=== PATIENT | female | born 1980 | race Caucasian/White ===

== ENCOUNTER 2021-08-31 09:15 | Outpatient (CLI) | payer OTHER, SELFPAY ==
--- NOTE | 2021-08-31 11:00 | NEURO_ITS ---
Impression: # Complains of numbness of hands. # Mild right Carpal Tunnel Syndrome. # No ulnar neuropathy. # Normal needle/EMG exam. # Clinical correlation recommended. Nerve Conduction Studies Anti Sensory Summary Table Stim Site NR Peak (ms) P-T Amp (?V) Site1 Site2 Delta-P (ms) Dist (cm) Michael (m/s) Left Median Anti Sensory (2-3nd Digit) Wrist 3.1 64.8 Wrist 2-3nd Digit 3.1 14.0 45 Wrist 3.2 75.4 Wrist 2-3nd Digit 3.1 14.0 45 Right Median Anti Sensory (2-3nd Digit) Wrist 3.3 49.5 Wrist 2-3nd Digit 3.3 14.0 42 Wrist 3.2 50.4 Wrist 2-3nd Digit 3.3 14.0 42 Left Radial Anti Sensory (Base 1st Digit) Wrist 1.9 18.4 Wrist Base 1st Digit 1.9 0.0 Right Radial Anti Sensory (Base 1st Digit) Wrist 2.2 15.3 Wrist Base 1st Digit 2.2 0.0 Left Ulnar Anti Sensory (5th Digit) Wrist 2.3 52.4 Wrist 5th Digit 2.3 14.0 61 Right Ulnar Anti Sensory (5th Digit) Wrist 2.4 43.7 Wrist 5th Digit 2.4 14.0 58 Motor Summary Table Stim Site NR Onset (ms) O-P Amp (mV) Site1 Site2 Delta-0 (ms) Dist (cm) Michael (m/s) Left Median Motor (Abd Poll Brev) Wrist 3.3 3.9 Elbow Wrist 5.1 28.0 55 Elbow 8.4 4.0 Right Median Motor (Abd Poll Brev) Wrist 3.4 5.0 Elbow Wrist 4.5 26.0 58 Elbow 7.9 4.4 Left Ulnar Motor (Abd Dig Minimi) Wrist 2.5 6.2 A Elbow Wrist 4.8 29.0 60 A Elbow 7.3 5.4 Right Ulnar Motor (Abd Dig Minimi) Wrist 2.3 6.1 A Elbow Wrist 4.7 27.0 57 A Elbow 7.0 5.6 F Wave Studies NR F-Lat (ms) L-R F-Lat (ms) Left Median (Mrkrs) (Abd Poll Brev) 27.54 0.85 Right Median (Mrkrs) (Abd Poll Brev) 28.39 0.85 Left Ulnar (Mrkrs) (Abd Dig Min) 27.29 0.47 Right Ulnar (Mrkrs) (Abd Dig Min) 27.76 0.47 EMG Side Muscle Nerve Root Ins Act Fibs Amp Dur Recrt Comment Right 1stDorInt Ulnar C8-T1 Nml Nml Nml Nml Nml Right Ext Indicis Radial (Post Int) C7-8 Nml Nml Nml Nml Nml Right Ext Digitorum Radial (Post Int) C7-8 Nml Nml Nml Nml Nml Right BrachioRad Radial C5-6 Nml Nml Nml Nml Nml Right PronatorTeres Median C6-7 Nml Nml Nml Nml Nml Right Abd Poll Brev Median C8-T1 Nml Nml Nml Nml Nml Left 1stDorInt Ulnar C8-T1 Nml Nml Nml Nml Nml Left Ext Indicis Radial (Post Int) C7-8 Nml Nml Nml Nml Nml Left Ext Digitorum Radial (Post Int) C7-8 Nml Nml Nml Nml Nml Left BrachioRad Radial C5-6 Nml Nml Nml Nml Nml Left PronatorTeres Median C6-7 Nml Nml Nml Nml Nml Left Abd Poll Brev Median C8-T1 Nml Nml Nml Nml Nml MTDD
== END 2021-08-31 09:16 | disposition home or self-care (01) ==
PROVIDERS: PCP Internal Medicine Infectious Disease; Visit Provider Internal Medicine Infectious Disease
DX: G56.01 Carpal tunnel syndrome, right upper limb (principal); G62.9 Polyneuropathy, unspecified
CPT/HCPCS: 95886; 95911

== ENCOUNTER 2021-10-06 20:58 | Emergency (ER) | payer OTHER, SELFPAY ==
--- NOTE | ~2021-10-06 | XR_ITS ---
EXAMINATION: XR shoulder RT min 2V DATE: 10/06/2021 21:22 INDICATION: Right shoulder pain. TECHNIQUE: 4 views of right shoulder were obtained. COMPARISON: None. FINDINGS: Bone alignment is normal. No fracture. Joint spaces are well maintained. IMPRESSION: 1. Normal right shoulder. Reviewed, dictated and finalized at location A. 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 Normal right shoulder.
[2021-10-06 21:01] VITALS: BP 128/86; PULSE 93; RESP 19; TEMP 36.6; O2SAT 98
[2021-10-06] MEDS: KETOROLAC (*BKC) 60 MG/2 ML VIAL IM (22:45)
[2021-10-06] MEDS: HYDROcodone/acetaminophen (*CRX) 5-325 MG TABLET 1 TAB PO (22:45)
--- NOTE | 2021-10-06 22:52 | ED.UPPEXIN ---
HPI - Extremity Injury (Upper) General Chief Complaint: Extremity Injury, Upper Stated Complaint: Right shoulder pain x1 day Time Seen by Provider: 10/06/21 21:54 Source: patient and RN notes reviewed Mode of arrival: ambulatory Limitations: no limitations History of Present Illness HPI narrative: This is 41 year old female right hand dominant who presents for evaluation of right shoulder pain. Last night she states she went to catch a log that was falling and she catch with right arm in awkward position. She has been having worsening pain to right shoulder since this injury. Her pain is worse with abduction of right arm. She denies any numbness or tingling. She took 500 mg naproxen last night without relief. Related Data Allergies Allergy/AdvReac Type Severity Reaction Status Date / Time No Known Allergies Allergy Verified 10/06/21 21:08 Review of Systems Review of Systems: All systems reviewed & are unremarkable except as noted in HPI and below PMFSH Past Medical History Medical History (Updated 10/06/21 @ 23:51 by Tiffany Lackey MD) Anxiety Carpal tunnel syndrome, bilateral Depression Surgical History Surgical History (Updated 10/06/21 @ 23:50 by Tiffany Lackey MD) Hx of tonsillectomy Social History Social History (Updated 10/06/21 @ 23:49 by Tiffany Lackey MD) Smoking status: Current every day smoker Exam Const: General: no acute distress and alert Orientation/consciousness: patient oriented x3 Eyes: EOM: EOMs intact bilaterally Resp: Effort & Inspection: normal respiratory effort Skin: General skin exam: normal color Rashes: no rashes Neuro: General: patient oriented x3 and moves all extremities Extrem: Other: strong bilateral radial pulse, neurovascularly intact . pain with abduction Psych: Mental Status: mental status grossly normal Affect: normal affect Course Reevaluation(s) Reevaluation #1: I Discussed with patient xray was normal. I Discussed discharge plan and management. She reports she is seeing an orthopedic surgeon. Date: 10/06/21 Time: 23:00 Vital Signs Vital signs: Vital Signs Temperature 97.8 F 10/06/21 21:01 Pulse Rate 93 10/06/21 21:01 Respiratory Rate 19 10/06/21 21:01 Blood Pressure 128/86 10/06/21 21:01 Pulse Oximetry 98 01/19/22 21:01 Temperature 97.8 F 10/06/21 21:01 Pulse Rate 80 10/07/21 00:11 Respiratory Rate 16 10/07/21 00:11 Blood Pressure 128/86 10/06/21 21:01 Pulse Oximetry 100 10/07/21 00:11 MDM - Extremity Injury (Upper) Imaging Data Radiologist's impression: ITS Impressions Shoulder X-Ray 10/06/21 21:24 IMPRESSION: 1. Normal right shoulder. Discharge Plan Discharge Clinical Impression: Right shoulder injury Qualifiers: Encounter type: initial encounter Qualified Code(s): S49.91XA - Unspecified injury of right shoulder and upper arm, initial encounter Patient Disposition: Home, Self-Care Condition: Stable Instructions: How to Use a Sling (ED), Shoulder Pain (ED), Exercises for Shoulder Abduction and Adduction (ED) Additional Instructions: Follow up with your orthopedic surgeon or your primary care provider for your shoulder injury. Wear sling for comfort. Take antiinflammatories. Prescriptions: New ibuprofen 800 mg tablet 800 mg PO Q6H PRN (Reason: pain) Qty: 14 RF: 0 cyclobenzaprine 10 mg tablet 10 mg PO TID PRN (Reason: muscle spasm) Qty: 10 RF: 0 Follow-up/Referrals: Sue,Fabricio العراقي [Primary Care Provider] - Stand Alone Forms: Work/School Release IP
[2021-10-07 00:11] VITALS: PULSE 80; RESP 16; O2SAT 100
== END 2021-10-07 00:12 | disposition home or self-care (01) ==
PROVIDERS: Emergency Provider General Practice; PCP Internal Medicine Infectious Disease
DX: S49.91XA Unspecified injury of right shoulder and upper arm, initial encounter (principal); F32.9 Major depressive disorder, single episode, unspecified; F41.9 Anxiety disorder, unspecified; X50.0XXA Overexertion from strenuous movement or load, initial encounter
CPT/HCPCS: 73030; 99283; A4565; A9270; J1885

== ENCOUNTER 2023-07-18 08:41 | Outpatient (CLI) | payer OTHER, SELFPAY ==
--- NOTE | ~2023-07-18 | XR_ITS ---
EXAMINATION: XR_ENEMABAC_CR DATE: 07/18/2023 10:08 INDICATION: Incomplete colonoscopy TECHNIQUE: A automation qtp tester radiograph was obtained. A catheter was inserted into the patient's rectum. Contra st was infused by gravity. Gas was infused by hand pump. Fluoroscopic spot images and conventional ra diographs were obtained. Fluoroscopy exposure time was 2.6 minutes. A total of 53 fluoroscopic images and 16 radiographs were obtained. COMPARISON: None. FINDINGS: There is some redundancy and tortuosity to the sigmoid colon and hepatic flexure. This results in sub optimal contrast coating of the cecum. There is a featureless ahaustral appearance to the sigmoid and descending colon. There is a normal haustral fold pattern in the more proximal ascending and transve rse colon. No fixed strictures or intraluminal masses. There are a couple small diverticula at the ce cum. The appendix opacifies with contrast. IMPRESSION: 1. Featureless ahaustral pattern to the descending and sigmoid colon. This can be seen in setting of chronic inflammatory bowel disease more commonly ulcerative colitis and less frequently Crohn's disea se. Differential also includes cathartic colitis in the setting of chronic laxative use. Reviewed, dictated and finalized at location A. IMPRESSION: 1. Featureless ahaustral pattern to the descending and sigmoid colon. This can be seen in setting of chronic inflammatory bowel disease more commonly ulcerati ve colitis and less frequently Crohn's disease. Differential also includes cath artic colitis in the setting of chronic laxative use.
== END 2023-07-18 08:42 | disposition home or self-care (01) ==
PROVIDERS: PCP Internal Medicine Infectious Disease; Visit Provider Internal Medicine Gastroenterology
DX: R93.3 Abnormal findings on diagnostic imaging of other parts of digestive tract (principal)
CPT/HCPCS: 74280

== ENCOUNTER 2023-10-31 11:32 | Emergency (ER) | payer OTHER, SELFPAY ==
--- NOTE | ~2023-10-31 | CT_ITS ---
EXAMINATION: CT soft tissue neck w con DATE: 10/31/2023 15:35 INDICATION: Face and neck swelling. Facial pain. TECHNIQUE: Computed tomography (CT) of the neck was performed with 75 mL Omnipaque-350 intravenous co ntrast. Automated exposure control and iterative reconstruction technique were employed. The dose-mattie gth product was 556.04 mGy-cm. COMPARISON: None FINDINGS: There is plaque in the proximal internal carotids is 0% stenosis relative to normal distal artery lumen diameters. There is a mildly enlarged left submandibular node. There is leftward deviati on of the nasal septum. The mastoid air cells are normal. There are carious lesions of teeth 3, 5, 8, 9, 10, 13,19, and 30. IMPRESSION: 1. Extensive dental disease. 2. Mildly enlarged left submandibular lymph node, likely reactive. Reviewed, dictated and finalized at location A. [employer]
[2023-10-31 11:37] VITALS: BP 113/58; PULSE 102; RESP 18; TEMP 36.3; O2SAT 98
--- NOTE | 2023-10-31 13:50 | ED.GENADULT ---
HPI - General Adult General Chief complaint: Unspecified <JOON Spencer Last Filed: 10/31/23 14:02> Stated complaint: facial pain <JOON Spencer Last Filed: 10/31/23 14:02> Time Seen by Provider: 10/31/23 13:40 <Doreen Hernandez PA-C - Last Filed: 10/31/23 14:02> Focused HPI: Patient is a 43 y/o female who presents to the ED with c/o facial pain and swelling. Patient reports hx of 4 different forms of lichen planus. She sees a specialist with [facility] for this. She reports a lesion on her left lower lip that she states cracked from dryness 2 months ago and became subsequently infected. She began noticing increased pain and swelling to her face, jaw, neck on Monday, which has continued to worsen since then. She performed a virtual visit with the customer support assistant clinic on Monday and was started on Keflex. She denies any changes in her symptoms since then. She has been taking Tylenol for the pain. Reports painful swallowing, bilateral ear pain, denies difficulty breathing. Denies fevers. Denies ear drainage or changes in hearing. GENERAL: Well-appearing, well-nourished, and in no acute distress. HEAD: Normocephalic, atraumatic. ENT: Scabbed lesion to L lower lip. MMs, lips, tongue dry. No oral lesions noted. NECK: Diffuse lymphadenopathy noted in bilateral anterior cervical/submandibular regions, somewhat firm, tender. CHEST: Clear to auscultation. ?No respiratory distress. No stridor. HEART: Regular rate and rhythm.? NEURO: ?Alert and oriented x3. Patient screened in triage and initial orders placed.? ?Additional care and disposition to be based upon?diagnostic testing and treatment. <JOON Spencer Last Filed: 10/31/23 14:02> Related Data Home medications: Home Medications Medication Instructions Recorded Confirmed cephalexin 500 mg capsule mg 10/31/23 clobetasol 0.05 % topical cream topical 10/31/23 lorazepam 0.5 mg tablet mg 10/31/23 omeprazole 20 mg capsule,delayed mg 10/31/23 release risperidone 2 mg tablet mg 10/31/23 triamcinolone acetonide 0.1 % applic topical 10/31/23 10/31/23 topical cream venlafaxine 75 mg capsule,extended mg PO 10/31/23 release 24 hr <Doreen Hernandez PA-C - Last Filed: 10/31/23 14:02> Allergies/adverse reactions: Allergies Allergy/AdvReac Type Severity Reaction Status Date / Time hydroxychloroquine AdvReac Back Pain Verified 10/31/23 11:41 [From Plaquenil] <Doreen Hernandez PA-C - Last Filed: 10/31/23 14:02> Review of Systems Review of Systems: All systems are reviewed and are negative unless stated otherwise in the HPI. <Mckenzie Fine MD - Last Filed: 10/31/23 16:49> PMFSH Past Medical History Medical History: Medical History Anxiety Carpal tunnel syndrome, bilateral Depression Fatty liver History of HPV infection <Doreen Hernandez PA-C - Last Filed: 10/31/23 14:02> Surgical History Surgical History: Surgical History Delivery by section x 2 H/O colposcopy with cervical biopsy (08/26/04) colposcopy HGSIL PATY 2-3 H/O colposcopy with cervical biopsy (05/29/01) colpsocopy- LGSIL mild dysplasia H/O colposcopy with cervical biopsy (~11/15/21) H/O LEEP (10/07/04) LEEP LGSIL PATY 1/ chronic cervicitis H/O tubal ligation Hx of tonsillectomy <JOON Spencer Last Filed: 10/31/23 14:02> Family History Family History: Family History Father Diabetes mellitus Acute myocardial infarction Grandparent Arthritis maternal grandmother H/O ovarian cancer maternal Grandmother <Doreen Hernandez PA-C - Last Filed: 10/31/23 14:02> Social History Social History: Social History (Reviewed 10/31/23 @ 16:46 by Mckenzie Fine,
--- NOTE | 2023-10-31 14:04 | PC.NURSE ---
Pt presents with c/o facial swelling, erosive sore to mouth. States she has lichen planus, noticed swelling that has worsen with pain. Had virtual visit 2 days ago RX for Keflex. Pt feels her lichen planus has exacerbated. Mild swelling noted with flush face. No erosive lesion noted.
[2023-10-31 14:20] LABS: Basophils Absolute Auto 0.1 K/mm3 (0.0-0.1); Basophils Percent Auto 0.7 % (0.2-1.2); Eosinophils Absolute Auto 0.2 K/mm3 (0-0.3); Eosinophils Percent Auto 1.9 % (0-4.4); Hematocrit 41.8 % (37.0-47.0); Hemoglobin 13.8 g/dL (12.0-15.0); Immature Granulocyte Absolute 0.06 K/mm3 (0.00-0.031); Immature Granulocyte Percent A 0.7 % (0-0.5); Lymphocytes Percent Auto 33.4 % (18.3-44.2); Mean Corpuscular Hemoglobin 32.2 pg (26-34); Mean Corpuscular Volume 97.7 fl (80-100); Mean Platelet Volume 9.9 fl (7.4-10.4); Neutrophils Absolute Auto 4.7 K/mm3 (1.3-6.7); Neutrophils Percent Auto 52.3 % (45.5-73.1); Platelet Count Result 361 k/mm3 (150-375); Red Blood Count 4.28 M/mm3 (4.2-5.4); Red Cell Distribution Width 12.8 % (11.5-14.5)
[2023-10-31 14:37] LABS: Alanine Aminotransferase 41 U/L (6-35); Albumin Level 4.3 g/dL (3.5-5.1); Alkaline Phosphatase 103 U/L (38-126); Anion Gap 6 mmol/L (8-16); Aspartate Amino Transferase 34 U/L (14-36); Bilirubin,Total 0.4 mg/dL (0.2-1.3); Blood Urea Nitrogen 12 mg/dL (7-17); Calcium 9.3 mg/dL (8.4-10.2); Carbon Dioxide 26 mmol/L (22-30); Chloride 106 mmol/L (98-107); Estimated CRCL calculation 93 ml/min; Estimated Glomerular Filt Rate > 60; Glucose 96 mg/dL (65-110); Sodium 138 mmol/L (137-145)
[2023-10-31 14:38] VITALS: BP 103/64; PULSE 94; RESP 16; O2SAT 99
[2023-10-31 14:41] LABS: Potassium 3.9 mmol/L (3.4-5.0)
[2023-10-31 16:38] VITALS: BP 108/69; PULSE 90; RESP 16; O2SAT 96
[2023-10-31] MEDS: HYDROcodone/acetaminophen (*CRX) 5-325 MG TABLET 1 TAB PO (16:56)
== END 2023-10-31 17:08 | disposition home or self-care (01) ==
LOC: ANHED 16:50
PROVIDERS: Physician Assistant; Emergency Provider Emergency Medicine; PCP Internal Medicine Infectious Disease
DX: K08.89 Other specified disorders of teeth and supporting structures (principal); F17.210 Nicotine dependence, cigarettes, uncomplicated; F41.9 Anxiety disorder, unspecified; F32.A Depression, unspecified
CPT/HCPCS: 36415; 70491; 80053; 85025; 99284; A9270; Q9967

== ENCOUNTER 2024-05-13 14:56 | Outpatient (CLI) | payer OTHER, SELFPAY ==
--- NOTE | ~2024-05-13 | XR_ITS ---
EXAMINATION: XR abdomen/kub 1V DATE: 05/13/2024 15:28 INDICATION: Constipation. TECHNIQUE: A supine view of the abdomen on 2 radiographs was obtained. COMPARISON: None. FINDINGS: There are no dilated loops of bowel. There is a moderate volume of stool in the colon. Ther e are phleboliths in the pelvis. IMPRESSION: 1. Normal bowel gas pattern. Reviewed, dictated and finalized at location A.
--- NOTE | ~2024-05-13 | XR_ITS ---
EXAMINATION: XR thoracic spine 3V DATE: 05/13/2024 15:29 INDICATION: Lumbar back pain. TECHNIQUE: 3 views of thoracic spine were obtained. COMPARISON: None. FINDINGS: There is 7 degrees levocurvature of upper thoracic spine and 6 degrees dextrocurvature of l ower thoracic spine. Vertebral body and intervertebral disc heights are normal. There are endplate os teophytes at multiple levels. IMPRESSION: 1. Mild thoracic spondylosis. Reviewed, dictated and finalized at location A.
--- NOTE | ~2024-05-13 | XR_ITS ---
EXAMINATION: XR lumbar spine 2-3V DATE: 05/13/2024 15:29 INDICATION: Lumbar back pain. TECHNIQUE: 3 views of lumbar spine were obtained. COMPARISON: Lumbar spine radiographs 01/25/2011 FINDINGS: Alignment is normal. Vertebral body heights are normal. There is mildly decreased disc heig ht at L5-S1. There is moderate to severe facet joint osteoarthritis in lower lumbar spine. IMPRESSION: 1. Mild lumbar spondylosis. Reviewed, dictated and finalized at location A. IMPRESSION: 1. Mild lumbar spondylosis.
== END 2024-05-13 14:57 | disposition home or self-care (01) ==
LOC: ANHIMG 14:59
PROVIDERS: PCP Internal Medicine Infectious Disease; Visit Provider Physician Assistant
DX: M43.06 Spondylolysis, lumbar region (principal); M43.04 Spondylolysis, thoracic region
CPT/HCPCS: 72072; 72100; 74018

== ENCOUNTER 2024-07-04 15:21 | Outpatient (CLI) | payer OTHER, SELFPAY ==
--- NOTE | ~2024-07-04 | XR_ITS ---
XR knee RT 3V 07/04/2024 16:11 INDICATION: Arthralgias PROCEDURE: 3 views right knee COMPARISON: No prior studies for comparison. FINDINGS: Fracture, dislocation or subluxation is not identified. No significant degenerative change. No joint effusion. The soft tissues appear within normal limits. No foreign bodies are identified. IMPRESSION: 1: No significant bone or joint abnormality. Reviewed, dictated and finalized at location B.
--- NOTE | ~2024-07-04 | XR_ITS ---
EXAMINATION: XR_FOOTSTNDR3_CR DATE: 07/04/2024 16:10 INDICATION: Right foot pain. TECHNIQUE: 3 views of right foot standing were obtained. COMPARISON: None. FINDINGS: Alignment is normal. No fracture. There is mild osteoarthritis of first metatarsophalangeal joint. There are enthesophytes at the posterior and plantar aspects of calcaneal tuberosity. IMPRESSION: 1. Mild osteoarthritis of first metatarsophalangeal joint. Reviewed, dictated and finalized at location A.
--- NOTE | ~2024-07-04 | XR_ITS ---
XR knee LT 3V 07/04/2024 16:11 INDICATION: Arthralgias PROCEDURE: 3 views left knee COMPARISON: No prior studies for comparison. FINDINGS: Fracture, dislocation or subluxation is not identified. No significant degenerative change. No joint effusion. The soft tissues appear within normal limits. No foreign bodies are identified. IMPRESSION: 1: No significant bone or joint abnormality. Reviewed, dictated and finalized at location B.
--- NOTE | ~2024-07-04 | XR_ITS ---
EXAMINATION: XR_FOOTSTNDL3_CR DATE: 07/04/2024 16:10 INDICATION: Left foot pain. TECHNIQUE: 3 views of left foot standing were obtained. COMPARISON: None. FINDINGS: Alignment is normal. No fracture. There is mild osteoarthritis of first metatarsophalangeal joint. There is mild talonavicular joint osteoarthritis. IMPRESSION: 1. Mild polyarticular osteoarthritis. Reviewed, dictated and finalized at location A.
--- NOTE | ~2024-07-04 | XR_ITS ---
EXAMINATION: XR hand BI arthritis min 3V DATE: 07/04/2024 16:11 INDICATION: Arthralgia of the hands. TECHNIQUE: 4 views of right hand and 4 views of left hand on a total of 7 radiographs were obtained. COMPARISON: None. FINDINGS: RIGHT HAND: Alignment is normal. No acute fracture. There is an old healed fracture of diaphysis of f ifth metacarpal. There is mild osteoarthritis of first carpometacarpal joint, second metacarpophalang eal joint, and some of the interphalangeal joints. There is moderate osteoarthritis of second distal interphalangeal joint. LEFT HAND: Alignment is normal. No fracture. There is mild osteoarthritis of first carpometacarpal anup int, first carpophalangeal joint, and some of the interphalangeal joints. There is moderate osteoarth ritis of first interphalangeal joint. IMPRESSION: 1. Polyarticular osteoarthritis. Reviewed, dictated and finalized at location A.
== END 2024-07-04 15:22 | disposition home or self-care (01) ==
PROVIDERS: PCP Internal Medicine Infectious Disease
DX: M19.071 Primary osteoarthritis, right ankle and foot (principal); M19.072 Primary osteoarthritis, left ankle and foot; M19.042 Primary osteoarthritis, left hand; M19.041 Primary osteoarthritis, right hand; M25.562 Pain in left knee; M25.561 Pain in right knee
CPT/HCPCS: 73130; 73562; 73630

== ENCOUNTER 2024-08-30 08:03 | Outpatient (CLI) | payer OTHER, SELFPAY ==
--- NOTE | ~2024-08-30 | MR_ITS ---
MRI of the right hand CLINICAL HISTORY: Arthralgia TECHNIQUE: Axial T1-weighted, T2 fat-sat, and T1 fat-sat images, coronal T1-weighted and T2 fat-sat i mages, and sagittal T1-weighted and T2 fat-sat images were performed. Following intravenous administr ation of 20 cc MultiHance gadolinium, T1-weighted fat-sat imaging was performed in the axial, coronal , and sagittal planes. FINDINGS: Exam is suboptimal, as fat suppression is extremely poor and T2 fat-sat sequences. No abnor mal hypointense T1 marrow signal seen to suggest osteomyelitis. No fracture or dislocation evident. N o gross marrow signal reality seen. There is probable minimal degenerative change at the first CMC joint. There may be minimal degenerati ve changes scattered the interphalangeal joints of the fingers. Flexor and extensor tendons appear intact. Intrinsic musculature of the hand unremarkable. No soft ti ssue mass or fluid collection seen. Postcontrast images are also significantly suboptimal, with very poor fat suppression. No gross abnor mal postcontrast enhancement identified. IMPRESSION: Minimal degenerative changes at the interphalangeal joints and first CMC joint, as above. Exam overall is suboptimal as there is extremely poor fat suppression on T2 fat-sat images and postco ntrast sequences. Reviewed, dictated and finalized at location . 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 Exam overall is suboptimal as there is extremely poor fat suppression on T2 fat -sat images and postcontrast sequences.
--- NOTE | ~2024-08-30 | MR_ITS ---
EXAMINATION: MR foot RT wo/w con DATE: 08/30/2024 10:02 INDICATION: Arthralgia at the right foot TECHNIQUE: Magnetic resonance imaging (MRI) of the right foot was performed without intravenous contr ast. Sequences included axial, sagittal and coronal T1-weighted FSE, axial and coronal T2-weighted FS FSE, sagittal fluid sensitive FSE STIR, axial T1-weighted FS FSE and postcontrast axial, sagittal an d coronal T1-weighted FS FSE. COMPARISON: Right foot radiographs dated 07/04/2024 FINDINGS: Bone alignment is normal. Moderate osteoarthritis with subarticular edema-like signal changes and non masslike enhancement at both sides of the fourth and tarsal metatarsal joint. Additional mild osteoa rthritis without degenerative subchondral changes at the remaining tarsal metatarsal joints as well a s the first metatarsophalangeal joint and a few interphalangeal joints. No fracture or pathologic mar row replacing process. The Achilles tendon and remaining flexor and extensor tendons of the foot and ankle are normal with no tenosynovitis. No joint effusions or other abnormal fluid collections. No ab normally enhancing lesions. There is subcutaneous edema about the ankle most prominent at the lateral malleolus and which extends over the dorsolateral aspect of the foot. IMPRESSION: 1. Typical distribution of polyarticular osteoarthritis in the right mid and forefoot, moderate sever ity with high-grade chondral malacia at the fourth tarsal metatarsal joint and otherwise mild. Reviewed, dictated and finalized at location A. 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 Typical distribution of polyarticular osteoarthritis in the right mid and fo refoot, moderate severity with high-grade chondral malacia at the fourth tarsal metatarsal joint and otherwise mild.
== END 2024-08-30 08:04 | disposition home or self-care (01) ==
PROVIDERS: PCP Internal Medicine Infectious Disease
DX: M19.071 Primary osteoarthritis, right ankle and foot (principal); M94.271 Chondromalacia, right ankle and joints of right foot; M25.541 Pain in joints of right hand
CPT/HCPCS: 73220; 73720; A9577

== ENCOUNTER 2024-10-19 19:36 | Emergency (ER) | payer OTHER, SELFPAY ==
--- NOTE | ~2024-10-19 | XR_ITS ---
EXAM: XR hand LT min 3V DATE: 10/19/2024 19:54 HISTORY: left 5th metacarpal pain . COMPARISON: 07/04/2024. FINDINGS: Normal mineralization. Oblique, minimally displaced intra-articular fracture along the ant erolateral and proximal aspect of the left fifth middle phalanx. No lytic or blastic lesion. Joint sp aces are maintained. No erosion or periosteal change. Soft tissue swelling over the fracture. IMPRESSION: Oblique, minimally displaced intra-articular fracture along the anterolateral and proxima l aspect of the left fifth middle phalanx. Reviewed, dictated and finalized at location [facility]. [employer] DOOR [employer] GENERATION IMPRESSION: Oblique, minimally displaced intra-articular fracture along the ant erolateral and proximal aspect of the left fifth middle phalanx.
--- NOTE | 2024-10-19 19:37 | ED.UPPEXIN ---
HPI - Extremity Injury (Upper) General Chief Complaint: Extremity Injury, Upper Stated Complaint: Injured Finger Time Seen by Provider: 10/19/24 19:37 Source: patient Mode of arrival: ambulatory Limitations: no limitations History of Present Illness HPI narrative: Destiny is a 44-year-old female patient presenting to the clinic today with complaints a finger injury/hand injury. She reports she fell last night and landed on her left side. Is complaining of some left hand and left 5th finger injury. Has pain and swelling to the left 5th finger. Is unable to bend the left finger due to the swelling. Related Data Home Medications ?Medication ?Instructions ?Recorded ?Confirmed ?Last Taken ?Type clobetasol 0.05 % topical cream topical 10/31/23 07/02/24 Unknown History lorazepam 0.5 mg tablet mg 10/31/23 07/02/24 Unknown History triamcinolone acetonide 0.1 % applic topical 10/31/23 07/02/24 Unknown History topical cream venlafaxine 75 mg capsule,extended mg PO 10/31/23 07/02/24 Unknown History release 24 hr dexamethasone 0.5 mg/5 mL oral 0.5 mg PO BID 01/10/24 07/02/24 Unknown History solution nystatin 100,000 unit/mL oral 1 ml PO DAILY 01/10/24 07/02/24 Unknown History suspension timolol maleate 0.5 % eye drops 1 drp EACH EYE Q12H 01/10/24 07/02/24 Unknown History celecoxib 200 mg capsule 200 mg PO BID 07/02/24 07/02/24 Unknown History furosemide 20 mg tablet 20 mg PO 07/02/24 07/02/24 Unknown History pantoprazole 40 mg tablet,delayed mg PO 07/02/24 07/02/24 Unknown History release lamotrigine 25 mg tablet (Lamictal) 100 mg PO DAILY 08/29/24 Unknown History phentermine 37.5 mg tablet 37.5 mg PO 08/29/24 Unknown History Allergies Allergy/AdvReac Type Severity Reaction Status Date / Time hydroxychloroquine (From AdvReac Back Pain Verified 08/29/24 09:27 Plaquenil) Review of Systems Review of Systems: Pertinent positives per HPI. Patient denies any fever, chills, rash, headache, visual changes, dizziness, cough, runny nose, sore throat, shortness of breath, chest pain, palpitations, nausea, vomiting, diarrhea, constipation, abdominal pain, or any urinary issues. [facility] Past Medical History Medical History Spondylosis GERD (gastroesophageal reflux disease) Chronic venous insufficiency Lichen planus classic , oral , vulvar History of HPV infection Fatty liver Anxiety Depression Carpal tunnel syndrome, bilateral Surgical History Surgical History History of mandibular surgery parts of jaw bone removed H/O colposcopy with cervical biopsy (~11/15/21) Benign H/O colposcopy with cervical biopsy (05/29/01) colpsocopy- LGSIL mild dysplasia H/O colposcopy with cervical biopsy (08/26/04) colposcopy HGSIL PATY 2-3 H/O LEEP (10/07/04) LEEP LGSIL PATY 1/ chronic cervicitis H/O tubal ligation Delivery by section x 2 Hx of tonsillectomy Family History Family History Father Diabetes mellitus Acute myocardial infarction Grandparent Arthritis maternal grandmother H/O ovarian cancer maternal Grandmother Social History Social History Smoking status: Former smoker Tobacco type: cigarettes Second hand tobacco smoke exposure: Yes Smoking end date: 02/24/24 Alcohol intake: current Drinks per week: 5 Substance use: never Substance use type: does not use Do You Feel Safe in your Home?: Yes Lack of Transportation: No Lack of Food: Never True Current Housing: I Have Housing Concerned About Future Housing: No Difficulty Paying Gas/Electric Bills: No Difficulty Paying for Meds: No Currently Unemployed: No Education: Trade/Vocational Certificate Difficulty w/ Childcare or Family Care: No Living arrangements: with family Additional living arrangements comments: boyfriend Occupation/Education: occupation Additional occupation/education comments: [employer] Gender identity (if verbalized by the patient): Female Sexual Orientation (if Verbalized by the Patient): Straight or Heterosexual Comments At the time of my signature, I reviewed and agree with the nursing past medical, surgical, social, and family history. There is no relevant family history pertinent to the patient complaint. Exam Narrative: General: Well-developed, well nourished, in no apparent distress Head: Normocephalic, atraumatic. Cardio: Regular rate and rhythm, s1 and s2 normal, no murmur appreciated. Resp: Clear to auscultation bilaterally, no rhonchi, rales, wheezing or rubs. Musculoskeletal: No deformity, bruising and swelling noted to the left 5th finger, tender to palpation over the left 5th finger and left 5th metacarpal, unable to bend or fully extend the left 5th finger due to pain and swelling, muscle strength strong and equal, peripheral pulse strong,no cyanosis, normal gait and station Course Course Emergency Course: Portions of this record may have been created with voice recognition software. Level of Care: Express Care Visit Vital Signs Vital signs: Vital Signs Temperature 36.2 C L 10/19/24 19:47 Pulse Rate 93 10/19/24 19:47 Respiratory Rate 16 10/19/24 19:47 Blood Pressure 133/95 H 10/19/24 19:47 Pulse Oximetry 98 10/19/24 19:47 Temperature 36.2 C L 10/19/24 19:47 Pulse Rate 93 10/19/24 19:47 Respiratory Rate 16 10/19/24 19:47 Blood Pressure 133/95 H 10/19/24 19:47 Pulse Oximetry 98 10/19/24 19:47 Vital signs reviewed MDM - Extremity Injury (Upper) MDM Narrative Medical decision making narrative: At the time of visit patient is resting comfortably on the exam table. Patient appears to be nontoxic. X-ray: X-ray of the left hand was performed and shows a left 5th phalanx fracture Plan: Patient has a closed left 5th finger fracture. While patient follow-up with hand specialist-Dr. Bryan-call to schedule appointment on Monday. Supportive measures were discussed with the patient and they voiced understanding discharge instructions and agrees to treatment plan. Return precautions reviewed Differential Diagnosis Differential diagnosis: Likely sprain and strain of wrist, fracture of wrist, finger sprain, dislocation of finger, fracture of hand and other (Finger fracture) Discharge Plan Discharge Clinical Impression: Finger fracture, left Qualifiers: Encounter type: initial encounter Finger: little finger Fracture type: closed Phalanx: middle Fracture alignment: nondisplaced Qualified Code(s): S62.657A - Nondisplaced fracture of middle phalanx of left little finger, initial encounter for closed fracture Patient Disposition: Home, Self-Care Condition: Stable Instructions: Antibiotic Form, Finger Fracture (ED) Additional Instructions: X-ray shows an obvious close fracture of the left 5th middle phalanx. Rest, ice, elevate, and wear volar ulnar gutter splint with arm sling as directed Tylenol/motrin for pain as discussed. Follow-up with Dr. Bryan as discussed-call office on Monday and schedule appointment Follow up with your PCP if symptoms persist more than 1 week. Patient Language: Greek Prescriptions: No Action timolol maleate 0.5 % drops 1 drp EACH EYE Q12H dexamethasone 0.5 mg/5 mL solution 0.5 mg PO BID nystatin 100,000 unit/mL suspension 1 ml PO DAILY Rx Instructions: swish and swallow lamotrigine [Lamictal] 25 mg tablet 100 mg PO DAILY furosemide 20 mg tablet 20 mg PO pantoprazole 40 mg tablet,delayed release (DR/EC) PO celecoxib 200 mg capsule 200 mg PO BID phentermine 37.5 mg tablet 37.5 mg PO metronidazole 500 mg tablet 500 mg PO Q12H Qty: 14 0RF venlafaxine 75 mg capsule,extended release 24hr PO clobetasol 0.05 % Cream TOPICAL triamcinolone acetonide 0.1 % Cream TOPICAL lorazepam 0.5 mg tablet metronidazole 1.3 % (65 mg/5 gram) gel 1 appful vaginal QHS Qty: 5 0RF Rx Instructions: insert l applicatorful at bedtime for 5 nights Follow-up/Referrals: Michelle Bryan MD [Physician] - (Left 5th closed finger fracture) PHYSICIAN,GYROSCOPIC INSTRUMENT TESTER [Primary Care Provider] - Stand Alone Forms: Work/School Release IP Time of Disposition: 20:23 Quality NIHSS Nursing Documentation ED NIHSS nursing documentation: reviewed/agree
[2024-10-19 19:47] VITALS: BP 133/95; PULSE 93; RESP 16; TEMP 36.2; O2SAT 98
== END 2024-10-19 20:23 | disposition home or self-care (01) ==
PROVIDERS: Emergency Provider Nurse Practitioner Family
DX: S62.657A Nondisplaced fracture of middle phalanx of left little finger, initial encounter for closed fracture (principal); W19.XXXA Unspecified fall, initial encounter; K21.9 Gastro-esophageal reflux disease without esophagitis; K76.0 Fatty (change of) liver, not elsewhere classified; F41.9 Anxiety disorder, unspecified; F32.A Depression, unspecified; L43.9 Lichen planus, unspecified; Z87.891 Personal history of nicotine dependence
CPT/HCPCS: 29125; 73130; 99214; A4565; G0463

== ENCOUNTER 2024-11-14 09:54 | Emergency (ER) | payer OTHER, SELFPAY ==
[2024-11-14 10:07] VITALS: BP 122/70; PULSE 92; RESP 16; TEMP 36.3; O2SAT 100
--- NOTE | 2024-11-14 10:57 | ED.GENADULT ---
HPI - General Adult General Chief complaint: Extremity Injury, Upper Stated complaint: Left Hand Irritation Time Seen by Provider: 11/14/24 10:57 Source: patient, RN notes reviewed and old records reviewed Mode of arrival: ambulatory Limitations: no limitations History of Present Illness HPI narrative: 44-year-old presents to the [facility] with concerns splint. Patient has a fracture to the left 5th finger. Is being followed by Dr. Badillo. patient states that since she has had her splint on, it comes off at night. States that it has come off by itself 3 times. States that she also got it wet in feels like it is softer than normal. patient presents to have the splint reapplied Related Data Home Medications ?Medication ?Instructions ?Recorded ?Confirmed ?Last Taken ?Type venlafaxine 75 mg capsule,extended mg PO 10/31/23 07/02/24 Unknown History release 24 hr celecoxib 200 mg capsule 200 mg PO BID 07/02/24 07/02/24 Unknown History furosemide 20 mg tablet 20 mg PO 07/02/24 07/02/24 Unknown History pantoprazole 40 mg tablet,delayed mg PO 07/02/24 07/02/24 Unknown History release phentermine 37.5 mg tablet 37.5 mg PO 08/29/24 Unknown History lamotrigine 100 mg tablet mg 11/14/24 Unknown History plecanatide 3 mg tablet (Trulance) mg 11/14/24 Unknown History Allergies Allergy/AdvReac Type Severity Reaction Status Date / Time hydroxychloroquine (From AdvReac Back Pain Verified 11/14/24 10:04 Plaquenil) Review of Systems Review of Systems: All systems reviewed & are unremarkable except as noted in HPI and below Constitutional: Constitutional: Reports no additional constitutional complaints ENT: Reports system reviewed and no additional complaints, except as documented Cardiovascular: Cardiovascular: Reports no additional cardiovascular complaints, Denies chest pain and Denies dyspnea Respiratory: Respiratory: Reports no additional respiratory complaints, Denies chest congestion, Denies cough and Denies dyspnea Musculoskeletal: Musculoskeletal: Reports as per HPI Integumentary/Breasts: Skin/Breast: Reports system reviewed and no additional complaints, except as docu [facility] Past Medical History Medical History Spondylosis GERD (gastroesophageal reflux disease) Chronic venous insufficiency Lichen planus classic , oral , vulvar History of HPV infection Fatty liver Anxiety Depression Carpal tunnel syndrome, bilateral Surgical History Surgical History History of mandibular surgery parts of jaw bone removed H/O colposcopy with cervical biopsy (~11/15/21) Benign H/O colposcopy with cervical biopsy (05/29/01) colpsocopy- LGSIL mild dysplasia H/O colposcopy with cervical biopsy (08/26/04) colposcopy HGSIL PATY 2-3 H/O LEEP (10/07/04) LEEP LGSIL PATY 1/ chronic cervicitis H/O tubal ligation Delivery by section x 2 Hx of tonsillectomy Family History Family History Father Diabetes mellitus Acute myocardial infarction Grandparent Arthritis maternal grandmother H/O ovarian cancer maternal Grandmother Social History Social History Smoking status: Former smoker Tobacco type: cigarettes Second hand tobacco smoke exposure: Yes Smoking end date: 02/24/24 Alcohol intake: current Drinks per week: 5 Substance use: never Substance use type: does not use Do You Feel Safe in your Home?: Yes Lack of Transportation: No Lack of Food: Never True Current Housing: I Have Housing Concerned About Future Housing: No Difficulty Paying Gas/Electric Bills: No Difficulty Paying for Meds: No Currently Unemployed: No Education: Trade/Vocational Certificate Difficulty w/ Childcare or Family Care: No Living arrangements: with family Additional living arrangements comments: boyfriend Occupation/Education: occupation Additional occupation/education comments: [employer] Gender identity (if verbalized by the patient): Female Sexual Orientation (if Verbalized by the Patient): Straight or Heterosexual Comments At the time of my signature, I reviewed and agree with the nursing past medical, surgical, social, and family history. There is no relevant family history pertinent to the patient complaint. Exam Const: General: cooperative, healthy appearing, comfortable, no acute distress, well developed, alert and well nourished Nutritional Appearance: well nourished Orientation/consciousness: patient oriented x3 Limitations: no limitations HENMT: Head: normal to inspection Eyes: General: appearance normal, both eyes and all related structures Alignment and Position: alignment normal Neck: Neck: normal visual inspection and full ROM Chest: Chest palpation & inspection: normal inspection of the chest Resp: Effort & Inspection: normal respiratory effort and able to speak in complete sentences Cardio: Rate: regular rate Skin: General skin exam: normal color and no rashes or lesions noted Neuro: General: patient oriented x3, gait normal, moves all extremities and no meningeal signs Cognition (Neuro): normal cognition Speech: normal speech Gait exam (Neuro): Normal gait present Extrem: General: normal to inspection, full ROM, capillary refill normal and normal gait Psych: Appearance: grossly normal and well kempt Mental Status: mental status grossly normal Speech and movement: Normal speech and movement present and Clear speech present Affect: normal affect Attitude: cooperative Course Course Level of Care: Express Care Visit Vital Signs Vital signs: Vital Signs Temperature 97.4 F L 11/14/24 10:07 Pulse Rate 92 11/14/24 10:07 Respiratory Rate 16 11/14/24 10:07 Blood Pressure 122/70 11/14/24 10:07 Pulse Oximetry 100 11/14/24 10:07 Oxygen Delivery Room Air 11/14/24 10:07 Temperature 97.4 F L 11/14/24 10:07 Pulse Rate 92 11/14/24 10:07 Respiratory Rate 16 11/14/24 10:07 Blood Pressure 122/70 11/14/24 10:07 Pulse Oximetry 100 11/14/24 10:07 Oxygen Delivery Room Air 11/14/24 10:07 Reviewed Medical Decision Making MDM Narrative Medical decision making narrative: Patient sitting comfortably in exam room. Nontoxic, vitals stable. Patient in no acute distress Patient presents for re-application of splint. Fiberglass is noted to be within good limits. Web roll reapplied, splint applied. Encourage patient to follow-up with Dr. Badillo. Discharge instructions reviewed with patient, as well as provided in writing per nursing staff. The instructions also include specific and strict return/GO TO THE ER as well as f/u information. All questions have been answered, and the patient deny any further questions with discharge and discharge plan. Some parts of this dictation were generated by voice recognition software and may contain typographical and/or grammatical inaccuracies. Medical Records Medical records reviewed: Yes I reviewed the external patient's medical records. Vital Signs Vital Signs: Vital Signs Temperature 97.4 F L 11/14/24 10:07 Pulse Rate 92 11/14/24 10:07 Respiratory Rate 16 11/14/24 10:07 Blood Pressure 122/70 11/14/24 10:07 Pulse Oximetry 100 11/14/24 10:07 Oxygen Delivery Room Air 11/14/24 10:07 Temperature 97.4 F L 11/14/24 10:07 Pulse Rate 92 11/14/24 10:07 Respiratory Rate 16 11/14/24 10:07 Blood Pressure 122/70 11/14/24 10:07 Pulse Oximetry 100 11/14/24 10:07 Oxygen Delivery Room Air 11/14/24 10:07 Reviewed Lab Data Lab results reviewed: Yes I reviewed the patient's lab results. Labs: Reviewed Critical Care Time Critical Care Time Critical Care Time: No Discharge Plan Discharge Clinical Impression: History of fracture of phalanx of finger Patient Disposition: Home, Self-Care Condition: Stable Instructions: Antibiotic Form, Splint Care (ED) Additional Instructions: follow-up with Dr. Badillo do not remove splint. Try to keep it clean and dry Patient Language: Chinese Prescriptions: No Action lamotrigine 100 mg tablet Trulance 3 mg tablet furosemide 20 mg tablet 20 mg PO pantoprazole 40 mg tablet,delayed release (DR/EC) PO celecoxib 200 mg capsule 200 mg PO BID phentermine 37.5 mg tablet 37.5 mg PO venlafaxine 75 mg capsule,extended release 24hr PO Follow-up/Referrals: Michelle Badillo MD [Physician] - 1 Week Cromwell,Demarcus Chase MD [Primary Care Provider] - 1 Week (express care follow up) Stand Alone Forms: Work/School Release IP Time of Disposition: :
== END 2024-11-14 11:30 | disposition home or self-care (01) ==
PROVIDERS: Emergency Provider Nurse Practitioner; PCP Family Medicine
DX: S62.607A Fracture of unspecified phalanx of left little finger, initial encounter for closed fracture (principal); X58.XXXA Exposure to other specified factors, initial encounter; Z46.89 Encounter for fitting and adjustment of other specified devices; K21.9 Gastro-esophageal reflux disease without esophagitis; F41.9 Anxiety disorder, unspecified; F32.A Depression, unspecified; K76.0 Fatty (change of) liver, not elsewhere classified; L43.9 Lichen planus, unspecified; Z87.891 Personal history of nicotine dependence
CPT/HCPCS: 99211; G0463

== ENCOUNTER 2024-11-19 15:22 | Outpatient (CLI) | payer OTHER, SELFPAY | END 2024-11-19 15:23 | disposition home or self-care (01) | LOC: ANHIMG 15:28 | PROVIDERS: PCP Family Medicine; Visit Provider Plastic Surgery | DX: S62.657A Nondisplaced fracture of middle phalanx of left little finger, initial encounter for closed fracture (principal); X58.XXXA Exposure to other specified factors, initial encounter | CPT/HCPCS: 73140 ==

== ENCOUNTER 2024-12-03 15:06 | Outpatient (CLI) | payer OTHER, SELFPAY ==
--- NOTE | ~2024-12-03 | XR_ITS ---
XR finger 5th LT min 2V Ordering provider: Mell Pimentel PA-C History: . S62.657A - Nondisplaced fracture of middle phalanx of lef... . Comparison: November 19, 2024 FINDINGS: BONES: Fracture at the base of the middle phalanx of the little finger. Cast is removed. JOINT SPACES: Normal. SOFT TISSUES: Normal. IMPRESSION: Healing fracture at the base of the middle phalanx of the little finger. Reviewed, dictated and finalized at location A.
--- OUTSIDE RECORDS SUMMARY | 2024-12-03 17:04 | XMS_ITS | Encounter Summary ---
Author Organization [facility] Address [address] [place] [address] Care Team Providers Care Labor Delivery Specialist Name Role Phone Demarcus Camejo MD Primary Care Provider Reason for Visit * Reason Onset Date Comments MEDICATION REFILL 08/16/2023 Encounter Details Date Type Department Care Team (Late Contact Info) Description 08/16/2023 Refill [facility] - Dermatology [address] [place] [phone] Moriah Bray MD [address] [place], [place] [address] [phone] MEDICATION REFILL Social History Tobacco Use Types Packs/Day Years Used Date Smoking Tobacco: Some Days Cigarettes Smokeless Tobacco: Never Sex and Gender Information Value Date Recorded Sex Assigned at Female 07/17/2023 12:21 AM CDT Gender Identity Female 07/17/2023 12:21 AM CDT Sexual Orientation Straight 07/17/2023 12 :21 AM CDT documented as of this encounter Plan of Treatment Upcoming Encounters Date Type Department Care Team (Late Contact Info) Description 01/29/2025 1:50 PM CDT Office Visit [facility] Derm[facility]ology [address] [place] [phone] Moriah Bray MD [address] [place], [place] [address] [address] 02/19/2025 8:00 AM CDT Appointment [facility] [address] [place] [address] documented as of this encounter Visit Diagnoses Not on filedocumented in this encounter Care Teams Labor Delivery Specialist Relationship Specialty Start Date End Date Demarcus Camejo MD [address] [address] [place] [phone] PCP - General Family Medicine 07/05/24 documented as of this encounter
--- OUTSIDE RECORDS SUMMARY | 2024-12-03 17:04 | XMS_ITS | Encounter Summary ---
Author Organization [facility] Address [address] [place] [address] Care Team Providers Care Study Abroad Advisor Name Role Phone Demarcus Camejo MD Primary Care Provider Encounter Details Date Type Department Care Team (Late st Contact Info) Description 08/08/2023 Telephone [facility] Dermatology [address] [place] [address] [place] [phone] Moriah Bray MD [address] [place], [place] [address] [phone] Social History Tobacco Use Types Packs/Day Years Used Date Smoking Tobacco: Some Days Cigarettes Smokeless Tobacco: Never Sex and Gender Information Value Date Recorded Sex Assigned at Female 07/17/2023 12:21 AM CDT Gender Identity Female 07/17/2023 12:21 AM CDT Sexual Orientation Straight 07/17/2023 12 :21 AM CDT documented as of this encounter Miscellaneous Notes * Telephone Encounter - Lynne Ann - 08/08/2023 9:49 AM CST Called to schedule pt I scheduled her via my chart I also left her a voice mail message and the telephone number for scheduling in case she needs to reschedule Please advise OR ENGINEERING TEAM LEADER documented in this encounter Plan of Treatment Upcoming Encounters Date Type Department Care Team (Late st Contact Info) Description 01/29/2025 1:50 PM CDT Office Visit [facility] Derm[facility]ology [address] [place] [address] Moriah Bray MD [address] [facility] [place] [address] 02/19/2025 8:00 AM CDT Appointment [facility] [address] [place] [address] documented as of this encounter Visit Diagnoses Not on filedocumented in this encounter Care Teams Study Abroad Advisor Relationship Specialty Start Date End Date Demarcus Camejo MD [address] [address] [place] [phone] PCP - General Family Medicine 07/05/24 documented as of this encounter
--- OUTSIDE RECORDS SUMMARY | 2024-12-03 17:04 | XMS_ITS | Clinical Summary ---
Author Organization [address] Address [address] [address] Care Team Providers Care Crown Buffer Name Role Phone Ira Barrett Primary Care Provider + Allergies No known active allergies Medications furosemide (LASIX) 20 mg tablet Take 1 tablet (20 mg total) by mouth daily 024 Active dexAMETHasone oral liquid 0.5 mg/5 mL Rinse and spit 5-10 mL 4x daily as needed for mouth irritation. 30 day supply. 024 Active lamoTRIgine (LaMICtal) 100 mg tablet Take 1 tablet (100 mg total) by mouth nightly 024 Active timolol (TIMOPTIC) 0.5 % ophthalmic solution Uses on feet. 023 Active clobetasoL (TEMOVATE) 0.05 % ointment Apply to affected areas on extremities twice daily for up to two weeks. 30 days supply. 024 Active triamcinolone (KENALOG) 0.1 % ointment Apply to affected areas on body twice daily. Use in the vulvar area twice a day for two weeks. 30 days supply. 023 Active LORazepam (ATIVAN) 0.5 mg tablet Take 1 tablet (0.5 mg total) by mouth every 6 (six) hours as needed for anxiety Active cholecalciferol (VITAMIN D-3) 5,000 unit tablet Ac tive coenzyme Q10 10 mg capsule Take 1 capsule (10 mg total) by mouth daily Active celecoxib (CeleBREX) 200 mg capsuleIndication s:Degeneration of lumbar intervertebral disc Take 1 capsule (200 mg total) by mouth 2 (two) times a day 60 capsule 5 024 Active venlafaxine XR (EFFEXOR-XR) 75 mg 24 hr capsule Take 1 capsule (75 mg total) by mouth daily 024 Active plecanatide (Trulance) 3 mg tabletIndications :Irritable bowel syndrome without diarrhea Take 1 tablet (3 mg total) by mouth daily 30 tablet 5 025 Active tacrolimus (PROTOPIC) 0.1 % ointment Apply to itchy areas on vulva, trunk and extremities up to two times daily PRN. 30 days supply. [address] (PROTONIX) 40 mg EC tabletIndications :Gastroesophageal reflux disease, unspecified whether esophagitis present Take 1 tablet by mouth twice daily 60 tablet 025 Active phentermine (ADIPEX-P) 37.5 mg tabletIndications :Obesity, Class II, BMI 35-39.9 TAKE 1 TABLET BY MOUTH ONCE DAILY BEFORE BREAKFAST 30 tablet 025 Active hydrocortisone 2.5 % cream Apply topically 2 (two) times a day 30 g 025 Active nystatin 100,000 unit/mL suspension 023 2024 Discontinued phentermine (ADIPEX-P) 37.5 mg tabletIndications :Obesity, Class II, BMI 35-39.9 Take 1 tablet (37.5 mg total) by mouth daily before breakfast 30 tablet 1 [address] (PROTONIX) 40 mg EC tabletIndications :Gastroesophageal reflux disease, unspecified whether esophagitis present Take 1 tablet by mouth twice daily 60 tablet 025 2024 Discontinued hydrOXYzine (VISTARIL) 25 mg capsule 2024 Discontinued mirtazapine (REMERON) 15 mg tablet 2024 Discontinued neomycin-polymyxi n B-dexAMETHasone (MAXITROL) 3.5 mg/g-10,000 unit/g-0.1 % ointment 2024 Discontinued(T herapy completed) mirtazapine (REMERON) 30 mg tablet 2024 Discontinued meloxicam (MOBIC) 7.5 mg tablet 2024 Discontinued Active Problems Problem Noted Date Diagnosed Date Abnormal EKG 11/18/2024 Other chest pain 11/18/2024 Venous insufficiency 11/18/2024 Class 3 severe obesity due t o excess calories with serious comorbidity and body mass index (BMI) of 40.0 to 44.9 in adult 07/18/2024 Assessment & Plan (11/29/2024 9:54 AM CDT): BMI Follow-up includes: education provided. Assessment & Plan (07/18/2024 1:14 PM CDT): Chronic, patient is concerned about her weight. BMI Follow-up includes: nutrition counseling and exercise counseling. Trial phentermine Colon polyp 07/18/2024 Hepatic steatosis 06/12/2024 Assessment & Plan (06/12/2024 3:28 PM CDT): Seen on ultrasound. Discussed mainstay of treatment as weight loss. Gastroesophageal reflux disease 06/12/2024 Assessment & Plan (06/12/2024 3:29 PM CDT): Taking omeprazole [id number] daily and feels it is no longer helping. Stop omeprazole. Start Protonix 40 mg daily Proceed with colonoscopy and follow up with GI as scheduled Likely will need EGD, but patient does not think she is scheduled for this along with her colonoscopy. Constipation 05/06/2024 Assessment & Plan (11/29/2024 9:54 AM CDT): Constipation with associated rectal bleeding. Chronic constipation, uncontrolled, with rectal bleeding likely due to hemorrhoids and straining x 1 week.. Linzess discontinued due to insurance; Trulance causes liquid stools without resolving incomplete evacuation. Bright red bleeding suggests hemorrhoidal origin. Hemorrhoid confirmed on rectal exam. Consider IBS as well. - Referred to a new medication aide for further evaluation and management. - Recommend trial of discontinuing Trulance and taking MiraLax daily - Continue stool softeners and consider adding fiber supplements. Assessment & Plan (07/18/2024 12:57 PM CDT): Not getting good results with daily stool softner and miralax. Tried other laxatives as wel. Start linzess 145mcg daily. Assessment & Plan (06/12/2024 3:27 PM CDT): Chronic, not well-controlled. Patient will continue taking daily stool softener. Advised she can use MiraLax as needed, although I would caution against using this daily or consistently. She does have a colonoscopy scheduled and we will be following up with GI. Previous testing was concerning for IBD Assessment & Plan (05/06/2024 4:16 PM CDT): Struggling with constipation for the past several months almost the last year. Has started taking [id number] stool softener but not sure if it is helping. Discussed diet and exercise. Increase fiber, increase water intake, increase activity. Okay for fiber supplement if need be. Can continue stool softener, Colace 100 mg, 1-2 tabs daily as needed. Patient could also add back and probiotic as this did seem to help in the past. Bipolar II disorder 10/29/2023 Assessment & Plan (09/19/2024 3:16 PM NEWS WRITER): Chronic, stable condition. Continue current medication regimen per psychiatrist Assessment & Plan (06/12/2024 3:27 PM CDT): Chronic, stable. Patient is following with psychiatrist Assessment & Plan (04/03/2024 1:42 PM CDT): Managed by psychiatrist - continues on Lamictal, benzo, Effexor Borderline personality disorder 10/29/2023 Assessment & Plan (09/19/2024 3:16 PM NEWS WRITER): Chronic, stable condition. Continue current medication regimen per psychiatrist Assessment & Plan (06/12/2024 3:27 PM CDT): Chronic, stable. Patient is following with psychiatrist and manage his medication Assessment & Plan (04/03/2024 1:42 PM CDT): Managed by psychiatrist - continues on Lamictal, benzo, Effexor Generalized anxiety disorder 10/29/2023 Assessment & Plan (06/12/2024 3:28 PM CDT): Chronic, stable. Continue current medications as prescribed by psychiatrist Assessment & Plan (04/03/2024 1:42 PM CDT): Managed by psychiatrist - continues on Lamictal, benzo, Effexor Lichen planus 06/23/2023 Assessment & Plan (07/18/2024 1:14 PM CDT): Chronic,worsening. 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 Patient is scheduled to see Rheumatology later in June Assessment & Plan (04/03/2024 1:42 PM CDT): Chronic, improved - finished 9 week course of steroids per dermatology Degeneration of lumbar intervertebral disc 06/23 Assessment & Plan (06/12/2024 3:26 PM CDT): Chronic, worsening. Increase Celebrex to 200 mg twice daily. Encounters Date Type Department Care Team Description 11/29/2024 9:00 AM CDT Office Visit [address] [phone] Alize Mckeon PA Constipation, unspecified constipation type (Primary Dx); Abdominal pain; Blood in stool; External hemorrhoid; Class 3 severe obesity due to excess calories with serious comorbidity and body mass index (BMI) of 40.0 to 44.9 in adult (HCC) 11/28/2024 Nurse Triage [address] [phone] Ira Barrett PA 11/28/[address] [address] Ira Barrett PA Recommendation Request 11/18/2024 12:30 PM NEWS WRITER Office Visit [facility] Cardiology [address] [place] [phone] Darius Rodriguez MD Abnormal EKG (Primary Dx); Other chest pain; Venous insufficiency 11/12/2024 Results Follow-Up [address] [address] Ira Barrett PA 11/08/2024 10:00 AM NEWS WRITER Office Visit [address] [phone] Ira Barrett PA Pre-op evaluation (Primary Dx); Abnormal EKG 11/08/2024 Letter (Out) [address] [phone] 11/06/[address] [address] Ira Barrett PA 11/05/2024 1:30 PM NEWS WRITER Telemedicine [address] [address] Ira Barrett PA Left hand pain (Primary Dx); Abnormal mammogram; Obesity, Class II, BMI 35-39.9; Constipation, unspecified constipation type; Hepatic steatosis 11/04/[address] [address] Ira Barrett PA 10/15/[address] [address] Ira Barrett PA Mammogram results 10/14/[address] [address] Ira Barrett PA 10/03/2024 2:54 PM NEWS WRITER - 10/03/2024 11:59 PM NEWS WRITER Hospital Encounter [facility] [address] [place] [id number] Irritable bowel syndrome without diarrhea; Hepatic steatosis; Gastroesophageal reflux disease, unspecified whether esophagitis present; RUQ pain; Elevated LFTs Discharge Disposition: Discharge to home or self care 09/30/2024 Letter (Out) [address] [address] 09/30/2024 Letter (Out) [address] [address] 09/30/[address] [phone] Ira Barrett PA Prior Auth Request for Trulance 09/19/2024 2:30 PM NEWS WRITER Office Visit [address] [phone] Ira Barrett PA Irritable bowel syndrome without diarrhea (Primary Dx); Hepatic steatosis; Gastroesophageal reflux disease, unspecified whether esophagitis present; RUQ pain; Elevated LFTs; Mass of left thigh; Visual changes; Bipolar II disorder (HCC); Borderline personality disorder (HCC) from Last 3 Months Immunizations Immunization Administration Dates Next Due Influenza, Quadrivalent, Spl it, Intramuscular 06/07/2023,06/23/2021 Influenza, Quadrivalent, Spl it, Preservative Free, Intramuscular 07/12/2022,06/01/2017 Influenza, Unspecified 07/18/2024(Deferr ed: Patient Refused),06/18/2024(Deferred: Patient Refused) Tdap 03/15/2016 Surgical History Surgery Date Site/Laterality Comments SECTION 2001,2006 x2 TONSILLECTOMY/ADENOIDECTOMY TOOTH EXTRACTION COLON SURGERY TUBAL LIGATION 2006 Medical History Medical History Date Comments Anxiety 2008 Depression 2008 Autoimmune disease 2022 Chronic venous insufficiency Lichen planus HPV in female Carpal tunnel syndrome Arthritis GERD (gastroesophageal reflux disease) Family History Medical History Relation Name Comments Depression Daughter 1 Philly Asthma Daughter 2 Praveena Depression Daughter 2 Praveena Diabetes Father Dad Heart disease Father Dad Alcohol abuse Maternal Grandfather Miguel Piña Cancer Maternal Grandmother Lizeth Lupus Maternal Grandmother Lizeth Celiac disease Mother Brain Aneurysm Paternal Grandmother Arthritis Sister 1 Belen Cancer Sister 1 Belen Obesity Sister 1 Belen Rashes / Skin problems Sister 1 Belen No Known Problems Sister 2 Unknown Family History Sister 3 Relation Name Status Comments Brother Alive Daughter 1 Philly Daughter 2 Praveena Father Dad Maternal Grandfather Miguel Piña Maternal Grandmother Lizeth Mother Alive Paternal Grandfather Paternal Grandmother Sister 1 Belen Sister 2 Alive Sister 3 Alive Social History Tobacco Use Types Packs/Day Years Used Date Smoking Tobacco: Former Cigarettes 1.3 28 0 01/16/1997 - 02/24/2024 Vaping Smokeless Tobacco: Never Tobacco Cessation:Counseling Given: Not Answered Comments:The vapes I marked up above are nicotine free. And I hit it maybe 2 times a day if that. AUDIT-C Answer Date Recorded Q1: How often do you have a drink containing alc ohol? Monthly or less 11/29/2024 Q2: How many drinks containi ng alcohol do you have on a typical day when you are drinking? 1 or 2 11/29/2024 Q3: How often do you have si x or more drinks on one occasion? Never 11/29/2024 PHQ-2 Answer Date Recorded PHQ-2 Total Score (If total score is 3 or more points, staff should administer the PHQ-9) 0 11/29/2024 PHQ-9 Answer Date Recorded PHQ-9 Total Score 11 04/03/2024 Comments No Sex and Gender Information Value Date Recorded Sex Assigned at Not on file Legal Sex Female 11:46 PM NEWS WRITER Gender Identity Female 03/27/2024 7:14 AM CDT Sexual Orientation Straight 03/27/2024 7: 14 AM CDT Obstetrics History Last Filed Vital Signs Vital Sign Reading Time Taken Comments Blood Pressure 132/78 11/29/2024 9:47 AM CDT Pulse 99 11/29/2024 9:13 AM CDT Temperature 36.7 C (98 F) 11/29/2024 9:13 AM CDT Respiratory Rate 16 11/29/2024 9:13 AM CDT Oxygen Saturation 99% 11/29/2024 9:13 AM CDT Inhaled Oxygen Concentration - - Weight 103.1 kg (227 lb 3.2 oz) 11/29/2024 9:13 AM CDT Height 160 cm (5' 3 ) 11/29/2024 9:13 AM CDT Body Mass Index 40.25 11/29/2024 9:13 AM CDT Plan of Treatment Health Maintenance Due Date Last Done Comments Hepatitis C Screening 1980 Hepatitis B Screening 02/16/1996 Regular Well Visit/Exam 18-64 02/16/1996 Covid-19 Vaccine ( season) 2024 02/20/2021, 11/18/2020 Influenza Vaccine (#1) 2025 , 07/12/2022, 06/23/2021, Additional history exists Postponed from 05/19/2024 (Patient declined, but will receive in the future) Breast Cancer Screening-Mammogram 10/14/2025 10/14/2024, 10/14/2024, 10/14/2024, Additional history exists Depression Screening 11/29/2025 11/29/2024, 11/08/2024, 11/05/2024, Additional history exists DTaP/Tdap/Td Vaccine (2 - Td or Tdap) 03/15/2026 03/15/2016 Cervical Cancer Screening 01/09/2029 01/10/2024 Colon Cancer Screening-Colonoscopy 06/19/2029 06/19/2024, 07/05/2023 HPV Vaccines Aged Out No longer eligi ble based on patient's age to complete this topic Pneumococcal vaccine <65 Aged Out No longer eligible based on patient's age to complete this topic Procedures Procedure Name Priority Date/Time Associated Diagnosis Comments POCT LIPID PANEL Routine 11/18/2024 12:5 9 PM NEWS WRITER Other chest pain COMPREHENSIVE METABOLIC PANEL Routine 11/11/2024 2:42 PM NEWS WRITER Hepatic steatosis CBC WITH AUTO DIFFERENTIAL Routine 11/11/2024 2:42 PM NEWS WRITER Hepatic steatosis ECG 12-LEAD Routine 11/08/2024 10:34 AM NEWS WRITER Pre-op evaluation MAMMOGRAPHY Routine 10/14/2024 CT ABDOMEN PELVIS W CONTRAST Schedule Routine, Read Routine (OP Routine) 10/03/2024 3:01 PM NEWS WRITER Irritable bowel syndrome without diarrhea Hepatic steatosis Gastroesophageal reflux disease, unspecified whether esophagitis present RUQ pain Elevated LFTs COLONOSCOPY Routine 06/19/2024 1:53 PM CDT PAP SMEAR WITH HPV Routine 01/10/2024 from Last 3 Months or Most Recently Relevant to Health Maintenance Results * POCT lipid panel (11/18/2024 12:59 PM NEWS WRITER) Cholesterol, POC 172 mg/dL HDL, POC 46 mg/dL Triglycerides, POC 304 mg/dL LDL Cholesterol POC 65 mg/dL Chol/HDL Ratio, POC 1.4 Non-HDL Cholesterol, POC 126 mg/dL Cholesterol Total, POC 172 mg/dL Capillary blood 11/18/2024 1 2:59 PM NEWS WRITER us Darius Rodriguez MD POINT OF CARE TEST O RDERABLES Final Result * CBC with auto differential (11/11/2024 2:42 PM NEWS WRITER) WBC 9.3 3.8 - 10.8 Thousand/u L [facility] RBC, POC 4.32 3.80 - 5.10 Million/uL [facility] Hgb 13.8 11.7 - 15.5 g/dL [facility] Hct 40.5 35.0 - 45.0 % [facility] MCV 93.8 80.0 - 100.0 fL [facility] MCH 31.9 27.0 - 33.0 pg [facility] MCHC 34.1 32.0 - 36.0 g/dL [facility] Comment: For adults, a slight decrease in the calculated MCHC value (in the range of 30 to 32 g/dL) is most likely not clinically significant; however, it should be interpreted with caution in correlation with other red cell parameters and the patient's clinical condition. Rdw 11.8 11.0 - 15.0 % [facility] Platelets 394 140 - 400 Thousand/u L [facility] MPV 10.0 7.5 - 12.5 fL [facility] Neutrophils, abs 5,245 1,500 - 7,800 cells/uL [facility] Lymphocytes, abs 3,013 850 - 3,900 cells/uL [facility] Monocyte abs 809 200 - 950 cells/uL [facility] Eosinophils, abs 177 15 - 500 cells/uL [facility] Basophils, abs 56 0 - 200 cells/uL [facility] Neutrophils 56.4 % [facility] Lymphocyte pct 32.4 % [facility] Monocytes 8.7 % [facility] Eosinophils 1.9 % [facility] Basophils 0.6 % [facility] Blood 11/11/2024 2:42 PM NEWS WRITER 11/11/2024 2:43 PM NEWS WRITER Narrative [facility] - 11/12/2024 5:52 AM NEWS WRITER FASTING:NO FASTING: NO us Ira SINGH LAB BLOOD ORDERABLES Fin al Result [facility] [address] [place] [address] * (ABNORMAL) Comprehensive metabolic panel (11/11/2024 2:42 PM NEWS WRITER) [facility] Glucose 94 65 - 139 mg/dL [facility] Comment: Non-fasting reference interval BUN 14 7 - 25 mg/dL [facility] Creatinine 0.75 0.50 - 0.99 mg/dL [facility] eGFR 99 > OR = 60 mL/min/1.7 3m2 [facility] BUN/creat ratio SEE NOTE: (calc) [facility] Comment: Not Reported: BUN and Creatinine are within reference range. Sodium 139 135 - 146 mmol/L [facility] Potassium, pl 4.2 3.5 - 5.3 mmol/L [facility] Chloride 102 98 - 110 mmol/L [facility] CO2 30 20 - 32 mmol/L [facility] Calcium 9.0 8.6 - 10.2 mg/dL [facility] Protein, sr 6.9 6.1 - 8.1 g/dL [facility] Albumin 4.1 3.6 - 5.1 g/dL [facility] GLOBULIN 2.8 1.9 - 3.7 g/dL (calc) [facility] Alb/glob ratio 1.5 1.0 - 2.5 (calc) [facility] Bilirubin, total 0.5 0.2 - 1.2 mg/dL [facility] Alk phos 109 31 - 125 U/L [facility] AST 32 10 - 35 U/L [facility] ALT (SGPT) 48(H) 6 - 29 U/L [facility] Blood 11/11/2024 2:42 PM NEWS WRITER 11/11/2024 2:43 PM NEWS WRITER Narrative [facility] - 11/12/2024 5:52 AM NEWS WRITER FASTING:NO FASTING: NO Ira SINGH LAB BLOOD ORDERABLES Fin al Result [facility] [address] [place] [address] * ECG 12 lead (11/08/2024 10:34 AM NEWS WRITER) Ira SINGH ECG ORDERABLES Final Re sult * HM MAMMOGRAPHY (10/14/2024) Mammography Abnormal Historical Provider HEALTH MAINTENANCE Final Result * CT Abdomen Pelvis W Contrast (10/03/2024 3:01 PM NEWS WRITER) Anatomical Region Laterality Modality Body N/A Computed Tomogra phy 10/05/2024 11:0 5 PM NEWS WRITER Narrative 10/05/2024 11:15 PM NEWS WRITER EXAM DESCRIPTION: CT ABDOMEN PELVIS W CONTRAST REASON FOR STUDY: Abdominal pain, acute, nonlocalized, ongoing RUQ pain Patient reports RUQ pain x 2 months. Hx section. TECHNIQUE: CT scan of the abdomen and pelvis performed with intravenous and without oral contrast using helical scanning technique with dynamic intravenous contrast injection. Reconstructed coronal and sagittal MPR images reviewed. All images stored on PACS. Automated exposure control was used as a dose optimization technique for this examination. CONTRAST TYPE/DOSE: 100mL of IOVERSOL 350 MG IODINE/ML INTRAVENOUS SYRINGE injected via intravenous COMPARISON: None FINDINGS: LOWER CHEST: Lung bases clear. Heart size normal. No effusion. LIVER/BILIARY: Moderate hepatic steatosis. Biliary tree normal in caliber. GALLBLADDER: Normal. SPLEEN: Normal. PANCREAS: Normal. ADRENAL GLANDS: Normal. KIDNEYS/URINARY TRACT: Unremarkable. GI: Stomach and small bowel appear normal. Colon and appendix unremarkable. OTHER ABDOMINAL/PELVIS: Major vascular structures are grossly patent and normal in caliber. No enlarged lymph node or free fluid. MSK: Ihvj-ik-ieqlkrmi L5-S1 disc disease and mild lower lumbar facet arthropathy. BODY WALL: Tiny fat containing periumbilical hernia. IMPRESSION: No abnormality identified to account for presentation. Gallbladder appears normal. THIS IS AN ELECTRONICALLY VERIFIED FINAL REPORT 10/05/2024 11:15 PM - Electronically signed by Frank Denney M.D. AR: KORTNEY Report ID: [id number] Reading Location: [id number] Procedure Note Frank Denney MD - 10/05/2024 EXAM DESCRIPTION: CT ABDOMEN PELVIS W CONTRAST REASON FOR STUDY: Abdominal pain, acute, nonlocalized, ongoing RUQ pain Patient reports RUQ pain x 2 months. Hx section. TECHNIQUE: CT scan of the abdomen and pelvis performed with intravenousand without oral contrast using helical scanning technique with dynamic intravenous contrast injection. Reconstructed coronal and sagittal MPRimages reviewed. All images stored on PACS. Automated exposure control was usedas a dose optimization technique for this examination. CONTRAST TYPE/DOSE: 100mL of IOVERSOL 350 MG IODINE/ML INTRAVENOUSSYRINGE injected via intravenous COMPARISON: None FINDINGS: LOWER CHEST: Lung bases clear. Heart size normal. No effusion. LIVER/BILIARY: Moderate hepatic steatosis. Biliary tree normal incaliber. GALLBLADDER: Normal. SPLEEN: Normal. PANCREAS: Normal. ADRENAL GLANDS: Normal. KIDNEYS/URINARY TRACT: Unremarkable. GI: Stomach and small bowel appear normal. Colon and appendixunremarkable. OTHER ABDOMINAL/PELVIS: Major vascular structures are grossly patent and normal in caliber. No enlarged lymph node or free fluid. MSK: Oeaf-ly-yioyukba L5-S1 disc disease and mild lower lumbar facet arthropathy. BODY WALL: Tiny fat containing periumbilical hernia. IMPRESSION: No abnormality identified to account for presentation. Gallbladder appears normal. THIS IS AN ELECTRONICALLY VERIFIED FINAL REPORT 10/05/2024 11:15 PM - Electronically signed by Frank Denney M.D. AR: KORTNEY Report ID: [id number] Reading Location: [place] [address] PROCEDURES Final Result * COLONOSCOPY (06/19/2024 1:53 PM CDT) Scribed Colonoscopy Normal Historical Provider HEALTH MAINTENANCE Edited Result - Final * PAP SMEAR WITH HPV (01/10/2024) Historical Provider HEALTH MAINTENANCE Final Result from Last 3 Months or Most Recently Relevant to Health Maintenance Insurance [facility] Care Teams Crown Buffer Relationship Specialty Start Date End Date Ira Barrett PA [address] [facility] [address] [place] [address] PCP - General Family Medicine 04/03/24
--- OUTSIDE RECORDS SUMMARY | 2024-12-03 17:04 | XMS_ITS | Data Portability ---
Author Organization [facility] [employer], Main Office Address [address] [place] [address] Care Team Providers Care Poured Pipe Maker Name Role Phone VIRGINIA HERNANDEZ Primary Care Provider VIRGINIA HERNANDEZ Referring Provider Assessment Encounter Date Assessment Date Assessment LastModified by Organization Details LastModified Time 10/07/2024 10/07/2024 Note was performed with dictation software, error may occur. Not available 10/08/2024 09:32:34 10/31/2024 10/31/2024 This note is dictated and transcribed by [employer] Flu[employer] Direct Software. Filer Helper variances may occur. Despite proofreading, typographical errors may occur. Occasional wrong-word or '[id number]' substitutions may have occurred due to the inherent limitations of voice recording. Read the chart carefully and recognize, using context, where substitutions have occurred. Not available 10/31/2024 16:24:06 Plan of Treatment Reminders Order Date Submit Date Provider Last Modified By Organization Details Last Modified Time Details Appointments None record ed. Lab None record ed. Referral None record ed. Procedures None record ed. Surgeries None record ed. Imaging XR, foot, 3 or more view 025 10/31/19 25 [email or web address] [facility] [place], [address], [place], [address], 16:29:21 XR, foot, 3 or more view 025 10/31/19 25 [email or web address] [facility] [place], [address], [place], [address], 16:29:21 Medication Orders None record ed. Patient TargetsNo targets recorded. Patient InstructionsNo instructions recorded. Reason for Referral None Reported. Results Created Date Observation Date Name Description Value Unit Range Abnormal Flag Note LastModifiedBy Organization Detail LastModifiedTime 01/11/20 23 01/10/2023 US, padmini x venou s, lower extre mity, compl ete No observ ation record ed. [email or web address] [facility] [address], [place], [address], 01/11/2023 10:17:02 01/11/20 23 01/10/2023 US, bjle x, arter ial, lower extre mity No observ ation record ed. [email or web address] [facility] [address], [place], [address], 01/11/2023 10:17:18 02/07/20 24 02/07/2024 US, padmini holland, venou s, extre mity, compl ete No observ ation record ed. [email or web address] [facility] [address], [place], [address], 02/07/2024 14:03:01 02/14/20 24 02/14/2024 sleep study , diagn ostic (PROC ) No observ ation record ed. [email or web address] [facility] [address], [place], [address], 2024 09:06:53 10/31/19 25 XR, foot, 3 or more view No observ ation record ed. [email or web address] [facility] [place] [address], [place], [address], 10/31/2024 16:28:57 10/31/19 25 XR, foot, 3 or more view No observ ation record ed. [email or web address] [facility] [place] [address], [place], [address], 10/31/2024 16:29:19 Result Notes None recorded. Problems Name Problem SNOMED Code Status Onset Date Resolution Date Notes Provider Name and Address Organization Details Recorded Time Peripheral venous insufficie ncy 58502104 Active 2021 Not Available [facility] 3 07:30:10 Contractur e of joint of toe 233563519 Active 2020 Not Available [facility] 3 07:30:11 Porokerato sis 888793691 Active 2020 Not Available [facility] 3 07:30:11 Ingrowing toenail 450058603 Active 2021 Not Available [facility] 3 07:30:11 Abscess of buttock 86337045 Active Not Available [facility] 3 07:30:11 Dystrophia unguium 70495840 Active 2023 Nixon Middleton DPM [address], [place], [address] , [employer] [facility] 4 16:44:04 Pain in toe 708174054 Active 2023 Nixon Middleton DPM [address], [address], [place], [address] , [employer] [facility] 4 16:44:20 Pain in right foot 8386936159711 07 Active 2024 Nixon Middleton DPM [address], [address], [place], [address] , [employer] [facility] 5 16:23:58 Tailor's bunion of right foot 6748749929375 109 Active 2024 Nixon Middleton DPM [address], [address], [place], [address] , [employer] 5 16:24:03 Pain in left foot 6225278953094 07 Active 2024 Nixon Middleton DPM [address], [address], [place], [address] , [employer] 16:27:53 Problem Notes None recorded. Procedures Surgical History Date Name Laterality Status Provider Name and Address Organization Details Recorded Time 10/07/19 25 Nail Debridement completed Nixon Middleton DPM [address], [place], [address], [employer] 10/08/2024 09:31:32 11/30/19 24 Nail Debridement completed Nixon Middleton DPM [address], [address], [place], [address], [employer] 11/30/2023 16:44:00 07/14/20 21 Date of Last Pap Smear completed Not Available [facility] 11/16/2022 07:26:19 07/06/20 10 LABORATORY OPERATIONS COORDINATOR Surgery completed Not Available [facility] 11/17/19 07:26:21 10/07/19 05 LABORATORY OPERATIONS COORDINATOR Surgery completed Not Available [facility] 11/17/19 07:26:21 08/26/20 04 LABORATORY OPERATIONS COORDINATOR Procedure completed Not Available [facility] 2022 07:26:21 05/29/20 01 LABORATORY OPERATIONS COORDINATOR Procedure completed Not Available [facility] 2022 07:26:21 section completed Not Available [facility] 11/16/2022 07:26:21 tonsilectomy/ad enoids completed Not Available [facility] 11/16/2022 07:26:21 LABORATORY OPERATIONS COORDINATOR Surgery completed Not Available [facility] 11/16/2022 07:26:21 Imaging Results Imaging Date Name Status [facility]Modified [facility] Details LastModified Time 01/10/2023 US, duplex, venous, lower extremity, complete completed [email or web address] [facility] [address], [place], [address], 01/11/2023 10:17:02 01/10/2023 US, duplex, arterial, lower extremity completed [email or web address] [facility] [address], [place], [address], 01/11/2023 10:17:18 02/07/2024 US, duplex, venous, extremity, complete completed [email or web address] [facility] [address], [place], [address], 02/07/2024 14:03:01 02/14/2024 sleep study, diagnostic (PROC) completed [email or web address] [facility] [address], [place], [address], 2024 09:06:53 10/31/2024 XR, foot, 3 or more view completed [email or web address] [facility] [place] [place] [facility] [place] [address], [place], [address], 10/31/2024 16:28:57 10/31/2024 XR, foot, 3 or more view completed [email or web address] [facility] [place] [place] [facility] [place] [address], [place], [address], 10/31/2024 16:29:19 Procedure Notes None recorded. Medical Equipment None Reported. Allergies Allergen ID Allergen Name Allergen Category Reaction Reaction Severity Criticality Documentation Date Start Date Code Code System Note Provider Name and Address Organization Details Recorded Time [address]70 Bactrim medicatio n Not available Not available Not available 11/16/2022 04650 9 RxNorm Not Available [facility] 07:35:19 Medications Name Sig Start Date Stop Date Status Note LastModified by Organization Details LastModified Time celecoxib 200 mg capsule TAKE 1 CAPSULE BY MOUTH TWICE DAILY active Not Available Not Available No t Available cyclobenzap rine 10 mg tablet TAKE 1 TABLET EVERY 8 HOURS BY ORAL ROUTE DIRECTED FOR 14 DAYS. 10/07 completed Not Available Not Available Not Available amoxicillin 500 mg capsule 12/15 completed Not Available Not Available Not Available vitamin E 670 mg (1,000 unit) capsule Take 1 capsule by oral route. 12/15 completed Not Available Not Available Not Available hydrocodone 7.5 mg-ibuprofe n 200 mg tablet 03/06 completed Not Available Not Available Not Available bupropion HCl SR 150 mg tablet,12 hr sustained-r elease 03/06 completed Not Available Not Available Not Available venlafaxine ER 37.5 mg capsule,ext ended release 24 hr TAKE 1 CAPSULE BY MOUTH ONCE DAILY IN THE MORNING NEED AN APPOINTME NT FOR FUTURE FILLS 10/07 completed Not Available Not Available Not Available venlafaxine ER 75 mg capsule,ext ended release 24 hr TAKE 1 CAPSULE BY MOUTH ONCE DAILY IN THE MORNING active Not Available Not Available No t Available clindamycin HCl 300 mg capsule 03/06 completed Not Available Not Available Not Available ibuprofen 800 mg tablet TAKE 1 TABLET TWICE A DAY BY ORAL ROUTE WITH MEALS FOR 14 DAYS. 10/07 completed Not Available Not Available Not Available fluconazole 150 mg tablet TAKE 1 TABLET BY MOUTH EVERY 72 HOURS A SINGLE DOSE 10/07 completed Not Available Not Available Not Available acetaminoph en 120 mg-codeine 12 mg/5 mL oral solution active Not Available Not Available Not Available hydrocodone 5 mg-acetamin ophen 325 mg tablet TAKE 1 TABLET BY MOUTH EVERY 4 TO 6 HOURS WHILE AWAKE NEEDED FOR PAIN 10/07 completed Not Available Not Available Not Available urea 40 % topical cream APPLY TO THE AFFECTED AREA(S) of callus BY TOPICAL ROUTE 2 TIMES PER DAY 07/14 completed Not Available Not Available Not Available meloxicam 15 mg tablet 07/14 completed Not Available Not Available Not Available naltrexone 50 mg tablet 03/06 completed Not Available Not Available Not Available phenazopyri dine 200 mg tablet 12/15 completed Not Available Not Available Not Available sumatriptan 25 mg tablet TAKE 1 TABLET AT ONSET OF MIGRAINE , DOSE MAY BE REPEATED IN 2 HOURS NEEDED , DO NOT TAKE MORE THAN 8 TABLETS IN 24 HOURS 12/15 completed Not Available Not Available Not Available metronidazo le 0.75 % (37.5 mg/5 gram) vaginal gel INSERT 1 APPLICATO RFUL VAGINALLY ONCE DAILY FOR 5 DAYS 10/07 completed Not Available Not Available Not Available ondansetron HCl 4 mg tablet 03/06 completed Not Available Not Available Not Available sertraline 100 mg tablet 03/06 completed Not Available Not Available Not Available venlafaxine ER 150 mg capsule,ext ended release 24 hr TAKE 1 CAPSULE BY MOUTH ONCE DAILY IN THE MORNING 10/07 completed Not Available Not Available Not Available hydroxyzine pamoate 50 mg capsule TAKE 1 CAPSULE THREE TIMES A DAY 12/15 completed Not Available Not Available Not Available promethazin e 6.25 mg-codeine 10 mg/5 mL syrup 03/06 completed Not Available Not Available Not Available metronidazo le 500 mg tablet TAKE 1 TABLET BY MOUTH EVERY 12 HOURS 10/07 completed Not Available Not Available Not Available phentermine 37.5 mg tablet TAKE 1 TABLET BY MOUTH ONCE DAILY BEFORE BREAKFAST active Not Available Not Available No t Available acetaminoph en 300 mg-codeine 30 mg tablet 12/15 completed Not Available Not Available Not Available ciprofloxac in 500 mg tablet 12/15 completed Not Available Not Available Not Available sulfamethox azole 800 mg-trimetho prim 160 mg tablet 03/06 completed Not Available Not Available Not Available olanzapine 2.5 mg tablet TAKE 1 TABLET BY MOUTH EVERY DAY AT BEDTIME FOR 30 DAYS 10/07 completed Not Available Not Available Not Available hydrocodone 10 mg-acetamin ophen 325 mg tablet 07/14 completed Not Available Not Available Not Available peg-electro lyte solution 420 gram oral solution 10/07 completed Not Available Not Available Not Available tramadol 50 mg tablet 12/15 completed Not Available Not Available Not Available amoxicillin 500 mg tablet TAKE 1 TABLET BY MOUTH EVERY 8 HOURS 10/07 completed Not Available Not Available Not Available lamotrigine 25 mg tablet TAKE 2 TABLETS BY MOUTH ONCE DAILY 10/07 completed Not Available Not Available Not Available ketorolac 10 mg tablet 07/14 completed Not Available Not Available Not Available dexamethaso ne 0.5 mg/5 mL oral elixir RINSE AND SPIT 5-10 ML FOUR TIMES DAILY NEEDED FOR MOUTH IRRITATIO N active Not Available Not Available No t Available risperidone 2 mg tablet TAKE 1 TABLET BY MOUTH ONCE DAILY AT BEDTIME 10/07 completed Not Available Not Available Not Available meloxicam 7.5 mg tablet active Not Available Not Available Not Available prazosin 5 mg capsule 03/06 completed Not Available Not Available Not Available oxycodone-a cetaminophe n 5 mg-325 mg tablet 03/06 completed Not Available Not Available Not Available lorazepam 0.5 mg tablet TAKE 1 TABLET BY MOUTH ONCE DAILY NEEDED 10/07 completed Not Available Not Available Not Available methocarbam ol 750 mg tablet 03/06 completed Not Available Not Available Not Available trazodone 100 mg tablet 03/06 completed Not Available Not Available Not Available amoxicillin 250 mg/5 mL oral suspension active Not Available Not Available N ot Available phenazopyri dine 100 mg tablet 07/14 completed Not Available Not Available Not Available cephalexin 500 mg capsule TAKE 1 CAPSULE BY MOUTH THREE TIMES DAILY FOR 10 DAYS 10/07 completed Not Available Not Available Not Available pantoprazol e 40 mg tablet,leif yed release TAKE 1 TABLET BY MOUTH TWICE DAILY active Not Available Not Available No t Available erythromyci n 5 mg/gram (0.5 %) eye ointment active Not Available Not Available Not Available mirtazapine 30 mg tablet active Not Available Not Available Not Available triamcinolo ne acetonide 0.1 % topical ointment APPLY OINTMENT TOPICALLY TO AFFECTED VULVAR AREA TWICE DAILY FOR TWO WEEKS active Not Available Not Available No t Available buspirone 10 mg tablet 03/06 completed Not Available Not Available Not Available furosemide 20 mg tablet TAKE 1 TABLET BY MOUTH ONCE DAILY active Not Available Not Available No t Available mirtazapine 15 mg tablet active Not Available Not Available Not Available clobetasol 0.05 % topical ointment APPLY OINTMENT TOPICALLY TO AFFECTED AREA TWICE DAILY FOR UP TO TWO WEEKS active Not Available Not Available No t Available lorazepam 1 mg tablet 12/15 completed Not Available Not Available Not Available ibuprofen 600 mg tablet TAKE 1 TABLET BY MOUTH EVERY 6 HOURS NEEDED FOR PAIN 10/07 completed Not Available Not Available Not Available polyethylen e glycol 3350 17 gram/dose oral powder 07/14 completed Not Available Not Available Not Available levofloxaci n 500 mg tablet 12/15 completed Not Available Not Available Not Available timolol maleate 0.5 % eye drops APPLY 1 DROP TO FISSURED SKIN 2-3 TIMES A DAY NEEDED FOR ASSOCIATE D PAIN active Not Available Not Available No t Available ondansetron 4 mg disintegrat ing tablet DISSOLVE 1 TABLET ON TONGUE EVERY 8 HOURS NEEDED FOR NAUSEA OR VOMITING 03/06 completed Not Available Not Available Not Available risperidone 1 mg tablet 07/14 completed Not Available Not Available Not Available lamotrigine 100 mg tablet TAKE 1 TABLET BY MOUTH ONCE DAILY AT BEDTIME active Not Available Not Available No t Available prazosin 2 mg capsule 03/06 completed Not Available Not Available Not Available naproxen 500 mg tablet 07/14 completed Not Available Not Available Not Available amoxicillin 875 mg-berta causey clavulanate 125 mg tablet 12/15 completed Not Available Not Available Not Available buspirone 15 mg tablet 12/15 completed Not Available Not Available Not Available hydroxyzine pamoate 25 mg capsule active Not Available Not Available N ot Available neomycin 3.5 mg/g-polymy rancho B 10,000 unit/g-dexa meth 0.1 % eye oint active Not Available Not Available Not Available nitrofurant oin monohydrate /macrocryst als 100 mg capsule 07/14 completed Not Available Not Available Not Available varenicline tartrate 1 mg tablet TAKE 1 TABLET BY MOUTH ONCE DAILY 10/07 completed Not Available Not Available Not Available varenicline tartrate 0.5 mg (11)-1 mg (42) tablets in a dose pack TAKE 1 TABLET BY MOUTH IN MORNING WITH FOOD FOR 3 DAYS, THEN INCREASE TO 1 TABLET BY MOUTH TWICE DAILY WITH FOOD THEREAFTE R DIRECTED ON PACKAGE 10/07 completed Not Available Not Available Not Available Linzess 145 mcg capsule TAKE 1 CAPSULE BY MOUTH ONCE DAILY 10/07 completed Not Available Not Available Not Available Trulance 3 mg tablet TAKE 1 TABLET BY MOUTH ONCE DAILY active Not Available Not Available No t Available Vitals Date Recorded Body mass index (BMI) Body height Oxygen saturation Oxygen saturation in Arterial blood by Pulse oximetry Heart rate Respiratory rate Body weight Systolic blood pressure Diastolic blood pressure Provider Name and Address Organization Details Last Updated DateTime 2 30.4 kg/m2 157.48 cm 98 % 98 % 99 /min 14 /min 59016.3 3 g 115 mm[Hg] 73 mm[Hg] Not Available [facility] 3 07:26:27 Date Recorded Body mass index (BMI) Body height Heart rate Body weight Systolic blood pressure Diastolic blood pressure Provider Name and Address Organization Details Last Updated DateTime 2 30.4 kg/m2 157.48 cm 99 /min 43121.3 3 g 130 mm[Hg] 86 mm[Hg] Not Available [facility] 3 07:26:27 Date Recorded Heart rate Respiratory rate Oxygen saturation Oxygen saturation in Arterial blood by Pulse oximetry Provider Name and Address Organization Details Last Updated DateTime 11/30/2023 89 /min 14 /min 99 % 99 % Mindy Denney [employer] 4 16:01:35 Date Recorded Heart rate Respiratory rate Oxygen saturation Oxygen saturation in Arterial blood by Pulse oximetry Systolic blood pressure Diastolic blood pressure Provider Name and Address Organization Details Last Updated DateTime 5 92 /min 14 /min 99 % 99 % 123 mm[Hg] 79 mm[Hg] Mindy Denney [employer] 5 16:06:46 Date Recorded Heart rate Respiratory rate Oxygen saturation Oxygen saturation in Arterial blood by Pulse oximetry Systolic blood pressure Diastolic blood pressure Provider Name and Address Organization Details Last Updated DateTime 5 67 /min 14 /min 98 % 98 % 107 mm[Hg] 67 mm[Hg] Mindy Denney [employer] [facility] 5 15:56:03 Social History Question Answer Notes LastModified by [email or web address] ion Details LastModified Time Tobacco Smoking Status Current Every Day Smoker Not Available [facility] 11/16/2022 07:26:10 What Is Your Level Of Alcohol Consumption? Occasional [id number] Information not available 11/16/2022 If You Are , What Was Your Level Of Alcohol Consumption Prior To ? None [id number] Information not available 11/16/2022 What Is Your Level Of Caffeine Consumption? Moderate [id number] Information not available 11/16/2022 What Is Your Occupation? Unemployed [id number] Information not available 11/16/2022 What Was The Date Of Your Most Recent Tobacco Screening? 07/12/2021 [id number] Information not available 11/16/2022 Have You Ever Been Counseled For Unhealthy Alcohol Use? No [id number] Information not available 11/16/2022 What Is Your Relationship Status? [id number] Information not available 11/16/2022 Do You Use Your Seat Belt Or Car Seat Routinely? Yes [id number] Information not available 11/16/2022 How Much Tobacco Do You Smoke? 0.5 PPD [id number] Information not available 11/16/2022 Do You Use Any Illicit Or Recreational Drugs? No [id number] Information not available 11/16/2022 Has Tobacco Cessation Counseling Been Provided? No [id number] Information not available 11/16/2022 Do You Or Have You Ever Used Any Other Forms Of Tobacco Or Nicotine? No [id number].[id number] Information not available 11/16/2022 Sex: Female Functional Status Question Answer Note LastModified by Organizat ion Details LastModified Time What is your exercise level? None [id number] Information not available 11/16/2022 Mental Status None recorded. Family History Relationship Description Onset Age of this Age Resolved Age Notes LastModified by Organization Details LastModified Time Father Diabetes mellitus [id number] Not available 11/16/2022 07:26:22 Father Myocardial infarction [id number] Not available 11/16/2022 07:26:22 Maternal Grandmother Arthritis [email or web address] Not available 0 10/31/2024 15:45:46 Maternal Grandmother Family history of malignant neoplasm [email or web address] Not available 10/31 15:45:46 Maternal Grandmother Malignant tumor of ovary [email or web address] Not available 10/31 15:45:46 Medical History Condition Response HEADACHES/MIGRAINES Y ANXIETY DISORDER Y BACK / NECK PROBLEMS Y DEPRESSION (INCLUDING POST ) Y HEPATITIS / LIVER DISEASE Y Gynecological History Statement/Question Response Abnormal Pap Y Date of LMP Date of Last Pap Smear 07/14/2021 Current Control Method Tubal Ligat ion Age at Menarche 12 Most Recent Mammogram Obstetrics History GPAL:G 2 P 2 0 0 2 Type Value Full Term 2 Living 2 Total 2 Past Encounters Encounter ID Performer Location Encounter Start Date Encounter Closed Date Diagnosis/Indication Diagnosis SNOMED-CT Code Diagnosis ICD10 Code Diagnosis Note [id number] _ATHENA_M IGRATION_ DEFAULT_1 _1 , 07/12/2021 00:00:00 07/13/2021 10:09:58 [id number] _ATHENA_M IGRATION_ DEFAULT_1 _1 , 07/14/2021 00:00:00 07/14/2021 10:36:38 [id number] _ATHENA_M IGRATION_ DEFAULT_1 _1 , 11/29/2021 00:00:00 12/16/2021 09:26:40 [id number] _LUCILAM IGRATION_ DEFAULT_1 _1 , 07/25/2022 00:00:00 07/26/2022 10:04:18 [id number] RUBINAM IGRATION_ DEFAULT_1 _1 , 08/22/2022 00:00:00 08/23/2022 09:34:38 [id number] Nixon Middleton DPM [facility] Pod[facility] [place] [address] [place] [address] 11/30/2023 15:54:54 11/30/2023 16:49:45 Dystrophia unguium 76903113 L60.3 bilateral great toenails debrided without incidentfo llow-up as needed Pain in toe 531147453 M7 9.674 M79.675 bilateral great toenails [id number] Nixon Middleton DPM [facility] Pod[facility] [place] [address] [place] [address] 10/07/2024 15:51:23 10/11/2024 13:12:56 Ingrowing toenail 233188489 L60.0 bilateral great toes and secondnail s debrided without incidentmo nitor for infection if present seek medical attentionr eviewed options if cont will require partial matrix of affected sidesfollo w up in one week [id number] Nixon Middleton DPM [facility] Pod[facility] [place] [address] [place] [address] 10/31/2024 15:44:43 11/05/2024 14:00:23 Pain in right foot 8561326339 93964 M79.671 as below Tailor's b union of right foot 9299997382 202863 M21.621 Obtain surgical clearancex -rays reviewed with the patientsur gical options reviewed with the patientpla n partial ostectomy right 5th metatarsal head with possible osteotomy Pain in left foot 745678 5510 31297 M79.672 secondary to loren's bunionwill perform surgery on left foot after right resolves with surgerycon tinue conservati ve offloading Health Concerns Section Related Observation LastModified by Organization Detai ls LastModified Time None Recorded Concern Status LastModified by Organization Details LastModified Time None Recorded Advance Directives Directive None Recorded Payers Encounter Date Sequence Insurance Name Policy Number Policy Gallardo Covered Member ID Gallardo Member ID Guarantor Name 11/30/2023 1 [facility] ON OR AFTER 03/18/21 (MEDICAID REPLACEMENT - HMO) Rasheeda Pike Jose [id number] Rasheeda Pike Jose 10/07/2024 1 [facility] ON OR AFTER 03/18/21 (MEDICAID REPLACEMENT - HMO) Rasheeda Pike Jose [id number] Rasheeda Pike Jose 10/31/2024 1 [facility] ON OR AFTER 03/18/21 (MEDICAID REPLACEMENT - HMO) Rasheeda Pike Jose [id number] Rasheeda Pike Jose Notes Date Note Type Note Provider Name and Address Organization Details Recorded Time 11/30/2023 text/html . Patient is a 43-year-old female who presents the office with complaints of bilateral great toenail pain due to thickened toenails. Patient states she has been diagnosed with lichen planus and states that she has been on 12 weeks of oral steroids secondary to this to clear it up which she states has worked but she has a lot of thickening to the great toenails and pain. Patient denies any redness or drainage. Patient denies any other complaints. Nixon Middleton DPM [address], [facility] [address], [place], [address], [employer] - innovate | mentor | invest 11/30/2023 16:45:51 10/07/2024 text/html Patient presents with painful ingrown toenails of both great toes and second toes, denies any redness, drainage, or swelling. Patient explains pain is mild. Describes pain as sharp in nature. Nixon Middleton DPM [address], [address], [place], [address], [employer] - innovate | mentor | invest 10/08/2024 09:34:07 10/31/2024 text/html . Patient is a 44-year-old female she presents the office with complaints of tailor's bunion pain to the right foot she denies any open wounds or wounds. Patient states that when she is walking or standing with shoe gear she has pain to the area. Patient has tried conservative offloading and has failed treatment. Patient states she would like to pursue correction surgically to reduce the prominence to the right 5th metatarsal. Nixon Middleton DPM [address] [facility], [facility] [address], [place], [address], [place] [facility] [place] [employer] [facility] 10/31/2024 16:29:39 OBGyn Episode No OBEpisode recorded."
--- OUTSIDE RECORDS SUMMARY | 2024-12-03 17:04 | XMS_ITS | Encounter Summary ---
Author Organization [facility] Address [address] [place] [address] Care Team Providers Care Analysis Mgr Name Role Phone Demarcus Camejo MD Primary Care Provider [phone] Reason for Visit * Reason Onset Date Comments Nurse Only 11/02/2023 Encounter Details Date Type Department Care Team (Late st Contact Info) Description 11/02/2023 Telephone [facility] - Dermatology [address] [place] [address], [facility] [place] [address] Moriah Bray MD [address] [place] [address] [place] [address] Nurse Only Social History Tobacco Use Types Packs/Day Years Used Date Smoking Tobacco: Some Days Cigarettes Smokeless Tobacco: Never PHQ-2 Answer Date Recorded Patient Health Questionnaire-2 Score 2 10/29/2023 Sex and Gender Information Value Date Recorded Sex Assigned at Female 07/17/2023 12:21 AM CDT Gender Identity Female 07/17/2023 12:21 AM CDT Sexual Orientation Straight 07/17/2023 12 :21 AM CDT documented as of this encounter Miscellaneous Notes * Telephone Encounter - Bertha Olivarez - 11/02/2023 8:53 AM CST [facility] is calling in regards of pt [place] paperwork. She states that the office sent pages 1 and 2,and guero is missing page 3. Please call guero at [phone] or send to fax [phone] [employer] documented in this encounter Plan of Treatment Upcoming Encounters Date Type Department Care Team (Late st Contact Info) Description 01/29/2025 1:50 PM CDT Office Visit [facility] Derm[facility]ology [address] [facility], [place] [phone] Moriah Bray MD [address] [facility] [place] [address] 02/19/2025 8:00 AM CDT Appointment [facility] [address] [place] [address] documented as of this encounter Visit Diagnoses Not on filedocumented in this encounter Care Teams Analysis Mgr Relationship Specialty Start Date End Date Demarcus Camejo MD [address] [address] [place] [phone] PCP - General Family Medicine 07/05/24 documented as of this encounter
--- OUTSIDE RECORDS SUMMARY | 2024-12-03 17:04 | XMS_ITS | Encounter Summary ---
Author Organization [facility] Address [address] [place] [address] Care Team Providers Care Manager Biostatistics Name Role Phone Demarcus Camejo MD Primary Care Provider Reason for Visit * Reason Onset Date Comments MEDICATION REFILL 08/18/2023 Encounter Details Date Type Department Care Team (Late Contact Info) Description 08/18/2023 Refill [facility] Dermatology [address] [place] [phone] Moriah Bray MD [address] [place], [place] [address] [phone] MEDICATION REFILL Social History Tobacco Use Types [...] Office Visit [facility] [address] [place] [phone] Moriah Bray MD [address] [place], [place] [address] [address] 02/19/2025 8:00 AM CDT Appointment [facility] [address] [place] [address] documented as of this encounter Visit Diagnoses Not on filedocumented in this encounter Care Teams Manager Biostatistics Relationship Specialty Start Date End Date Demarcus Camejo MD [address] [address] [place] [address] PCP - General Family Medicine 07/05/24 documented as of this encounter
--- OUTSIDE RECORDS SUMMARY | 2024-12-03 17:04 | XMS_ITS | Encounter Summary ---
Author Organization [facility] Address [address] [facility] [place] [address] Care Team Providers Care Supervisor Process Testing Name Role Phone Demarcus Camejo MD Primary Care Provider Reason for Visit * Reason Onset Date Comments Medication Issue 09/04/2023 Encounter Details Date Type Department Care Team (Late st Contact Info) Description 09/04/2023 Telephone [facility] - Centralized Scheduling [address] [place] [address] Moriah Bray MD [facility] [facility] [place] [address] Medication Issue Social History Tobacco Use Types Packs/Day Years Used Date Smoking Tobacco: Some Days Cigarettes Smokeless Tobacco: Never Sex and Gender Information Value Date Recorded Sex Assigned at Female 07/17/2023 12:21 AM CDT Gender Identity Female 07/17/2023 12:21 AM CDT Sexual Orientation Straight 07/17/2023 12 :21 AM CDT documented as of this encounter Miscellaneous Notes * Telephone Encounter - Crystal Cui - 09/12/2023 3:02 PM CST Pt is calling in again to address the previous two messages. Please contact pt, . OPATHIC NEUROLOGIST * Telephone Encounter - Tay Mcelroy PA-C - 09/08/2023 4:16 PM CST Patient unable to lease picker prescriptions. Prescriptions were resent to pharmacy in [place]. Tay Mcelroy PA-C OPATHIC NEUROLOGIST * Telephone Encounter - Bertha Olivarez - 09/08/2023 1:23 PM CST Pt needs a new prescription sent to pharmacy because [facility] isnt in her network predniSONE (Deltasone) 10 MG tablet acitretin (Soriatane) 25 MG capsule . Pt is waiting PA for the acitretin (Soriatane) 25 MG capsule . Also she needs nystatin susp 20 ML - hydrocortisone 50 MG- viscous lidocaine 2% 50 ml - water 50 mlSUSP sent to [facility] [phone] Patients is also needing her paperwork from [facility] filled out . 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 nystatin susp 20 ML - hydrocortisone 50 MG- viscous lidocaine 2% 50 ml - water 50 ml SUSP needs to be sent to [place] pharmacy to be filled as a compound. OPATHIC NEUROLOGIST documented in this encounter Plan of Treatment Upcoming Encounters Date Type Department Care Team (Late st Contact Info) Description 01/29/2025 1:50 PM CDT Office Visit [facility] - Dermatology [address] [place] [address], [place] [address] Moriah Bray MD [address] [place] [address] [place] [address] 02/19/2025 8:00 AM CDT Appointment [facility] [address] [place] [address] documented as of this encounter Visit Diagnoses Diagnosis Lichen planus- Primary documented in this encounter Care Teams Supervisor Process Testing Relationship Specialty Start Date End Date Demarcus Camejo MD [address] [facility] [address] [place] [phone] PCP - General Family Medicine 07/05/24 documented as of this encounter
--- OUTSIDE RECORDS SUMMARY | 2024-12-03 17:05 | XMS_ITS | Encounter Summary ---
Author Organization [facility] Address [address] [place] [address] Care Team Providers Care Slab Worker Name Role Phone Ira Barrett Primary Care Provider + Encounter Details Date Type Department Care Team (Late st Contact Info) Description 11/12/2024 Results Follow-Up [facility] Family Medicine [address] [phone] Ira Barrett PA [address] [place] [address] Social History Tobacco Use Types Packs/Day Years Used Date Smoking Tobacco: Former Cigarettes 1.3 28 0 01/16/1997 - 02/24/2024 Vaping Smokeless Tobacco: Never Comments:The vapes I marked up above are nicotine free. And I hit it maybe 2 times a day if that. AUDIT-C Answer Date Recorded Q1: How often do you have a drink containing alc ohol? Monthly or less 11/08/2024 Q2: How many drinks containi ng alcohol do you have on a typical day when you are drinking? 1 or 2 11/08/2024 Q3: How often do you have si x or more drinks on one occasion? Never 11/08/2024 PHQ-2 Answer Date Recorded PHQ-2 Total Score (If total score is 3 or more points, staff should administer the PHQ-9) 0 11/08/2024 PHQ-9 Answer Date Recorded PHQ-9 Total Score 11 04/03/2024 Comments No Sex and Gender Information Value Date Recorded Sex Assigned at Not on file Legal Sex Female 11:46 PM DIGITAL MARKETING STRATEGIST Gender Identity Female 03/27/2024 7:14 AM CDT Sexual Orientation Straight 03/27/2024 7: 14 AM CDT documented as of this encounter Plan of Treatment Not on file documented as of this encounter Visit Diagnoses Not on filedocumented in this encounter Care Teams Slab Worker Relationship Specialty Start Date End Date Ira Barrett PA [address] [facility] [address] [place], [place] [phone] PCP - General Family Medicine 04/03/24 documented as of this encounter
--- OUTSIDE RECORDS SUMMARY | 2024-12-03 17:05 | XMS_ITS | Encounter Summary ---
Author Organization [facility] Address [address] [place] [address] Care Team Providers Care Supervisor Wet End Name Role Phone Ira Barrett Primary Care Provider + Reason for Visit * Reason Onset Date Comments Recommendation Request 11/28/2024 Encounter Details Date Type Department Care Team (Late st Contact Info) Description 11/28/[address] [facility] Family Medicine [address] [phone] Ira Barrett PA [address] [place] [address] Recommendation Request Social History Tobacco Use Types Packs/Day Years [...] on file Legal Sex Female 11:46 PM CONE TREATER Gender Identity Female 03/27/2024 7:14 AM CDT Sexual Orientation Straight 03/27/2024 7: 14 AM CDT documented as of this encounter Functional Status * Audit-C Score Answer Date of Assessment Author 1 11/29/2024 9:13 AM CDT Lexi Rolon MA * Question Answer Date of Assessment Author Q1: How often do you have a drink containing alcohol? Monthly or less 11/29/2024 9:13 AM CDT Lexi Rolon MA Q2: How many drinks containing alcohol do you have on a typical day when you are drinking? 1 or 2 11/29/2024 9:13 AM CDT Fern Rolon MA Q3: How often do you have six or more drinks on one occasion? Never 11/29/2024 9:13 AM CDT Lexi Rolon MA documented as of this encounter Miscellaneous Notes * Telephone Encounter - Ira Barrett PA - 11/28/2024 12:47 PM CDT Yes, thank you * Telephone Encounter - Blanka Carvalho MA - 11/28/2024 12:42 PM CDT Ok for referral to Dr Kendall/Saad? * Telephone Encounter - Melly Jones - 11/28/2024 11:26 AM CDT Recommendation Request Note: This request is for a specialty recommendation, not an insurance referral. Specialty: GI Why does the patient want to go to this specialist? GERD issues Additional Comments/Concerns: Talked to Ira about this at last appointment. She tried to contact GI that did colonoscopy, but he only does pancreatic now. She wants a referral to a new GI. She'd prefer [facility] or someone close. Not it [place]. Does message need to be routed? Yes-Action Needed documented in this encounter Plan of Treatment Not on file documented as of this encounter Visit Diagnoses Not on filedocumented in this encounter Care Teams Supervisor Wet End Relationship Specialty Start Date End Date Ira Barrett PA [address] [facility] [address] [place] [address] PCP - General Family Medicine 04/03/24 documented as of this encounter
--- OUTSIDE RECORDS SUMMARY | 2024-12-03 17:05 | XMS_ITS | Referral Summary ---
Author Organization [address] Address [address] [place] [address] Care Team Providers Care Still Cleaner Name Role Phone Ira Barrett Primary Care Provider + Encounters Date Type Department Care Team Description 11/29/2024 9:00 AM CDT Office Visit [address] [phone] Alize Mckeon PA Constipation, unspecified constipation type (Primary Dx); Abdominal pain; Blood in stool; External hemorrhoid; Class 3 severe obesity due to excess calories with serious comorbidity and body mass index (BMI) of 40.0 to 44.9 in adult (HCC) 11/28/2024 Nurse Triage [address] [address] Ira Barrett PA 11/28/[address] [address] Ira Barrett PA Recommendation Request 11/18/2024 12:30 PM RADIATION THERAPIST Office Visit [facility] Cardiology [address] [place] [address] Darius Rodriguez MD Abnormal EKG (Primary Dx); Other chest pain; Venous insufficiency 11/12/2024 Results Follow-Up [facility] Medicine [address] [place] [phone] Ira Barrett PA 11/08/2024 Letter (Out) [address] [phone] 11/08/2024 10:00 AM RADIATION THERAPIST Office Visit [address] [phone] Ira Barrett PA Pre-op evaluation (Primary Dx); Abnormal EKG 11/06/[address] [phone] Ira Barrett PA 11/05/2024 1:30 PM RADIATION THERAPIST Telemedicine [address] [address] Ira Barrett PA Left hand pain (Primary Dx); Abnormal mammogram; Obesity, Class II, BMI 35-39.9; Constipation, unspecified constipation type; Hepatic steatosis 11/04/[address] [address] Ira Barrett PA 10/15/[address] [address] Ira Barrett PA Mammogram results 10/14/[address] [address] Ira Barrett PA 10/03/2024 2:54 PM RADIATION THERAPIST - 10/03/2024 11:59 PM RADIATION THERAPIST Hospital Encounter [facility] Medical Office Building [address] [phone] Irritable bowel syndrome without diarrhea; Hepatic steatosis; Gastroesophageal reflux disease, unspecified whether esophagitis present; RUQ pain; Elevated LFTs Discharge Disposition: Discharge to home or self care 09/30/2024 Letter (Out) [address] [address] 09/30/2024 Letter (Out) [address] [address] 09/30/[address] [address] Ira Barrett PA Prior Auth Request for Trulance 09/19/2024 2:30 PM RADIATION THERAPIST Office Visit [address] [phone] Ira Barrett PA Irritable bowel syndrome without diarrhea (Primary Dx); Hepatic steatosis; Gastroesophageal reflux disease, unspecified whether esophagitis present; RUQ pain; Elevated LFTs; Mass of left thigh; Visual changes; Bipolar II disorder (HCC); Borderline personality disorder (HCC) from Last 3 Months Allergies No known active allergies Medications furosemide (LASIX) 20 mg tablet Take 1 tablet (20 mg total) by mouth daily Active dexAMETHasone oral liquid 0.5 mg/5 mL [...] Plan (06/12/2024 3:29 PM CDT): Taking omeprazole [id number] daily and feels it is no longer [...] as well. - Referred to a new slide fasteners inspector for further evaluation and management. - Recommend [...] almost the last year. Has started taking kfvz-mda-kywmfcl stool softener but not sure if it [...] 10/29/2023 Assessment & Plan (09/19/2024 3:16 PM RADIATION THERAPIST): Chronic, stable condition. Continue current medication regimen per psychiatrist Assessment & Plan (06/12/2024 3:27 PM CDT): Chronic, stable. Patient is following with psychiatrist Assessment & Plan (04/03/2024 1:42 PM CDT): Managed by psychiatrist - continues on Lamictal, benzo, Effexor Borderline personality disorder 10/29/2023 Assessment & Plan (09/19/2024 3:16 PM RADIATION THERAPIST): Chronic, stable condition. Continue current medication regimen [...] CDT): Chronic,worsening. Patient will follow up with table maker Assessment & Plan (06/12/2024 3:27 PM CDT): Ongoing issue. Patient is scheduled to see Rheumatology later in June Assessment & Plan (04/03/2024 1:42 PM CDT): Chronic, improved - finished 9 week course of steroids per dermatology Degeneration of lumbar intervertebral disc 06/23 Assessment & Plan (06/12/2024 3:26 PM CDT): Chronic, worsening. Increase Celebrex to 200 mg twice daily. Immunizations Immunization Administration Dates Next Due Influenza, Quadrivalent, Spl it, Intramuscular 06/07/2023,06/23/2021 Influenza, Quadrivalent, Spl it, Preservative Free, Intramuscular 07/12/2022,06/01/2017 Influenza, Unspecified 07/18/2024(Deferr ed: Patient Refused),06/18/2024(Deferred: Patient Refused) Tdap 03/15/2016 Social History Tobacco Use Types Packs/Day Years [...] on file Legal Sex Female 11:46 PM RADIATION THERAPIST Gender Identity Female 03/27/2024 7:14 AM CDT Sexual Orientation Straight 03/27/2024 7: 14 AM CDT Last Filed Vital Signs Vital Sign Reading [...] 11/29/2024 9:13 AM CDT Plan of Treatment Not on file Procedures Procedure Name Priority Date/Time Associated Diagnosis Comments POCT LIPID PANEL Routine 11/18/2024 12:5 9 PM RADIATION THERAPIST Other chest pain COMPREHENSIVE METABOLIC PANEL Routine 11/11/2024 2:42 PM RADIATION THERAPIST Hepatic steatosis CBC WITH AUTO DIFFERENTIAL Routine 11/11/2024 2:42 PM RADIATION THERAPIST Hepatic steatosis ECG 12-LEAD Routine 11/08/2024 10:34 AM RADIATION THERAPIST Pre-op evaluation MAMMOGRAPHY Routine 10/14/2024 CT ABDOMEN PELVIS W CONTRAST Schedule Routine, Read Routine (OP Routine) 10/03/2024 3:01 PM RADIATION THERAPIST Irritable bowel syndrome without diarrhea Hepatic steatosis Gastroesophageal reflux disease, unspecified whether esophagitis present RUQ pain Elevated LFTs COLONOSCOPY Routine 06/19/2024 1:53 PM CDT PAP SMEAR WITH HPV Routine 01/10/2024 from Last 3 Months or Most Recently Relevant to Health Maintenance Results * POCT lipid panel (11/18/2024 12:59 PM RADIATION THERAPIST) Cholesterol, POC 172 mg/dL HDL, POC 46 mg/dL Triglycerides, POC 304 mg/dL LDL Cholesterol POC 65 mg/dL Chol/HDL Ratio, POC 1.4 Non-HDL Cholesterol, POC 126 mg/dL Cholesterol Total, POC 172 mg/dL Capillary blood 11/18/2024 1 2:59 PM RADIATION THERAPIST us Darius Rodriguez MD POINT OF CARE TEST O RDERABLES Final Result * CBC with auto differential (11/11/2024 2:42 PM RADIATION THERAPIST) WBC 9.3 3.8 - 10.8 Thousand/u L [...] [facility] Blood 11/11/2024 2:42 PM RADIATION THERAPIST 11/11/2024 2:43 PM RADIATION THERAPIST Narrative [facility] - 11/12/2024 5:52 AM RADIATION THERAPIST FASTING:NO FASTING: NO us Ira SINGH LAB BLOOD ORDERABLES Fin al Result [facility] [address] [place] [address] * (ABNORMAL) Comprehensive metabolic panel (11/11/2024 2:42 PM RADIATION THERAPIST) [facility] Glucose 94 65 - 139 mg/dL [facility] Comment: Non-fasting reference interval BUN 14 7 - 25 mg/dL [facility] Creatinine 0.75 0.50 - 0.99 mg/dL [facility] eGFR 99 > OR = 60 mL/min/1.7 3m2 [facility] BUN/creat ratio SEE NOTE: 6 22 (calc) [facility] Comment: Not Reported: [...] [facility] Blood 11/11/2024 2:42 PM RADIATION THERAPIST 11/11/2024 2:43 PM RADIATION THERAPIST Narrative [facility] - 11/12/2024 5:52 AM RADIATION THERAPIST FASTING:NO FASTING: NO Ira SINGH LAB BLOOD ORDERABLES Fin al Result [facility] [address] [place] [address] * ECG 12 lead (11/08/2024 10:34 AM RADIATION THERAPIST) Ira SINGH ECG ORDERABLES Final Re sult * HM MAMMOGRAPHY (10/14/2024) Mammography Abnormal Historical Provider HEALTH MAINTENANCE Final Result * CT Abdomen Pelvis W Contrast (10/03/2024 3:01 PM RADIATION THERAPIST) Anatomical Region Laterality Modality Body N/A Computed Tomogra phy 10/05/2024 11:0 5 PM RADIATION THERAPIST Narrative 10/05/2024 11:15 PM RADIATION THERAPIST EXAM DESCRIPTION: CT ABDOMEN PELVIS W CONTRAST [...] enlarged lymph node or free fluid. MSK: [id number]-pm-[id number] L5-S1 disc disease and mild lower lumbar facet arthropathy. BODY WALL: Tiny fat containing periumbilical hernia. IMPRESSION: No abnormality identified to account for presentation. Gallbladder appears normal. THIS IS AN ELECTRONICALLY VERIFIED FINAL REPORT 10/05/2024 11:15 PM - Electronically signed by Frank Denney M.D. [place]: KORTNEY Report ID: [id number] Reading Location: [id number] Procedure Note Frank Denney MD - 10/05/2024 [...] enlarged lymph node or free fluid. MSK: [id number]-[id number]-[id number] L5-S1 disc disease and mild lower lumbar facet arthropathy. BODY WALL: Tiny fat containing periumbilical hernia. IMPRESSION: No abnormality identified to account for presentation. Gallbladder appears normal. THIS IS AN ELECTRONICALLY VERIFIED FINAL REPORT 10/05/2024 11:15 PM - Electronically signed by Frank Denney M.D. [place]: KORTNEY Report ID: [id number] Reading Location: [place] [address] PROCEDURES Final Result * COLONOSCOPY (06/19/2024 1:53 PM CDT) Scribed Colonoscopy Normal Historical Provider HEALTH MAINTENANCE Edited Result - Final * PAP SMEAR WITH HPV (01/10/2024) Historical Provider HEALTH MAINTENANCE Final Result from Last 3 Months or Most Recently Relevant to Health Maintenance Insurance [facility] Care Teams Still Cleaner Relationship Specialty Start Date End Date Ira Barrett PA [address] [facility] [address] [place], [place] [phone] PCP - General Family Medicine 04/03/24
--- OUTSIDE RECORDS SUMMARY | 2024-12-03 17:05 | XMS_ITS | Clinical Summary ---
Author Organization [facility] Employee Benefit Plans Address [address] [place] [address] Care Team Providers Care Soaker Hides Name Role Phone Demarcus Camejo MD Primary Care Provider Source Comments [facility] Employee [employer],non-owned Affiliates and Associated Physician Practices is amultiple site organization consisting of ambulatory clinics and hospital sitesin [place], [place], [place] and [place]. This disclosure is being madepursuant to the Care Everywhere program and may not contain all information available regarding this patient. Last updated 18.Milk Allergies No known active allergies Medications * Be aware that medications may not be up to date on this document. Alwaysverify current medications with the patient. Medication Sig Dispensed Refills Start Date End Date Status venlafaxine XR 24hr (Effexor XR) 75 MG capsule TAKE 1 CAPSULE BY MOUTH EVERY DAY IN THE MORNING 03/17/2018 Active dexAMETHasone (Decadron) 0.5 MG/5ML elixirIndications :Other lichen planus Rinse and spit 5-10 mL 4x daily as needed for mouth irritation. 30 day supply. 237 mL 3 10/11/2023 Active lamoTRIgine (LaMICtal) 100 MG tabletIndications :Bipolar Mood Disorder Take 1 (one) tablet by mouth 2 times daily Reasons: Manic-Depression Active furosemide (Lasix) 20 MG tabletIndications :Edema Take 1 (one) tablet by mouth once daily Reasons: Edema Active pantoprazole EC (Protonix) 40 MG tabletIndications :Gastroesophageal Reflux Disease Take 1 (one) tablet by mouth once daily Reasons: Gastroesophageal Reflux Disease Active celecoxib (CeleBREX) 200 MG capsuleIndication s:Musculoskeletal Pain Take 1 (one) capsule by mouth once daily Reasons: Musculoskeletal Pain Active LORazepam (Ativan) 0.5 MG tabletIndications :Anxiety Take 1 (one) tablet by mouth every 8 hours as needed for Anxiety Reasons: Feeling Anxious Active tacrolimus (Protopic) 0.1 % ointmentIndicatio ns:Other lichen planus Apply to itchy areas on vulva, trunk and extremities up to two times daily PRN. 30 days supply. 30 g 3 10/28/2024 Active Active Problems Problem Noted Date Diagnosed Date Bipolar II disorder 10/29/2023 10/29/2023 Borderline personality disorder 10/29/2023 10/29/2023 Generalized anxiety disorder 10/29/202307/2024 Erosive lichen planus of vulva 06/23/2023 0 10/29/2023 Degeneration of lumbar intervertebral disc 06/2310/29/2023 Encounters Date Type Department Care Team Description 11/20/2024 8:45 AM EMERGENCY DOCTOR - 11/20/2024 11:59 PM EMERGENCY DOCTOR Hospital Encounter [address] [address] Discharge Disposition: Home or Self Care 11/20/2024 Travel 10/30/2024 7:30 AM EMERGENCY DOCTOR - 10/30/2024 11:59 PM EMERGENCY DOCTOR Hospital Encounter [address] [address] Ira Barrett PA Discharge Disposition: Home or Self Care 10/30/2024 7:00 AM EMERGENCY DOCTOR - 10/30/2024 7:29 AM EMERGENCY DOCTOR Hospital Encounter [address] [address] Ira Barrett [place] Discharge Disposition: Home or Self Care 10/30/2024 Travel 10/28/2024 2:10 PM EMERGENCY DOCTOR Office Visit [facility] - Dermatology [address] [place] [phone] Moriah Bray MD Other lichen planus (Primary Dx) 10/28/2024 Travel 10/14/2024 11:27 AM EMERGENCY DOCTOR - 10/14/2024 11:59 PM EMERGENCY DOCTOR Hospital Encounter [address] [address] Ira Barrett PA Discharge Disposition: Home or Self Care 10/14/2024 Travel from Last 3 Months Social History Tobacco Use Types Packs/Day Years Used Date Smoking Tobacco: Some Days Cigarettes Smokeless Tobacco: Never Tobacco Cessation:Ready to Q uit: Not Asked; Counseling Given: Not Answered Alcohol Use Standard Drinks/Week Comments Not Currently 0 (1 standard drink = 0.6 oz pur e alcohol) PHQ-2 Answer Date Recorded Patient Health Questionnaire-2 Score 2 10/29/2023 Sex and Gender Information Value Date Recorded Sex Assigned at Female 07/17/2023 12:21 AM CDT Gender Identity Female 07/17/2023 12:21 AM CDT Sexual Orientation Straight 07/17/2023 12 :21 AM CDT Last Filed Vital Signs Vital Sign Reading Time Taken Comments Blood Pressure 107/65 06/19/2024 10:40 AM CDT Pulse 79 06/19/2024 10:40 AM CDT Temperature 36.7 C (98 F) 06/19/2024 9:57 AM CDT Respiratory Rate 14 06/19/2024 10:40 AM CDT Oxygen Saturation 96% 06/19/2024 10:40 AM CDT Inhaled Oxygen Concentration - - Weight 98.4 kg (217 lb) 10/30/2024 8:08 AM EMERGENCY DOCTOR Height 160 cm (5' 3 ) 10/30/2024 8:08 AM EMERGENCY DOCTOR Body Mass Index 38.44 10/30/2024 8:08 AM EMERGENCY DOCTOR Plan of Treatment Upcoming Encounters Date Type Department Care Team (Late st Contact Info) Description 01/29/2025 1:50 PM CDT Office Visit [facility] - Dermatology [address] [place] [address], [facility] [place] [phone] Moriah Bray MD [address] [place] [address] [place] [address] 02/19/2025 8:00 AM CDT Appointment [address] [address] Health Maintenance Due Date Last Done Comments COLOGUARD (AGES 45-75) - COLON CA SCREENING 1978 CT COLONOGRAPHY - COLON CA SCREENING 1978 FIT - COLON CA SCREENING 1978 FLEX SIG - COLON CA SCREENING 1978 PAP SMEAR 1978 HIV SCREENING 1993 DTAP/TDAP/TD VACCINES (1 - Tdap) 1997 HEPATITIS B VACCINE (1 of 3 - 19+ 3-dose series) 1997 PNEUMOCOCCAL VACCINE (1 of 2 - PCV) 1997 COVID-19 VACCINE (3 - 2023- season) 2024 02/20/2021, 11/18/2020 INFLUENZA VACCINE (#1) 2024 , 07/12/2022, 06/23/2021, Additional history exists SCREENING FOR DIABETES 08/23/2026 08/23/2023 MAMMOGRAM 10/14/2026 10/14/2024, 10/11/2023 ZOSTER VACCINE (1 of 2) 02/16/2028 LIPID TESTING 11/18/2029 11/18/2024, 08/23/2023 COLON MONITORING 06/19/2034 06/19/2024, 06/19/2024 COLONOSCOPY - COLON CA SCREENING 06/19/2034 06/19/2024, 06/19/2024 Colorectal Cancer Screening 06/19/2034 HEPATITIS C SCREENING Completed 07/20/2023 HIB VACCINE Aged Out No longer eligi ble based on patient's age to complete this topic HPV VACCINE Aged Out No longer eligi ble based on patient's age to complete this topic MENINGOCOCCAL (Group B) VACCINE SHARED DECISION-MAKING Aged Out No longer eligible based on patient's age to complete this topic MENINGOCOCCAL GROUPS A/C/Y/W VACCINE Aged Out No longer eligible based on patient's age to complete this topic Medical Devices Implanted Type Area Relationship Counselor Device Identifier Shelf Expiration Date Model / Serial / Lot Senomark Ultracor Ultrasound Enhanced Heart Breast Tissue Marker Implanted:Qty: 1 on 12/18/2023 by Laurel Estrada DO at [facility] Left: Breast [id number] 07/19/[address] / / [id number] Procedures Procedure Name Priority Date/Time Associated Diagnosis Comments US BREAST RIGHT CYST ASPIRATION Routine 11/20/2024 9:47 AM EMERGENCY DOCTOR Abnormal mammogram US BREAST RIGHT LTD Routine 10/30/2024 8 :15 AM EMERGENCY DOCTOR Abnormal mammogram MAMMO RIGHT DIAGNOSTIC W FCO Routine 10/30/2024 7:45 AM EMERGENCY DOCTOR Abnormal mammogram MAMMO BILAT SCREENING W FCO Routine 10/14/2024 12:28 PM EMERGENCY DOCTOR Visit for screening mammogram ENDOSCOPY, COLON, SCREENING Routine 06/19/2024 9:00 AM CDT COMPREHENSIVE METABOLIC PANEL Routine 08/23/2023 3:46 PM EMERGENCY DOCTOR Lichen planus LIPID PROFILE Routine 08/23/2023 3:46 PM EMERGENCY DOCTOR Lichen planus HEPATITIS C AB SCREEN RFLX NAAT QUANT Routine 07/20/2023 4:31 PM CDT Lichen planus from Last 3 Months or Most Recently Relevant to Health Maintenance Results * US Breast Right Cyst Aspiration (11/20/2024 9:47 AM EMERGENCY DOCTOR) Anatomical Region Laterality Modality Breast Right Mammography 11/20/2024 9:49 AM EMERGENCY DOCTOR Impressions 11/20/2024 11:16 AM EMERGENCY DOCTOR IMPRESSION: Technically successful, uncomplicated ultrasound-guided aspiration performed of a 0.4 cm complicated cyst in the 11 o'clock position 5 cm from the nipple of the RIGHT breast with complete collapse of the cyst. RECOMMENDATION: Given bloody aspirate, follow-up targeted right breast ultrasound is recommended in [address] Ferraro discussed the exam findings with the patient at the time of the procedure. BI-RADS CATEGORY 3: PROBABLY BENIGN. I, Stephanie Ferraro MD have personally reviewed and interpreted this examination/study. > Interpreting Provider: Stephanie Ferraro MD on 11/20/2024 11:16 AM Narrative 11/20/2024 11:16 AM EMERGENCY DOCTOR EXAM: ULTRASOUND-GUIDED CYST ASPIRATION- RIGHT BREAST LOCATION: [facility] EXAM DATE: 11/20/2024 HISTORY: 44-year-old female with a 0.3 cm mass suggestive of a complicated cyst in the right breast 11:00 5 cm from the nipple. 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 COMPARISON: Prior breast imaging studies from [facility], dating back to 10/16/2023 INTERPRETATION: Preprocedure images were reviewed. The procedure and its risks and benefits were discussed with the patient, including, but not limited to infection. Written and verbal informed consent was obtained and documented. After confirming the correct breast for aspiration, the breast was marked with a marking pen. The patient was then placed in a supine position on the ultrasound table. Prior to the procedure, a hospital timeout procedure was performed, including verification of the laterality of the breast for aspiration. The 0.4 cm complicated cyst in the 11 o'clock position 5 cm from the nipple was localized with ultrasound guidance. The breast was cleansed with Chloraprep and draped in a sterile fashion. Using sterile technique and after 3 cc of 1% Lidocaine with Sodium Bicarbonate was given for local anesthesia, the cyst was punctured with a 25-gauge hypodermic needle under ultrasound guidance. Less than 1 cc of reddish fluid was obtained. There was complete collapse of the cyst. The patient tolerated the procedure without incident and left the department in good condition. Estimated blood loss: Minimal A Band-Aid was placed over the skin puncture site. The patient tolerated the procedure without incident and left the department in good condition. Dr. Ferraro was present for and performed the entire procedure. Ira SINGH US ORDERABLES * (ABNORMAL) US BREAST RIGHT LTD (Diagnostic, most commonly ordered) (10/30/2024 8:15 AM EMERGENCY DOCTOR) Anatomical Region Laterality Modality Breast Right Mammography 10/30/2024 7:45 AM EMERGENCY DOCTOR Addenda Addendum by Slime Dillard MD on 10/30/2024 12:13 PM EMERGENCY DOCTOR Findings and recommendations were communicated by Dr. Dillard to the patient via phone on 10/30/2024 at 8:04 AM. The nurse navigator will contact the patient and provider. > Interpreting Provider: Slime Dillard MD on 10/30/2024 12:11 PM Impressions 10/30/2024 8:07 AM EMERGENCY DOCTOR IMPRESSION: A 0.3 cm mass suggestive of a complicated cyst is present at 11:00 5 cm from the nipple. An ultrasound fine-needle aspiration with possible core biopsy is recommended at this time given that the patient is no longer menstruating. RECOMMENDATION: Ultrasound guided fine-needle aspiration with possible core biopsy of the right breast is recommended. Patient was notified of the results at the time of the study. Patient will also receive the exam results by lay letter. OVERALL ASSESSMENT: BI-RADS CATEGORY 4: SUSPICIOUS. (SUBSET CATEGORY 4A: LOW SUSPICION FOR MALIGNANCY). > Interpreting Provider: Slime Dillard MD on 10/30/2024 8:07 AM Narrative 10/30/2024 8:07 AM EMERGENCY DOCTOR EXAMINATIONS: 1. RIGHT DIGITAL DIAGNOSTIC MAMMOGRAM AND TOMOSYNTHESIS AND 2. LIMITED RIGHT BREAST ULTRASOUND (COMBINED REPORT) LOCATION: [facility] EXAM DATE: 10/30/2024 HISTORY: Follow-up to an abnormal screening mammogram. 44-year-old female presents for workup of a questioned focal asymmetry in the right breast on recent screening. RISK ASSESSMENT CALCULATION: Patient completed a breast cancer risk assessment during her appointment 10/14/2024. Based upon the information she provided and her mammographic breast density, her lifetime risk of developing breast cancer is 6% (Average Risk <15%; Intermediate / Moderate Risk 15-19; High Risk > 20%). Risk assessment based upon the Tyrer-Cuzick v8 model. COMPARISON: Comparison is made with relevant prior imaging in PACS dating back to 2023. MAMMOGRAM: TECHNIQUE: Diagnostic right mammography was performed. Tomosynthesis (3-D) and reconstructed synthetic 2-D images acquired. A total of 3 images were obtained. Transpara AI was utilized in the interpretation of this exam. BREAST COMPOSITION: Category A: The breasts are almost entirely fatty. FINDINGS: A 0.6 cm oval circumscribed low density mass is present in the upper breast. The focal asymmetry in question on the recent exam is felt to represent normal parenchymal tissue. LIMITED RIGHT BREAST ULTRASOUND: FINDINGS: Targeted ultrasound at 11:00 5 cm from the nipple shows a 0.3 x 0.3 x 0.3 cm predominantly anechoic oval circumscribed mass with thin septations and without internal vascularity, which corresponds to the mammographic finding. Targeted ultrasound at 10:00, 11:00, 12:00 7 cm from the nipple shows no sonographic abnormality. Procedure Note Slime Dillard MD - 10/30/2024 EXAMINATIONS: 1. RIGHT DIGITAL DIAGNOSTIC MAMMOGRAM AND TOMOSYNTHESIS AND 2. LIMITED RIGHT BREAST ULTRASOUND (COMBINED REPORT) LOCATION: [facility] EXAM DATE: 10/30/2024 HISTORY: Follow-up to an abnormal screening mammogram. [id number] presents for workup of a questioned focal asymmetry in the right breaston recent screening. RISK ASSESSMENT CALCULATION: Patient completed a breast cancer risk assessment during her appointment 10/14/2024. Based upon the information she provided and her mammographic breast density, her lifetime risk of developing breast cancer is 6% (Average Risk <15%; Intermediate /Moderate Risk 15-19; High Risk > 20%). Risk assessment based upon theTyrer-Cuzick v8 model. COMPARISON: Comparison is made with relevant prior imaging in PACSdating back to 2023. MAMMOGRAM: TECHNIQUE: Diagnostic right mammography was performed. Tomosynthesis(3-D) and reconstructed synthetic 2-D images acquired. A total of 3 images were obtained. Transpara AI was utilized in the interpretation of this exam. BREAST COMPOSITION: Category A: The breasts are almost entirely fatty. FINDINGS: A 0.6 cm oval circumscribed low density mass is present in the upper breast. The focal asymmetry in question on the recent exam is felt to represent normal parenchymal tissue. LIMITED RIGHT BREAST ULTRASOUND: FINDINGS: Targeted ultrasound at 11:00 5 cm from the nipple shows a 0.3 x 0.3 x0.3 cm predominantly anechoic oval circumscribed mass with thin septationsand without internal vascularity, which corresponds to the mammographic finding. Targeted ultrasound at 10:00, 11:00, 12:00 7 cm from the nipple shows no sonographic abnormality. IMPRESSION: A 0.3 cm mass suggestive of a complicated cyst is present at 11:00 5 cm from the nipple. An ultrasound fine-needle aspiration with possible core biopsy is recommended at this time given that the patient is no longer menstruating. RECOMMENDATION: Ultrasound guided fine-needle aspiration with possible core biopsy of the right breast is recommended. Patient was notified of the results at the time of the study. Patientwill also receive the exam results by lay letter. OVERALL ASSESSMENT: BI-RADS CATEGORY 4: SUSPICIOUS. (SUBSET [id number]: LOW SUSPICION FOR MALIGNANCY). > Interpreting Provider: Slime Dillard MD on 10/30/2024 8:07 AM Ira SINGH US ORDERABLES * (ABNORMAL) Mammo Right Diagnostic W Fco (10/30/2024 7:45 AM EMERGENCY DOCTOR) Anatomical Region Laterality Modality Breast Right Mammography 10/30/2024 7:45 AM EMERGENCY DOCTOR Addenda Addendum by Slime Dillard MD on 10/30/2024 12:13 PM EMERGENCY DOCTOR Findings and recommendations were communicated by Dr. Dillard to the patient via phone on 10/30/2024 at 8:04 AM. The nurse navigator will contact the patient and provider. > Interpreting Provider: Slime Dillard MD on 10/30/2024 12:11 PM Impressions 10/30/2024 8:07 AM EMERGENCY DOCTOR IMPRESSION: A 0.3 cm mass suggestive of a complicated cyst is present at 11:00 5 cm from the nipple. An ultrasound fine-needle aspiration with possible core biopsy is recommended at this time given that the patient is no longer menstruating. RECOMMENDATION: Ultrasound guided fine-needle aspiration with possible core biopsy of the right breast is recommended. Patient was notified of the results at the time of the study. Patient will also receive the exam results by lay letter. OVERALL ASSESSMENT: BI-RADS CATEGORY 4: SUSPICIOUS. (SUBSET CATEGORY 4A: LOW SUSPICION FOR MALIGNANCY). > Interpreting Provider: Slime Dillard MD on 10/30/2024 8:07 AM Narrative 10/30/2024 8:07 AM EMERGENCY DOCTOR EXAMINATIONS: 1. RIGHT DIGITAL DIAGNOSTIC MAMMOGRAM AND TOMOSYNTHESIS AND 2. LIMITED RIGHT BREAST ULTRASOUND (COMBINED REPORT) LOCATION: [facility] EXAM DATE: 10/30/2024 HISTORY: Follow-up to an abnormal screening mammogram. 44-year-old female presents for workup of a questioned focal asymmetry in the right breast on recent screening. RISK ASSESSMENT CALCULATION: Patient completed a breast cancer risk assessment during her appointment 10/14/2024. Based upon the information she provided and her mammographic breast density, her lifetime risk of developing breast cancer is 6% (Average Risk <15%; Intermediate / Moderate Risk 15-19; High Risk > 20%). Risk assessment based upon the Tyrer-Cuzick v8 model. COMPARISON: Comparison is made with relevant prior imaging in PACS dating back to 2023. MAMMOGRAM: TECHNIQUE: Diagnostic right mammography was performed. Tomosynthesis (3-D) and reconstructed synthetic 2-D images acquired. A total of 3 images were obtained. Transpara AI was utilized in the interpretation of this exam. BREAST COMPOSITION: Category A: The breasts are almost entirely fatty. FINDINGS: A 0.6 cm oval circumscribed low density mass is present in the upper breast. The focal asymmetry in question on the recent exam is felt to represent normal parenchymal tissue. LIMITED RIGHT BREAST ULTRASOUND: FINDINGS: Targeted ultrasound at 11:00 5 cm from the nipple shows a 0.3 x 0.3 x 0.3 cm predominantly anechoic oval circumscribed mass with thin septations and without internal vascularity, which corresponds to the mammographic finding. Targeted ultrasound at 10:00, 11:00, 12:00 7 cm from the nipple shows no sonographic abnormality. Procedure Note Slime Dillard MD - 10/30/2024 EXAMINATIONS: 1. RIGHT DIGITAL DIAGNOSTIC MAMMOGRAM AND TOMOSYNTHESIS AND 2. LIMITED RIGHT BREAST ULTRASOUND (COMBINED REPORT) LOCATION: [facility] EXAM DATE: 10/30/2024 HISTORY: Follow-up to an abnormal screening mammogram. [id number] presents for workup of a questioned focal asymmetry in the right breaston recent screening. RISK ASSESSMENT CALCULATION: Patient completed a breast cancer risk assessment during her appointment 10/14/2024. Based upon the information she provided and her mammographic breast density, her lifetime risk of developing breast cancer is 6% (Average Risk <15%; Intermediate /Moderate Risk 15-19; High Risk > 20%). Risk assessment based upon theTyrer-Cuzick v8 model. COMPARISON: Comparison is made with relevant prior imaging in PACSdating back to 2023. MAMMOGRAM: TECHNIQUE: Diagnostic right mammography was performed. Tomosynthesis(3-D) and reconstructed synthetic 2-D images acquired. A total of 3 images were obtained. Transpara AI was utilized in the interpretation of this exam. BREAST COMPOSITION: Category A: The breasts are almost entirely fatty. FINDINGS: A 0.6 cm oval circumscribed low density mass is present in the upper breast. The focal asymmetry in question on the recent exam is felt to represent normal parenchymal tissue. LIMITED RIGHT BREAST ULTRASOUND: FINDINGS: Targeted ultrasound at 11:00 5 cm from the nipple shows a 0.3 x 0.3 x0.3 cm predominantly anechoic oval circumscribed mass with thin septationsand without internal vascularity, which corresponds to the mammographic finding. Targeted ultrasound at 10:00, 11:00, 12:00 7 cm from the nipple shows no sonographic abnormality. IMPRESSION: A 0.3 cm mass suggestive of a complicated cyst is present at 11:00 5 cm from the nipple. An ultrasound fine-needle aspiration with possible core biopsy is recommended at this time given that the patient is no longer menstruating. RECOMMENDATION: Ultrasound guided fine-needle aspiration with possible core biopsy of the right breast is recommended. Patient was notified of the results at the time of the study. Patientwill also receive the exam results by lay letter. OVERALL ASSESSMENT: BI-RADS CATEGORY 4: SUSPICIOUS. (SUBSET [id number]: LOW SUSPICION FOR MALIGNANCY). > Interpreting Provider: Slime Dillard MD on 10/30/2024 8:07 AM Ira SINGH MAMMO ORDERABLES * Mammo Bilat Screening W Fco (10/14/2024 12:28 PM EMERGENCY DOCTOR) Anatomical Region Laterality Modality Breast Bilateral Mammography 10/14/2024 12:5 8 PM EMERGENCY DOCTOR Addenda Addendum by Laurel Estrada DO on 10/15/2024 8:58 AM EMERGENCY DOCTOR ADDENDUM: This addendum is being submitted to correct the right/left discrepancy in the recommendation section of the original report. The recommendation should read a diagnostic RIGHT (not left) mammogram and possible RIGHT (not left) ultrasound is recommended. Please refer to below fold report with addendum. EXAMINATIONS: BILATERAL DIGITAL SCREENING MAMMOGRAM AND BILATERAL BREAST TOMOSYNTHESIS LOCATION: [facility] EXAM DATE: 10/14/2024 HISTORY: Screening. No reported family history of breast cancer. 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 RISK ASSESSMENT CALCULATION: Patient completed a breast cancer risk assessment during her appointment 10/14/2024. Based upon the information she provided and her mammographic breast density, her lifetime risk of developing breast cancer is 6% (Average Risk <15%; Intermediate / Moderate Risk 15-19; High Risk > 20%). Risk assessment based upon the Tyrer-Cuzick v8 model. COMPARISON: Compare with prior breast imaging studies back to 10/11/2023, with the most recent dated 11/28/2023. TECHNIQUE: Tomosynthesis (3D) and reconstructed synthetic 2-D images acquired and reviewed in the bilateral craniocaudal and mediolateral oblique projections. A total of 8 images obtained. Transpara AI was utilized in the interpretation. BREAST PARENCHYMAL COMPOSITION: Category A: The breasts are almost entirely fatty. FINDINGS: Right breast: There is suggestion of possible focal asymmetry in the upper outer right breast, mid depth, located approximately 7.5 cm from the nipple on the MLO view. There are no suspicious calcifications. Otherwise no significant change from prior. Left breast: There is no mammographic evidence of malignancy or significant change from prior. There is a stable heart-shaped biopsy clip in the upper outer left breast corresponding to a prior benign biopsy. IMPRESSION: 1. Suggestion of possible focal asymmetry in the upper outer right breast is indeterminate and warrants further evaluation. 2. No mammographic evidence of left breast malignancy. RECOMMENDATION: Diagnostic right mammogram. If indicated at that time, right breast ultrasound will be performed. Patient will be contacted and scheduled to return for the additional imaging. OVERALL ASSESSMENT: BI-RADS CATEGORY 0: INCOMPLETE: NEED ADDITIONAL IMAGING EVALUATION. Report dictated by Ava Levine, MERLE (breast imaging fellow). Memo Espinoza and Varghese Burnham MD (residential advisor) assisted in interpretation of this exam. > Interpreting Provider: Laurel Estrada DO on 10/15/2024 8:56 AM Impressions 10/14/2024 1:57 PM EMERGENCY DOCTOR IMPRESSION: 1. Suggestion of possible focal asymmetry in the upper outer right breast is indeterminate and warrants further evaluation. 2. No mammographic evidence of left breast malignancy. RECOMMENDATION: Diagnostic left mammogram. If indicated at that time, left breast ultrasound will be performed. Patient will be contacted and scheduled to return for the additional imaging. OVERALL ASSESSMENT: BI-RADS CATEGORY 0: INCOMPLETE: NEED ADDITIONAL IMAGING EVALUATION. Report dictated by MERLE Das (breast imaging fellow). Memo Espinoza and Varghese Burnham MD (residential advisor) assisted in interpretation of this exam. ILaurel DO have personally reviewed and interpreted this examination/study. > Interpreting Provider: Laurel Estraad DO on 10/14/2024 1:57 PM Narrative 10/14/2024 1:57 PM EMERGENCY DOCTOR EXAMINATIONS: BILATERAL DIGITAL SCREENING MAMMOGRAM AND BILATERAL BREAST TOMOSYNTHESIS LOCATION: [facility] EXAM DATE: 10/14/2024 HISTORY: Screening. No reported family history of breast cancer. 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 RISK ASSESSMENT CALCULATION: Patient completed a breast cancer risk assessment during her appointment 10/14/2024. Based upon the information she provided and her mammographic breast density, her lifetime risk of developing breast cancer is 6% (Average Risk <15%; Intermediate / Moderate Risk 15-19; High Risk > 20%). Risk assessment based upon the Tyrer-Cuzick v8 model. COMPARISON: Compare with prior breast imaging studies back to 10/11/2023, with the most recent dated 11/28/2023. TECHNIQUE: Tomosynthesis (3D) and reconstructed synthetic 2-D images acquired and reviewed in the bilateral craniocaudal and mediolateral oblique projections. A total of 8 images obtained. Transpara AI was utilized in the interpretation. BREAST PARENCHYMAL COMPOSITION: Category A: The breasts are almost entirely fatty. FINDINGS: Right breast: There is suggestion of possible focal asymmetry in the upper outer right breast, mid depth, located approximately 7.5 cm from the nipple on the MLO view. There are no suspicious calcifications. Otherwise no significant change from prior. Left breast: There is no mammographic evidence of malignancy or significant change from prior. There is a stable heart-shaped biopsy clip in the upper outer left breast corresponding to a prior benign biopsy. Procedure Note Laurel Estrada DO - 10/14/2024 EXAMINATIONS: BILATERAL DIGITAL SCREENING MAMMOGRAM AND BILATERALBREAST TOMOSYNTHESIS LOCATION: [facility] EXAM DATE: 10/14/2024 HISTORY: Screening. No reported family history of breast cancer.History of benign left breast biopsy on 12/18/2023 yielding sclerosing adenosiswith microcalcifications and anastomosis. RISK ASSESSMENT CALCULATION: Patient completed a breast cancer risk assessment during her appointment 10/14/2024. Based upon the information she provided and her mammographic breast density, her lifetime risk of developing breast cancer is 6% (Average Risk <15%; Intermediate /Moderate Risk 15-19; High Risk > 20%). Risk assessment based upon theTyrer-Cuzick v8 model. COMPARISON: Compare with prior breast imaging studies back to 10/11/2023, with the most recent dated 11/28/2023. TECHNIQUE: Tomosynthesis (3D) and reconstructed synthetic 2-D images acquired and reviewed in the bilateral craniocaudal and mediolateral oblique projections. A total of 8 images obtained. Transpara AI was utilized in the interpretation. BREAST PARENCHYMAL COMPOSITION: Category A: The breasts are almostentirely fatty. FINDINGS: Right breast: There is suggestion of possible focal asymmetry in the upper outer right breast, mid depth, located approximately 7.5 cm from the nipple on theMLO view. There are no suspicious calcifications. Otherwise no significant change from prior. Left breast: There is no mammographic evidence of malignancy or significant changefrom prior. There is a stable heart-shaped biopsy clip in the upper outerleft breast corresponding to a prior benign biopsy. IMPRESSION: 1. Suggestion of possible focal asymmetry in the upper outer rightbreast is indeterminate and warrants further evaluation. 2. No mammographic evidence of left breast malignancy. RECOMMENDATION: Diagnostic left mammogram. If indicated at that time, left breast ultrasound will be performed. Patient will be contacted and scheduled to return for the additional imaging. OVERALL ASSESSMENT: BI-RADS CATEGORY 0: INCOMPLETE: NEED ADDITIONALIMAGING EVALUATION. Report dictated by Ava MORRISON, FRCR (breast imaging fellow). Memo Espinoza and Varghese Burnham MD (residential advisor) assistedin interpretation of this exam. ILaurel DO have personally reviewed and interpreted this examination/study. > Interpreting Provider: Laurel Estrada DO on 10/14/2024 1:57 PM Demarcus Camejo MD MAMMO ORDERABLES * ENDOSCOPY, COLON, SCREENING (06/19/2024 9:00 AM CDT) Report Endoscopy POC Endoscopy Department Report _ Patient Name: Rasheeda Garcia Procedure Date: 06/19/2024 9:00 AM Date of : 1980 Classification: Outpatient Gender: Female Ethnicity: Not or Race: White _ Providers: Justin Otoole MD Referring MD: Malcom Rogers MD, Allan Escalante MD Procedure: Colonoscopy Indications: Screening for colorectal malignant neoplasm Medications: Monitored Anesthesia Care Description of Procedure: Pre-Anesthesia Assessment: - Prior to the procedure, a History and Physical was performed, and patient medications and allergies were reviewed. The patient's tolerance of previous anesthesia was also reviewed. The risks and benefits of the procedure and the sedation options and risks were discussed with the patient. All questions were answered, and informed consent was obtained. Prior Anticoagulants: The patient has taken no anticoagulant or antiplatelet agents. ASA Grade Assessment: II - A patient with mild systemic disease. After reviewing the risks and benefits, the patient was deemed in satisfactory condition to undergo the procedure. After I obtained informed consent, the scope was passed under direct vision. Throughout the procedure, the patient's blood pressure, pulse, and oxygen saturations were monitored continuously. The Colonoscope was introduced through the anus and advanced to the terminal ileum, with identification of the appendiceal orifice and IC valve. The colonoscopy was performed without difficulty. The patient tolerated the procedure well. The quality of the bowel preparation was good. The terminal ileum, ileocecal valve, appendiceal orifice, and rectum were photographed. Findings: The terminal ileum appeared normal. Two sessile polyps were found in the ascending colon. The polyps were 3 to 5 mm in size. These polyps were removed with a cold snare. Resection and retrieval were complete. Two sessile polyps were found in the transverse colon. The polyps were 3 to 4 mm in size. These polyps were removed with a cold snare. Resection was complete, but the polyp tissue was only partially retrieved. A 4 mm polyp was found in the sigmoid colon. The polyp was sessile. The polyp was removed with a cold snare. Resection and retrieval were complete. The exam was otherwise without abnormality on direct and retroflexion views. Estimated Blood Loss: Estimated blood loss: none. Complications: No immediate complications. Impression: - The examined portion of the ileum was normal. - Two 3 to 5 mm polyps in the ascending colon, removed with a cold snare. Resected and retrieved. - Two 3 to 4 mm polyps in the transverse colon, removed with a cold snare. Complete resection. Partial retrieval. - One 4 mm polyp in the sigmoid colon, removed with a cold snare. Resected and retrieved. - The examination was otherwise normal on direct and retroflexion views. Recommendation: - Discharge patient to home. - Resume previous diet. - Continue present medications. - Await pathology results. - Repeat colonoscopy in 5 years for surveillance. - Return to referring physician. - Patient has a contact number available for emergencies. The signs and symptoms of potential delayed complications were discussed with the patient. Return to normal activities tomorrow. Written discharge instructions were provided to the patient. Procedure Code(s): --- Professional --- 39410, Colonoscopy, flexible; with removal of tumor(s), polyp(s), or other lesion(s) by snare technique Diagnosis Code(s): --- Professional --- Z12.11, Encounter for screening for malignant neoplasm of colon D12.2, Benign neoplasm of ascending colon D12.3, Benign neoplasm of transverse colon (hepatic flexure or splenic flexure) D12.5, Benign neoplasm of sigmoid colon CPT copyright 2021 [employer]. All rights reserved. The codes documented in this report are preliminary and upon felt hat mellowing machine operator review may be revised to meet current compliance requirements. Justin Otoole MD 06/19/2024 9:58:58 AM This report has been signed electronically. Note Initiated On: 06/19/2024 9:00 AM Number of Addenda: [id number] [place] [address] 06/19/2024 9:00 AM CDT Justin Otoole MD GI PROCEDURE ORDERAB LES [facility] * COMPREHENSIVE METABOLIC PANEL (08/23/2023 3:46 PM EMERGENCY DOCTOR) Glucose 82 65 - 99 mg/dL [facility] Comment: Fasting reference interval BUN 17 7 - 25 mg/dL [facility] Creatinine 0.67 0.50 - 0.99 mg/dL [facility] eGFR by Cystatin C 110 > OR = 60 mL/min/1. 73m2 [facility] BUN/Creatinine Ratio SEE NOTE: 6 - 22 (calc) [facility] Comment: Not Reported: BUN and Creatinine are within reference range. Sodium 140 135 - 146 mmol/L [facility] Potassium 4.6 3.5 - 5.3 mmol/L [facility] Chloride 104 98 - 110 mmol/L [facility] CO2 29 20 - 32 mmol/L [facility] Calcium 9.4 8.6 - 10.2 mg/dL [facility] Protein Total 7.0 6.1 - 8.1 g/dL [facility] Albumin 4.2 3.6 - 5.1 g/dL [facility] Globulin Total 2.8 1.9 - 3.7 g/dL (calc) [facility] Albumin/Globulin Ratio 1.5 1.0 - 2.5 (calc) [facility] Bilirubin Total 0.5 0.2 - 1.2 mg/dL [facility] Alkaline Phosphatase 85 31 - 125 U/L [facility] AST 12 10 - 35 U/L [facility] ALT 24 6 - 29 U/L [facility] Comment: Test Performed at: [facility] [address] JORDYN DUMAS MD Blood BLOOD SPECIMEN / Unknown 08/23/2023 3:46 PM EMERGENCY DOCTOR 08/23/2023 3:46 PM EMERGENCY DOCTOR Moriah Bray MD LAB - CHEMISTRY [facility] Performing Organization Address [facility] Co de Phone Number [address] [address] * (ABNORMAL) LIPID PROFILE (08/23/2023 3:46 PM EMERGENCY DOCTOR) Cholesterol 189 <200 mg/dL [facility] HDL Cholesterol 61 > OR = 50 mg/dL [facility] Triglycerides 115 <150 mg/dL [facility] LDL Calculated 107(H) mg/dL (calc) [facility] Comment: Reference range: <100 Desirable range <100 mg/dL for primary prevention; <70 mg/dL for patients with CHD or diabetic patients with > or = 2 CHD risk factors. LDL-C is now calculated using the Mike-Terry calculation, which is a validated novel method providing better accuracy than the Friedewald equation in the estimation of LDL-C. Mike SS et al. TOMER. 2013;310(19): 8507-3353 (http://education.Shop 9 Seven/faq/VTX618) CHOL/HDLC RATIO 3.1 <5.0 (calc) [facility] Non HDL Cholesterol 128 <130 mg/dL (calc) [facility] Comment: For patients with diabetes plus 1 major ASCVD risk factor, treating to a non-HDL-C goal of <100 mg/dL (LDL-C of <70 mg/dL) is considered a therapeutic option. Test Performed at: [facility] [address] JORDYN DUMAS MD Blood BLOOD SPECIMEN / Unknown 08/23/2023 3:46 PM EMERGENCY DOCTOR 08/23/2023 3:46 PM EMERGENCY DOCTOR Moriah Bray MD LAB - CHEMISTRY [facility] Performing Organization Address City/[facility]/ZIP Co de Phone Number [address] [address] * HEPATITIS C AB SCREEN RFLX NAAT QUANT (07/20/2023 4:31 PM CDT) Hepatitis C Antibody Non-react rafy Non-reac tive 07/20/2023 5:52 PM CDT [facility] Comment:Hepatitis C Antibody screen indicates no serologic evidence of past or current infection with Hepatitis C Virus. Patients with unexplained liver disease who are immunocompromised or suspected of having acute Hepatitis C infection may benefit from Nucleic Acid Test (MECHE) for Hepatitis C Viral RNA to confirm Hepatitis C status. Blood BLOOD SPECIMEN / Unknown Lab Venipuncture / Unknown 07/20/2023 4:31 PM CDT 07/20/2023 4:58 PM CDT Moriah Bray MD LAB - CHEMISTRY [facility] Performing Organization Address City/State/[facility] Co de Phone Number [facility] [address] [place] [address], [facility] [phone] from Last 3 Months or Most Recently Relevant to Health Maintenance Care Teams Soaker Hides Relationship Specialty Start Date End Date Demarcus Camejo MD [address] [facility] [address] [place] [address] PCP - General Family Medicine 07/05/24
== END 2024-12-03 15:07 | disposition home or self-care (01) ==
PROVIDERS: PCP Family Medicine; Visit Provider Physician Assistant Surgical
DX: S62.657D Nondisplaced fracture of middle phalanx of left little finger, subsequent encounter for fracture with routine healing (principal); X58.XXXD Exposure to other specified factors, subsequent encounter
CPT/HCPCS: 73140

== ENCOUNTER 2024-12-05 17:34 | Outpatient (CLI) | payer OTHER, SELFPAY ==
--- NOTE | ~2024-12-05 | CT_ITS ---
CLINICAL INDICATION: History of nondisplaced intra-articular fracture. COMPARISON: Reference was made to multiple plain film evaluations of the left hand and left fifth dig it performed most recently on 12/03/2024 and dating back to 10/19/2024. TECHNIQUE: Computed tomography (CT) of the left hand was performed without intravenous contrast. The dose-length product was 485.60 mGy-cm. FINDINGS/OBSERVATIONS: Redemonstration of intra-articular fracture within the proximal left middle phalanx. Incomplete callus formation is appreciated on cross sectional imaging, best demonstrated on axial ser ies, image 60, which demonstrates trace callus formation along the palmar surface of the fracture. No additional fractures are identified. IMPRESSION: Redemonstration of an intra-articular fracture within the proximal left middle phalanx with incomplet e callus formation, as detailed above. Reviewed, dictated and finalized at location A. IMPRESSION: Redemonstration of an intra-articular fracture within the proximal left middle phalanx with incomplete callus formation, as detailed above.
--- OUTSIDE RECORDS SUMMARY | 2024-12-05 17:39 | XMS_ITS | Encounter Summary ---
Author Organization [facility] Health Address [address] [facility] [place] [address] Care Team Providers Care Animal Control Officer Name Role Phone Demarcus Camejo MD Primary Care Provider Reason for Visit * Reason Onset Date Comments Medication Issue 09/04/2023 Encounter Details Date Type Department Care Team (Late st Contact Info) Description 09/04/2023 Telephone [facility] - Centralized Scheduling [address] [place] [address] Moriah Bray MD [facility] [facility] [place] [address] Medication Issue Social History Tobacco [...] previous two messages. Please contact pt, . 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 Prescriptions were resent to pharmacy in [place]. 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 nystatin susp 20 ML - hydrocortisone 50 MG- viscous lidocaine 2% 50 ml - water 50 ml SUSP needs to be sent to [place] pharmacy to be filled as a compound. 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 documented in this encounter Plan of Treatment Upcoming Encounters Date Type Department Care Team (Late st Contact Info) Description 01/29/2025 1:50 PM CDT Office Visit [facility] - Dermatology [address] [place] [address], [place] [address] Moriah Bray MD [address] [place] [address] [place] [address] 02/19/2025 8:00 AM CDT Appointment [facility] [address] [place] [address] documented as of this encounter Visit Diagnoses Diagnosis Lichen planus- Primary documented in this encounter Care Teams Animal Control Officer Relationship Specialty Start Date End Date Demarcus Camejo MD [address] [facility] [address] [place] [phone] PCP - General Family Medicine 07/05/24 documented as of this encounter
--- OUTSIDE RECORDS SUMMARY | 2024-12-05 17:39 | XMS_ITS | Encounter Summary ---
Author Organization [facility] Health Address [address] [place] [address] Care Team Providers Care Chronometer Adjuster Name Role Phone Demarcus Camejo MD Primary Care Provider [phone] Encounter Details Date Type Department Care Team (Late st Contact Info) Description 08/08/2023 Telephone [facility] - Dermatology [address] [place] [address] [place] [address] Moriah Bray MD [address] [place], [place] [address] [address] Social History Tobacco Use Types [...] case she needs to reschedule Please advise ON CLEANER documented in this encounter Plan of Treatment Upcoming Encounters Date Type Department Care Team (Late st Contact Info) Description 01/29/2025 1:50 PM CDT Office Visit [facility] - Dermatology [address] [facility], [place] [address] Moriah Bray MD [address] [facility] [place] [address] 02/19/2025 8:00 AM CDT Appointment [facility] [address] [place] [address] documented as of this encounter Visit Diagnoses Not on filedocumented in this encounter Care Teams Chronometer Adjuster Relationship Specialty Start Date End Date Demarcus Camejo MD [address] [address] [place] [phone] PCP - General Family Medicine 07/05/24 documented as of this encounter
--- OUTSIDE RECORDS SUMMARY | 2024-12-05 17:39 | XMS_ITS | Data Portability ---
Author Organization [facility] [employer] [place], Main Office Address [address] [place] [address] Care Team Providers Care Rolled Ham Lacer Name Role Phone VIRGINIA HERNANDEZ Primary Care Provider [phone] VIRGINIA HERNANDEZ Referring Provider Assessment Encounter Date Assessment Date Assessment LastModified by Organization Details LastModified Time 10/07/2024 10/07/2024 Note was performed with dictation software, error may occur. Not available 10/08/2024 09:32:34 10/31/2024 10/31/2024 This note is dictated and transcribed by [email or web address]. Security Solutions Engineer variances may occur. Despite proofreading, typographical errors may occur. Occasional wrong-word or 'hkpeu-e-dron' substitutions may have occurred due to the [...] or more view 025 10/31/[email or web address] [facility] [place], [address], [place], [address], 16:29:21 XR, foot, 3 or more view 025 10/31/19 25 [email or web address] [facility] Podiatry [place], [address], [place], [address], 16:29:21 Medication Orders None record ed. Patient TargetsNo targets recorded. Patient InstructionsNo instructions recorded. Reason for Referral None Reported. Results Created Date Observation Date Name Description Value Unit Range Abnormal Flag Note LastModifiedBy Organization Detail LastModifiedTime 01/11/20 23 01/10/2023 US, padmini x venou s, lower extre mity, compl ete No observ ation record ed. [email or web address] [facility] [address], [place], [address], 01/11/2023 10:17:02 01/11/20 23 01/10/2023 US, bjle x, arter ial, lower extre mity No observ ation record ed. [email or web address] [facility] [address], [place], [address], 01/11/2023 10:17:18 02/07/20 24 02/07/2024 US, padmini holland, venou s, extre mity, compl ete No observ ation record ed. [email or web address] [facility] [address], [place], [address], 02/07/2024 14:03:01 02/14/20 24 02/14/2024 sleep study , diagn ostic (PROC ) No observ ation record ed. [email or web address] [facility] [address], [place], [address], 2024 09:06:53 10/31/19 25 XR, foot, 3 or more view No observ ation record ed. [email or web address] [facility] [place] [address], [place], [address], 10/31/2024 16:28:57 10/31/19 25 XR, foot, 3 or more view No observ ation record ed. [email or web address] [facility] [place] [address], [place], [address], 10/31/2024 16:29:19 Result Notes None recorded. Problems Name Problem SNOMED Code Status Onset Date Resolution Date Notes Provider Name and Address Organization Details Recorded Time Peripheral venous insufficie ncy 98234752 Active 2021 Not Available [facility] 3 07:30:10 Contractur e of joint of toe 062340086 Active 2020 Not Available [facility] 3 07:30:11 Porokerato sis 213744934 Active 2020 Not Available [facility] 3 07:30:11 Ingrowing toenail 770340833 Active 2021 Not Available [facility] 3 07:30:11 Abscess of buttock 82993293 Active Not Available [facility] 3 07:30:11 Dystrophia unguium 48197172 Active 2023 Nixon Middleton DPM [address], [place], [address] , [employer] 4 16:44:04 Pain in toe 472103257 Active 2023 Nixon Middleton DPM [address], [address], [place], [address] , [employer] 4 16:44:20 Pain in right foot 8291635232841 07 Active 2024 Nixon Middleton DPM [address], [address], [place], [address] , [employer] 5 16:23:58 Tailor's bunion of right foot 5023025988951 109 Active 2024 Nixon Middleton DPM [address], [address], [place], [address] , [employer] 5 16:24:03 Pain in left foot 9025818959227 07 Active 2024 Nixon Middleton DPM [address], [address], [place], [address] , [employer] 16:27:53 Problem Notes None recorded. Procedures Surgical History Date Name Laterality Status Provider Name and Address Organization Details Recorded Time 10/07/19 25 Nail Debridement completed Nixon Middleton DPM [address], [address], [place], [address], [employer] 10/08/2024 09:31:32 11/30/19 24 Nail Debridement completed Nixon Middleton DPM [address], [place], [address], [employer] 11/30/2023 16:44:00 07/14/20 21 Date of Last Pap Smear completed Not Available [facility] 11/16/2022 07:26:19 07/06/20 10 MEDICINE TEACHER Surgery completed Not Available [facility] 11/17/19 07:26:21 10/07/19 05 MEDICINE TEACHER Surgery completed Not Available [facility] 11/17/19 07:26:21 08/26/20 04 MEDICINE TEACHER Procedure completed Not Available [facility] 2022 07:26:21 05/29/20 01 MEDICINE TEACHER Procedure completed Not Available [facility] 2022 07:26:21 section completed Not Available [facility] 11/16/2022 07:26:21 tonsilectomy/ad enoids completed Not Available [facility] 11/16/2022 07:26:21 MEDICINE TEACHER Surgery completed Not Available [facility] 11/16/2022 07:26:21 Imaging Results Imaging Date Name Status [facility]Modified by [facility] Details LastModified Time 01/10/2023 US, duplex, venous, lower extremity, complete completed [email or web address] [facility] [address], [place], [address], 01/11/2023 10:17:02 01/10/2023 US, duplex, arterial, lower extremity completed [email or web address] [facility] [address], [place], [address], 01/11/2023 10:17:18 02/07/2024 US, duplex, venous, extremity, complete completed [email or web address] [facility] [address], [place], [address], 02/07/2024 14:03:01 02/14/2024 sleep study, diagnostic (PROC) completed [email or web address] [facility] [address], [place], [address], 2024 09:06:53 10/31/2024 XR, foot, 3 or more view completed [email or web address] [facility] [place] [address], [place], [address], 10/31/2024 16:28:57 10/31/2024 XR, foot, 3 or more view completed [email or web address] [facility] [place] [address], [place], [address], 10/31/2024 16:29:19 Procedure Notes None recorded. Medical Equipment None Reported. Allergies Allergen ID Allergen Name Allergen Category Reaction Reaction Severity Criticality Documentation Date Start Date Code Code System Note Provider Name and Address Organization Details Recorded Time 06957 Bactrim medicatio n Not available Not available Not available 11/16/2022 81911 9 RxNorm Not Available [facility] 3 07:35:19 Medications Name Sig Start [...] % 98 % 99 /min 14 /min 11579.3 3 g 115 mm[Hg] 73 mm[Hg] Not Available [facility] 3 07:26:27 Date Recorded Body mass index (BMI) Body height Heart rate Body weight Systolic blood pressure Diastolic blood pressure Provider Name and Address Organization Details Last Updated DateTime 2 30.4 kg/m2 157.48 cm 99 /min 83204.3 3 g 130 mm[Hg] 86 mm[Hg] Not Available [facility] 3 07:26:27 Date Recorded Heart rate Respiratory rate Oxygen saturation Oxygen saturation in Arterial blood by Pulse oximetry Provider Name and Address Organization Details Last Updated DateTime 11/30/2023 89 /min 14 /min 99 % 99 % Mindy Denney [employer] 4 16:01:35 Date Recorded Heart rate Respiratory rate Oxygen saturation Oxygen saturation in Arterial blood by Pulse oximetry Systolic blood pressure Diastolic blood pressure Provider Name and Address Organization Details Last Updated DateTime 5 92 /min 14 /min 99 % 99 % 123 mm[Hg] 79 mm[Hg] Mindy Denney [employer] [facility] 5 16:06:46 Date Recorded Heart rate Respiratory rate Oxygen saturation Oxygen saturation in Arterial blood by Pulse oximetry Systolic blood pressure Diastolic blood pressure Provider Name and Address Organization Details Last Updated DateTime 5 67 /min 14 /min 98 % 98 % 107 mm[Hg] 67 mm[Hg] Mindy Denney [facility] [facility] 5 15:56:03 Social History Question Answer Notes LastModified by [employer] ion Details LastModified Time Tobacco Smoking Status Current Every Day Smoker Not Available [facility] 11/16/2022 07:26:10 What Is Your Level Of Alcohol Consumption? Occasional [id number] Information not available 11/16/2022 If You Are , What Was Your Level Of Alcohol Consumption Prior To ? None [id number] Information not available 11/16/2022 What Is Your Level Of Caffeine Consumption? Moderate [id number] Information not available 11/16/2022 What Is Your Occupation? Unemployed [id number] Information not available 11/16/2022 What Was The Date Of Your Most Recent Tobacco Screening? 07/12/2021 [id number] Information not available 11/16/2022 Have You Ever Been Counseled For Unhealthy Alcohol Use? No [id number] Information not available 11/16/2022 What Is Your Relationship Status? [id number] Information not available 11/16/2022 Do You Use Your Seat Belt Or Car Seat Routinely? Yes [id number].[id number] Information not available 11/16/2022 How Much Tobacco Do You Smoke? 0.5 PPD [id number].[id number] 1815 Information not available 11/16/2022 Do You Use Any Illicit Or Recreational Drugs? No MIGRATION.282054 7007 Information not available 11/16/2022 Has Tobacco Cessation Counseling Been Provided? No MIGRATION.372708 9823 Information not available 11/16/2022 Do You Or Have You Ever Used Any Other Forms Of Tobacco Or Nicotine? No MIGRATION.110247 6617 Information not available 11/16/2022 Sex: Female Functional Status Question Answer Note LastModified by Organizat ion Details LastModified Time What is your exercise level? None [id number] Information not available 11/16/2022 Mental Status None recorded. Family History Relationship Description Onset Age of this Age Resolved Age Notes LastModified by Organization Details LastModified Time Father Diabetes mellitus [id number] Not available 11/16/2022 07:26:22 Father Myocardial infarction [id number] Not available 11/16/2022 07:26:22 Maternal Grandmother Arthritis [email or web address] Not available 0 10/31/2024 15:45:46 Maternal Grandmother Family history of malignant neoplasm [id number] Not available 10/31 15:45:46 Maternal Grandmother Malignant tumor of ovary [email or web address] Not available 10/31 15:45:46 Medical History Condition Response HEADACHES/MIGRAINES Y ANXIETY DISORDER Y HEPATITIS / LIVER DISEASE Y BACK / NECK PROBLEMS Y DEPRESSION (INCLUDING POST ) Y Gynecological History Statement/Question Response Abnormal Pap [...] SNOMED-CT Code Diagnosis ICD10 Code Diagnosis Note [id number] _ATHENA_M IGRATION_ DEFAULT_1 _1 , 07/12/2021 00:00:00 07/13/2021 10:09:58 [id number] _ATHENA_M IGRATION_ DEFAULT_1 _1 , 07/14/2021 00:00:00 07/14/2021 10:36:38 [id number] _ATHENA_M IGRATION_ DEFAULT_1 _1 , 11/29/2021 00:00:00 12/16/2021 09:26:40 [id number] _LUCILAM IGRATION_ DEFAULT_1 _1 , 07/25/2022 00:00:00 07/26/2022 10:04:18 [id number] RUBINAM IGRATION_ DEFAULT_1 _1 , 08/22/2022 00:00:00 08/23/2022 09:34:38 [id number] Nixon Middleton DPM [facility] Podiatry [place] [address] [place] [address] 11/30/2023 15:54:54 11/30/2023 16:49:45 Dystrophia unguium 95070196 L60.3 bilateral great toenails debrided without incidentfo llow-up as needed Pain in toe 195541741 M7 9.674 M79.675 bilateral great toenails [id number] Nixon Middleton DPM [facility] Podiatry [place] [address] [place] [address] 10/07/2024 15:51:23 10/11/2024 13:12:56 Ingrowing toenail 858310510 L60.0 bilateral great toes and secondnail s debrided without incidentmo nitor for infection if present seek medical attentionr eviewed options if cont will require partial matrix of affected sidesfollo w up in one week [id number] Nixon Middleton DPM [facility] Podiatry [place] [address] [place] [address] 10/31/2024 15:44:43 11/05/2024 14:00:23 Pain in right foot 7915207039 27115 M79.671 as below Tailor's b union of right foot 9904796355 258944 M21.621 Obtain surgical clearancex -rays reviewed with the patientsur gical options reviewed with the patientpla n partial ostectomy right 5th metatarsal head with possible osteotomy Pain in left foot 155370 3343 44122 M79.672 secondary to loren's bunionwill perform surgery [...] Gallardo Member ID Guarantor Name 11/30/2023 1 [facility] ON OR AFTER 03/18/21 (MEDICAID REPLACEMENT - HMO) Rasheeda Pike Jose [id number] Rasheeda Pike Jose 10/07/2024 1 [facility] ON OR AFTER 03/18/21 (MEDICAID REPLACEMENT - HMO) Rasheeda Pike Jose [id number] Rasheeda Pike Jose 10/31/2024 1 [facility] ON OR AFTER 03/18/21 (MEDICAID REPLACEMENT - HMO) Rasheeda Pike Jose [id number] Rasheeda Pike Jose Notes Date Note Type [...] complaints. Nixon Middleton DPM [address], [facility] [address], [place], [address], [employer] 11/30/2023 16:45:51 10/07/2024 text/html Patient presents with painful ingrown toenails of both great toes and second toes, denies any redness, drainage, or swelling. Patient explains pain is mild. Describes pain as sharp in nature. iNxon Middleton DPM [address], [address], [place], [address], [employer] 10/08/2024 09:34:07 10/31/2024 text/html . Patient is [...] right 5th metatarsal. Nixon Middleton DPM [address] [facility], [facility] [address], [place], [address], [place] [facility] [employer] [facility] 10/31/2024 16:29:39 OBGyn Episode No OBEpisode recorded.
--- OUTSIDE RECORDS SUMMARY | 2024-12-05 17:39 | XMS_ITS | Clinical Summary ---
Author Organization [address] Address [address] [address] Care Team Providers Care Security Door Installer Name Role Phone Ira Barrett Primary Care [...] times a day 30 g 025 Active phentermine (ADIPEX-P) 37.5 mg tabletIndications [...] Plan (06/12/2024 3:29 PM CDT): Taking omeprazole qcpf-hjx-vpjprho daily and feels it is no longer [...] as well. - Referred to a new journalism professor for further evaluation and management. - Recommend [...] almost the last year. Has started taking xixo-mws-nwqyhrq stool softener but not sure if it [...] 10/29/2023 Assessment & Plan (09/19/2024 3:16 PM VEHICLE DETAILER): Chronic, stable condition. Continue current medication regimen per psychiatrist Assessment & Plan (06/12/2024 3:27 PM CDT): Chronic, stable. Patient is following with psychiatrist Assessment & Plan (04/03/2024 1:42 PM CDT): Managed by psychiatrist - continues on Lamictal, benzo, Effexor Borderline personality disorder 10/29/2023 Assessment & Plan (09/19/2024 3:16 PM VEHICLE DETAILER): Chronic, stable condition. Continue current medication regimen [...] CDT): Chronic,worsening. Patient will follow up with furniture mover helper Assessment & Plan (06/12/2024 3:27 PM CDT): [...] Encounters Date Type Department Care Team Description 12/05/2024 Telephone [facility] Cardiology [address] [place] [address] Unknown, Notinfile 11/29/2024 9:00 AM CDT Office Visit [facility] Family Medicine [address] [place] [address] Alize Mckeon PA Constipation, unspecified constipation type (Primary Dx); Abdominal pain; Blood in stool; External hemorrhoid; Class 3 severe obesity due to excess calories with serious comorbidity and body mass index (BMI) of 40.0 to 44.9 in adult (HCC) 11/28/2024 Nurse Triage [facility] Family Medicine [address] [address] Ira Barrett PA 11/28/[address] [phone] Ira Barrett PA Recommendation Request 11/18/2024 12:30 PM VEHICLE DETAILER Office Visit [facility] Cardiology [address] [place] [address] Darius Rodriguez MD Abnormal EKG (Primary Dx); Other chest pain; Venous insufficiency 11/12/2024 Results Follow-Up [address] [address] Ira Barrett PA 11/08/2024 10:00 AM VEHICLE DETAILER Office Visit [address] [address] Ira Barrett PA Pre-op evaluation (Primary Dx); Abnormal EKG 11/08/2024 Letter (Out) [address] [address] 11/06/[address] [address] Ira Barrett PA 11/05/2024 1:30 PM VEHICLE DETAILER Telemedicine [address] [address] Ira Barrett PA Left hand pain (Primary Dx); Abnormal mammogram; Obesity, Class II, BMI 35-39.9; Constipation, unspecified constipation type; Hepatic steatosis 11/04/[address] [address] Ira Barrett PA 10/15/[address] [address] Ira Barrett PA Mammogram results 10/14/[address] [address] Ira Barrett PA 10/03/2024 2:54 PM VEHICLE DETAILER - 10/03/2024 11:59 PM VEHICLE DETAILER Hospital Encounter [facility] Medical Office Building [address] [place] [address] Irritable bowel syndrome without diarrhea; Hepatic steatosis; Gastroesophageal reflux disease, unspecified whether esophagitis present; RUQ pain; Elevated LFTs Discharge Disposition: Discharge to home or self care 09/30/2024 Letter (Out) [address] [address] 09/30/2024 Letter (Out) [address] [address] 09/30/[address] [address] Ira Barrett PA Prior Auth Request for Trulance 09/19/2024 2:30 PM VEHICLE DETAILER Office Visit [address] [address] Ira Barrett PA Irritable bowel syndrome without [...] Surgical History Surgery Date Site/Laterality Comments SECTION 2001,2007 x2 TONSILLECTOMY/ADENOIDECTOMY TOOTH EXTRACTION COLON SURGERY TUBAL LIGATION 2006 Medical History Medical History Date Comments Anxiety 2008 Depression 2009 Autoimmune disease 2022 Chronic venous insufficiency Lichen [...] on file Legal Sex Female 11:46 PM VEHICLE DETAILER Gender Identity Female 03/27/2024 7:14 AM CDT [...] LIPID PANEL Routine 11/18/2024 12:5 9 PM VEHICLE DETAILER Other chest pain COMPREHENSIVE METABOLIC PANEL Routine 11/11/2024 2:42 PM VEHICLE DETAILER Hepatic steatosis CBC WITH AUTO DIFFERENTIAL Routine 11/11/2024 2:42 PM VEHICLE DETAILER Hepatic steatosis ECG 12-LEAD Routine 11/08/2024 10:34 AM VEHICLE DETAILER Pre-op evaluation MAMMOGRAPHY Routine 10/14/2024 CT ABDOMEN PELVIS W CONTRAST Schedule Routine, Read Routine (OP Routine) 10/03/2024 3:01 PM VEHICLE DETAILER Irritable bowel syndrome without diarrhea Hepatic steatosis Gastroesophageal reflux disease, unspecified whether esophagitis present RUQ pain Elevated LFTs COLONOSCOPY Routine 06/19/2024 1:53 PM CDT PAP SMEAR WITH HPV Routine 01/10/2024 from Last 3 Months or Most Recently Relevant to Health Maintenance Results * POCT lipid panel (11/18/2024 12:59 PM VEHICLE DETAILER) Cholesterol, POC 172 mg/dL HDL, POC 46 mg/dL Triglycerides, POC 304 mg/dL LDL Cholesterol POC 65 mg/dL Chol/HDL Ratio, POC 1.4 Non-HDL Cholesterol, POC 126 mg/dL Cholesterol Total, POC 172 mg/dL Capillary blood 11/18/2024 1 2:59 PM VEHICLE DETAILER us Darius Rodriguez MD POINT OF CARE TEST O RDERABLES Final Result * CBC with auto differential (11/11/2024 2:42 PM VEHICLE DETAILER) WBC 9.3 3.8 - 10.8 Thousand/u L [...] [facility] Blood 11/11/2024 2:42 PM VEHICLE DETAILER 11/11/2024 2:43 PM VEHICLE DETAILER Narrative [facility] - 11/12/2024 5:52 AM VEHICLE DETAILER FASTING:NO FASTING: NO us Ira SINGH LAB BLOOD ORDERABLES Fin al Result [facility] [address] [place] [address] * (ABNORMAL) Comprehensive metabolic panel (11/11/2024 2:42 PM VEHICLE DETAILER) [facility] Glucose 94 65 - 139 mg/dL [facility] Comment: Non-fasting reference interval BUN 14 7 - 25 mg/dL [facility] Creatinine 0.75 0.50 - 0.99 mg/dL [facility] eGFR 99 > OR = 60 mL/min/1.7 3m2 [facility] BUN/creat ratio SEE NOTE: 6 - 22 (calc) [facility] Comment: Not [...] [facility] Blood 11/11/2024 2:42 PM VEHICLE DETAILER 11/11/2024 2:43 PM VEHICLE DETAILER Narrative [facility] - 11/12/2024 5:52 AM VEHICLE DETAILER FASTING:NO FASTING: NO Ira SINGH LAB BLOOD ORDERABLES Fin al Result [facility] [address] [place] [address] * ECG 12 lead (11/08/2024 10:34 AM VEHICLE DETAILER) Ira SINGH ECG ORDERABLES Final Re sult * HM MAMMOGRAPHY (10/14/2024) Mammography Abnormal Historical Provider [facility] Final Result * CT Abdomen Pelvis W Contrast (10/03/2024 3:01 PM VEHICLE DETAILER) Anatomical Region Laterality Modality Body N/A Computed Tomogra phy 10/05/2024 11:0 5 PM VEHICLE DETAILER Narrative 10/05/2024 11:15 PM VEHICLE DETAILER EXAM DESCRIPTION: CT ABDOMEN PELVIS W CONTRAST [...] enlarged lymph node or free fluid. MSK: Lakb-dw-emtzzbws L5-S1 disc disease and mild lower lumbar facet arthropathy. BODY WALL: Tiny fat containing periumbilical hernia. IMPRESSION: No abnormality identified to account for presentation. Gallbladder appears normal. THIS IS AN ELECTRONICALLY VERIFIED FINAL REPORT 10/05/2024 11:15 PM - Electronically signed by Frank Denney M.D. AR: KORTNEY Report ID: [id number] Reading Location: [id number] Procedure Note Frank Denney MD - 10/05/2024 [...] enlarged lymph node or free fluid. MSK: Insm-py-ramvekij L5-S1 disc disease and mild lower lumbar facet arthropathy. BODY WALL: Tiny fat containing periumbilical hernia. IMPRESSION: No abnormality identified to account for presentation. Gallbladder appears normal. THIS IS AN ELECTRONICALLY VERIFIED FINAL REPORT 10/05/2024 11:15 PM - Electronically signed by Frank Denney M.D. AR: KORTNEY Report ID: [id number] Reading Location: [place] [address] PROCEDURES Final Result * COLONOSCOPY (06/19/2024 1:53 PM CDT) Scribed Colonoscopy Normal Historical Provider HEALTH MAINTENANCE Edited Result - Final * PAP SMEAR WITH HPV (01/10/2024) Historical Provider HEALTH MAINTENANCE Final Result from Last 3 Months or Most Recently Relevant to Health Maintenance Insurance [facility] Care Teams Security Door Installer Relationship Specialty Start Date End Date Ira Barrett PA [address] [facility] [address] [place], [place] [phone] PCP - General Family Medicine 04/03/24
--- OUTSIDE RECORDS SUMMARY | 2024-12-05 17:39 | XMS_ITS | Referral Summary ---
Author Organization [address] Address [address] [address] Care Team Providers Care Client Resource Specialist Name Role Phone Ira Barrett Primary Care Provider + Encounters Date Type Department Care Team Description 12/05/2024 Telephone [facility] Cardiology [address] [facility] [address] [place] [phone] Unknown, Notinfile 11/29/2024 9:00 AM CDT Office Visit [facility] Family Medicine [address] [place] [phone] Alize Mckeon PA Constipation, unspecified constipation type (Primary Dx); Abdominal pain; Blood in stool; External hemorrhoid; Class 3 severe obesity due to excess calories with serious comorbidity and body mass index (BMI) of 40.0 to 44.9 in adult (HCC) 11/28/2024 Nurse Triage [facility] Family Medicine [address] [place] [phone] Ira Barrett PA 11/28/[address] [phone] Ira Barrett PA Recommendation Request 11/18/2024 12:30 PM AUTO CARRIER DRIVER Office Visit [facility] Cardiology [address] [facility] [address] [place] [address] Darius Rodriguez MD Abnormal EKG (Primary Dx); Other chest pain; Venous insufficiency 11/12/2024 Results Follow-Up [address] [phone] Ira Barrett PA 11/08/2024 Letter (Out) [address] [phone] 11/08/2024 10:00 AM AUTO CARRIER DRIVER Office Visit [address] [phone] Ira Barrett PA Pre-op evaluation (Primary Dx); Abnormal EKG 11/06/[address] [phone] Ira Barrett PA 11/05/2024 1:30 PM AUTO CARRIER DRIVER Telemedicine [address] [phone] Ira Barrett PA Left hand pain (Primary Dx); Abnormal mammogram; Obesity, Class II, BMI 35-39.9; Constipation, unspecified constipation type; Hepatic steatosis 11/04/[address] [phone] Ira Barrett PA 10/15/[address] [phone] Ira Barrett PA Mammogram results 10/14/[address] [phone] Ira Barrett PA 10/03/2024 2:54 PM AUTO CARRIER DRIVER - 10/03/2024 11:59 PM AUTO CARRIER DRIVER Hospital Encounter [facility] [address] [address] Irritable bowel syndrome without diarrhea; Hepatic steatosis; Gastroesophageal reflux disease, unspecified whether esophagitis present; RUQ pain; Elevated LFTs Discharge Disposition: Discharge to home or self care 09/30/2024 Letter (Out) [address] [phone] 09/30/2024 Letter (Out) [address] [phone] 09/30/[address] [phone] Ira Barrett PA Prior Auth Request for Trulance 09/19/2024 2:30 PM AUTO CARRIER DRIVER Office Visit [address] [phone] Ira Barrett PA Irritable bowel syndrome without [...] Plan (06/12/2024 3:29 PM CDT): Taking omeprazole gtkr-sul-dlrtnro daily and feels it is no longer [...] as well. - Referred to a new chair car attendant for further evaluation and management. - Recommend [...] almost the last year. Has started taking tizg-yqq-euzfjqp stool softener but not sure if it [...] 10/29/2023 Assessment & Plan (09/19/2024 3:16 PM AUTO CARRIER DRIVER): Chronic, stable condition. Continue current medication regimen per psychiatrist Assessment & Plan (06/12/2024 3:27 PM CDT): Chronic, stable. Patient is following with psychiatrist Assessment & Plan (04/03/2024 1:42 PM CDT): Managed by psychiatrist - continues on Lamictal, benzo, Effexor Borderline personality disorder 10/29/2023 Assessment & Plan (09/19/2024 3:16 PM AUTO CARRIER DRIVER): Chronic, stable condition. Continue current medication regimen [...] CDT): Chronic,worsening. Patient will follow up with world travel counselor Assessment & Plan (06/12/2024 3:27 PM CDT): [...] on file Legal Sex Female 11:46 PM AUTO CARRIER DRIVER Gender Identity Female 03/27/2024 7:14 AM CDT [...] LIPID PANEL Routine 11/18/2024 12:5 9 PM AUTO CARRIER DRIVER Other chest pain COMPREHENSIVE METABOLIC PANEL Routine 11/11/2024 2:42 PM AUTO CARRIER DRIVER Hepatic steatosis CBC WITH AUTO DIFFERENTIAL Routine 11/11/2024 2:42 PM AUTO CARRIER DRIVER Hepatic steatosis ECG 12-LEAD Routine 11/08/2024 10:34 AM AUTO CARRIER DRIVER Pre-op evaluation MAMMOGRAPHY Routine 10/14/2024 CT ABDOMEN PELVIS W CONTRAST Schedule Routine, Read Routine (OP Routine) 10/03/2024 3:01 PM AUTO CARRIER DRIVER Irritable bowel syndrome without diarrhea Hepatic steatosis Gastroesophageal reflux disease, unspecified whether esophagitis present RUQ pain Elevated LFTs COLONOSCOPY Routine 06/19/2024 1:53 PM CDT PAP SMEAR WITH HPV Routine 01/10/2024 from Last 3 Months or Most Recently Relevant to Health Maintenance Results * POCT lipid panel (11/18/2024 12:59 PM AUTO CARRIER DRIVER) Cholesterol, POC 172 mg/dL HDL, POC 46 mg/dL Triglycerides, POC 304 mg/dL LDL Cholesterol POC 65 mg/dL Chol/HDL Ratio, POC 1.4 Non-HDL Cholesterol, POC 126 mg/dL Cholesterol Total, POC 172 mg/dL Capillary blood 11/18/2024 1 2:59 PM AUTO CARRIER DRIVER us Darius Rodriguez MD POINT OF CARE TEST O RDERABLES Final Result * CBC with auto differential (11/11/2024 2:42 PM AUTO CARRIER DRIVER) WBC 9.3 3.8 - 10.8 Thousand/u L [...] [facility] Blood 11/11/2024 2:42 PM AUTO CARRIER DRIVER 11/11/2024 2:43 PM AUTO CARRIER DRIVER Narrative [facility] - 11/12/2024 5:52 AM AUTO CARRIER DRIVER FASTING:NO FASTING: NO us Ira SINGH LAB BLOOD ORDERABLES Fin al Result [facility] [address] [place] [address] * (ABNORMAL) Comprehensive metabolic panel (11/11/2024 2:42 PM AUTO CARRIER DRIVER) [facility] Glucose 94 65 - 139 mg/dL [facility] [...] [facility] Blood 11/11/2024 2:42 PM AUTO CARRIER DRIVER 11/11/2024 2:43 PM AUTO CARRIER DRIVER Narrative [facility] - 11/12/2024 5:52 AM AUTO CARRIER DRIVER FASTING:NO FASTING: NO Ira SINGH LAB BLOOD ORDERABLES Fin al Result [facility] [address] [place] [address] * ECG 12 lead (11/08/2024 10:34 AM AUTO CARRIER DRIVER) Ira SINGH ECG ORDERABLES Final Re sult * HM MAMMOGRAPHY (10/14/2024) Mammography Abnormal Historical Provider HEALTH MAINTENANCE Final Result * CT Abdomen Pelvis W Contrast (10/03/2024 3:01 PM AUTO CARRIER DRIVER) Anatomical Region Laterality Modality Body N/A Computed Tomogra phy 10/05/2024 11:0 5 PM AUTO CARRIER DRIVER Narrative 10/05/2024 11:15 PM AUTO CARRIER DRIVER EXAM DESCRIPTION: CT ABDOMEN PELVIS W CONTRAST [...] enlarged lymph node or free fluid. MSK: Rgxs-hs-fsbchvhf L5-S1 disc disease and mild lower lumbar facet arthropathy. BODY WALL: Tiny fat containing periumbilical hernia. IMPRESSION: No abnormality identified to account for presentation. Gallbladder appears normal. THIS IS AN ELECTRONICALLY VERIFIED FINAL REPORT 10/05/2024 11:15 PM - Electronically signed by Frank Denney M.D. AR: KORTNEY Report ID: [id number] Reading Location: [id number] Procedure Note Frank Denney MD - 10/05/2024 [...] enlarged lymph node or free fluid. MSK: Ivhg-jr-ofdowlsa L5-S1 disc disease and mild lower lumbar facet arthropathy. BODY WALL: Tiny fat containing periumbilical hernia. IMPRESSION: No abnormality identified to account for presentation. Gallbladder appears normal. THIS IS AN ELECTRONICALLY VERIFIED FINAL REPORT 10/05/2024 11:15 PM - Electronically signed by Frank Denney M.D. AR: KORTNEY Report ID: [id number] Reading Location: [place] [address] PROCEDURES Final Result * COLONOSCOPY (06/19/2024 1:53 PM CDT) Scribed Colonoscopy Normal Historical Provider HEALTH MAINTENANCE Edited Result - Final * PAP SMEAR WITH HPV (01/10/2024) Historical Provider HEALTH MAINTENANCE Final Result from Last 3 Months or Most Recently Relevant to Health Maintenance Insurance [facility] Care Teams Client Resource Specialist Relationship Specialty Start Date End Date Ira Barrett PA [address] [facility] [address] [place] [address] PCP - General Family Medicine 04/03/24
--- OUTSIDE RECORDS SUMMARY | 2024-12-05 17:39 | XMS_ITS | Encounter Summary ---
Author Organization [facility] Healthcare Address [address] [place] [address] Care Team Providers Care Commercial Pest Control Representative Name Role Phone Ira Barrett Primary Care Provider + Encounter Details Date Type Department Care Team (Late st Contact Info) Description 12/05/2024 Telephone [facility] Cardiology [address] [place] [address] Unknown, Notinfile Social History Tobacco Use Types Packs/Day Years [...] on file Legal Sex Female 11:46 PM GASTROENTEROLOGY TECHNICIAN Gender Identity Female 03/27/2024 7:14 AM CDT Sexual Orientation Straight 03/27/2024 7: 14 AM CDT documented as of this encounter Miscellaneous Notes * Telephone Encounter - [facility] - 12/05/2024 8:43 AM CDT Followed up enterprise application analyst to pt to inform her of nuc test status, as I told her on 12/04 that I would f/u and give her a call with status. Informed pt that request is under review as of this morning, but will be periodically checking for approval. Pt expressed understanding of call. documented in this encounter Plan of Treatment Not on file documented as of this encounter Visit Diagnoses Not on filedocumented in this encounter Care Teams Commercial Pest Control Representative Relationship Specialty Start Date End Date Ira Barrett PA [address] [facility] [address] [place] [address] PCP - General Family Medicine 04/03/24 documented as of this encounter
--- OUTSIDE RECORDS SUMMARY | 2024-12-05 17:39 | XMS_ITS | Encounter Summary ---
Author Organization [facility] Address [address] [place] [address] Care Team Providers Care Plastics Fitter Name Role Phone Demarcus Camejo MD Primary Care Provider Reason for Visit * Reason Onset Date Comments MEDICATION REFILL 08/16/2023 Encounter Details Date Type Department Care Team (Late Contact Info) Description 08/16/2023 Refill [facility] - Dermatology [address] [place] [phone] Moriah Bray MD [address] [place], [place] [address] [phone] MEDICATION REFILL Social History Tobacco Use Types [...] Office Visit [facility] - Dermatology [address] [place] [phone] Moriah Bray MD [address] [place], [place] [address] [place] [address] 02/19/2025 8:00 AM CDT Appointment [facility] [address] [place] [address] documented as of this encounter Visit Diagnoses Not on filedocumented in this encounter Care Teams Plastics Fitter Relationship Specialty Start Date End Date Demarcus Camejo MD [address] [place] [address] [place] [address] PCP - General Family Medicine 07/05/24 documented as of this encounter
--- OUTSIDE RECORDS SUMMARY | 2024-12-05 17:39 | XMS_ITS | CONTINUITY OF CARE DOCUMENT ---
Author Name masoodvika, masoodvika Address Unknown Organization [facility] Address [address] [facility] [address] [place] [address] Phone [phone] Care Team Providers Care Structural Steel Erector Name Role Phone Yinka Leos MD Unavailable [phone] Emi HORTON, Nixon Unavailable [phone] NENA GRESHAM MD Unavailable [phone] PROBLEMS Condition Status Date Provider Notes Cardiology examination active Yinka Shaffer Leg edema, bilateral active Yinka Leos MD Chronic venous hypertension (idiopathic) with inflammation of bilateral lower extremity active Yinka Leos MD Leg pain, bilateral active Yinka Leos MD Snoring active Nai Pond NP Tobacco use completed - Milan Tyler Tobacco use, quit active Milan Tyler ENCOUNTERS Date Type Provider Location Encounter Diag nosis - In-person encounter Office Visit Yinka Leos MD [facility] Tobacco useTobacco use, quit - In-person encounter Office Visit Yinka Leos MD [facility] - In-person encounter Office Visit Angelica Sharif MD [facility] Snoring - In-person encounter Office Visit Yinka Leos MD [facility] - In-person encounter Office Visit Yinka Leos MD [facility] Leg pain, bilateral - In-person encounter Office Visit Yinka Leos MD [facility] Cardiology examinationLeg edema, bilateralChronic venous hypertension (idiopathic) with inflammation of bilateral lower extremity VITAL SIGNS Date Observation Value Provider Body Mass Index (Ratio) 37.20 kg/m2 Sumit shirley Bautista blood pressure, cuff size regular Ja rret blood pressure, diastolic 72 mm[Hg] Ja rret blood pressure, systolic 114 mm[Hg] Jar ret pulse rate 87 /min Rustam y respiratory rate E&M 16 /min Rustam oxygen saturation, oximetry 98 % Rustam weight E&M 210 [lb_av] Rustam y height E&M 63 [in_i] Rusatm [facility] y Body Mass Index (Ratio) 36.84 kg/m2 Yen Sharif MD blood pressure, diastolic 78 mm[Hg] Marni nkLogic blood pressure, systolic 124 mm[Hg] Hope kLogic pulse rate 98 /min Anu Sudheer blood pressure, cuff size regular Ta bitfreddy Willard blood pressure, diastolic 78 mm[Hg] Ta bitha Willard blood pressure, systolic 124 mm[Hg] Tab itha Willard respiratory rate E&M 12 /min Anu Willard oxygen saturation, oximetry 100 % Anu Willard weight E&M 208 [lb_av] Anu Willard height E&M 63 [in_i] Anu Willard Body Mass Index (Ratio) 35.07 kg/m2 Dara Lr blood pressure, diastolic 75 mm[Hg] St acy Alfredo blood pressure, systolic 122 mm[Hg] Brandon Fuentes oxygen saturation, oximetry 96 % Harper Alfredo pulse rate 90 /min Harper Alfredo respiratory rate E&M 18 /min Harper Shaffer edgar weight E&M 198 [lb_av] Harper Alfredo height E&M 63 [in_i] Harper Alfredo Body Mass Index (Ratio) 35.07 kg/m2 Ap[address]onia lane Annalise blood pressure, diastolic 73 mm[Hg] Meredith whitt Shubham blood pressure, systolic 129 mm[Hg] Deni khan Shubham oxygen saturation, oximetry 98 % Joanne Jalloh pulse rate 94 /min Joanne shaffer weight E&M 198 [lb_av] Joanne shaffer respiratory rate E&M 16 /min Rufina Jalloh blood pressure, cuff size large Meredith whitt Shubham height E&M 63 [in_i] Joanne shaffer Body Mass Index (Ratio) 35.60 kg/m2 Yinka Leos MD blood pressure, diastolic 80 mm[Hg] Marni nkLogmartin blood pressure, systolic 121 mm[Hg] Hope Navarroogmartin blood pressure, diastolic 80 mm[Hg] Dara Panda blood pressure, systolic 121 mm[Hg] Indira Panda oxygen saturation, oximetry 99 % Aruna Panda pulse rate 88 /min Aruna Panda height E&M 63 [in_i] Aruna Panda weight E&M 201 [lb_av] Aruna Panda blood pressure, cuff size large An garett Panda ALLERGIES Allergy Name Onset Date Reaction Criticality Status HYDROXYCLOROQUINE Low Criticality ac tive RESULTS Date Observation Value Provider Reference Range Interpretation Location NT-pro BNP <36 [facility] <125 Normal calcium, serum 9.0 mg/dL [facility] 8.6-10.2 Normal carbon dioxide, venous blood 28 mmol/L [facility] 20-32 Normal chloride, serum 104 mmol/L [facility] 98-110 Normal potassium, serum 4.1 mmol/L [facility] 3.5-5.3 Normal sodium, serum 138 mmol/L [facility] 135-146 Normal urea nitrogen/creatini ne ratio, serum SEE NOTE: (calc) [facility] - creatinine, serum 0.81 mg/dL [facility] 0.50-0.99 Norm al urea nitrogen, blood 16 mg/dL [facility] 7-25 Normal blood glucose, random 111 mg/dL [facility] 65-99 High calcium, serum 9.3 mg/dL [facility] 8.6-10.2 Normal carbon dioxide, venous blood 30 mmol/L [facility] 20-32 Normal chloride, serum 104 mmol/L [facility] 98-110 Normal potassium, serum 4.1 mmol/L [facility] 3.5-5.3 Normal sodium, serum 138 mmol/L [facility] 135-146 Normal urea nitrogen/creatini ne ratio, serum SEE NOTE: (calc) [facility] - creatinine, serum 0.79 mg/dL [facility] 0.50-0.99 Norm al urea nitrogen, blood 20 mg/dL [facility] 7-25 Normal blood glucose, random 93 mg/dL [facility] 65-99 Normal calcium, serum 9.4 mg/dL [facility] 8.6-10.2 Normal carbon dioxide, venous blood 30 mmol/L [facility] 20-32 Normal chloride, serum 105 mmol/L [facility] 98-110 Normal potassium, serum 3.7 mmol/L [facility] 3.5-5.3 Normal sodium, serum 142 mmol/L [facility] 135-146 Normal urea nitrogen/creatini ne ratio, serum SEE NOTE: (calc) [facility] 6-22 creatinine, serum 0.77 mg/dL [facility] 0.50-0.99 Norm al urea nitrogen, blood 15 mg/dL [facility] 7-25 Normal blood glucose, random 99 mg/dL [facility] 65-99 Normal HISTORY OF MEDICATION USE Medication Status Instructions Dates Provider Indications Com ments Chantix 1 mg tablet active Take 1 tablet by mouth once a day Ml Bernard Chantix Starting Month Box 0.5 mg (11)- 1 mg (42) tablets,dose pack completed TAKE 1 TABLET BY MOUTH DIRECTED - Ml Marco Antonio Chantix Starting Month Box 0.5 mg (11)- 1 mg (42) tablets,dose pack completed 1 tablet by mouth as directed - Ana Holly Lasix 20 mg tablet active TAKE 1 TABLET BY MOUTH ONCE DAILY Ann Alvarado IMMERSION METAL CLEANER nystatin 100,000 unit/mL suspension active Nai Pond NP clobetasol 0.05% ointment active Nai Pond NP triamcinolone acetonide 0.1% ointment active APPLY OINTMENT TOPICALLY TO AFFECTED VULVAR AREA TWICE DAILY FOR TWO WEEKS Nai Pond NP dexamethasone 0.5 mg/5 mL elixir active Nai Pond NP lamotrigine 25 mg tablet active 1 tablet by mouth twice a day Nai Pond NP venlafaxine 37.5 mg capsule,extended release 24hr active 1 capsule by mouth once a day Nai Pond NP lorazepam 0.5 mg tablet active 1 tablet by mouth once a day as needed as directed Nai Pond NP olanzapine 2.5 mg tablet completed - Nai Pond NP venlafaxine 75 mg capsule,extended release 24hr active 1 capsule by mouth once a day Nai Bonareri MINE TECHNICIAN SOCIAL HISTORY Date Observation Value Provider smoking, year quit 2023 Yinka de la paz MD personal history of marijuana use yes Yinka Leos MD drug use no Yinka Leos MD alcohol use no Yinka Leos MD cigarette use yes Yinka Leos MD smoking status Former smoker Yinka Leos MD personal history of marijuana use yes Ann Ventimiglia [facility] drug use no Ann Ventimig nima [facility] alcohol use no Ann Ventimig nima [facility] cigarette use yes Ann Ventimi glia IMMERSION METAL CLEANER smoking status Current every day smoker A maverick Ventimiglia [facility] personal history of marijuana use yes Verclaudia Bonareri MINE TECHNICIAN drug use no Verah Bonareri MINE TECHNICIAN alcohol use no Verah Bonareri MINE TECHNICIAN cigarette use yes Verah Bonareri MINE TECHNICIAN smoking status Current every day smoker V chris Pond MINE TECHNICIAN social history reviewed E&M revi ewed - no changes required Yinka Leos MD social history E&M S moking History: P atient currently smokes every day. Yinka Leos MD cigarette use yes Harper Fuentes smoking status Current every day smoker Lucretia Fuentes social history E&M S moking History: P atient currently smokes every day. Yinka Leos MD social history reviewed E&M revi ewed - no changes required Yinka Leos MD cigarette use yes Joanne Bella nd smoking status Current every day smoker Jessenia Jalloh social history E&M S moking History: P atient currently smokes every day. Yinka Leos MD social history reviewed E&M revi ewed - no changes required Yinka Leos MD cigarette use yes Aruna Panda smoking status Current every day smoker A smooth Panda INSURANCE PROVIDERS Payer name Policy type / Coverage type Jacki red democrat [place] [employer] MEDICAID (2) Medicaid [id number] ADVANCE DIRECTIVES Name Date DISCUSSED - NO DECISION MADE TREATMENT PLAN Date Name Performer [id number],C,T he pt tried support stockings unsuccessfully. Venous duplex showed insufficiency of the GSVs b/l. Will proceed with venography with IVUS and Venaseal. Mandi Annalise [id number],C,T he pt tried support stockings unsuccessfully. Venous duplex showed insufficiency of the GSVs b/l. Will proceed with venography with IVUS and Venaseal. Mandi Annalise [id number],C,T he pt tried support stockings unsuccessfully. Venous duplex showed insufficiency of the GSVs b/l. Will proceed with venography with IVUS and Venaseal. Mandi Annalise [id number],C,T he patient complained of leg heaviness, swelling, and bluish discoloration. No trauma, no SOB. She stands a lot. We will obtain Echo, venous duplex, and DAYAMI. Yinka Leos MD [id number],C,T he patient complained of leg heaviness, swelling, and bluish discoloration. No trauma, no SOB. She stands a lot. We will obtain Echo, venous duplex, and DAYAMI. Yinak Leos MD Cardiology:Has recen tly quit smoking in February of 2024 Yinka Leos MD Cardiology: h as known venous insufficiency, unchanged. It is painfult and unresolved despite compression. Venogram done no venous compression. Add diuretic. continue compression. refer for laser therapy Yinka Leos MD Cardiology:Has recently quit smo jeny Yinka Leos MD Cardiology:Echo was denied. W ill check CHF panel as she is highly swollen Yinka Leos MD Cardiology:Will repeat sleep pritesh dy Yinka Leos MD Cardiology:planned of IHS Annnhan Alvarado [facility] Cardiology:angel ramos to trial chantix R isk/benefits discussed with patient and understanding verbalized Annnhan Alvarado [facility] Cardiology:has known venous insufficiency, unchanged. It is painfult and unresolved despite compression. Venogram done no venous compression. Add diuretic. continue compression. refer for laser therapy Annnhan Alvarado [facility] Cardiology: C omplete cessation encouraged. Patient is to discuss with her russet repairer if she can use nicotine patches given her diagnosis of lichen planus. Nai Pond NP Cardiology: T he pt tried support stockings unsuccessfully. Venous duplex showed insufficiency of the GSVs b/l. Will proceed with venography with IVUS and Venaseal. January 19, 2024 p chasity for repeat venous doppler-reflux. U nable to take diuretics due to lichen planus. Nai Pond NP Cardiology: W ill obtain home sleep study. Nai Pond NP Cardiology: T he pt tried support stockings unsuccessfully. Venous duplex showed insufficiency of the GSVs b/l. Will proceed with venography with IVUS and Venaseal. January 19, 2024 w ill repeat venous doppler-reflux Nai Pond NP Cardiology: T he pt tried support stockings unsuccessfully. Venous duplex showed insufficiency of the GSVs b/l. Will proceed with venography with IVUS and Venaseal. January 19, 2024 w ill repeat venous doppler -reflux I nsurance did not cover the venaseal. S he contines to use compression stockings U nable to take diuretics due to lichen planus. Nai Pond NP Cardiology:The pt tr ied support stockings unsuccessfully. Venous duplex showed insufficiency of the GSVs b/l. Will proceed with venography with IVUS and Venaseal. Mandi Woody Cardiology:The pt tr ied support stockings unsuccessfully. Venous duplex showed insufficiency of the GSVs b/l. Will proceed with venography with IVUS and Venaseal. Mandi Annalise Cardiology:The pt tr ied support stockings unsuccessfully. Venous duplex showed insufficiency of the GSVs b/l. Will proceed with venography with IVUS and Venaseal. Mandi Annalise Cardiology:The patie nt complained of leg heaviness, swelling, and bluish discoloration. No trauma, no SOB. She stands a lot. We will obtain Echo, venous duplex, and DAYAMI. Yinka Leos MD Cardiology:The patie nt complained of leg heaviness, swelling, and bluish discoloration. No trauma, no SOB. She stands a lot. We will obtain Echo, venous duplex, and DAYAMI. Yinka Leos MD Date Name Sleep Study Home PROBNP, N TERMINAL BASIC METABOLIC PANE L W/EGFR BASIC METABOLIC PANE L W/EGFR BASIC METABOLIC PANE L W/EGFR Complete Echo Sleep Study Home Venous Doppler Bilat eral LE - Reflux PROTHROMBIN TIME WIT H INR LIPID PANEL CBC (INCLUDES DIFF/P LT) BASIC METABOLIC PANE L W/EGFR Venogram w/ IVUS - S LHV Arterial Duplex Bi-L ower EX Venous Doppler Bilat eral LE - Reflux Complete Echo HISTORY OF PROCEDURES Procedure Date Procedure Name Provider Procedure Notes S tatus Complex e/m visit add on Yinka Leos MD completed EKG Angelica Sharif MD compl eted EKG Yinka Leos MD completed
--- OUTSIDE RECORDS SUMMARY | 2024-12-05 17:39 | XMS_ITS | Encounter Summary ---
Author Organization [facility] Address [address] [place] [address] Care Team Providers Care Sleeve Setter Lockstitch Name Role Phone Ira Barrett Primary Care Provider + Encounter Details Date Type Department Care Team (Late st Contact Info) Description 11/12/2024 Results Follow-Up [facility] Family Medicine [address] [phone] Ira Barrett PA [address] [place] [address] Social History Tobacco Use Types [...] on file Legal Sex Female 11:46 PM VORTEX OPERATOR Gender Identity Female 03/27/2024 7:14 AM CDT Sexual Orientation Straight 03/27/2024 7: 14 AM CDT documented as of this encounter Plan of Treatment Not on file documented as of this encounter Visit Diagnoses Not on filedocumented in this encounter Care Teams Sleeve Setter Lockstitch Relationship Specialty Start Date End Date Ira Barrett PA [address] [facility] [address] [place], [place] [phone] PCP - General Family Medicine 04/03/24 documented as of this encounter
--- OUTSIDE RECORDS SUMMARY | 2024-12-05 17:39 | XMS_ITS | Encounter Summary ---
Author Organization [facility] Address [address] [facility] [place] [address] Care Team Providers Care State Game Warden Name Role Phone Demarcus Camejo MD Primary Care Provider Reason for Visit * Reason Onset Date Comments MEDICATION REFILL 08/18/2023 Encounter Details Date Type Department Care Team (Late Contact Info) Description 08/18/2023 Refill [facility] - Dermatology [address] [place] [phone] Moriah Bray MD [address] [place], [place] [address] [phone] MEDICATION REFILL Social History Tobacco Use Types [...] Office Visit [facility] Derm[facility]ology [address] [place] [phone] Moriah Bray MD [address] [place], [place] [address] [place] [address] 02/19/2025 8:00 AM CDT Appointment [facility] [address] [place] [address] documented as of this encounter Visit Diagnoses Not on filedocumented in this encounter Care Teams State Game Warden Relationship Specialty Start Date End Date Demarcus Camejo MD [address] [address] [place] [address] PCP - General Family Medicine 07/05/24 documented as of this encounter
--- OUTSIDE RECORDS SUMMARY | 2024-12-05 17:39 | XMS_ITS | Encounter Summary ---
Author Organization [facility] Address [address] [place] [address] Care Team Providers Care Supervisor Irrigation Name Role Phone Ira Barrett Primary Care Provider + Reason for Visit * Reason Onset Date Comments Recommendation Request 11/28/2024 Encounter Details Date Type Department Care Team (Late st Contact Info) Description 11/28/2024 Telephone [facility] Family Medicine [address] [phone] Ira Barrett PA [address] [place] [address] Recommendation Request Social History Tobacco [...] on file Legal Sex Female 11:46 PM PAYROLL REPRESENTATIVE Gender Identity Female 03/27/2024 7:14 AM CDT [...] referral to a new GI. She'd prefer [facility] or someone close. Not it [place]. Does message need to be routed? Yes-Action Needed documented in this encounter Plan of Treatment Not on file documented as of this encounter Visit Diagnoses Not on filedocumented in this encounter Care Teams Supervisor Irrigation Relationship Specialty Start Date End Date Ira Barrett PA [address] [facility] [address] [place] [address] PCP - General Family Medicine 04/03/24 documented as of this encounter
--- OUTSIDE RECORDS SUMMARY | 2024-12-05 17:39 | XMS_ITS | Clinical Summary ---
Author Organization [facility] Address [address] [facility] [place] [address] Care Team Providers Care Senior Materials Scientist Name Role Phone Demarcus Camejo MD Primary Care Provider Source Comments [facility],non-owned Affiliates and Associated Physician Practices is amultiple site organization consisting of ambulatory clinics and hospital sitesin [place], [place] and [place]. This disclosure is being madepursuant to the Care Everywhere program and may not contain all information available regarding this patient. Last updated [employer] Allergies No known active allergies Medications * [...] Department Care Team Description 11/20/2024 8:45 AM CLINIC MANAGER - 11/20/2024 11:59 PM CLINIC MANAGER Hospital Encounter [address] [address] Discharge Disposition: Home or Self Care 11/20/2024 Travel 10/30/2024 7:30 AM CLINIC MANAGER - 10/30/2024 11:59 PM CLINIC MANAGER Hospital Encounter [address] [address] Ira Barrett PA Discharge Disposition: Home or Self Care 10/30/2024 7:00 AM CLINIC MANAGER - 10/30/2024 7:29 AM CLINIC MANAGER Hospital Encounter [address] [address] Ira Barrett PA Discharge Disposition: Home or Self Care 10/30/2024 Travel 10/28/2024 2:10 PM CLINIC MANAGER Office Visit [facility] - Dermatology [address] [place] [phone] Moriah Bray MD Other lichen planus (Primary Dx) 10/28/2024 Travel 10/14/2024 11:27 AM CLINIC MANAGER - 10/14/2024 11:59 PM CLINIC MANAGER Hospital Encounter [address] [address] Ira Barrett PA Discharge Disposition: Home or [...] 98.4 kg (217 lb) 10/30/2024 8:08 AM CLINIC MANAGER Height 160 cm (5' 3 ) 10/30/2024 8:08 AM CLINIC MANAGER Body Mass Index 38.44 10/30/2024 8:08 AM CLINIC MANAGER Plan of Treatment Upcoming Encounters Date Type Department Care Team (Late st Contact Info) Description 01/29/2025 1:50 PM CDT Office Visit [facility] Dermatology [address] [place] [address], [facility] [place] [phone] Moriah Bray MD [address] [place] [address] [place] [address] 02/19/2025 8:00 AM CDT Appointment [address] [address] Health Maintenance Due Date Last Done Comments [...] this topic Medical Devices Implanted Type Area Digital Marketing Assistant Device Identifier Shelf Expiration Date Model / Serial / Lot [employer]omark Ultracor Ultrasound Enhanced Heart Breast Tissue Marker Implanted:Qty: 1 on 12/18/2023 by Laurel Estrada DO at [facility] Left: Breast [id number] 07/19/[address] / / [id number] Procedures Procedure Name Priority Date/Time Associated Diagnosis Comments US BREAST RIGHT CYST ASPIRATION Routine 11/20/2024 9:47 AM CLINIC MANAGER Abnormal mammogram US BREAST RIGHT LTD Routine 10/30/2024 8 :15 AM CLINIC MANAGER Abnormal mammogram MAMMO RIGHT DIAGNOSTIC W FCO Routine 10/30/2024 7:45 AM CLINIC MANAGER Abnormal mammogram MAMMO BILAT SCREENING W FCO Routine 10/14/2024 12:28 PM CLINIC MANAGER Visit for screening mammogram ENDOSCOPY, COLON, SCREENING Routine 06/19/2024 9:00 AM CDT COMPREHENSIVE METABOLIC PANEL Routine 08/23/2023 3:46 PM CLINIC MANAGER Lichen planus LIPID PROFILE Routine 08/23/2023 3:46 PM CLINIC MANAGER Lichen planus HEPATITIS C AB SCREEN RFLX NAAT QUANT Routine 07/20/2023 4:31 PM CDT Lichen planus from Last 3 Months or Most Recently Relevant to Health Maintenance Results * US Breast Right Cyst Aspiration (11/20/2024 9:47 AM CLINIC MANAGER) Anatomical Region Laterality Modality Breast Right Mammography 11/20/2024 9:49 AM CLINIC MANAGER Impressions 11/20/2024 11:16 AM CLINIC MANAGER IMPRESSION: Technically successful, uncomplicated ultrasound-guided aspiration performed of a 0.4 cm complicated cyst in the 11 o'clock position 5 cm from the nipple of the RIGHT breast with complete collapse of the cyst. RECOMMENDATION: Given bloody aspirate, follow-up targeted right breast ultrasound is recommended in [address] Ferraor discussed the exam findings with the patient at the time of the procedure. BI-RADS CATEGORY 3: PROBABLY BENIGN. I, Stephanie Ferraro MD have personally reviewed and interpreted this examination/study. > Interpreting Provider: Stephanie Ferraro MD on 11/20/2024 11:16 AM Narrative 11/20/2024 11:16 AM CLINIC MANAGER EXAM: ULTRASOUND-GUIDED CYST ASPIRATION- RIGHT BREAST LOCATION: [facility] EXAM DATE: 11/20/2024 HISTORY: 44-year-old female with a 0.3 cm mass suggestive of a complicated cyst in the right breast 11:00 5 cm from the nipple. Of note, the patient no longer demonstrates due to and ablation however per the patient, her MERCURY CELL CLEANER does not think she is postmenopausal. COMPARISON: Prior breast imaging studies from [facility], dating back to 10/16/2023 INTERPRETATION: Preprocedure images [...] (Diagnostic, most commonly ordered) (10/30/2024 8:15 AM CLINIC MANAGER) Anatomical Region Laterality Modality Breast Right Mammography 10/30/2024 7:45 AM CLINIC MANAGER Addenda Addendum by Slime Dillard MD on 10/30/2024 12:13 PM CLINIC MANAGER Findings and recommendations were communicated by Dr. Dillard to the patient via phone on 10/30/2024 at 8:04 AM. The nurse navigator will contact the patient and provider. > Interpreting Provider: Slime Dillard MD on 10/30/2024 12:11 PM Impressions 10/30/2024 8:07 AM CLINIC MANAGER IMPRESSION: A 0.3 cm mass suggestive of [...] 10/30/2024 8:07 AM Narrative 10/30/2024 8:07 AM CLINIC MANAGER EXAMINATIONS: 1. RIGHT DIGITAL DIAGNOSTIC MAMMOGRAM AND TOMOSYNTHESIS AND 2. LIMITED RIGHT BREAST ULTRASOUND (COMBINED REPORT) LOCATION: [facility] EXAM DATE: 10/30/2024 HISTORY: Follow-up to an [...] LIMITED RIGHT BREAST ULTRASOUND (COMBINED REPORT) LOCATION: [facility] EXAM DATE: 10/30/2024 HISTORY: Follow-up to an abnormal screening mammogram. [id number] presents for workup of a questioned focal [...] OVERALL ASSESSMENT: BI-RADS CATEGORY 4: SUSPICIOUS. (SUBSET [id number]: LOW SUSPICION FOR MALIGNANCY). > Interpreting Provider: Slime Dillard MD on 10/30/2024 8:07 AM Ira SINGH US ORDERABLES * (ABNORMAL) Mammo Right Diagnostic W Fco (10/30/2024 7:45 AM CLINIC MANAGER) Anatomical Region Laterality Modality Breast Right Mammography 10/30/2024 7:45 AM CLINIC MANAGER Addenda Addendum by Slime Dillard MD on 10/30/2024 12:13 PM CLINIC MANAGER Findings and recommendations were communicated by Dr. Dillard to the patient via phone on 10/30/2024 at 8:04 AM. The nurse navigator will contact the patient and provider. > Interpreting Provider: Slime Dillard MD on 10/30/2024 12:11 PM Impressions 10/30/2024 8:07 AM CLINIC MANAGER IMPRESSION: A 0.3 cm mass suggestive of [...] 10/30/2024 8:07 AM Narrative 10/30/2024 8:07 AM CLINIC MANAGER EXAMINATIONS: 1. RIGHT DIGITAL DIAGNOSTIC MAMMOGRAM AND TOMOSYNTHESIS AND 2. LIMITED RIGHT BREAST ULTRASOUND (COMBINED REPORT) LOCATION: [facility] EXAM DATE: 10/30/2024 HISTORY: Follow-up to an [...] LIMITED RIGHT BREAST ULTRASOUND (COMBINED REPORT) LOCATION: [facility] EXAM DATE: 10/30/2024 HISTORY: Follow-up to an abnormal screening mammogram. [id number] presents for workup of a questioned focal [...] OVERALL ASSESSMENT: BI-RADS CATEGORY 4: SUSPICIOUS. (SUBSET [id number]: LOW SUSPICION FOR MALIGNANCY). > Interpreting Provider: Slime Dillard MD on 10/30/2024 8:07 AM Ira SINGH MAMMO ORDERABLES * Mammo Bilat Screening W Fco (10/14/2024 12:28 PM CLINIC MANAGER) Anatomical Region Laterality Modality Breast Bilateral Mammography 10/14/2024 12:5 8 PM CLINIC MANAGER Addenda Addendum by Laurel Estrada DO on 10/15/2024 8:58 AM CLINIC MANAGER ADDENDUM: This addendum is being submitted to correct the right/left discrepancy in the recommendation section of the original report. The recommendation should read a diagnostic RIGHT (not left) mammogram and possible RIGHT (not left) ultrasound is recommended. Please refer to below fold report with addendum. EXAMINATIONS: BILATERAL DIGITAL SCREENING MAMMOGRAM AND BILATERAL BREAST TOMOSYNTHESIS LOCATION: [facility] EXAM DATE: 10/14/2024 HISTORY: Screening. No reported [...] fellow). Memo Espinoza and Varghese Burnham MD (cmo & president) assisted in interpretation of this exam. > Interpreting Provider: Laurel Estrada DO on 10/15/2024 8:56 AM Impressions 10/14/2024 1:57 PM CLINIC MANAGER IMPRESSION: 1. Suggestion of possible focal asymmetry [...] fellow). Memo Espinoza and Varghese Burnham MD (cmo & president) assisted in interpretation of this exam. ILaurel DO have personally reviewed and interpreted this examination/study. > Interpreting Provider: Laurel Estrada DO on 10/14/2024 1:57 PM Narrative 10/14/2024 1:57 PM CLINIC MANAGER EXAMINATIONS: BILATERAL DIGITAL SCREENING MAMMOGRAM AND BILATERAL BREAST TOMOSYNTHESIS LOCATION: [facility] EXAM DATE: 10/14/2024 HISTORY: Screening. No reported [...] DIGITAL SCREENING MAMMOGRAM AND BILATERALBREAST TOMOSYNTHESIS LOCATION: [facility] EXAM DATE: 10/14/2024 HISTORY: Screening. No reported [...] fellow). Memo Espinoza and Varghese Burnham MD (cmo & president) assistedin interpretation of this exam. ILaurel DO [...] the patient. Procedure Code(s): --- Professional --- 71839, Colonoscopy, flexible; with removal of tumor(s), polyp(s), or other lesion(s) by snare technique Diagnosis Code(s): --- Professional --- Z12.11, Encounter for screening for malignant neoplasm of colon D12.2, Benign neoplasm of ascending colon D12.3, Benign neoplasm of transverse colon (hepatic flexure or splenic flexure) D12.5, Benign neoplasm of sigmoid colon CPT copyright 2021 [employer]. All rights reserved. The codes documented in this report are preliminary and upon power lineman review may be revised to meet current compliance requirements. Justin Otoole MD 06/19/2024 9:58:58 AM This report has been signed electronically. Note Initiated On: 06/19/2024 9:00 AM Number of Addenda: [id number] [place] [address] 06/19/2024 9:00 AM CDT Justin Otoole MD GI PROCEDURE ORDERAB [facility] * COMPREHENSIVE METABOLIC PANEL (08/23/2023 3:46 PM CLINIC MANAGER) Glucose 82 65 - 99 mg/dL [facility] [...] 29 U/L [facility] Comment: Test Performed at: [email or web address] [address] JORDYN DUMAS MD Blood BLOOD SPECIMEN / Unknown 08/23/2023 3:46 PM CLINIC MANAGER 08/23/2023 3:46 PM CLINIC MANAGER Moriah Bray MD LAB - CHEMISTRY [facility] Performing Organization Address [facility] Co de Phone Number [address] [address] * (ABNORMAL) LIPID PROFILE (08/23/2023 3:46 PM CLINIC MANAGER) Cholesterol 189 <200 mg/dL [facility] HDL Cholesterol [...] LDL-C. Mike SS et al. TOMER. 2013;310(19): 8350-2163 (http://education.Curetis/faq/JEQ903) CHOL/HDLC RATIO 3.1 <5.0 (calc) [facility] Non HDL Cholesterol 128 <130 mg/dL (calc) [facility] Comment: For patients with diabetes plus 1 major ASCVD risk factor, treating to a non-HDL-C goal of <100 mg/dL (LDL-C of <70 mg/dL) is considered a therapeutic option. Test Performed at: [email or web address] [address] JORDYN DUMAS MD Blood BLOOD SPECIMEN / Unknown 08/23/2023 3:46 PM CLINIC MANAGER 08/23/2023 3:46 PM CLINIC MANAGER [place]iah Bray MD LAB - CHEMISTRY CIARA CASTELLANOS Performing Organization Address City/[facility]/ZIP Co de Phone Number [address] [address] * HEPATITIS C AB SCREEN RFLX NAAT QUANT (07/20/2023 4:31 PM CDT) Hepatitis C Antibody Non-react rafy Non-reac tive 07/20/2023 5:52 PM CDT [facility] Comment:Hepatitis C Antibody screen indicates [...] - CHEMISTRY CIARA CASTELLANOS Performing Organization Address City/State/[facility] Co de Phone Number [facility] [address] [place] [address], [facility] [phone] from Last 3 Months or Most Recently Relevant to Health Maintenance Care Teams Senior Materials Scientist Relationship Specialty Start Date End Date Demarcsu Camejo MD [address] [facility] [address] [place] [address] PCP - General Family Medicine 07/05/24
--- OUTSIDE RECORDS SUMMARY | 2024-12-05 17:39 | XMS_ITS | Encounter Summary ---
Author Organization [facility] Address [address] [place] [address] Care Team Providers Care Extrusion Line Operator Name Role Phone Demarcus Camejo MD Primary Care Provider Reason for Visit * Reason Onset Date Comments Nurse Only 11/02/2023 Encounter Details Date Type Department Care Team (Late st Contact Info) Description 11/02/2023 Telephone [facility] - Dermatology [address] [place] [address], [facility] [place] [address] Moriah Bray MD [address] [place] [address] [place] [address] Nurse Only Social History Tobacco [...] missing page 3. Please call guero at [phone] or send to fax [phone] TER HELPER documented in this encounter Plan of Treatment Upcoming Encounters Date Type Department Care Team (Late st Contact Info) Description 01/29/2025 1:50 PM CDT Office Visit [facility] [address] [facility] [place] [phone] Moriah Bray MD [address] [facility] [place] [address] 02/19/2025 8:00 AM CDT Appointment [facility] [address] [place] [address] documented as of this encounter Visit Diagnoses Not on filedocumented in this encounter Care Teams Extrusion Line Operator Relationship Specialty Start Date End Date Demarcus Camejo MD [address] [address] [place] [phone] PCP - General Family Medicine 07/05/24 documented as of this encounter
== END 2024-12-05 17:35 | disposition home or self-care (01) ==
PROVIDERS: PCP Family Medicine; Visit Provider Plastic Surgery
DX: S62.613D Displaced fracture of proximal phalanx of left middle finger, subsequent encounter for fracture with routine healing (principal); X58.XXXD Exposure to other specified factors, subsequent encounter
CPT/HCPCS: 73200

== ENCOUNTER 2024-12-30 01:47 | Emergency (ER) | payer OTHER, SELFPAY ==
--- NOTE | ~2024-12-30 | CT_ITS ---
CT of the Abdomen and Pelvis: Indication: Abdominal pain, rectal bleeding Technique: 2.5 mm axial scans were obtained through the abdomen and pelvis following intravenous adm inistration of 100 cc of Omnipaque 350. Dose reduction technique was used on this scan by utilizing a utomated exposure control and iterative reconstruction technique. The dose-length product (DLP) was 1 250.99 mGy-cm. Findings: Scans through the lung bases are unremarkable. There is diffuse fatty infiltration of the liver. The spleen, pancreas, gallbladder, adrenals and kid neys are within normal limits. No evidence of aortic aneurysm. No lymphadenopathy. No bowel obstruction or bowel wall thickening. There is no evidence to suggest acute appendicitis. Images through the pelvis were performed. Urinary bladder unremarkable. No pelvic mass seen. No ascit es. Impression: No acute abnormalities seen. Diffuse fatty infiltration of liver. Reviewed, dictated and finalized at [facility]. Impression: No acute abnormalities seen. Diffuse fatty infiltration of liver.
[2024-12-30 01:48] VITALS: BP 122/53; PULSE 92; RESP 18; TEMP 36.7; O2SAT 100
--- OUTSIDE RECORDS SUMMARY | 2024-12-30 01:49 | XMS_ITS | Encounter Summary ---
Author Organization [facility] Address [address] [facility] [place] [address] Care Team Providers Care Sack Filler Name Role Phone Demarcus Camejo MD Primary Care Provider [phone] Reason for Visit * Reason Onset Date Comments Medication Issue 09/04/2023 Encounter Details Date Type Department Care Team (Late st Contact Info) Description 09/04/2023 Telephone [facility] Scheduling [address] [place] [address] Moriah Bray MD [facility] [facility] [place] [address] Medication Issue Social History Tobacco Use Types Packs/Day Years Used Date Smoking Tobacco: Some Days Cigarettes Smokeless Tobacco: Never Comments Unknown Sex and Gender Information Value Date Recorded Sex Assigned at Female 07/17/2023 12:21 AM CDT Legal Sex Female 6:00 AM STERILIZER MACHINE OPERATOR Gender Identity Female 07/17/2023 12:21 AM CDT Sexual Orientation Straight 07/17/2023 12 :21 AM CDT documented as of this encounter Miscellaneous Notes * Telephone Encounter - Crystal Cui - 09/12/2023 3:02 PM CST Pt is calling in again to address the previous two messages. Please contact pt, . ILIZER MACHINE OPERATOR * Telephone Encounter - Tay Mcelroy PA-C - 09/08/2023 4:16 PM CST Patient unable to cigar packer and picker prescriptions. Prescriptions were resent to pharmacy in [place]. Tay Mcelroy PA-C ILIZER MACHINE OPERATOR * Telephone Encounter - Bertha Olivarez - [...] ml - water 50 mlSUSP sent to [facility] [place] [phone] Patients is also needing her paperwork from guero filled out . Please give pt a call if needed [phone] ILIZER MACHINE OPERATOR * Telephone Encounter - Honey Crouch - 09/04/2023 2:57 PM CST Physician is not enrolled on [place] Medicaid and pharmacy cannot fill order for Prednisone. nystatin susp 20 ML - hydrocortisone 50 MG- viscous lidocaine 2% 50 ml - water 50 ml SUSP needs to be sent to [place] pharmacy to be filled as a compound. ILIZER MACHINE OPERATOR documented in this encounter Plan of Treatment Upcoming Encounters Date Type Department Care Team (Late st Contact Info) Description 01/29/2025 1:50 PM CDT Office Visit [facility] Dermatology [address] [place] [address], [place] [address] Moriah Bray MD [address] [place] [address] [place] [phone] 02/19/2025 8:00 AM CDT Appointment [facility] [address] [place] [address] documented as of this encounter Visit Diagnoses Diagnosis Lichen planus- Primary documented in this encounter Care Teams Sack Filler Relationship Specialty Start Date End Date Demarcus Camejo MD [address] [facility] [address] [place] [address] PCP - General Family Medicine 07/05/24 documented as of this encounter
--- OUTSIDE RECORDS SUMMARY | 2024-12-30 01:49 | XMS_ITS | Encounter Summary ---
Author Organization [facility] Health Address [address] [place] [address] Care Team Providers Care Feeder Catcher Name Role Phone Demarcus Camejo MD Primary Care Provider [phone] Reason for Visit * Reason Onset Date Comments Nurse Only 11/02/2023 Encounter Details Date Type Department Care Team (Late st Contact Info) Description 11/02/2023 Telephone [facility] Dermatology [address] [place] [address], [facility] [place] [address] Moriah Bray MD [address] [place] [address] [place] [address] Nurse Only Social History Tobacco Use Types Packs/Day Years Used Date Smoking Tobacco: Some Days Cigarettes Smokeless Tobacco: Never PHQ-2 Answer Date Recorded Patient Health Questionnaire-2 Score 2 10/29/2023 Comments Unknown Sex and Gender Information Value Date Recorded Sex Assigned at Female 07/17/2023 12:21 AM CDT Legal Sex Female 6:00 AM PER DIEM PHYSICAL THERAPIST Gender Identity Female 07/17/2023 12:21 AM CDT Sexual Orientation Straight 07/17/2023 12 :21 AM CDT documented as of this encounter Miscellaneous Notes * Telephone Encounter - Bertha Olivarez - 11/02/2023 8:53 AM CST [employer] is calling in regards of pt FMLA paperwork. She states that the office sent pages 1 and 2,and guero is missing page 3. Please call guero at [phone] or send to fax [phone] DIEM PHYSICAL THERAPIST documented in this encounter Plan of Treatment Upcoming Encounters Date Type Department Care Team (Late st Contact Info) Description 01/29/2025 1:50 PM CDT Office Visit [facility] [address] [facility] [place] [phone] Moriah Bray MD [address] [place] [address] [place] [phone] 02/19/2025 8:00 AM CDT Appointment [address] [address] documented as of this encounter Visit Diagnoses Not on filedocumented in this encounter Care Teams Feeder Catcher Relationship Specialty Start Date End Date Demarcus Camejo MD [address] [address] [place] [address] PCP - General Family Medicine 07/05/24 documented as of this encounter
--- OUTSIDE RECORDS SUMMARY | 2024-12-30 01:49 | XMS_ITS | Encounter Summary ---
Author Organization [facility] Address [address] [address] Care Team Providers Care Sack Maker Name Role Phone Demarcus Camejo MD Primary Care Provider Reason for Visit * Reason Onset Date Comments MEDICATION REFILL 08/16/2023 Encounter Details Date Type Department Care Team (Late Contact Info) Description 08/16/2023 Refill [facility] [address] [place] [phone] Moriah Bray MD [address] [place], [place] [address] [phone] MEDICATION REFILL Social History Tobacco Use Types Packs/Day Years Used Date Smoking Tobacco: Some Days Cigarettes Smokeless Tobacco: Never Comments Unknown Sex and Gender Information Value Date Recorded Sex Assigned at Female 07/17/2023 12:21 AM CDT Legal Sex Female 6:00 AM DIRECTOR OF SLOT OPERATIONS Gender Identity Female 07/17/2023 12:21 AM CDT Sexual Orientation Straight 07/17/2023 12 :21 AM CDT documented as of this encounter Plan of Treatment Upcoming Encounters Date Type Department Care Team (Late Contact Info) Description 01/29/2025 1:50 PM CDT Office Visit [facility] [address] [place] [phone] Moriah Bray MD [address] [facility] [place] [address] 02/19/2025 8:00 AM CDT Appointment [facility] [address] [place] [address] documented as of this encounter Visit Diagnoses Not on filedocumented in this encounter Care Teams Sack Maker Relationship Specialty Start Date End Date Demarcus Camejo MD [address] [address] [place] [phone] PCP - General Family Medicine 07/05/24 documented as of this encounter
--- OUTSIDE RECORDS SUMMARY | 2024-12-30 01:49 | XMS_ITS | Encounter Summary ---
Author Organization [facility] Address [address] [facility] [place] [address] Care Team Providers Care Lan Manager Name Role Phone Demarcus Camejo MD Primary Care Provider Encounter Details Date Type Department Care Team (Late st Contact Info) Description 08/08/2023 Telephone [facility] [address] [place] [address] [place] [address] Moriah Bray MD [address] [place], [place] [address]T [place] [address] Social History Tobacco Use Types Packs/Day Years Used Date Smoking Tobacco: Some Days Cigarettes Smokeless Tobacco: Never Comments Unknown Sex and Gender Information Value Date Recorded Sex Assigned at Female 07/17/2023 12:21 AM CDT Legal Sex Female 6:00 AM INTERNET RESEARCHER Gender Identity Female 07/17/2023 12:21 AM CDT [...] case she needs to reschedule Please advise RNET RESEARCHER documented in this encounter Plan of Treatment Upcoming Encounters Date Type Department Care Team (Late st Contact Info) Description 01/29/2025 1:50 PM CDT Office Visit [facility] [address] [facility], [place] [address] Moriah Bray MD [facility] [facility] [place] [address] 02/19/2025 8:00 AM CDT Appointment [facility] [address] [place] [address] documented as of this encounter Visit Diagnoses Not on filedocumented in this encounter Care Teams Lan Manager Relationship Specialty Start Date End Date Demarcus Camejo MD [address] [facility] [address] [place] [phone] PCP - General Family Medicine 07/05/24 documented as of this encounter
--- OUTSIDE RECORDS SUMMARY | 2024-12-30 01:49 | XMS_ITS | Encounter Summary ---
Author Organization [facility] Address [address] [place] [address] Care Team Providers Care Math Specialist Name Role Phone Demarcus Camejo MD Primary Care Provider [phone] Reason for Visit * Reason Onset Date Comments MEDICATION REFILL 08/18/2023 Encounter Details Date Type Department Care Team (Late Contact Info) Description 08/18/2023 Refill [facility] [address] [place] [phone] Moriah Bray MD [address] [place], [place] [address]T [place] [phone] MEDICATION REFILL Social History Tobacco Use Types Packs/Day Years Used Date Smoking Tobacco: Some Days Cigarettes Smokeless Tobacco: Never Comments Unknown Sex and Gender Information Value Date Recorded Sex Assigned at Female 07/17/2023 12:21 AM CDT 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 Gender Identity Female 07/17/2023 12:21 AM CDT Sexual Orientation Straight 07/17/2023 12 :21 AM CDT documented as of this encounter Plan of Treatment Upcoming Encounters Date Type Department Care Team (Late Contact Info) Description 01/29/2025 1:50 PM CDT Office Visit [facility] [address] [place] [phone] Moriah Bray MD [address] [facility] DEPT [place] [address] 02/19/2025 8:00 AM CDT Appointment [facility] [address] [place] [address] documented as of this encounter Visit Diagnoses Not on filedocumented in this encounter Care Teams Math Specialist Relationship Specialty Start Date End Date Demarcus Camejo MD [address] [address] [place] [phone] PCP - General Family Medicine 07/05/24 documented as of this encounter
--- OUTSIDE RECORDS SUMMARY | 2024-12-30 01:49 | XMS_ITS | Data Portability ---
Author Organization [facility] [employer], Main Office Address [address] [place] [address] Care Team Providers Care Leaf Tier Name Role Phone VIRGINIA HERNANDEZ Primary Care Provider VIRGINIA HERNANDEZ Referring Provider Assessment Encounter Date Assessment Date Assessment LastModified by Organization Details LastModified Time 10/07/2024 10/07/2024 Note was performed with dictation software, error may occur. Not available 10/08/2024 09:32:34 10/31/2024 10/31/2024 This note is dictated and transcribed by [employer] Software. Commercial Appraiser variances may occur. Despite proofreading, typographical errors may occur. Occasional wrong-word or 'lwsnh-h-wzzb' substitutions may have occurred due to the [...] or more view 025 10/31/19 25 [email or web address] [facility] [place], [address], [place], [address], 16:29:21 XR, foot, 3 or more view 025 10/31/19 25 [email or web address] [facility] [place], [address], [place], [address], 16:29:21 Medication Orders None record ed. Patient TargetsNo targets recorded. Patient InstructionsNo instructions recorded. Reason for Referral None Reported. Results Created Date Observation Date Name Description Value Unit Range Abnormal Flag Note LastModifiedBy Organization Detail LastModifiedTime 01/11/20 23 01/10/2023 US, padmini x venou s, lower extre mity, compl ete No observ ation record ed. [email or web address] [facility] [address], [place], [address], 01/11/2023 10:17:02 01/11/20 23 01/10/2023 US, bjle x, arter ial, lower extre mity No observ ation record ed. [email or web address] [facility] [address], [place], [address], 01/11/2023 10:17:18 02/07/20 24 02/07/2024 US, padmini holland, venou s, extre mity, compl ete No observ ation record ed. [email or web address] [facility] [address], [place], [address], 02/07/2024 14:03:01 02/14/20 24 02/14/2024 sleep study , diagn ostic (PROC ) No observ ation record ed. [email or web address] [facility] [address], [place], [address], 2024 09:06:53 10/31/19 25 XR, foot, 3 or more view No observ ation record ed. [email or web address] [facility] [place] [address], [place], [address], 10/31/2024 16:28:57 10/31/19 25 XR, foot, 3 or more view No observ ation record ed. [email or web address] [facility] [place] [address], [place], [address], 10/31/2024 16:29:19 Result Notes None recorded. Problems Name Problem SNOMED Code Status Onset Date Resolution Date Notes Provider Name and Address Organization Details Recorded Time Peripheral venous insufficie ncy 16019019 Active 2021 Not Available [facility] 3 07:30:10 Contractur e of joint of toe 805589923 Active 2020 Not Available [facility] 3 07:30:11 Porokerato sis 762981172 Active 2020 Not Available [facility] 3 07:30:11 Ingrowing toenail 920887518 Active 2021 Not Available [facility] 3 07:30:11 Abscess of buttock 97218780 Active Not Available [facility] 3 07:30:11 Dystrophia unguium 52896724 Active 2023 Nixon Middleton DPM [address], [address], [place], [address] , [employer] 4 16:44:04 Pain in toe 332669002 Active 2023 Nixon Middleton DPM [address], [address], [place], [address] , [employer] 4 16:44:20 Pain in right foot 7090421824748 07 Active 2024 Nixon Middleton DPM [address], [address], [place], [address] , [employer] 5 16:23:58 Tailor's bunion of right foot 7127042374770 109 Active 2024 Nixon Middleton DPM [address], [address], [place], [address] , [employer] 5 16:24:03 Pain in left foot 2066653425256 07 Active 2024 Nixon Middleton DPM [address], [address], [place], [address] , [employer] 16:27:53 Problem Notes None recorded. Procedures Surgical History Date Name Laterality Status Provider Name and Address Organization Details Recorded Time 10/07/19 25 Nail Debridement completed Nixon Middleton DPM [address], [address], [place], [address], [employer] 10/08/2024 09:31:32 11/30/19 24 Nail Debridement completed Nixon Middleton DPM [address], [address], [place], [address], [employer] 11/30/2023 16:44:00 07/14/20 21 Date of Last Pap Smear completed Not Available [facility] 11/16/2022 07:26:19 07/06/20 10 ACCOUNT DEVELOPMENT REPRESENTATIVE Surgery completed Not Available [facility] 11/17/19 07:26:21 10/07/19 05 ACCOUNT DEVELOPMENT REPRESENTATIVE Surgery completed Not Available [facility] 11/17/19 07:26:21 08/26/20 04 ACCOUNT DEVELOPMENT REPRESENTATIVE Procedure completed Not Available [facility] 2022 07:26:21 05/29/20 01 ACCOUNT DEVELOPMENT REPRESENTATIVE Procedure completed Not Available [facility] 2022 07:26:21 section completed Not Available [facility] 11/16/2022 07:26:21 tonsilectomy/ad enoids completed Not Available [facility] 11/16/2022 07:26:21 ACCOUNT DEVELOPMENT REPRESENTATIVE Surgery completed Not Available [facility] 11/16/2022 07:26:21 Imaging Results Imaging Date Name Status LastModified by Organiz [facility] Details LastModified Time 01/10/2023 US, duplex, venous, lower extremity, complete completed [email or web address] [facility] [address], [place], [address], 01/11/2023 10:17:02 01/10/2023 US, duplex, arterial, lower extremity completed [email or web address] [facility] [address], [place], [address], 01/11/2023 10:17:18 02/07/2024 US, duplex, venous, extremity, complete completed [email or web address] [facility] [address], [place], [address], 02/07/2024 14:03:01 02/14/2024 sleep study, diagnostic (PROC) completed [email or web address] [facility] [address], [place], [address], 2024 09:06:53 10/31/2024 XR, foot, 3 or more view completed [email or web address] [facility] [place] [address], [place], [address], 10/31/2024 16:28:57 10/31/2024 XR, foot, 3 or more view completed [email or web address] [facility] [place] [address] [facility] [address], [place], [address], 10/31/2024 16:29:19 Procedure Notes None recorded. Medical Equipment None Reported. Allergies Allergen ID Allergen Name Allergen Category Reaction Reaction Severity Criticality Documentation Date Start Date Code Code System Note Provider Name and Address Organization Details Recorded Time 71725 Bactrim medicatio n Not available Not available Not available 11/16/2022 20414 9 RxNorm Not Available [facility] 3 07:35:19 Medications Name Sig Start Date [...] % 98 % 99 /min 14 /min 99461.3 3 g 115 mm[Hg] 73 mm[Hg] Not Available [facility] 3 07:26:27 Date Recorded Body mass index (BMI) Body height Heart rate Body weight Systolic blood pressure Diastolic blood pressure Provider Name and Address Organization Details Last Updated DateTime 2 30.4 kg/m2 157.48 cm 99 /min 78560.3 3 g 130 mm[Hg] 86 mm[Hg] Not Available [facility] 3 07:26:27 Date Recorded Heart rate Respiratory rate Oxygen saturation Oxygen saturation in Arterial blood by Pulse oximetry Provider Name and Address Organization Details Last Updated DateTime 11/30/2023 89 /min 14 /min 99 % 99 % Mindy Denney [employer] 4 16:01:35 Date Recorded Heart rate Respiratory rate Oxygen saturation Oxygen saturation in Arterial blood by Pulse oximetry Systolic blood pressure Diastolic blood pressure Provider Name and Address Organization Details Last Updated DateTime 5 92 /min 14 /min 99 % 99 % 123 mm[Hg] 79 mm[Hg] Mindy Denney [employer] 5 16:06:46 Date Recorded Heart rate Respiratory rate Oxygen saturation Oxygen saturation in Arterial blood by Pulse oximetry Systolic blood pressure Diastolic blood pressure Provider Name and Address Organization Details Last Updated DateTime 5 67 /min 14 /min 98 % 98 % 107 mm[Hg] 67 mm[Hg] Mindy Denney Within3 [facility] 5 15:56:03 Social History Question Answer Notes LastModified by LUXA[employer] ion Details LastModified Time Tobacco Smoking Status Current Every Day Smoker Not Available [facility] 11/16/2022 07:26:10 What Is Your Level Of Alcohol Consumption? Occasional [id number] Information not available 11/16/2022 If You Are , What Was Your Level Of Alcohol Consumption Prior To ? None [id number] Information not available 11/16/2022 What Is Your Level Of Caffeine Consumption? Moderate [id number].[id number] 1040 Information not available 11/16/2022 What Is Your Occupation? Unemployed MIGRATION.[id number] 7069 Information not available 11/16/2022 What Was The Date Of Your Most Recent Tobacco Screening? 07/12/2021 [id number] Information not available 11/16/2022 Have You Ever Been Counseled For Unhealthy Alcohol Use? No [id number] Information not available 11/16/2022 What Is Your Relationship Status? [id number].224506 6909 Information not available 11/16/2022 Do You Use Your Seat Belt Or Car Seat Routinely? Yes [id number] 6156 Information not available 11/16/2022 How Much Tobacco Do You Smoke? 0.5 PPD MIGRATION.[id number] 3812 Information not available 11/16/2022 Do You Use Any Illicit Or Recreational Drugs? No [id number].785250 6740 Information not available 11/16/2022 Has Tobacco Cessation Counseling Been Provided? No MIGRATION.[id number] 9733 Information not available 11/16/2022 Do You Or Have You Ever Used Any Other Forms Of Tobacco Or Nicotine? No MIGRATION.276829 1615 Information not available 11/16/2022 Sex: Female Functional Status Question Answer Note LastModified by Organizat ion Details LastModified Time What is your exercise level? None [id number] Information not available 11/16/2022 Mental Status None recorded. Family History Relationship Description Onset Age of this Age Resolved Age Notes LastModified by Organization Details LastModified Time Father Diabetes mellitus [id number] Not available 11/16/2022 07:26:22 Father Myocardial infarction [id number] Not available 11/16/2022 07:26:22 Maternal Grandmother Arthritis Not available 0 10/31/2024 15:45:46 Maternal Grandmother Family history of malignant neoplasm [id number] Not available 10/31 15:45:46 Maternal Grandmother Malignant tumor of ovary [id number] Not available 10/31 15:45:46 Medical History Condition Response HEADACHES/MIGRAINES Y ANXIETY DISORDER Y DEPRESSION (INCLUDING POST ) Y BACK / NECK PROBLEMS Y HEPATITIS / LIVER DISEASE Y Gynecological [...] SNOMED-CT Code Diagnosis ICD10 Code Diagnosis Note [id number] _ATHENA_M IGRATION_ DEFAULT_1 _1 , 07/12/2021 00:00:00 07/13/2021 10:09:58 [id number] _ATHENA_M IGRATION_ DEFAULT_1 _1 , 07/14/2021 00:00:00 07/14/2021 10:36:38 [id number] _ATHENA_M IGRATION_ DEFAULT_1 _1 , 11/29/2021 00:00:00 12/16/2021 09:26:40 [id number] _LUCILAM IGRATION_ DEFAULT_1 _1 , 07/25/2022 00:00:00 07/26/2022 10:04:18 [id number] RUBINAM IGRATION_ DEFAULT_1 _1 , 08/22/2022 00:00:00 08/23/2022 09:34:38 [id number] Nixon Middleton DPM [facility] [place] [address] [place] [address] 11/30/2023 15:54:54 11/30/2023 16:49:45 Dystrophia unguium 95411645 L60.3 bilateral great toenails debrided without incidentfo llow-up as needed Pain in toe 150100348 M7 9.674 M79.675 bilateral great toenails [id number] Nixon Middleton DPM [facility] Pod[facility] [place] [address] [place] [address] 10/07/2024 15:51:23 10/11/2024 13:12:56 Ingrowing toenail 784445135 L60.0 bilateral great toes and secondnail s debrided without incidentmo nitor for infection if present seek medical attentionr eviewed options if cont will require partial matrix of affected sidesfollo w up in one week [id number] Nixon Middleton DPM [facility] Pod[facility] [place] [address] [place] [address] 10/31/2024 15:44:43 11/05/2024 14:00:23 Pain in right foot 6511392322 75387 M79.671 as below Tailor's b union of right foot 7445803074 696313 M21.621 Obtain surgical clearancex -rays reviewed with the patientsur gical options reviewed with the patientpla n partial ostectomy right 5th metatarsal head with possible osteotomy Pain in left foot 612444 7091 48322 M79.672 secondary to loren's bunionwill perform surgery [...] Gallardo Member ID Guarantor Name 11/30/2023 1 [facility] ON OR AFTER 03/18/21 (MEDICAID REPLACEMENT - HMO) Rasheeda Pike Jose [id number] Rasheeda Pike Jose 10/07/2024 1 [facility] ON OR AFTER 03/18/21 (MEDICAID REPLACEMENT - HMO) Rasheeda Pike Jose [id number] Rasheeda Pike Jose 10/31/2024 1 [facility] ON OR AFTER 03/18/21 (MEDICAID REPLACEMENT - HMO) Rasheeda Pike Jose [id number] Rasheeda Pike Jose Notes Date Note Type [...] complaints. Nixon Middleton DPM [address], [facility] [address], [place], [address], [employer] 11/30/2023 16:45:51 10/07/2024 text/html Patient presents with painful ingrown toenails of both great toes and second toes, denies any redness, drainage, or swelling. Patient explains pain is mild. Describes pain as sharp in nature. Nixon Middleton DPM [address], [address], [place], [address], [employer] 10/08/2024 09:34:07 10/31/2024 text/html . Patient is [...] right 5th metatarsal. Nixon Middleton DPM [address] [facility], [facility] [address], [place], [address], [place] [facility] [place] [employer] [facility] 10/31/2024 16:29:39 OBGyn Episode No OBEpisode recorded.
--- OUTSIDE RECORDS SUMMARY | 2024-12-30 01:50 | XMS_ITS | Referral Summary ---
Author Organization [facility] Address [address] [phone] Care Team Providers Care Ferryboat Captain Name Role Phone Ira Barrett Primary Care Provider + Encounters Date Type Department Care Team Description 12/23/2024 Telephone [facility] Medical [facility] Family Medicine [address] [phone] Ira Barrett PA Prior Auth Request for Pantoprazole Sodium 12/23/2024 6:30 AM CDT E-Visit [facility] Medical Group Virtual Care [address] [place] [address] Destini Bowles, SUZANNA Virtual Care Visit 12/23/2024 Patient Self-Triage [facility] [address] [place] [address] Deet, Generic Provider 12/10/2024 Telephone [facility] Medical [facility] Cardiology [address] [place] [phone] Unknown, Notinfile 12/09/2024 Telephone [facility] [address] [place] [phone] Unknown, Notinfile 12/09/2024 Telephone [facility] [address] [place] [phone] Unknown, Notinfile 12/05/2024 Telephone [facility] [address] [place] [phone] Unknown, Notinfile 11/29/2024 9:00 AM CDT Office Visit [address] [phone] Alize Mckeon PA Constipation, unspecified constipation type (Primary Dx); Abdominal pain; Blood in stool; External hemorrhoid; Class 3 severe obesity due to excess calories with serious comorbidity and body mass index (BMI) of 40.0 to 44.9 in adult (HCC) 11/28/2024 Nurse Triage [address] [phone] Ira Barrett PA 11/28/[address] [phone] Ira Barrett PA Recommendation Request 11/18/2024 12:30 PM DISEASE [employer]SE[employer] Office Visit [facility] [address] [place] [phone] Darius Rodriguez MD Abnormal EKG (Primary Dx); Other chest pain; Venous insufficiency 11/12/2024 Results Follow-Up [address] [phone] Ira Barrett PA 11/08/2024 Letter (Out) [address] [phone] 11/08/2024 10:00 AM DISEASE AND INSECT CONTROL BOSS Office Visit [address] [phone] Ira Barrett PA Pre-op evaluation (Primary Dx); Abnormal EKG 11/06/[address] [phone] Ira Barrett PA 11/05/2024 1:30 PM DISEASE AND INSECT CONTROL BOSS Telemedicine [address] [phone] Ira Barrett PA Left hand pain (Primary Dx); Abnormal mammogram; Obesity, Class II, BMI 35-39.9; Constipation, unspecified constipation type; Hepatic steatosis 11/04/2024 Telephone [facility] Medicine [address] [phone] Ira Barrett PA 10/15/2024 Telephone [facility] [address] [phone] Ira Barrett PA Mammogram results 10/14/2024 Telephone [facility] [address] [phone] Ira Barrett PA 10/03/2024 2:54 PM DISEASE AND INSECT CONTROL BOSS - 10/03/2024 11:59 PM DISEASE AND INSECT CONTROL BOSS Hospital Encounter [facility] Medical Office Building [address] [phone] Irritable bowel syndrome without diarrhea; Hepatic steatosis; Gastroesophageal reflux disease, unspecified whether esophagitis present; RUQ pain; Elevated LFTs Discharge Disposition: Discharge to home or self care from Last 3 Months Allergies No known [...] daily PRN. 30 days supply. 025 Active hydrocortisone 2.5 % cream Apply topically 2 (two) times a day 30 g 025 Active phentermine (ADIPEX-P) 37.5 mg tabletIndications :Obesity, Class II, BMI 35-39.9 TAKE 1 TABLET BY MOUTH ONCE DAILY BEFORE BREAKFAST 30 tablet 025 Active loperamide (IMODIUM) 2 mg capsuleIndication s:diarrhea Take 1 capsule (2 mg total) by mouth 4 (four) times a day as needed for diarrhea [address] (PROTONIX) 40 mg EC tabletIndications :Gastroesophageal reflux disease, unspecified whether esophagitis present Take 1 tablet (40 mg total) by mouth daily 90 [address] (PROTONIX) 40 mg EC tabletIndications :Gastroesophageal reflux disease, unspecified whether esophagitis present Take 1 tablet by mouth twice daily 60 tablet 025 2024 Discontinued phentermine (ADIPEX-P) 37.5 mg tabletIndications :Obesity, Class II, BMI 35-39.9 TAKE 1 TABLET BY MOUTH ONCE DAILY BEFORE BREAKFAST 30 tablet [address] (PROTONIX) 40 mg EC tabletIndications :Gastroesophageal reflux disease, unspecified whether esophagitis present Take 1 tablet by mouth twice daily 60 tablet 025 2024 Discontinued(R eorder) Active Problems Problem Noted Date Diagnosed Date [...] Plan (06/12/2024 3:29 PM CDT): Taking omeprazole [id number] daily and feels it is no longer [...] as well. - Referred to a new registered dietician for further evaluation and management. - Recommend [...] almost the last year. Has started taking xmda-zii-[id number] stool softener but not sure if it [...] 10/29/2023 Assessment & Plan (09/19/2024 3:16 PM DISEASE AND INSECT CONTROL BOSS): Chronic, stable condition. Continue current medication regimen per psychiatrist Assessment & Plan (06/12/2024 3:27 PM CDT): Chronic, stable. Patient is following with psychiatrist Assessment & Plan (04/03/2024 1:42 PM CDT): Managed by psychiatrist - continues on Lamictal, benzo, Effexor Borderline personality disorder 10/29/2023 Assessment & Plan (09/19/2024 3:16 PM DISEASE AND INSECT CONTROL BOSS): Chronic, stable condition. Continue current medication regimen [...] CDT): Chronic,worsening. Patient will follow up with medical practice assistant Assessment & Plan (06/12/2024 3:27 PM CDT): [...] on file Legal Sex Female 11:46 PM DISEASE AND INSECT CONTROL BOSS Gender Identity Female 03/27/2024 7:14 AM CDT [...] Procedure Name Priority Date/Time Associated Diagnosis Comments CT HAND LEFT WO CONTRAST AND 3D RECONS Schedule Routine, Read Routine (OP Routine) 12/05/2024 10:02 AM CDT POCT LIPID PANEL Routine 11/18/2024 12:5 9 PM DISEASE AND INSECT CONTROL BOSS Other chest pain COMPREHENSIVE METABOLIC PANEL Routine 11/11/2024 2:42 PM DISEASE AND INSECT CONTROL BOSS Hepatic steatosis CBC WITH AUTO DIFFERENTIAL Routine 11/11/2024 2:42 PM DISEASE AND INSECT CONTROL BOSS Hepatic steatosis ECG 12-LEAD Routine 11/08/2024 10:34 AM DISEASE AND INSECT CONTROL BOSS Pre-op evaluation MAMMOGRAPHY Routine 10/14/2024 CT ABDOMEN PELVIS W CONTRAST Schedule Routine, Read Routine (OP Routine) 10/03/2024 3:01 PM DISEASE AND INSECT CONTROL BOSS Irritable bowel syndrome without diarrhea Hepatic steatosis Gastroesophageal reflux disease, unspecified whether esophagitis present RUQ pain Elevated LFTs COLONOSCOPY Routine 06/19/2024 1:53 PM CDT PAP SMEAR WITH HPV Routine 01/10/2024 from Last 3 Months or Most Recently Relevant to Health Maintenance Results * CT Hand Left WO Contrast and 3D Recons (12/05/2024 10:02 AM CDT) Anatomical Region Laterality Modality Upper Extremities Left Computed Tomog [place] Historical Provider IMG CT PROCEDURES Final R esult * POCT lipid panel (11/18/2024 12:59 PM DISEASE AND INSECT CONTROL BOSS) Cholesterol, POC 172 mg/dL HDL, POC 46 mg/dL Triglycerides, POC 304 mg/dL LDL Cholesterol POC 65 mg/dL Chol/HDL Ratio, POC 1.4 Non-HDL Cholesterol, POC 126 mg/dL Cholesterol Total, POC 172 mg/dL Capillary blood 11/18/2024 1 2:59 PM DISEASE AND INSECT CONTROL BOSS Darius Rodriguez MD POINT OF CARE TEST O RDERABLES Final Result * CBC with auto differential (11/11/2024 2:42 PM DISEASE AND INSECT CONTROL BOSS) WBC 9.3 3.8 - 10.8 Thousand/u L [...] [facility] Blood 11/11/2024 2:42 PM DISEASE AND INSECT CONTROL BOSS 11/11/2024 2:43 PM DISEASE AND INSECT CONTROL BOSS Narrative [facility] - 11/12/2024 5:52 AM DISEASE AND INSECT CONTROL BOSS FASTING:NO FASTING: NO us Ira SINGH LAB BLOOD ORDERABLES Fin al Result [facility] [address] [place] [phone] * (ABNORMAL) Comprehensive metabolic panel (11/11/2024 2:42 PM DISEASE AND INSECT CONTROL BOSS) [facility] Glucose 94 65 - 139 mg/dL [...] [facility] Blood 11/11/2024 2:42 PM DISEASE AND INSECT CONTROL BOSS 11/11/2024 2:43 PM DISEASE AND INSECT CONTROL BOSS Narrative [facility] - 11/12/2024 5:52 AM DISEASE AND INSECT CONTROL BOSS FASTING:NO FASTING: NO us Ira SINGH LAB BLOOD ORDERABLES Fin al Result [facility] [address] [place] [phone] * ECG 12 lead (11/08/2024 10:34 AM DISEASE AND INSECT CONTROL BOSS) Ira SINGH ECG ORDERABLES Final Re sult * HM MAMMOGRAPHY (10/14/2024) Mammography Abnormal Historical Provider HEALTH MAINTENANCE Final Result * CT Abdomen Pelvis W Contrast (10/03/2024 3:01 PM DISEASE AND INSECT CONTROL BOSS) Anatomical Region Laterality Modality Body N/A Computed Tomogra phy 10/05/2024 11:0 5 PM DISEASE AND INSECT CONTROL BOSS Narrative 10/05/2024 11:15 PM DISEASE AND INSECT CONTROL BOSS EXAM DESCRIPTION: CT ABDOMEN PELVIS W CONTRAST [...] enlarged lymph node or free fluid. MSK: Rhpf-ig-lswnpssx L5-S1 disc disease and mild lower lumbar facet arthropathy. BODY WALL: Tiny fat containing periumbilical hernia. IMPRESSION: No abnormality identified to account for presentation. Gallbladder appears normal. THIS IS AN ELECTRONICALLY VERIFIED FINAL REPORT 10/05/2024 11:15 PM - Electronically signed by Frank Denney M.D. AR: KORTNEY Report ID: [id number] Reading Location: [id number] Procedure Note Frank Denney MD - 10/05/2024 [...] enlarged lymph node or free fluid. MSK: Ztea-yw-etgnhmui L5-S1 disc disease and mild lower lumbar facet arthropathy. BODY WALL: Tiny fat containing periumbilical hernia. IMPRESSION: No abnormality identified to account for presentation. Gallbladder appears normal. THIS IS AN ELECTRONICALLY VERIFIED FINAL REPORT 10/05/2024 11:15 PM - Electronically signed by Frank Denney M.D. AR: KORTNEY Report ID: [id number] Reading Location: [place] [address] PROCEDURES Final Result * COLONOSCOPY (06/19/2024 1:53 PM CDT) Scribed Colonoscopy Normal Historical Provider HEALTH MAINTENANCE Edited Result - Final * PAP SMEAR WITH HPV (01/10/2024) Historical Provider HEALTH MAINTENANCE Final Result from Last 3 Months or Most Recently Relevant to Health Maintenance Insurance [facility] Care Teams Ferryboat Captain Relationship Specialty Start Date End Date Ira Barrett PA [address] [facility] [address] [place], [place] [id number] PCP - General Family Medicine 04/03/24
--- OUTSIDE RECORDS SUMMARY | 2024-12-30 01:50 | XMS_ITS | Encounter Summary ---
Author Organization [facility] Address [address] [place] [address] Care Team Providers Care Assembly Press Operator Name Role Phone Ira Barrett Primary Care Provider + Reason for Visit * Reason Onset Date Comments Recommendation Request 11/28/2024 Encounter Details Date Type Department Care Team (Late st Contact Info) Description 11/28/2024 Telephone [facility] Family Medicine [address] [phone] Ira Barrett PA [address] [place] [address] Recommendation Request Social History Tobacco [...] on file Legal Sex Female 11:46 PM ASSOCIATE SCHOOL PSYCHOLOGIST Gender Identity Female 03/27/2024 7:14 AM CDT [...] referral to a new GI. She'd prefer [facility] or someone close. Not it [place]. Does message need to be routed? Yes-Action Needed documented in this encounter Plan of Treatment Not on file documented as of this encounter Visit Diagnoses Not on filedocumented in this encounter Care Teams Assembly Press Operator Relationship Specialty Start Date End Date Ira Barrett PA [address] [facility] [address] [place] [address] PCP - General Family Medicine 04/03/24 documented as of this encounter
--- OUTSIDE RECORDS SUMMARY | 2024-12-30 01:50 | XMS_ITS | Clinical Summary ---
Author Organization [facility] [employer] Address [address] [place] [address] Care Team Providers Care Truck And Transport Mechanic Name Role Phone Demarcus Camejo MD Primary Care Provider Source Comments [facility] [employer],non-owned Affiliates and Associated Physician Practices is amultiple site organization consisting of ambulatory clinics and hospital sitesin [place], [place], [place] and [place]. This disclosure is being madepursuant to the Care Everywhere program and may not contain all information available regarding this patient. Last updated 18.[employer] Allergies No known active allergies Medications * Be aware that medications may not be up to date on this document. Alwaysverify current medications with the patient. venlafaxine XR 24hr (Effexor XR) 75 MG capsule TAKE 1 CAPSULE BY MOUTH EVERY DAY IN THE MORNING 03/17/20 18 Active dexAMETHasone (Decadron) 0.5 MG/5ML elixirIndicati ons:Other lichen planus Rinse and spit 5-10 mL 4x daily as needed for mouth irritation. 30 day supply. 237 mL 3 10/11/19 24 Active lamoTRIgine (LaMICtal) 100 MG tabletIndicati ons:Bipolar Mood Disorder Take 1 (one) tablet by mouth 2 times daily Reasons: Manic-Depression Active furosemide (Lasix) 20 MG tabletIndicati ons:Edema Take 1 (one) tablet by mouth once daily Reasons: Edema Active pantoprazole EC (Protonix) 40 MG tabletIndicati ons:Gastroesop hageal Reflux Disease Take 1 (one) tablet by mouth once daily Reasons: Gastroesophageal Reflux Disease Active celecoxib (CeleBREX) 200 MG capsuleIndicat ions:Musculosk eletal Pain Take 1 (one) capsule by mouth once daily Reasons: Musculoskeletal Pain Acti ve LORazepam (Ativan) 0.5 MG tabletIndicati ons:Anxiety Take 1 (one) tablet by mouth every 8 hours as needed for Anxiety Reasons: Feeling Anxious Active tacrolimus (Protopic) 0.1 % ointmentIndica tions:Other lichen planus Apply to itchy areas on vulva, trunk and extremities up to two times daily PRN. 30 days supply. 30 g 3 10/28/19 25 Active Active Problems Problem Noted Date Diagnosed Date Bipolar II disorder 10/29/2023 10/29/2023 Borderline personality disorder 10/29/2023 10/29/2023 Generalized anxiety disorder 10/29/202307/2024 Erosive lichen planus of vulva 06/23/2023 0 10/29/2023 Degeneration of lumbar intervertebral disc 06/2310/29/2023 Encounters Date Type Department Care Team Description 11/20/2024 8:45 AM AUTO BODY SHOP MANAGER - 11/20/2024 11:59 PM AUTO BODY SHOP MANAGER Hospital Encounter [address] [address] Discharge Disposition: Home or Self Care 11/20/2024 Travel 10/30/2024 7:30 AM AUTO BODY SHOP MANAGER - 10/30/2024 11:59 PM AUTO BODY SHOP MANAGER Hospital Encounter [address] [address] Ira Barrett PA Discharge Disposition: Home or Self Care 10/30/2024 7:00 AM AUTO BODY SHOP MANAGER - 10/30/2024 7:29 AM AUTO BODY SHOP MANAGER Hospital Encounter [address] [address] Ira Barrett PA Discharge Disposition: Home or Self Care 10/30/2024 Travel 10/28/2024 2:10 PM AUTO BODY SHOP MANAGER Office Visit [facility] - Dermatology [address] [place] [phone] Moriah Bray MD Other lichen planus (Primary Dx) 10/28/2024 Travel 10/14/2024 11:27 AM AUTO BODY SHOP MANAGER - 10/14/2024 11:59 PM AUTO BODY SHOP MANAGER Hospital Encounter [facility] [address] [place] [address] Ira Barrett PA Discharge Disposition: Home or [...] Patient Health Questionnaire-2 Score 2 10/29/2023 Comments No Sex and Gender Information Value Date Recorded Sex Assigned at Female 07/17/2023 12:21 AM CDT Legal Sex Female 6:00 AM AUTO BODY SHOP MANAGER Gender Identity Female 07/17/2023 12:21 AM CDT [...] 98.4 kg (217 lb) 10/30/2024 8:08 AM AUTO BODY SHOP MANAGER Height 160 cm (5' 3 ) 10/30/2024 8:08 AM AUTO BODY SHOP MANAGER Body Mass Index 38.44 10/30/2024 8:08 AM AUTO BODY SHOP MANAGER Plan of Treatment Upcoming Encounters Date Type Department Care Team (Late st Contact Info) Description 01/29/2025 1:50 PM CDT Office Visit [facility] - Dermatology [address] [place] [address], [place] [phone] Moriah Bray MD [address] [place] [address] [place] [address] 02/19/2025 8:00 [place] [address] Health Maintenance Due Date Last Done Comments [...] - PCV) 1997 COVID-19 VACCINE (3 - season) 2024 02/20/2021, 11/18/2020 INFLUENZA VACCINE (Season Ended) 2025 06/07/2023, 07/12/2022, 06/23/2021, Additional history exists SCREENING FOR [...] this topic Medical Devices Implanted Type Area Risk Consulting Treasury Director Device Identifier Shelf Expiration Date Model / Serial / Lot [employer]omark Ultracor Ultrasound Enhanced Heart Breast Tissue Marker Implanted:Qty: 1 on 12/18/2023 by Laurel Estrada DO at [facility] Left: Breast [id number] 07/19/2026 [id number] / / [id number] Procedures Procedure Name Priority Date/Time Associated Diagnosis Comments US BREAST RIGHT CYST ASPIRATION Routine 11/20/2024 9:47 AM AUTO BODY SHOP MANAGER Abnormal mammogram US BREAST RIGHT LTD Routine 10/30/2024 8 :15 AM AUTO BODY SHOP MANAGER Abnormal mammogram MAMMO RIGHT DIAGNOSTIC W FCO Routine 10/30/2024 7:45 AM AUTO BODY SHOP MANAGER Abnormal mammogram MAMMO BILAT SCREENING W FCO Routine 10/14/2024 12:28 PM AUTO BODY SHOP MANAGER Visit for screening mammogram ENDOSCOPY, COLON, SCREENING Routine 06/19/2024 9:00 AM CDT COMPREHENSIVE METABOLIC PANEL Routine 08/23/2023 3:46 PM AUTO BODY SHOP MANAGER Lichen planus LIPID PROFILE Routine 08/23/2023 3:46 PM AUTO BODY SHOP MANAGER Lichen planus HEPATITIS C AB SCREEN RFLX NAAT QUANT Routine 07/20/2023 4:31 PM CDT Lichen planus from Last 3 Months or Most Recently Relevant to Health Maintenance Results * US Breast Right Cyst Aspiration (11/20/2024 9:47 AM AUTO BODY SHOP MANAGER) Anatomical Region Laterality Modality Breast Right Mammography 11/20/2024 9:49 AM AUTO BODY SHOP MANAGER Impressions 11/20/2024 11:16 AM AUTO BODY SHOP MANAGER IMPRESSION: Technically successful, uncomplicated ultrasound-guided aspiration [...] 11/20/2024 11:16 AM Narrative 11/20/2024 11:16 AM AUTO BODY SHOP MANAGER EXAM: ULTRASOUND-GUIDED CYST ASPIRATION- RIGHT BREAST LOCATION: [facility] EXAM DATE: 11/20/2024 HISTORY: 44-year-old female with a 0.3 cm mass suggestive of a complicated cyst in the right breast 11:00 5 cm from the nipple. Of note, the patient no longer demonstrates due to and ablation however per the patient, her TANK FURNACE OPERATOR does not think she is postmenopausal. COMPARISON: Prior breast imaging studies from [facility], dating back to 10/16/2023 INTERPRETATION: Preprocedure [...] present for and performed the entire procedure. us Ira SINGH US ORDERABLES Final Result * (ABNORMAL) US BREAST RIGHT LTD (Diagnostic, most commonly ordered) (10/30/2024 8:15 AM AUTO BODY SHOP MANAGER) Anatomical Region Laterality Modality Breast Right Mammography 10/30/2024 7:45 AM AUTO BODY SHOP MANAGER Addenda Addendum by Slime Dillard MD on 10/30/2024 12:13 PM AUTO BODY SHOP MANAGER Findings and recommendations were communicated by Dr. Dillard to the patient via phone on 10/30/2024 at 8:04 AM. The nurse navigator will contact the patient and provider. > Interpreting Provider: Slime Dillard MD on 10/30/2024 12:11 PM Impressions 10/30/2024 8:07 AM AUTO BODY SHOP MANAGER IMPRESSION: A 0.3 cm mass suggestive [...] 10/30/2024 8:07 AM Narrative 10/30/2024 8:07 AM AUTO BODY SHOP MANAGER EXAMINATIONS: 1. RIGHT DIGITAL DIAGNOSTIC MAMMOGRAM AND TOMOSYNTHESIS AND 2. LIMITED RIGHT BREAST ULTRASOUND (COMBINED REPORT) LOCATION: [facility] EXAM DATE: 10/30/2024 HISTORY: Follow-up to an [...] LIMITED RIGHT BREAST ULTRASOUND (COMBINED REPORT) LOCATION: [facility] EXAM DATE: 10/30/2024 HISTORY: Follow-up to an abnormal screening mammogram. [id number] presents for workup of a questioned focal [...] OVERALL ASSESSMENT: BI-RADS CATEGORY 4: SUSPICIOUS. (SUBSET [id number]: LOW SUSPICION FOR MALIGNANCY). > Interpreting Provider: Slime Dillard MD on 10/30/2024 8:07 AM us Ira SINGH ORDERABLES Edited Result - Final * (ABNORMAL) Mammo Right Diagnostic W Fco (10/30/2024 7:45 AM AUTO BODY SHOP MANAGER) Anatomical Region Laterality Modality Breast Right Mammography 10/30/2024 7:45 AM AUTO BODY SHOP MANAGER Addenda Addendum by Slime Dillard MD on 10/30/2024 12:13 PM AUTO BODY SHOP MANAGER Findings and recommendations were communicated by Dr. Dillard to the patient via phone on 10/30/2024 at 8:04 AM. The nurse navigator will contact the patient and provider. > Interpreting Provider: Slime Dillard MD on 10/30/2024 12:11 PM Impressions 10/30/2024 8:07 AM AUTO BODY SHOP MANAGER IMPRESSION: A 0.3 cm mass suggestive [...] 10/30/2024 8:07 AM Narrative 10/30/2024 8:07 AM AUTO BODY SHOP MANAGER EXAMINATIONS: 1. RIGHT DIGITAL DIAGNOSTIC MAMMOGRAM AND TOMOSYNTHESIS AND 2. LIMITED RIGHT BREAST ULTRASOUND (COMBINED REPORT) LOCATION: [facility] EXAM DATE: 10/30/2024 HISTORY: Follow-up to an [...] LIMITED RIGHT BREAST ULTRASOUND (COMBINED REPORT) LOCATION: [facility] EXAM DATE: 10/30/2024 HISTORY: Follow-up to an abnormal screening mammogram. [id number] presents for workup of a questioned focal [...] OVERALL ASSESSMENT: BI-RADS CATEGORY 4: SUSPICIOUS. (SUBSET [id number]: LOW SUSPICION FOR MALIGNANCY). > Interpreting Provider: Slime Dillard MD on 10/30/2024 8:07 AM us Ira SINGH MAMMO ORDERABLES Edited Resul t - Final * Mammo Bilat Screening W Fco (10/14/2024 12:28 PM AUTO BODY SHOP MANAGER) Anatomical Region Laterality Modality Breast Bilateral Mammography 10/14/2024 12:5 8 PM AUTO BODY SHOP MANAGER Addenda Addendum by Laurel Estrada DO on 10/15/2024 8:58 AM AUTO BODY SHOP MANAGER ADDENDUM: This addendum is being submitted to correct the right/left discrepancy in the recommendation section of the original report. The recommendation should read a diagnostic RIGHT (not left) mammogram and possible RIGHT (not left) ultrasound is recommended. Please refer to below fold report with addendum. EXAMINATIONS: BILATERAL DIGITAL SCREENING MAMMOGRAM AND BILATERAL BREAST TOMOSYNTHESIS LOCATION: [facility] EXAM DATE: 10/14/2024 HISTORY: Screening. No reported [...] IMAGING EVALUATION. Report dictated by Ava Levine, FRRODRIGUEZ (breast imaging fellow). Memo Espinoza and Varghese Burnham MD (surgical resident) assisted in interpretation of this exam. > Interpreting Provider: Laurel Estrada DO on 10/15/2024 8:56 AM Impressions 10/14/2024 1:57 PM AUTO BODY SHOP MANAGER IMPRESSION: 1. Suggestion of possible focal [...] ADDITIONAL IMAGING EVALUATION. Report dictated by Ava MORRISON, [facility] (breast imaging fellow). Memo Espinoza and Varghese Burnham MD (surgical resident) assisted in interpretation of this exam. I, Laurel Estrada DO have personally reviewed and interpreted this examination/study. > Interpreting Provider: Laurel Estrada DO on 10/14/2024 1:57 PM Narrative 10/14/2024 1:57 PM AUTO BODY SHOP MANAGER EXAMINATIONS: BILATERAL DIGITAL SCREENING MAMMOGRAM AND BILATERAL BREAST TOMOSYNTHESIS LOCATION: [facility] EXAM DATE: 10/14/2024 HISTORY: Screening. No reported [...] DIGITAL SCREENING MAMMOGRAM AND BILATERALBREAST TOMOSYNTHESIS LOCATION: [facility] EXAM DATE: 10/14/2024 HISTORY: Screening. No reported [...] NEED ADDITIONALIMAGING EVALUATION. Report dictated by [facility], FR[facility] (breast imaging fellow). Memo Espinoza and Varghese Burnham MD (surgical resident) assistedin interpretation of this exam. I, Laurel Estrada DO have personally reviewed and interpreted this examination/study. > Interpreting Provider: Laurel Estrada DO on 10/14/2024 1:57 PM us Demarcus Camejo MD MAMMO ORDERABLES Edited Resu lt - Final * ENDOSCOPY, COLON, SCREENING (06/19/2024 9:00 AM [...] the patient. Procedure Code(s): --- Professional --- 19827, Colonoscopy, flexible; with removal of tumor(s), polyp(s), or other lesion(s) by snare technique Diagnosis Code(s): --- Professional --- Z12.11, Encounter for screening for malignant neoplasm of colon D12.2, Benign neoplasm of ascending colon D12.3, Benign neoplasm of transverse colon (hepatic flexure or splenic flexure) D12.5, Benign neoplasm of sigmoid colon CPT copyright 2021 [employer]. All rights reserved. The codes documented in this report are preliminary and upon fryline attendant review may be revised to meet current compliance requirements. Justin Otoole MD 06/19/2024 9:58:58 AM This report has been signed electronically. Note Initiated On: 06/19/2024 9:00 AM Number of Addenda: [id number] [place] [address] PROVATION 06/19/2024 9:00 AM CDT us Justin Otoole MD GI PROCEDURE ORDERABLES Edited Result - Final [facility] PROVATION * COMPREHENSIVE METABOLIC PANEL (08/23/2023 3:46 PM AUTO BODY SHOP MANAGER) Glucose 82 65 - 99 mg/dL [...] 29 U/L [facility] Comment: Test Performed at: [id number] [address] JORDYN DUMAS MD Blood BLOOD SPECIMEN / Unknown 08/23/2023 3:46 PM AUTO BODY SHOP MANAGER 08/23/2023 3:46 PM AUTO BODY SHOP MANAGER us Moriah Bray MD LAB - CHEMISTRY ORDERABLES Ping l Result [address] [address] * (ABNORMAL) LIPID PROFILE (08/23/2023 3:46 PM AUTO BODY SHOP MANAGER) Cholesterol 189 <200 mg/dL [facility] HDL Cholesterol 61 > OR = 50 mg/dL [facility] Triglycerides 115 <150 mg/dL [facility] LDL Calculated 107(H) mg/dL (calc) [facility] Comment: Reference range: <100 Desirable range <100 mg/dL for primary prevention; <70 mg/dL for patients with CHD or diabetic patients with > or = 2 CHD risk factors. LDL-C is now calculated using the Mike-Stewart calculation, which is a validated novel method providing better accuracy than the Friedewald equation in the estimation of LDL-C. Mike SS et al. TOMER. 2013;310(19): 1307-4908 (http://education.HealthTap/faq/LBF355) CHOL/HDLC RATIO 3.1 <5.0 (calc) [facility] Non HDL Cholesterol 128 <130 mg/dL (calc) [facility] Comment: For patients with diabetes plus 1 major ASCVD risk factor, treating to a non-HDL-C goal of <100 mg/dL (LDL-C of <70 mg/dL) is considered a therapeutic option. Test Performed at: [id number] [address] JORDYN DUMAS MD Blood BLOOD SPECIMEN / Unknown 08/23/2023 3:46 PM AUTO BODY SHOP MANAGER 08/23/2023 3:46 PM AUTO BODY SHOP MANAGER us Moriah Bray MD LAB - CHEMISTRY ORDERABLES Ping l Result [facility] [address] [place] [address] * HEPATITIS C AB SCREEN RFLX NAAT QUANT (07/20/2023 4:31 PM CDT) Hepatitis C Antibody Non-react rafy Non-reac tive 07/20/2023 5:52 PM CDT [facility] Comment:Hepatitis C Antibody screen indicates no [...] 4:31 PM CDT 07/20/2023 4:58 PM CDT us Moriah Bray MD LAB - CHEMISTRY ORDERABLES Ping l Result Performing Organization Address City/[facility]/ZIP Co de Phone Number [facility] [address] [place] [address], [facility] [phone] from Last 3 Months or Most Recently Relevant to Health Maintenance Insurance [facility] Care Teams Truck And Transport Mechanic Relationship Specialty Start Date End Date Demarcus Camejo MD [address] [facility] [address] [place] [address] PCP - General Family Medicine 07/05/24
--- OUTSIDE RECORDS SUMMARY | 2024-12-30 01:50 | XMS_ITS | Encounter Summary ---
Author Organization [facility] Healthcare Address [address] [place] [address] Care Team Providers Care Timber Grader Name Role Phone Ira Barrett Primary Care Provider + Encounter Details Date Type Department Care Team (Late st Contact Info) Description 11/12/2024 Results Follow-Up [facility] Family Medicine [address] [phone] Ira Barrett PA [address] [place] [address] Social History Tobacco Use Types [...] on file Legal Sex Female 11:46 PM U.S. REPRESENTATIVE Gender Identity Female 03/27/2024 7:14 AM CDT Sexual Orientation Straight 03/27/2024 7: 14 AM CDT documented as of this encounter Plan of Treatment Not on file documented as of this encounter Visit Diagnoses Not on filedocumented in this encounter Care Teams Timber Grader Relationship Specialty Start Date End Date Ira Barrett PA [address] [facility] [address] [place], [place] [id number] PCP - General Family Medicine 04/03/24 documented as of this encounter
--- OUTSIDE RECORDS SUMMARY | 2024-12-30 01:50 | XMS_ITS | Clinical Summary ---
Author Organization [address] Address [address] [address] Care Team Providers Care Account Installer Name Role Phone Ira Barrett Primary [...] Plan (06/12/2024 3:29 PM CDT): Taking omeprazole zhjh-lri-ddpphlc daily and feels it is no longer [...] as well. - Referred to a new sheet rock applicator for further evaluation and management. - Recommend [...] almost the last year. Has started taking oqcm-onb-oggmanq stool softener but not sure if it [...] 10/29/2023 Assessment & Plan (09/19/2024 3:16 PM ENVIRONMENTAL HEALTH SAFETY ENGINEER): Chronic, stable condition. Continue current medication regimen per psychiatrist Assessment & Plan (06/12/2024 3:27 PM CDT): Chronic, stable. Patient is following with psychiatrist Assessment & Plan (04/03/2024 1:42 PM CDT): Managed by psychiatrist - continues on Lamictal, benzo, Effexor Borderline personality disorder 10/29/2023 Assessment & Plan (09/19/2024 3:16 PM ENVIRONMENTAL HEALTH SAFETY ENGINEER): Chronic, stable condition. Continue current medication regimen [...] CDT): Chronic,worsening. Patient will follow up with finance clerk Assessment & Plan (06/12/2024 3:27 PM CDT): [...] Date Type Department Care Team Description 12/23/2024 6:30 AM CDT E-Visit [facility] Virtual Care [address] [place] [address] Destini Bowles, BUSINESS OFFICE DIRECTOR Virtual Care Visit 12/23/2024 Telephone [facility] Family Medicine [address] [address] Ira Barrett PA Prior Auth Request for Pantoprazole Sodium 12/23/2024 Patient Self-Triage [facility]/ Physicians [address] [place] [address] Mychart, Generic Provider 12/10/2024 Telephone [facility] Cardiology [address] [place] [address] Unknown, Notinfile 12/09/2024 Telephone [facility] Cardiology [address] [place] [address] Unknown, Notinfile 12/09/2024 Telephone [facility] Cardiology [address] [place] [phone] Unknown, Notinfile 12/05/2024 Telephone [facility] Cardiology [address] [place] [address] Unknown, Notinfile 11/29/2024 9:00 AM CDT Office Visit [address] [address] Alize Mckeon PA Constipation, unspecified constipation type (Primary Dx); Abdominal pain; Blood in stool; External hemorrhoid; Class 3 severe obesity due to excess calories with serious comorbidity and body mass index (BMI) of 40.0 to 44.9 in adult (HCC) 11/28/2024 Nurse Triage [address] [address] Ira Barrett PA 11/28/[address] [address] Ira Barrett PA Recommendation Request 11/18/2024 12:30 PM ENVIRONMENTAL HEALTH SAFETY ENGINEER Office Visit [facility] Cardiology [address] [place] [phone] Darius Rodriguez MD Abnormal EKG (Primary Dx); Other chest pain; Venous insufficiency 11/12/2024 Results Follow-Up [address] [address] Ira Barrett PA 11/08/2024 10:00 AM ENVIRONMENTAL HEALTH SAFETY ENGINEER Office Visit [address] [address] Ira Barrett PA Pre-op evaluation (Primary Dx); Abnormal EKG 11/08/2024 Letter (Out) [address] [address] 11/06/[address] [address] Ira Barrett PA 11/05/2024 1:30 PM ENVIRONMENTAL HEALTH SAFETY ENGINEER Telemedicine [address] [address] Ira Barrett PA Left hand pain (Primary Dx); Abnormal mammogram; Obesity, Class II, BMI 35-39.9; Constipation, unspecified constipation type; Hepatic steatosis 11/04/[address] [address] Ira Barrett PA 10/15/[address] [address] Ira Barrett PA Mammogram results 10/14/[address] [address] Ira Barrett PA 10/03/2024 2:54 PM ENVIRONMENTAL HEALTH SAFETY ENGINEER - 10/03/2024 11:59 PM ENVIRONMENTAL HEALTH SAFETY ENGINEER Hospital Encounter [facility] Building [address] [address] Irritable bowel syndrome without diarrhea; Hepatic steatosis; Gastroesophageal reflux disease, unspecified whether esophagitis present; RUQ pain; Elevated LFTs Discharge Disposition: Discharge to home or self care from Last 3 Months Immunizations Immunization Administration [...] on file Legal Sex Female 11:46 PM ENVIRONMENTAL HEALTH SAFETY ENGINEER Gender Identity Female 03/27/2024 7:14 AM CDT [...] Screening 02/16/1996 Regular Well Visit/Exam 18-64 02/16/1996 Pneumococcal vaccine <65 (1 of 2 - PCV) 1997 Covid-19 Vaccine (3 - season) 2024 02/20/2021, 11/18/2020 Influenza Vaccine (Season Ended) 2025 06/07/2023, 07/12/2022, 06/23/2021, Additional history exists Breast Cancer Screening-Mammogram 10/14/2025 10/14/2024, 10/14/2024, 10/14/2024, [...] LIPID PANEL Routine 11/18/2024 12:5 9 PM ENVIRONMENTAL HEALTH SAFETY ENGINEER Other chest pain COMPREHENSIVE METABOLIC PANEL Routine 11/11/2024 2:42 PM ENVIRONMENTAL HEALTH SAFETY ENGINEER Hepatic steatosis CBC WITH AUTO DIFFERENTIAL Routine 11/11/2024 2:42 PM ENVIRONMENTAL HEALTH SAFETY ENGINEER Hepatic steatosis ECG 12-LEAD Routine 11/08/2024 10:34 AM ENVIRONMENTAL HEALTH SAFETY ENGINEER Pre-op evaluation MAMMOGRAPHY Routine 10/14/2024 CT ABDOMEN PELVIS W CONTRAST Schedule Routine, Read Routine (OP Routine) 10/03/2024 3:01 PM ENVIRONMENTAL HEALTH SAFETY ENGINEER Irritable bowel syndrome without diarrhea Hepatic steatosis [...] Extremities Left Computed Tomog augusta Historical Provider IMAngelita CT PROCEDURES Final R esult * POCT lipid panel (11/18/2024 12:59 PM ENVIRONMENTAL HEALTH SAFETY ENGINEER) Pathologist [facility] Cholesterol, POC 172 mg/dL HDL, POC 46 mg/dL Triglycerides, POC 304 mg/dL LDL Cholesterol POC 65 mg/dL Chol/HDL Ratio, POC 1.4 Non-HDL Cholesterol, POC 126 mg/dL Cholesterol Total, POC 172 mg/dL Capillary blood 11/18/2024 1 2:59 PM ENVIRONMENTAL HEALTH SAFETY ENGINEER Darius Rodriguez MD POINT OF CARE TEST O RDERABLES Final Result * CBC with auto differential (11/11/2024 2:42 PM ENVIRONMENTAL HEALTH SAFETY ENGINEER) WBC 9.3 3.8 - 10.8 Thousand/u L [...] [facility] Blood 11/11/2024 2:42 PM ENVIRONMENTAL HEALTH SAFETY ENGINEER 11/11/2024 2:43 PM ENVIRONMENTAL HEALTH SAFETY ENGINEER Narrative [facility] - 11/12/2024 5:52 AM ENVIRONMENTAL HEALTH SAFETY ENGINEER FASTING:NO FASTING: NO us Ira SINGH LAB BLOOD ORDERABLES Fin al Result [facility] [address] [address] * (ABNORMAL) Comprehensive metabolic panel (11/11/2024 2:42 PM ENVIRONMENTAL HEALTH SAFETY ENGINEER) [facility] Glucose 94 65 - 139 mg/dL [...] [facility] Blood 11/11/2024 2:42 PM ENVIRONMENTAL HEALTH SAFETY ENGINEER 11/11/2024 2:43 PM ENVIRONMENTAL HEALTH SAFETY ENGINEER Narrative [facility] - 11/12/2024 5:52 AM ENVIRONMENTAL HEALTH SAFETY ENGINEER FASTING:NO FASTING: NO us Ira SINGH LAB BLOOD ORDERABLES Fin al Result [facility] [address] [place] [address] * ECG 12 lead (11/08/2024 10:34 AM ENVIRONMENTAL HEALTH SAFETY ENGINEER) Ira SINGH ECG ORDERABLES Final Re sult * HM MAMMOGRAPHY (10/14/2024) Mammography Abnormal Historical Provider HEALTH MAINTENANCE Final Result * CT Abdomen Pelvis W Contrast (10/03/2024 3:01 PM ENVIRONMENTAL HEALTH SAFETY ENGINEER) Anatomical Region Laterality Modality Body N/A Computed Tomogra phy 10/05/2024 11:0 5 PM ENVIRONMENTAL HEALTH SAFETY ENGINEER Narrative 10/05/2024 11:15 PM ENVIRONMENTAL HEALTH SAFETY ENGINEER EXAM DESCRIPTION: CT ABDOMEN PELVIS W CONTRAST [...] enlarged lymph node or free fluid. MSK: Tche-tu-lxhiqylx L5-S1 disc disease and mild lower lumbar facet arthropathy. BODY WALL: Tiny fat containing periumbilical hernia. IMPRESSION: No abnormality identified to account for presentation. Gallbladder appears normal. THIS IS AN ELECTRONICALLY VERIFIED FINAL REPORT 10/05/2024 11:15 PM - Electronically signed by Frank Denney M.D. [place]: [place] Report ID: [id number] Reading Location: [id number] Procedure Note Frank Denney MD - 10/05/2024 [...] enlarged lymph node or free fluid. MSK: Tmpf-jq-gxsdddch L5-S1 disc disease and mild lower lumbar facet arthropathy. BODY WALL: Tiny fat containing periumbilical hernia. IMPRESSION: No abnormality identified to account for presentation. Gallbladder appears normal. THIS IS AN ELECTRONICALLY VERIFIED FINAL REPORT 10/05/2024 11:15 PM - Electronically signed by Frank Denney M.D. [place]: [place] Report ID: [id number] Reading Location: [place] [address] PROCEDURES Final Result * COLONOSCOPY (06/19/2024 1:53 PM CDT) Scribed Colonoscopy Normal Historical Provider HEALTH MAINTENANCE Edited Result - Final * PAP SMEAR WITH HPV (01/10/2024) Historical Provider HEALTH MAINTENANCE Final Result from Last 3 Months or Most Recently Relevant to Health Maintenance [facility] Care Teams Account Installer Relationship Specialty Start Date End Date Ira Barrett PA [address] [address] PCP - General Family Medicine 04/03/24
--- OUTSIDE RECORDS SUMMARY | 2024-12-30 01:50 | XMS_ITS | CONTINUITY OF CARE DOCUMENT ---
Author Name masoodvika, masoodvika Address Unknown Organization [facility] Address [address] [place] [address] Phone [phone] Care Team Providers Care Radio Despatcher Name Role Phone Yinka Leos MD Unavailable [phone] Emi HORTON, Nixon Unavailable NENA GRESHAM MD Unavailable PROBLEMS Condition Status Date Provider Notes Cardiology [...] In-person encounter Office Visit Yinka Leos MD [facility] Tobacco useTobacco use, quit - In-person encounter Office Visit Yinka Leos MD [facility] - In-person encounter Office Visit Angelica Sharif MD [facility] Snoring - In-person encounter Office Visit Yinka Leos MD [facility] - In-person encounter Office Visit Yinka Leos MD [facility] Leg pain, bilateral - In-person encounter Office Visit Yinka Leos MD [facility] Cardiology examinationLeg edema, bilateralChronic venous hypertension (idiopathic) [...] [lb_av] Rustam y height E&M 63 [in_i] Rustam [facility] y Body Mass Index (Ratio) 36.84 kg/m2 [...] Panda blood pressure, systolic 121 mm[Hg] Indira aPnda oxygen saturation, oximetry 99 % Aurna Panda pulse rate 88 /min Aruna Panda [...] TABLET BY MOUTH ONCE DAILY Ann Alvarado [employer] nystatin 100,000 unit/mL suspension active Nai Pond [...] by mouth once a day Nai Bonareri [employer] MANUFACTURING SUPERVISOR SOCIAL HISTORY Date Observation Value Provider smoking, year quit 2023 Yinka de la paz MD personal history of marijuana use yes Yinka Leos MD drug use no Yinka Leos MD alcohol use no Yinka Leos MD cigarette use yes Yinka Leos MD smoking status Former smoker Yinka Leos MD personal history of marijuana use yes Ann Ventimiglia [facility] drug use no Ann Ventimig nima [facility] alcohol use no Ann Ventimig nima [facility] cigarette use yes Ann Ventimi glia [employer] smoking status Current every day smoker A maverick Ventimiglia [facility] personal history of marijuana use yes Verclaudia Bonareri [employer] MANUFACTURING SUPERVISOR drug use no Verah Bonareri [employer] MANUFACTURING SUPERVISOR alcohol use no Verah Bonareri [employer] MANUFACTURING SUPERVISOR cigarette use yes Verah Bonareri [employer]IPE MANUFACTURING SUPERVISOR smoking status Current every day smoker V chris Pond [employer] MANUFA[employer]URING SUPERVISOR social history reviewed E&M revi ewed - [...] Policy type / Coverage type Jacki red constitution party ID [place] MEDICAID (2) Medicaid [id number] ADVANCE DIRECTIVES Name Date DISCUSSED - NO DECISION MADE TREATMENT PLAN Date Name Performer [id number],C,T he pt tried support stockings unsuccessfully. Venous duplex showed insufficiency of the GSVs b/l. Will proceed with venography with IVUS and Venaseal. Mandi Annalise [id number],C,T he pt tried support stockings unsuccessfully. Venous duplex showed insufficiency of the GSVs b/l. Will proceed with venography with IVUS and Venaseal. Mandi Annalise [id number],C,T he pt tried support stockings unsuccessfully. Venous duplex showed insufficiency of the GSVs b/l. Will proceed with venography with IVUS and Venaseal. Mandi Annalise [id number],C,T he patient complained of leg heaviness, swelling, and bluish discoloration. No trauma, no SOB. She stands a lot. We will obtain Echo, venous duplex, and DAYAMI. Yinka Leos MD [id number],C,T he patient complained of leg heaviness, swelling, and bluish discoloration. No trauma, no SOB. She stands a lot. We will obtain Echo, venous duplex, and DAYAMI. Yinka Loes MD Cardiology:Has recen tly quit smoking in [...] Leos MD Cardiology:planned of IHS Annnhan Alvarado [facility] Cardiology:angel ramos to trial chantix R isk/benefits discussed with patient and understanding verbalized Annnhan Alvarado [facility] Cardiology:has known venous insufficiency, unchanged. It is painfult and unresolved despite compression. Venogram done no venous compression. Add diuretic. continue compression. refer for laser therapy Annnhan Alvarado [facility] Cardiology: C omplete cessation encouraged. Patient is to discuss with her tobacco weigher if she can use nicotine patches given [...] EKG Angelica Sharif MD compl eted EKG Yinak Leos MD completed
[2024-12-30 02:41] LABS: Basophils Percent Auto 0.4 % (0.2-1.2); Eosinophils Absolute Auto 0.1 K/mm3 (0-0.3); Eosinophils Percent Auto 1.5 % (0-4.4); Hematocrit 44.3 % (37.0-47.0); Hemoglobin 14.4 g/dL (12.0-15.0); Immature Granulocyte Absolute 0.02 K/mm3 (0.00-0.031); Immature Granulocyte Percent A 0.2 % (0-0.5); Lymphocytes Absolute Auto 2.68 K/mm3 (0.9-3.2); Lymphocytes Percent Auto 28.8 % (18.3-44.2); Mean Corpuscular HGB Conc 32.5 g/dl (32-36); Mean Corpuscular Hemoglobin 31.6 pg (26-34); Mean Corpuscular Volume 97.4 fl (80-100); Mean Platelet Volume 9.5 fl (7.4-10.4); Monocytes Absolute Auto 0.6 K/mm3 (0.1-0.6); Monocytes Percent Auto 6.7 % (2.6-8.5); Neutrophils Absolute Auto 5.8 K/mm3 (1.3-6.7); Neutrophils Percent Auto 62.4 % (45.5-73.1); Platelet Count Result 395 k/mm3 (150-375); Red Blood Count 4.55 M/mm3 (4.2-5.4); Red Cell Distribution Width 12.4 % (11.5-14.5); White Blood Count 9.3 K/mm3 (4.5-10.0)
[2024-12-30 02:50] LABS: Alanine Aminotransferase 85 U/L (6-35); Albumin Level 4.6 g/dL (3.5-5.1); Alkaline Phosphatase 128 U/L (38-126); Anion Gap 12 mmol/L (4-12); Aspartate Amino Transferase 60 U/L (14-36); Bilirubin,Total 0.4 mg/dL (0.2-1.3); Blood Urea Nitrogen 16 mg/dL (7-17); Carbon Dioxide 27 mmol/L (22-30); Chloride 100 mmol/L (98-107); Estimated CRCL calculation 97 ml/min; Estimated Glomerular Filt Rate > 60; Glucose 106 mg/dL (65-110); Potassium 3.8 mmol/L (3.4-5.0); Sodium 139 mmol/L (137-145)
[2024-12-30 03:01] LABS: Prothrombin Time 13.6 Seconds (11.1-14.7)
--- OUTSIDE RECORDS SUMMARY | 2024-12-30 03:33 | XMS_ITS | Encounter Summary ---
Author Organization [facility] Health Address [address] [facility] [place] [address] Care Team Providers Care Grappler Name Role Phone Demarcus Camejo MD Primary Care Provider [phone] Encounter Details Date Type Department Care Team (Late st Contact Info) Description 08/08/2023 Telephone [facility] - Dermatology [address] [place] [address] [place] [address] Moriah Bray MD [address] [place], [place] [address] [address] Social History Tobacco Use Types Packs/Day Years Used Date Smoking Tobacco: Some Days Cigarettes Smokeless Tobacco: Never Comments Unknown Sex and Gender Information Value Date Recorded Sex Assigned at Female 07/17/2023 12:21 AM CDT Legal Sex Female 6:00 AM MANAGER COUNTRY Gender Identity Female 07/17/2023 12:21 AM CDT [...] case she needs to reschedule Please advise GER COUNTRY documented in this encounter Plan of Treatment Upcoming Encounters Date Type Department Care Team (Late st Contact Info) Description 01/29/2025 1:50 PM CDT Office Visit [facility] - Dermatology [address] [facility] [place] [address] Moriah Bray MD [facility] [facility] [place] [address] 02/19/2025 8:[address] [facility] [address] [place] [address] documented as of this encounter Visit Diagnoses Not on filedocumented in this encounter Care Teams Grappler Relationship Specialty Start Date End Date Demarcus Camejo MD [address] [facility] [address] [place] [phone] PCP - General Family Medicine 07/05/24 documented as of this encounter
--- OUTSIDE RECORDS SUMMARY | 2024-12-30 03:33 | XMS_ITS | Encounter Summary ---
Author Organization [facility] Health Address [address] [place] [address] Care Team Providers Care Correctional Cook Name Role Phone Demarcus Camejo MD Primary Care Provider Reason for Visit * Reason Onset Date Comments Medication Issue 09/04/2023 Encounter Details Date Type Department Care Team (Late st Contact Info) Description 09/04/2023 Telephone [facility] - Centralized Scheduling [address] [place] [address] Moriah Bray MD [facility] [place] [address] Medication Issue Social History Tobacco Use Types Packs/Day Years Used Date Smoking Tobacco: Some Days Cigarettes Smokeless Tobacco: Never Comments Unknown Sex and Gender Information Value Date Recorded Sex Assigned at Female 07/17/2023 12:21 AM CDT Legal Sex Female 6:00 AM SHED WORKERS SUPERVISOR Gender Identity Female 07/17/2023 12:21 AM CDT Sexual Orientation Straight 07/17/2023 12 :21 AM CDT documented as of this encounter Miscellaneous Notes * Telephone Encounter - Crystal Cui - 09/12/2023 3:02 PM CST Pt is calling in again to address the previous two messages. Please contact pt, . WORKERS SUPERVISOR * Telephone Encounter - Tay Mcelroy PA-C - 09/08/2023 4:16 PM CST Patient unable to scrap picker prescriptions. Prescriptions were resent to pharmacy in [place]. Tay Mcelroy PA-C WORKERS SUPERVISOR * Telephone Encounter - Bertha Olivarez - [...] ml - water 50 mlSUSP [facility] [phone] Patients is also needing her paperwork from [employer] filled out . Please give pt a call if needed [phone] WORKERS SUPERVISOR * Telephone Encounter - Honey Crouch - 09/04/2023 2:57 PM CST Physician is not enrolled on [place] Medicaid and pharmacy cannot fill order for Prednisone. nystatin susp 20 ML - hydrocortisone 50 MG- viscous lidocaine 2% 50 ml - water 50 ml SUSP needs to be sent to [place], [place] pharmacy to be filled as a compound. WORKERS SUPERVISOR documented in this encounter Plan of Treatment Upcoming Encounters Date Type Department Care Team (Late st Contact Info) Description 01/29/2025 1:50 PM CDT Office Visit [facility] - Dermatology [address] [place] [address], [place] [phone] Moriah Bray MD [address] [place] [address] [place] [phone] 02/19/2025 8:00 AM CDT Appointment [facility] [address] [place] [address] documented as of this encounter Visit Diagnoses Diagnosis Lichen planus- Primary documented in this encounter Care Teams Correctional Cook Relationship Specialty Start Date End Date Demarcus Camejo MD [address] [facility] [address] [place] [address] PCP - General Family Medicine 07/05/24 documented as of this encounter
--- OUTSIDE RECORDS SUMMARY | 2024-12-30 03:33 | XMS_ITS | Encounter Summary ---
Author Organization [facility] Address [address] [place] [address] Care Team Providers Care It Applications Analyst Name Role Phone Demarcus Camejo MD Primary Care Provider Reason for Visit * Reason Onset Date Comments MEDICATION REFILL 08/18/2023 Encounter Details Date Type Department Care Team (Late Contact Info) Description 08/18/2023 Refill [facility] - Dermatology [address] [place] [phone] Moriah Bray MD [address] [place], [place] [address] [address] MEDICATION REFILL Social History Tobacco Use Types Packs/Day Years Used Date Smoking Tobacco: Some Days Cigarettes Smokeless Tobacco: Never Comments Unknown Sex and Gender Information Value Date Recorded Sex Assigned at Female 07/17/2023 12:21 AM CDT Legal Sex Female 6:00 AM PIPING DESIGNER Gender Identity Female 07/17/2023 12:21 AM CDT Sexual Orientation Straight 07/17/2023 12 :21 AM CDT documented as of this encounter Plan of Treatment Upcoming Encounters Date Type Department Care Team (Late Contact Info) Description 01/29/2025 1:50 PM CDT Office Visit [facility] Dermatology [address] [place] [phone] Moriah Bray MD [address] [facility] [place] [address] 02/19/2025 8:00 AM CDT Appointment [facility] [address] [place] [address] documented as of this encounter Visit Diagnoses Not on filedocumented in this encounter Care Teams It Applications Analyst Relationship Specialty Start Date End Date Demarcus Camejo MD [address] [address] [place] [phone] PCP - General Family Medicine 07/05/24 documented as of this encounter
--- OUTSIDE RECORDS SUMMARY | 2024-12-30 03:33 | XMS_ITS | Encounter Summary ---
Author Organization [facility] Health Address [address] [facility] [place] [address] Care Team Providers Care Director Of Materials Management Name Role Phone Demarcus Camejo MD Primary Care Provider Reason for Visit * Reason Onset Date Comments Nurse Only 11/02/2023 Encounter Details Date Type Department Care Team (Late st Contact Info) Description 11/02/2023 Telephone [facility] - Dermatology [address] [place] [address], [facility] [place] [address] Moriah Bray MD [address] [place] [address] [place] [address] Nurse Only Social History Tobacco Use Types Packs/Day Years Used Date Smoking Tobacco: Some Days Cigarettes Smokeless Tobacco: Never PHQ-2 Answer Date Recorded Patient Health Questionnaire-2 Score 2 10/29/2023 Comments Unknown Sex and Gender Information Value Date Recorded Sex Assigned at Female 07/17/2023 12:21 AM CDT Legal Sex Female 6:00 AM WELFARE ELIGIBILITY INTERVIEWER Gender Identity Female 07/17/2023 12:21 AM CDT Sexual Orientation Straight 07/17/2023 12 :21 AM CDT documented as of this encounter Miscellaneous Notes * Telephone Encounter - Bertha Olivarez - 11/02/2023 8:53 AM CST [employer] is calling in regards of pt FMLA paperwork. She states that the office sent pages 1 and 2,and [employer] is missing page 3. Please call [employer] at [phone] or send to fax [phone] ARE ELIGIBILITY INTERVIEWER documented in this encounter Plan of Treatment Upcoming Encounters Date Type Department Care Team (Late st Contact Info) Description 01/29/2025 1:50 PM CDT Office Visit [facility] [address] [facility], [place] [address] Moriah Bray MD [address] [place] [address] [place] [address] 02/19/2025 8:00 AM CDT Appointment [address] [address] documented as of this encounter Visit Diagnoses Not on filedocumented in this encounter Care Teams Director Of Materials Management Relationship Specialty Start Date End Date Demarcus Camejo MD [address] [address] [place] [address] PCP - General Family Medicine 07/05/24 documented as of this encounter
--- OUTSIDE RECORDS SUMMARY | 2024-12-30 03:33 | XMS_ITS | Encounter Summary ---
Author Organization [facility] Address [address] [place] [address] Care Team Providers Care Brokerage Branch Manager Name Role Phone Demarcus Camejo MD Primary Care Provider Reason for Visit * Reason Onset Date Comments MEDICATION REFILL 08/16/2023 Encounter Details Date Type Department Care Team (Late Contact Info) Description 08/16/2023 Refill [facility] - Dermatology [address] [place] [phone] Moriah Bray MD [address] [place], [place] [address] [phone] MEDICATION REFILL Social History Tobacco Use Types Packs/Day Years Used Date Smoking Tobacco: Some Days Cigarettes Smokeless Tobacco: Never Comments Unknown Sex and Gender Information Value Date Recorded Sex Assigned at Female 07/17/2023 12:21 AM CDT Legal Sex Female 6:00 AM PRODUCT INTRODUCTION MANAGER Gender Identity Female 07/17/2023 12:21 AM CDT Sexual Orientation Straight 07/17/2023 12 :21 AM CDT documented as of this encounter Plan of Treatment Upcoming Encounters Date Type Department Care Team (Late Contact Info) Description 01/29/2025 1:50 PM CDT Office Visit [facility] - Dermatology [address] [place] [address] [phone] Moriah Bray MD [address] [facility] [place] [address] 02/19/2025 8:00 AM CDT Appointment [facility] [address] [place] [address] documented as of this encounter Visit Diagnoses Not on filedocumented in this encounter Care Teams Brokerage Branch Manager Relationship Specialty Start Date End Date Demarcus Camejo MD [address] [address] [place] [phone] PCP - General Family Medicine 07/05/24 documented as of this encounter
--- OUTSIDE RECORDS SUMMARY | 2024-12-30 03:34 | XMS_ITS | CONTINUITY OF CARE DOCUMENT ---
Author Name masoodvika, masoodvika Address Unknown Organization [facility] Address [address] [facility] [address] [place] [address] Phone [phone] Care Team Providers Care Hotel Casino Floorperson Name Role Phone Yinka Leos MD Unavailable [phone] Emi HORTON, Nixon Unavailable [phone] NENA GRESHAM MD Unavailable PROBLEMS Condition Status [...] In-person encounter Office Visit Yinka Leos MD [facility] Tobacco useTobacco use, quit - In-person encounter Office Visit Yinka Leos MD [facility] - In-person encounter Office Visit Angelica Sharif MD [facility] Snoring - In-person encounter Office Visit Yinka Leos MD [facility] - In-person encounter Office Visit Yinka Leos MD [facility] Leg pain, bilateral - In-person encounter Office Visit Yinka Leos MD [facility] Cardiology examinationLeg edema, bilateralChronic venous hypertension (idiopathic) [...] Rustam y height E&M 63 [in_i] Rustam [facility] y Body Mass Index (Ratio) 36.84 kg/m2 [...] TABLET BY MOUTH ONCE DAILY Ann Alvarado NURSE RECEPTIONIST nystatin 100,000 unit/mL suspension active Nai Pond [...] capsule by mouth once a day Nai Podn NP lorazepam 0.5 mg tablet active 1 tablet by mouth once a day as needed as directed Nai Pond NP olanzapine 2.5 mg tablet completed - Nai Pond NP venlafaxine 75 mg capsule,extended release 24hr active 1 capsule by mouth once a day Nai Bonareri CONTROL CHEMIST SOCIAL HISTORY Date Observation Value Provider smoking, year quit 2023 Yinka de la paz MD personal history of marijuana use yes Yinka Leos MD drug use no Yinka Leos MD alcohol use no Yinka Leos MD cigarette use yes Yinka Leos MD smoking status Former smoker Yinka Leos MD personal history of marijuana use yes Ann Ventimiglia [facility] drug use no Ann Ventimig nima [facility] alcohol use no Ann Ventimig nima [facility] cigarette use yes Ann Ventimi glia NURSE RECEPTIONIST smoking status Current every day smoker A maverick Ventimiglia [facility] personal history of marijuana use yes Verclaudia Bonareri CONTROL CHEMIST drug use no Verah Bonareri CONTROL CHEMIST alcohol use no Verah Bonareri CONTROL CHEMIST cigarette use yes Verah Bonareri CONTROL CHEMIST smoking status Current every day smoker V chris Pond CONTROL CHEMIST social history reviewed E&M revi ewed - [...] Policy type / Coverage type Jacki red republican [place] MEDICAID (2) Medicaid [id number] ADVANCE DIRECTIVES Name Date DISCUSSED - NO DECISION MADE TREATMENT PLAN Date Name Performer [id number],C,T he pt tried support stockings unsuccessfully. Venous duplex showed insufficiency of the GSVs b/l. Will proceed with venography with IVUS and Venaseal. Mandi Annalise [id number],C,T he pt tried support stockings unsuccessfully. Venous duplex showed insufficiency of the GSVs b/l. Will proceed with venography with IVUS and Venaseal. Mandi Annalise [id number],C,T he pt tried support stockings unsuccessfully. Venous duplex showed insufficiency of the GSVs b/l. Will proceed with venography with IVUS and Venaseal. Mandi Annalise [id number],C,T he patient complained of leg heaviness, swelling, and bluish discoloration. No trauma, no SOB. She stands a lot. We will obtain Echo, venous duplex, and DAYAMI. Yinka Leos MD [id number],C,T he patient complained of leg heaviness, swelling, and bluish discoloration. No trauma, no SOB. She stands a lot. We will obtain Echo, venous duplex, and DAYAMI. Yinka Leos MD Cardiology:Has recen tly quit smoking [...] Leos MD Cardiology:planned of I[facility] Annnhan Alvarado [facility] Cardiology:angel ramos to trial chantix R isk/benefits discussed with patient and understanding verbalized Annnhan Alvarado [facility] Cardiology:has known venous insufficiency, unchanged. It is painfult and unresolved despite compression. Venogram done no venous compression. Add diuretic. continue compression. refer for laser therapy Annnhan Alvarado [facility] Cardiology: C omplete cessation encouraged. 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
--- OUTSIDE RECORDS SUMMARY | 2024-12-30 03:34 | XMS_ITS | Encounter Summary ---
Author Organization [facility] Healthcare Address [address] [place] [address] Care Team Providers Care Philosophy And Religion Instructor Name Role Phone Ira Barrett Primary Care Provider + Reason for Visit * Reason Onset Date Comments Recommendation Request 11/28/2024 Encounter Details Date Type Department Care Team (Late st Contact Info) Description 11/28/2024 Telephone [facility] Medical Group Family Medicine [address] [phone] Ira Barrett PA [address] [place] [address] Recommendation Request Social History Tobacco [...] on file 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 She'd prefer [facility] or someone close. Not it [place]. Does message need to be routed? Yes-Action Needed documented in this encounter Plan of Treatment Not on file documented as of this encounter Visit Diagnoses Not on filedocumented in this encounter Care Teams Philosophy And Religion Instructor Relationship Specialty Start Date End Date Ira Barrett PA [address] [facility] [address] [place] [address] PCP - General Family Medicine 04/03/24 documented as of this encounter
--- OUTSIDE RECORDS SUMMARY | 2024-12-30 03:34 | XMS_ITS | Encounter Summary ---
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 [address] [place], [place] [phone] PCP - General Family Medicine 04/03/24 documented as of this encounter
--- OUTSIDE RECORDS SUMMARY | 2024-12-30 03:34 | XMS_ITS | Referral Summary ---
Author Organization [facility] [address] [facility] Address [address] [phone] Care Team Providers Care Lieutenant Ballistics Name Role Phone Ira Barrett Primary Care Provider + Encounters Date Type Department Care Team Description 12/23/2024 Telephone [facility] Medical [facility] Family Medicine [address] [phone] Ira Barrett PA Prior Auth Request for Pantoprazole Sodium 12/23/2024 6:30 AM CDT E-Visit [facility] Medical Group Virtual Care [address] [place] [address] Destini Bowles, SUZANNA Virtual Care Visit 12/23/2024 Patient Self-Triage [facility] [address] [place] [address] Deet, Generic Provider 12/10/2024 Telephone [facility] Medical [facility] Cardiology [address] [place] [phone] Unknown, Notinfile 12/09/2024 Telephone [facility] Cardiology [address] [place] [phone] Unknown, Notinfile 12/09/2024 Telephone [facility] Cardiology [address] [place] [phone] Unknown, Notinfile 12/05/2024 Telephone [facility] Cardiology [address] [place] [phone] Unknown, Notinfile 11/29/2024 9:00 AM CDT Office Visit [address] [phone] Alize Mckeon PA Constipation, unspecified constipation type (Primary Dx); Abdominal pain; Blood in stool; External hemorrhoid; Class 3 severe obesity due to excess calories with serious comorbidity and body mass index (BMI) of 40.0 to 44.9 in adult (HCC) 11/28/2024 Nurse Triage [address] [phone] Ira Barrett PA 11/28/[address] [phone] Ira Barrett PA Recommendation Request 11/18/2024 12:30 PM CLASSICS PROFESSOR Office Visit [facility] Cardiology [address] [place] [phone] Darius Rodriguez MD Abnormal EKG (Primary Dx); Other chest pain; Venous insufficiency 11/12/2024 Results Follow-Up [address] [phone] Ira Barrett PA 11/08/2024 Letter (Out) [address] [phone] 11/08/2024 10:00 AM CLASSICS PROFESSOR Office Visit [address] [phone] Ira Barrett PA Pre-op evaluation (Primary Dx); Abnormal EKG 11/06/[address] [phone] Ira Barrett PA 11/05/2024 1:30 PM CLASSICS PROFESSOR Telemedicine [address] [phone] Ira Barrett PA Left hand pain (Primary Dx); Abnormal mammogram; Obesity, Class II, BMI 35-39.9; Constipation, unspecified constipation type; Hepatic steatosis 11/04/2024 Telephone [facility] Medicine [address] [phone] Ira Barrett PA 10/15/2024 Telephone [facility] [address] [phone] Ira Barrett PA Mammogram results 10/14/2024 Telephone [facility] [address] [phone] Ira Barrett PA 10/03/2024 2:54 PM CLASSICS PROFESSOR - 10/03/2024 11:59 PM CLASSICS PROFESSOR Hospital Encounter [facility] [address] [phone] Irritable bowel syndrome without diarrhea; Hepatic steatosis; [...] Plan (06/12/2024 3:29 PM CDT): Taking omeprazole [id number]-adm-lwhbums daily and feels it is no longer [...] as well. - Referred to a new wheelman for further evaluation and management. - Recommend [...] almost the last year. Has started taking nenf-yto-awiowvi stool softener but not sure if it [...] 10/29/2023 Assessment & Plan (09/19/2024 3:16 PM CLASSICS PROFESSOR): Chronic, stable condition. Continue current medication regimen per psychiatrist Assessment & Plan (06/12/2024 3:27 PM CDT): Chronic, stable. Patient is following with psychiatrist Assessment & Plan (04/03/2024 1:42 PM CDT): Managed by psychiatrist - continues on Lamictal, benzo, Effexor Borderline personality disorder 10/29/2023 Assessment & Plan (09/19/2024 3:16 PM CLASSICS PROFESSOR): Chronic, stable condition. Continue current medication regimen [...] CDT): Chronic,worsening. Patient will follow up with iron plastic bullet maker Assessment & Plan (06/12/2024 3:27 PM [...] on file Legal Sex Female 11:46 PM CLASSICS PROFESSOR Gender Identity Female 03/27/2024 7:14 AM CDT [...] LIPID PANEL Routine 11/18/2024 12:5 9 PM CLASSICS PROFESSOR Other chest pain COMPREHENSIVE METABOLIC PANEL Routine 11/11/2024 2:42 PM CLASSICS PROFESSOR Hepatic steatosis CBC WITH AUTO DIFFERENTIAL Routine 11/11/2024 2:42 PM CLASSICS PROFESSOR Hepatic steatosis ECG 12-LEAD Routine 11/08/2024 10:34 AM CLASSICS PROFESSOR Pre-op evaluation MAMMOGRAPHY Routine 10/14/2024 CT ABDOMEN PELVIS W CONTRAST Schedule Routine, Read Routine (OP Routine) 10/03/2024 3:01 PM CLASSICS PROFESSOR Irritable bowel syndrome without diarrhea Hepatic steatosis [...] * POCT lipid panel (11/18/2024 12:59 PM CLASSICS PROFESSOR) Cholesterol, POC 172 mg/dL HDL, POC 46 mg/dL Triglycerides, POC 304 mg/dL LDL Cholesterol POC 65 mg/dL Chol/HDL Ratio, POC 1.4 Non-HDL Cholesterol, POC 126 mg/dL Cholesterol Total, POC 172 mg/dL Capillary blood 11/18/2024 1 2:59 PM CLASSICS PROFESSOR Darius Rodriguez MD POINT OF CARE TEST O RDERABLES Final Result * CBC with auto differential (11/11/2024 2:42 PM CLASSICS PROFESSOR) WBC 9.3 3.8 - 10.8 Thousand/u L [...] [facility] Blood 11/11/2024 2:42 PM CLASSICS PROFESSOR 11/11/2024 2:43 PM CLASSICS PROFESSOR Narrative [facility] - 11/12/2024 5:52 AM CLASSICS PROFESSOR FASTING:NO FASTING: NO us Ira SINGH LAB BLOOD ORDERABLES Fin al Result [facility] [address] [place] [phone] * (ABNORMAL) Comprehensive metabolic panel (11/11/2024 2:42 PM CLASSICS PROFESSOR) [facility] Glucose 94 65 - 139 mg/dL [...] [facility] Blood 11/11/2024 2:42 PM CLASSICS PROFESSOR 11/11/2024 2:43 PM CLASSICS PROFESSOR Narrative [facility] - 11/12/2024 5:52 AM CLASSICS PROFESSOR FASTING:NO FASTING: NO us Ira SINGH LAB BLOOD ORDERABLES Fin al Result [facility] [address] [address] [place] [phone] * ECG 12 lead (11/08/2024 10:34 AM CLASSICS PROFESSOR) Ira SINGH ECG ORDERABLES Final Re sult * HM MAMMOGRAPHY (10/14/2024) Mammography Abnormal Historical Provider HEALTH MAINTENANCE Final Result * CT Abdomen Pelvis W Contrast (10/03/2024 3:01 PM CLASSICS PROFESSOR) Anatomical Region Laterality Modality Body N/A Computed Tomogra phy 10/05/2024 11:0 5 PM CLASSICS PROFESSOR Narrative 10/05/2024 11:15 PM CLASSICS PROFESSOR EXAM DESCRIPTION: CT ABDOMEN PELVIS W CONTRAST [...] enlarged lymph node or free fluid. MSK: Zyme-kc-gcocqesm L5-S1 disc disease and mild lower lumbar facet arthropathy. BODY WALL: Tiny fat containing periumbilical hernia. IMPRESSION: No abnormality identified to account for presentation. Gallbladder appears normal. THIS IS AN ELECTRONICALLY VERIFIED FINAL REPORT 10/05/2024 11:15 PM - Electronically signed by Frank Denney M.D. AR: KORTNEY Report ID: [id number] Reading Location: [id number] Procedure Note Frank Denney MD - 10/05/2024 [...] enlarged lymph node or free fluid. MSK: Dqtu-ud-qeyxewjg L5-S1 disc disease and mild lower lumbar facet arthropathy. BODY WALL: Tiny fat containing periumbilical hernia. IMPRESSION: No abnormality identified to account for presentation. Gallbladder appears normal. THIS IS AN ELECTRONICALLY VERIFIED FINAL REPORT 10/05/2024 11:15 PM - Electronically signed by Frank Denney M.D. [place]: KORTNEY Report ID: [id number] Reading Location: [place] [address] PROCEDURES Final Result * COLONOSCOPY (06/19/2024 1:53 PM CDT) Scribed Colonoscopy Normal Historical Provider HEALTH MAINTENANCE Edited Result - Final * PAP SMEAR WITH HPV (01/10/2024) Historical Provider HEALTH MAINTENANCE Final Result from Last 3 Months or Most Recently Relevant to Health Maintenance Insurance [facility] Care Teams Lieutenant Ballistics Relationship Specialty Start Date End Date Ira Barrett PA [address] [facility] [address] [place], [place] [phone] PCP - General Family Medicine 04/03/24
--- OUTSIDE RECORDS SUMMARY | 2024-12-30 03:34 | XMS_ITS | Clinical Summary ---
Author Organization [facility] [email or web address] Address [address] [place] [address] Care Team Providers Care Brownell Operator Name Role Phone Demarcus Camejo MD Primary Care Provider Source Comments [facility] [email or web address],non-owned Affiliates and Associated Physician Practices is amultiple site organization consisting of ambulatory clinics and hospital sitesin [place], [place], [place] and [place]. This disclosure is being madepursuant to the Care Everywhere program and may not contain all information available regarding this patient. Last updated 18.[employer] [email or web address] Allergies No known active allergies Medications * [...] Department Care Team Description 11/20/2024 8:45 AM CHERRY PITTER - 11/20/2024 11:59 PM CHERRY PITTER Hospital Encounter [address] [address] Discharge Disposition: Home or Self Care 11/20/2024 Travel 10/30/2024 7:30 AM CHERRY PITTER - 10/30/2024 11:59 PM CHERRY PITTER Hospital Encounter [address] [address] Ira Barrett PA Discharge Disposition: Home or Self Care 10/30/2024 7:00 AM CHERRY PITTER - 10/30/2024 7:29 AM CHERRY PITTER Hospital Encounter [address] [address] Ira Barrett PA Discharge Disposition: Home or Self Care 10/30/2024 Travel 10/28/2024 2:10 PM CHERRY PITTER Office Visit [facility] Derm[facility]ology [address] [place] [phone] Moriah Bray MD Other lichen planus (Primary Dx) 10/28/2024 Travel 10/14/2024 11:27 AM CHERRY PITTER - 10/14/2024 11:59 PM CHERRY PITTER Hospital Encounter [facility] [address] [place] [address] Ira Barrett PA Discharge Disposition: Home or [...] AM CDT Legal Sex Female 6:00 AM CHERRY PITTER Gender Identity Female 07/17/2023 12:21 AM CDT [...] 98.4 kg (217 lb) 10/30/2024 8:08 AM CHERRY PITTER Height 160 cm (5' 3 ) 10/30/2024 8:08 AM CHERRY PITTER Body Mass Index 38.44 10/30/2024 8:08 AM CHERRY PITTER Plan of Treatment Upcoming Encounters Date Type Department Care Team (Late st Contact Info) Description 01/29/2025 1:50 PM CDT Office Visit [facility] - Dermatology [address] [place] [address], [place] [phone] Moriah Bray MD [address] [place] [address] [place] [address] 02/19/2025 8:00 [place] [address] Health Maintenance Due Date Last Done Comments [...] this topic Medical Devices Implanted Type Area Assembler Convertible Top Device Identifier Shelf Expiration Date Model / Serial / Lot [employer]omark Ultracor Ultrasound Enhanced Heart Breast Tissue Marker Implanted:Qty: 1 on 12/18/2023 by Laurel Estrada DO at [facility] Left: Breast [id number] 07/19/2026 [id number] / / [id number] Procedures Procedure Name Priority Date/Time Associated Diagnosis Comments US BREAST RIGHT CYST ASPIRATION Routine 11/20/2024 9:47 AM CHERRY PITTER Abnormal mammogram US BREAST RIGHT LTD Routine 10/30/2024 8 :15 AM CHERRY PITTER Abnormal mammogram MAMMO RIGHT DIAGNOSTIC W FCO Routine 10/30/2024 7:45 AM CHERRY PITTER Abnormal mammogram MAMMO BILAT SCREENING W FCO Routine 10/14/2024 12:28 PM CHERRY PITTER Visit for screening mammogram ENDOSCOPY, COLON, SCREENING Routine 06/19/2024 9:00 AM CDT COMPREHENSIVE METABOLIC PANEL Routine 08/23/2023 3:46 PM CHERRY PITTER Lichen planus LIPID PROFILE Routine 08/23/2023 3:46 PM CHERRY PITTER Lichen planus HEPATITIS C AB SCREEN RFLX NAAT QUANT Routine 07/20/2023 4:31 PM CDT Lichen planus from Last 3 Months or Most Recently Relevant to Health Maintenance Results * US Breast Right Cyst Aspiration (11/20/2024 9:47 AM CHERRY PITTER) Anatomical Region Laterality Modality Breast Right Mammography 11/20/2024 9:49 AM CHERRY PITTER Impressions 11/20/2024 11:16 AM CHERRY PITTER IMPRESSION: Technically successful, uncomplicated ultrasound-guided aspiration performed [...] 11/20/2024 11:16 AM Narrative 11/20/2024 11:16 AM CHERRY PITTER EXAM: ULTRASOUND-GUIDED CYST ASPIRATION- RIGHT BREAST LOCATION: [facility] EXAM DATE: 11/20/2024 HISTORY: 44-year-old female with a 0.3 cm mass suggestive of a complicated cyst in the right breast 11:00 5 cm from the nipple. Of note, the patient no longer demonstrates due to and ablation however per the patient, her SUPERVISOR [employer] does not think she is postmenopausal. COMPARISON: Prior breast imaging studies from [facility], dating back to 10/16/2023 INTERPRETATION: Preprocedure images [...] (Diagnostic, most commonly ordered) (10/30/2024 8:15 AM CHERRY PITTER) Anatomical Region Laterality Modality Breast Right Mammography 10/30/2024 7:45 AM CHERRY PITTER Addenda Addendum by Slime Dillard MD on 10/30/2024 12:13 PM CHERRY PITTER Findings and recommendations were communicated by Dr. Dillard to the patient via phone on 10/30/2024 at 8:04 AM. The nurse navigator will contact the patient and provider. > Interpreting Provider: Slime Dillard MD on 10/30/2024 12:11 PM Impressions 10/30/2024 8:07 AM CHERRY PITTER IMPRESSION: A 0.3 cm mass suggestive of [...] 10/30/2024 8:07 AM Narrative 10/30/2024 8:07 AM CHERRY PITTER EXAMINATIONS: 1. RIGHT DIGITAL DIAGNOSTIC MAMMOGRAM AND TOMOSYNTHESIS AND 2. LIMITED RIGHT BREAST ULTRASOUND (COMBINED REPORT) LOCATION: [facility] EXAM DATE: 10/30/2024 HISTORY: Follow-up to [...] LIMITED RIGHT BREAST ULTRASOUND (COMBINED REPORT) LOCATION: [facility] EXAM DATE: 10/30/2024 HISTORY: Follow-up to an abnormal screening mammogram. [id number] presents for workup of a questioned focal [...] OVERALL ASSESSMENT: BI-RADS CATEGORY 4: SUSPICIOUS. (SUBSET [id number]: LOW SUSPICION FOR MALIGNANCY). > Interpreting Provider: Slime Dillard MD on 10/30/2024 8:07 AM us Ira SINGH ORDERABLES Edited Result - Final * (ABNORMAL) Mammo Right Diagnostic W Fco (10/30/2024 7:45 AM CHERRY PITTER) Anatomical Region Laterality Modality Breast Right Mammography 10/30/2024 7:45 AM CHERRY PITTER Addenda Addendum by Slime Dillard MD on 10/30/2024 12:13 PM CHERRY PITTER Findings and recommendations were communicated by Dr. Dillard to the patient via phone on 10/30/2024 at 8:04 AM. The nurse navigator will contact the patient and provider. > Interpreting Provider: Slime Dillard MD on 10/30/2024 12:11 PM Impressions 10/30/2024 8:07 AM CHERRY PITTER IMPRESSION: A 0.3 cm mass suggestive of [...] 10/30/2024 8:07 AM Narrative 10/30/2024 8:07 AM CHERRY PITTER EXAMINATIONS: 1. RIGHT DIGITAL DIAGNOSTIC MAMMOGRAM AND TOMOSYNTHESIS AND 2. LIMITED RIGHT BREAST ULTRASOUND (COMBINED REPORT) LOCATION: [facility] EXAM DATE: 10/30/2024 HISTORY: Follow-up to [...] LIMITED RIGHT BREAST ULTRASOUND (COMBINED REPORT) LOCATION: [facility] EXAM DATE: 10/30/2024 HISTORY: Follow-up to an abnormal screening mammogram. [id number] presents for workup of a questioned focal [...] OVERALL ASSESSMENT: BI-RADS CATEGORY 4: SUSPICIOUS. (SUBSET [id number]: LOW SUSPICION FOR MALIGNANCY). > Interpreting Provider: Slime Dillard MD on 10/30/2024 8:07 AM us Ira SINGH MAMMO ORDERABLES Edited Resul t - Final * Mammo Bilat Screening W Fco (10/14/2024 12:28 PM CHERRY PITTER) Anatomical Region Laterality Modality Breast Bilateral Mammography 10/14/2024 12:5 8 PM CHERRY PITTER Addenda Addendum by Laurel Estrada DO on 10/15/2024 8:58 AM CHERRY PITTER ADDENDUM: This addendum is being submitted to correct the right/left discrepancy in the recommendation section of the original report. The recommendation should read a diagnostic RIGHT (not left) mammogram and possible RIGHT (not left) ultrasound is recommended. Please refer to below fold report with addendum. EXAMINATIONS: BILATERAL DIGITAL SCREENING MAMMOGRAM AND BILATERAL BREAST TOMOSYNTHESIS LOCATION: [facility] EXAM DATE: 10/14/2024 HISTORY: Screening. No [...] Ava Levine, FRRODRIGUEZ (breast imaging fellow). Memo Espinzoa and Varghese Burnham MD (enrollment services vice president) assisted in interpretation of this exam. > Interpreting Provider: Laurel Estrada DO on 10/15/2024 8:56 AM Impressions 10/14/2024 1:57 PM CHERRY PITTER IMPRESSION: 1. Suggestion of possible focal asymmetry [...] IMAGING EVALUATION. Report dictated by Ava MORRISON, [facility] (breast imaging fellow). Memo Espinoza and Varghese Burnham MD (enrollment services vice president) assisted in interpretation of this exam. I, Laurel Estrada DO have personally reviewed and interpreted this examination/study. > Interpreting Provider: Laurel Estrada DO on 10/14/2024 1:57 PM Narrative 10/14/2024 1:57 PM CHERRY PITTER EXAMINATIONS: BILATERAL DIGITAL SCREENING MAMMOGRAM AND BILATERAL BREAST TOMOSYNTHESIS LOCATION: [facility] EXAM DATE: 10/14/2024 HISTORY: Screening. No [...] DIGITAL SCREENING MAMMOGRAM AND BILATERALBREAST TOMOSYNTHESIS LOCATION: [facility] EXAM DATE: 10/14/2024 HISTORY: Screening. No [...] NEED ADDITIONALIMAGING EVALUATION. Report dictated by [facility], FRCR (breast imaging fellow). Memo Espinoza and Varghese Burnham MD (enrollment services vice president) assistedin interpretation of this exam. I, Laurel [...] the patient. Procedure Code(s): --- Professional --- 81959, Colonoscopy, flexible; with removal of tumor(s), polyp(s), or other lesion(s) by snare technique Diagnosis Code(s): --- Professional --- Z12.11, Encounter for screening for malignant neoplasm of colon D12.2, Benign neoplasm of ascending colon D12.3, Benign neoplasm of transverse colon (hepatic flexure or splenic flexure) D12.5, Benign neoplasm of sigmoid colon CPT copyright 2021 [employer]. All rights reserved. The codes documented in this report are preliminary and upon metals sales representative review may be revised to meet current compliance requirements. Justin Otoole MD 06/19/2024 9:58:58 AM This report has been signed electronically. Note Initiated On: 06/19/2024 9:00 AM Number of Addenda: [id number] [place] [address] PROVATION 06/19/2024 9:00 AM CDT us Justin Otoole MD GI PROCEDURE ORDERABLES Edited Result - Final [facility] PROVATION * COMPREHENSIVE METABOLIC PANEL (08/23/2023 3:46 PM CHERRY PITTER) Glucose 82 65 - 99 mg/dL [facility] [...] 29 U/L [facility] Comment: Test Performed at: [facility] [address] JORDYN DUMAS MD Blood BLOOD SPECIMEN / Unknown 08/23/2023 3:46 PM CHERRY PITTER 08/23/2023 3:46 PM CHERRY PITTER us Moriah Bray MD LAB - CHEMISTRY ORDERABLES Ping l Result [address] [address] * (ABNORMAL) LIPID PROFILE (08/23/2023 3:46 PM CHERRY PITTER) Cholesterol 189 <200 mg/dL [facility] HDL Cholesterol [...] LDL-C. Mike SS et al. TOMER. 2013;310(19): 7832-8852 (http://education.FatTail/faq/KIB022) CHOL/HDLC RATIO 3.1 <5.0 (calc) [facility] Non HDL Cholesterol 128 <130 mg/dL (calc) [facility] Comment: For patients with diabetes plus 1 major ASCVD risk factor, treating to a non-HDL-C goal of <100 mg/dL (LDL-C of <70 mg/dL) is considered a therapeutic option. Test Performed at: [facility] [address] JORDYN DUMAS MD Blood BLOOD SPECIMEN / Unknown 08/23/2023 3:46 PM CHERRY PITTER 08/23/2023 3:46 PM CHERRY PITTER us Moriah Bray MD LAB - CHEMISTRY ORDERABLES Ping l Result [facility] [address] [place] [address] * HEPATITIS C AB SCREEN RFLX NAAT QUANT (07/20/2023 4:31 PM CDT) Hepatitis C Antibody Non-react rafy Non-reac tive 07/20/2023 5:52 PM CDT [facility] Comment:Hepatitis C Antibody screen indicates [...] ORDERABLES Ping l Result Performing Organization Address City/[facility]/ZIP Co de Phone Number [facility] [address] [place] [address], [facility] [phone] from Last 3 Months or Most Recently Relevant to Health Maintenance Insurance [facility] Care Teams Brownell Operator Relationship Specialty Start Date End Date Demarcus Camejo MD [address] [facility] [address] [place] [address] PCP - General Family Medicine 07/05/24
--- OUTSIDE RECORDS SUMMARY | 2024-12-30 03:34 | XMS_ITS | Clinical Summary ---
Author Organization [address] Address [address] [address] Care Team Providers Care Supercalender Operator Helper Name Role Phone Ira Barrett Primary Care [...] Plan (06/12/2024 3:29 PM CDT): Taking omeprazole dmxq-qmd-vzmjbwv daily and feels it is no longer [...] as well. - Referred to a new outpatient case manager for further evaluation and management. - Recommend [...] almost the last year. Has started taking rsvq-ssq-ajfembi stool softener but not sure if it [...] 10/29/2023 Assessment & Plan (09/19/2024 3:16 PM CINDER CRUSHER OPERATOR): Chronic, stable condition. Continue current medication regimen per psychiatrist Assessment & Plan (06/12/2024 3:27 PM CDT): Chronic, stable. Patient is following with psychiatrist Assessment & Plan (04/03/2024 1:42 PM CDT): Managed by psychiatrist - continues on Lamictal, benzo, Effexor Borderline personality disorder 10/29/2023 Assessment & Plan (09/19/2024 3:16 PM CINDER CRUSHER OPERATOR): Chronic, stable condition. Continue current medication regimen [...] CDT): Chronic,worsening. Patient will follow up with center medical director Assessment & Plan (06/12/2024 3:27 PM CDT): [...] Team Description 12/23/2024 6:30 AM CDT E-Visit [facility] Virtual Care [address] [place] [address] Destini Bowles, HUMAN RESOURCES OFFICE MANAGER Virtual Care Visit 12/23/2024 Telephone [facility] Family Medicine [address] [phone] Ira Barrett PA Prior Auth Request for Pantoprazole Sodium 12/23/2024 Patient Self-Triage [facility] Physicians [address] [place] [address] Mychart, Generic Provider 12/10/2024 Telephone [facility] Cardiology [address] [place] [address] Unknown, Notinfile 12/09/2024 Telephone [facility] Card[facility] [address] [place] [address] Unknown, Notinfile 12/09/2024 Telephone [facility] Cardiology [address] [place] [phone] Unknown, Notinfile 12/05/2024 Telephone [facility] Card[facility] [address] [place] [address] Unknown, Notinfile 11/29/2024 9:00 AM CDT Office Visit [address] [phone] Alize Mckeon PA Constipation, unspecified constipation type (Primary Dx); Abdominal pain; Blood in stool; External hemorrhoid; Class 3 severe obesity due to excess calories with serious comorbidity and body mass index (BMI) of 40.0 to 44.9 in adult (HCC) 11/28/2024 Nurse Triage [address] [address] Ira Barrett PA 11/28/[address] [address] Ira Barrett PA Recommendation Request 11/18/2024 12:30 PM CINDER CRUSHER OPERATOR Office Visit [facility] Cardiology [address] [place] [phone] Darius Rodriguez MD Abnormal EKG (Primary Dx); Other chest pain; Venous insufficiency 11/12/2024 Results Follow-Up [address] [address] Ira Barrett PA 11/08/2024 10:00 AM CINDER CRUSHER OPERATOR Office Visit [address] [address] Ira Barrett PA Pre-op evaluation (Primary Dx); Abnormal EKG 11/08/2024 Letter (Out) [address] [address] 11/06/[address] [address] Ira Barrett PA 11/05/2024 1:30 PM CINDER CRUSHER OPERATOR Telemedicine [address] [address] Ira Barrett PA Left hand pain (Primary Dx); Abnormal mammogram; Obesity, Class II, BMI 35-39.9; Constipation, unspecified constipation type; Hepatic steatosis 11/04/[address] [address] Ira Barrett PA 10/15/[address] [address] Ira Barrett PA Mammogram results 10/14/[address] [address] Ira Barrett PA 10/03/2024 2:54 PM CINDER CRUSHER OPERATOR - 10/03/2024 11:59 PM CINDER CRUSHER OPERATOR Hospital Encounter [facility] Building [address] [address] Irritable bowel syndrome without diarrhea; Hepatic steatosis; [...] on file Legal Sex Female 11:46 PM CINDER CRUSHER OPERATOR Gender Identity Female 03/27/2024 7:14 AM [...] LIPID PANEL Routine 11/18/2024 12:5 9 PM CINDER CRUSHER OPERATOR Other chest pain COMPREHENSIVE METABOLIC PANEL Routine 11/11/2024 2:42 PM CINDER CRUSHER OPERATOR Hepatic steatosis CBC WITH AUTO DIFFERENTIAL Routine 11/11/2024 2:42 PM CINDER CRUSHER OPERATOR Hepatic steatosis ECG 12-LEAD Routine 11/08/2024 10:34 AM CINDER CRUSHER OPERATOR Pre-op evaluation MAMMOGRAPHY Routine 10/14/2024 CT ABDOMEN PELVIS W CONTRAST Schedule Routine, Read Routine (OP Routine) 10/03/2024 3:01 PM CINDER CRUSHER OPERATOR Irritable bowel syndrome without diarrhea Hepatic steatosis [...] * POCT lipid panel (11/18/2024 12:59 PM CINDER CRUSHER OPERATOR) Pathologist [facility] Cholesterol, POC 172 mg/dL HDL, POC 46 mg/dL Triglycerides, POC 304 mg/dL LDL Cholesterol POC 65 mg/dL Chol/HDL Ratio, POC 1.4 Non-HDL Cholesterol, POC 126 mg/dL Cholesterol Total, POC 172 mg/dL Capillary blood 11/18/2024 1 2:59 PM CINDER CRUSHER OPERATOR Darius Rodriguez MD POINT OF CARE TEST O RDERABLES Final Result * CBC with auto differential (11/11/2024 2:42 PM CINDER CRUSHER OPERATOR) WBC 9.3 3.8 - 10.8 Thousand/u L [...] [facility] Blood 11/11/2024 2:42 PM CINDER CRUSHER OPERATOR 11/11/2024 2:43 PM CINDER CRUSHER OPERATOR Narrative [facility] - 11/12/2024 5:52 AM CINDER CRUSHER OPERATOR FASTING:NO FASTING: NO us Ira SINGH LAB BLOOD ORDERABLES Fin al Result [facility] [address] [address] * (ABNORMAL) Comprehensive metabolic panel (11/11/2024 2:42 PM CINDER CRUSHER OPERATOR) [facility] Glucose 94 65 - 139 [...] [facility] Blood 11/11/2024 2:42 PM CINDER CRUSHER OPERATOR 11/11/2024 2:43 PM CINDER CRUSHER OPERATOR Narrative [facility] - 11/12/2024 5:52 AM CINDER CRUSHER OPERATOR FASTING:NO FASTING: NO us Ira SINGH LAB BLOOD ORDERABLES Fin al Result [facility] [address] [address] [place] [phone] * ECG 12 lead (11/08/2024 10:34 AM CINDER CRUSHER OPERATOR) Ira SINGH ECG ORDERABLES Final Re sult * HM MAMMOGRAPHY (10/14/2024) Mammography Abnormal Historical Provider HEALTH MAINTENANCE Final Result * CT Abdomen Pelvis W Contrast (10/03/2024 3:01 PM CINDER CRUSHER OPERATOR) Anatomical Region Laterality Modality Body N/A Computed Tomogra phy 10/05/2024 11:0 5 PM CINDER CRUSHER OPERATOR Narrative 10/05/2024 11:15 PM CINDER CRUSHER OPERATOR EXAM DESCRIPTION: CT ABDOMEN PELVIS W CONTRAST [...] enlarged lymph node or free fluid. MSK: Vrsr-qd-djmkysgf L5-S1 disc disease and mild lower lumbar facet arthropathy. BODY WALL: Tiny fat containing periumbilical hernia. IMPRESSION: No abnormality identified to account for presentation. Gallbladder appears normal. THIS IS AN ELECTRONICALLY VERIFIED FINAL REPORT 10/05/2024 11:15 PM - Electronically signed by Frank Denney M.D. AR: KORTNEY Report ID: [id number] Reading Location: [id number] Procedure Note Frank Denney MD - 10/05/2024 [...] enlarged lymph node or free fluid. MSK: Ehmv-hm-qiagfndu L5-S1 disc disease and mild lower lumbar facet arthropathy. BODY WALL: Tiny fat containing periumbilical hernia. IMPRESSION: No abnormality identified to account for presentation. Gallbladder appears normal. THIS IS AN ELECTRONICALLY VERIFIED FINAL REPORT 10/05/2024 11:15 PM - Electronically signed by Frank Denney M.D. AR: KORTNEY Report ID: [id number] Reading Location: [place] [address] PROCEDURES Final Result * COLONOSCOPY (06/19/2024 1:53 PM CDT) Scribed Colonoscopy Normal Historical Provider HEALTH MAINTENANCE Edited Result - Final * PAP SMEAR WITH HPV (01/10/2024) Historical Provider HEALTH MAINTENANCE Final Result from Last 3 Months or Most Recently Relevant to Health Maintenance Insurance [facility] Care Teams Supercalender Operator Helper Relationship Specialty Start Date End Date Ira Barrett PA [address] [address] PCP - General Family Medicine 04/03/24
--- NOTE | 2024-12-30 05:08 | ED.GENADULT ---
HPI - General Adult General Chief complaint: GI Bleed Stated complaint: blood in stool x 1 week Time Seen by Provider: 12/30/24 02:40 History of Present Illness HPI narrative: Patient is a 44-year-old female who presents emergency department with chief complaint of blood in her stool and abdominal pain patient reports been having discomfort for the last week reports that she also has noticed that she has some redness on the dorsum of her right leg patient reports no calf pain reports no calf swelling reports she has also had irritation her inguinal area. Related Data Home Medications ?Medication ?Instructions ?Recorded ?Confirmed ?Last Taken ?Type venlafaxine 75 mg capsule,extended mg PO 10/31/23 07/02/24 Unknown History release 24 hr celecoxib 200 mg capsule 200 mg PO BID 07/02/24 07/02/24 Unknown History furosemide 20 mg tablet 20 mg PO 07/02/24 07/02/24 Unknown History pantoprazole 40 mg tablet,delayed mg PO 07/02/24 07/02/24 Unknown History release phentermine 37.5 mg tablet 37.5 mg PO 08/29/24 Unknown History lamotrigine 100 mg tablet mg 11/14/24 Unknown History plecanatide 3 mg tablet (Trulance) mg 11/14/24 Unknown History Allergies Allergy/AdvReac Type Severity Reaction Status Date / Time hydroxychloroquine (From AdvReac Back Pain Verified 12/03/24 15:35 Plaquenil) Review of Systems Review of Systems: A 10 system review of systems was completed on the patient and is negative except for what is stated in the HPI. Nursing and ancillary documentation was reviewed. [facility] Past Medical History Medical History Spondylosis GERD (gastroesophageal reflux disease) Chronic venous insufficiency Lichen planus classic , oral , vulvar History of HPV infection Fatty liver Anxiety Depression Carpal tunnel syndrome, bilateral Surgical History Surgical History History of mandibular surgery parts of jaw bone removed H/O colposcopy with cervical biopsy (~11/15/21) Benign H/O colposcopy with cervical biopsy (05/29/01) colpsocopy- LGSIL mild dysplasia H/O colposcopy with cervical biopsy (08/26/04) colposcopy HGSIL PATY 2-3 H/O LEEP (10/07/04) LEEP LGSIL PATY 1/ chronic cervicitis H/O tubal ligation Delivery by section x 2 Hx of tonsillectomy Family History Family History Father Diabetes mellitus Acute myocardial infarction Grandparent Arthritis maternal grandmother H/O ovarian cancer maternal Grandmother Social History Social History Smoking status: Former smoker Tobacco type: cigarettes Second hand tobacco smoke exposure: Yes Smoking end date: 02/24/24 Alcohol intake: current Drinks per week: 5 Substance use: never Substance use type: does not use Do You Feel Safe in your Home?: Yes Lack of Transportation: No Lack of Food: Never True Current Housing: I Have Housing Concerned About Future Housing: No Difficulty Paying Gas/Electric Bills: No Difficulty Paying for Meds: No Currently Unemployed: No Education: Trade/Vocational Certificate Difficulty w/ Childcare or Family Care: No Living arrangements: with family Additional living arrangements comments: boyfriend Occupation/Education: occupation Additional occupation/education comments: [employer] Re[employer] Gender identity (if verbalized by the patient): Female Sexual Orientation (if Verbalized by the Patient): Straight or Heterosexual Exam Narrative: GENERAL: Well-appearing, well-nourished, and in no acute distress. HEAD: Normocephalic, atraumatic. EYES: PERRLA and EOMI. ENT: Nares clear, no rhinorrhea or epistaxis. Mucous membranes moist. NECK: Supple. CHEST: Clear to auscultation. No respiratory distress. HEART: Regular rate and rhythm. No murmur heard. Normal peripheral pulses. ABDOMEN: Soft, nontender, nondistended, normal active bowel sounds. EXTREMITIES: Normal range of motion. No edema. SKIN: Warm, there is an area of cellulitis on the dorsum of the right NEURO: No focal deficits. Alert and oriented x3. PSYCH: Normal mood and affect. Course Vital Signs Vital signs: Vital Signs Temperature 36.7 C 12/30/24 01:48 Pulse Rate 92 12/30/24 01:48 Respiratory Rate 18 12/30/24 01:48 Blood Pressure 122/53 L 12/30/24 01:48 Pulse Oximetry 100 12/30/24 01:48 Oxygen Delivery Room Air 12/30/24 01:48 Temperature 36.7 C 12/30/24 01:48 Pulse Rate 92 12/30/24 01:48 Respiratory Rate 18 12/30/24 01:48 Blood Pressure 122/53 L 12/30/24 01:48 Pulse Oximetry 100 12/30/24 01:48 Oxygen Delivery Room Air 12/30/24 01:48 Medical Decision Making Vital Signs Vital Signs: Vital Signs Temperature 36.7 C 12/30/24 01:48 Pulse Rate 92 12/30/24 01:48 Respiratory Rate 18 12/30/24 01:48 Blood Pressure 122/53 L 12/30/24 01:48 Pulse Oximetry 100 12/30/24 01:48 Oxygen Delivery Room Air 12/30/24 01:48 Temperature 36.7 C 12/30/24 01:48 Pulse Rate 92 12/30/24 01:48 Respiratory Rate 18 12/30/24 01:48 Blood Pressure 122/53 L 12/30/24 01:48 Pulse Oximetry 12/30/24 01:48 Oxygen Delivery Room Air 12/30/24 01:48 Lab Data 12/30/24 02:34 12/30/24 02:34 Labs: Lab Results 12/30/24 Range/Units 02:34 WBC 9.3 (4.5-10.0) K/mm3 RBC 4.55 (4.2-5.4) M/mm3 Hgb 14.4 (12.0-15.0) g/dL Hct 44.3 (37.0-47.0) % MCV 97.4 (80-100) fl MCH 31.6 (26-34) pg MCHC 32.5 (32-36) g/dl RDW 12.4 (11.5-14.5) % Plt Count 395 H (150-375) k/mm3 MPV 9.5 (7.4-10.4) fl Immature Gran % (Auto) 0.2 (0-0.5) % Neut % (Auto) 62.4 (45.5-73.1) % Lymph % (Auto) 28.8 (18.3-44.2) % Gooding % (Auto) 6.7 (2.6-8.5) % Eos % (Auto) 1.5 (0-4.4) % Baso % (Auto) 0.4 (0.2-1.2) % Lymph # (Auto) 2.68 (0.9-3.2) K/mm3 Gooding # (Auto) 0.6 (0.1-0.6) K/mm3 Eos # (Auto) 0.1 (0-0.3) K/mm3 Baso # (Auto) 0.0 (0.0-0.1) K/mm3 Abs Immat Gran (auto) 0.02 (0.00-0.031) K/mm3 Absolute Neuts (auto) 5.8 (1.3-6.7) K/mm3 Absolute Nucleated RBC 0.000 (0.0-0.012) K/mm3 Nucleated RBC % 0.0 (0.0-0.2) % PT 13.6 (11.1-14.7) Seconds INR 1.0 APTT 29.0 (22.3-36.8) Seconds Sodium 139 (137-145) mmol/L Potassium 3.8 (3.4-5.0) mmol/L Chloride 100 (98-107) mmol/L Carbon Dioxide 27 (22-30) mmol/L Anion Gap 12 (4-12) mmol/L BUN 16 (7-17) mg/dL Creatinine 0.72 (0.7-1.0) mg/dL Estim Creat Clear Calc 97 ml/min Estimated GFR > 60 (59 - ) Glucose 106 (65-110) mg/dL Calcium 9.0 (8.4-10.2) mg/dL Total Bilirubin 0.4 (0.2-1.3) mg/dL AST 60 H (14-36) U/L ALT 85 H (6-35) U/L Alkaline Phosphatase 128 H (38-126) U/L Total Protein 9.0 H (6.3-8.2) g/dL Albumin 4.6 (3.5-5.1) g/dL Blood Type O Positive Antibody Screen Negative Discharge Plan Discharge Clinical Impression: Cellulitis of leg, right, Abdominal pain, Rectal bleed Patient Disposition: Home Condition: Stable Instructions: Antibiotic Form, Rectal Bleeding (ED), Cellulitis (ED), Abdominal Pain (ED) Patient Language: Croatian Prescriptions: New doxycycline hyclate 100 mg tablet 100 mg PO BID Qty: 14 0RF cephalexin 500 mg capsule 500 mg PO Q6H 7 Days Qty: 28 0RF No Action lamotrigine 100 mg tablet Trulance 3 mg tablet furosemide 20 mg tablet 20 mg PO pantoprazole 40 mg tablet,delayed release (DR/EC) PO celecoxib 200 mg capsule 200 mg PO BID phentermine 37.5 mg tablet 37.5 mg PO venlafaxine 75 mg capsule,extended release 24hr PO Follow-up/Referrals: Bashir,Demarcus Chase MD [Primary Care Provider] - Time of Disposition: 05:23
== END 2024-12-30 05:55 | disposition home or self-care (01) ==
PROVIDERS: Emergency Provider Emergency Medicine; PCP Family Medicine
DX: K62.5 Hemorrhage of anus and rectum (principal); L03.115 Cellulitis of right lower limb; R10.9 Unspecified abdominal pain; I87.2 Venous insufficiency (chronic) (peripheral); K21.9 Gastro-esophageal reflux disease without esophagitis; F41.9 Anxiety disorder, unspecified; F32.A Depression, unspecified; Z87.891 Personal history of nicotine dependence; Z79.899 Other long term (current) drug therapy
CPT/HCPCS: 36415; 74177; 80053; 85025; 85610; 85730; 86850; 86900; 86901; 99284; Q9967

== ENCOUNTER 2024-12-31 14:19 | Outpatient (CLI) | payer OTHER, SELFPAY ==
--- NOTE | ~2024-12-31 | XR_ITS ---
PA, oblique, and lateral views of the left fifth finger CLINICAL HISTORY: Fracture COMPARISON: 12/03/2024 FINDINGS: Oblique intra-articular fracture of the base of the fifth middle phalanx is essentially unc hanged from prior exam. Osseous alignment is stable. Soft tissues are unremarkable. IMPRESSION: Stable oblique, intra-articular, mildly displaced fracture the base of the fifth middle phalanx. Reviewed, dictated and finalized at location . IMPRESSION: Stable oblique, intra-articular, mildly displaced fracture the base of the fift h middle phalanx.
--- OUTSIDE RECORDS SUMMARY | 2024-12-31 15:26 | XMS_ITS | Encounter Summary ---
Author Organization [facility] Address [address] [place] [address] Care Team Providers Care Waiter/Waitress Counter Name Role Phone Demarcus Camejo MD Primary Care Provider Reason for Visit * Reason Onset Date Comments MEDICATION REFILL 08/16/2023 Encounter Details Date Type Department Care Team (Late Contact Info) Description 08/16/2023 Refill [facility] - Dermatology [address] [place] [phone] Moriah Bray MD [address] [place], [place] [address] [phone] MEDICATION REFILL Social History Tobacco Use Types Packs/Day Years Used Date Smoking Tobacco: Some Days Cigarettes Smokeless Tobacco: Never Comments Unknown Sex and Gender Information Value Date Recorded Sex Assigned at Female 07/17/2023 12:21 AM CDT 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 Gender Identity Female 07/17/2023 12:21 AM CDT Sexual Orientation Straight 07/17/2023 12 :21 AM CDT documented as of this encounter Plan of Treatment Upcoming Encounters Date Type Department Care Team (Late Contact Info) Description 01/29/2025 1:50 PM CDT Office Visit [facility] Dermatology [address] [place] [phone] Moriah Bray MD [address] [facility] [place] [address] 02/19/2025 8:00 AM CDT Appointment [facility] [address] [place] [address] documented as of this encounter Visit Diagnoses Not on filedocumented in this encounter Care Teams Waiter/Waitress Counter Relationship Specialty Start Date End Date Demarcus Camejo MD [address] [address] [place] [phone] PCP - General Family Medicine 07/05/24 documented as of this encounter
--- OUTSIDE RECORDS SUMMARY | 2024-12-31 15:26 | XMS_ITS | Encounter Summary ---
Author Organization [facility] Address [address] [facility] [place] [address] Care Team Providers Care Toll Line Inspector Name Role Phone Demarcus Camejo MD Primary Care Provider [phone] Encounter Details Date Type Department Care Team (Late st Contact Info) Description 08/08/2023 Telephone [facility] Dermatology [address] [place] [address] [place] [address] Moriah Bray MD [address] [place], [place] [address]T [place] [address] Social History Tobacco Use Types Packs/Day Years Used Date Smoking Tobacco: Some Days Cigarettes Smokeless Tobacco: Never Comments Unknown Sex and Gender Information Value Date Recorded Sex Assigned at Female 07/17/2023 12:21 AM CDT 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 Gender Identity Female 07/17/2023 12:21 AM [...] case she needs to reschedule Please advise LPHURIZER OPERATOR documented in this encounter Plan of Treatment Upcoming Encounters Date Type Department Care Team (Late st Contact Info) Description 01/29/2025 1:50 PM CDT Office Visit [facility] Dermatology [address] [facility], [place] [address] Moriah Bray MD [facility] [place] [address] 02/19/2025 8:00 AM CDT Appointment [facility] [address] [place] [address] documented as of this encounter Visit Diagnoses Not on filedocumented in this encounter Care Teams Toll Line Inspector Relationship Specialty Start Date End Date Demarcus Camejo MD [address] [facility] [address] [place] [phone] PCP - General Family Medicine 07/05/24 documented as of this encounter
--- OUTSIDE RECORDS SUMMARY | 2024-12-31 15:26 | XMS_ITS | Encounter Summary ---
Author Organization [facility] Address [address] [facility] [place] [address] Care Team Providers Care Disc Inspector Name Role Phone Demarcus Camejo MD Primary Care Provider [phone] Reason for Visit * Reason Onset Date Comments Medication Issue 09/04/2023 Encounter Details Date Type Department Care Team (Late st Contact Info) Description 09/04/2023 Telephone [facility] - Centralized Scheduling [address] [place] [address] Moriah Bray MD [facility] [place] [address] Medication Issue Social History Tobacco Use Types Packs/Day Years Used Date Smoking Tobacco: Some Days Cigarettes Smokeless Tobacco: Never Comments Unknown Sex and Gender Information Value Date Recorded Sex Assigned at Female 07/17/2023 12:21 AM CDT 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 Please contact pt, . 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 Prescriptions were resent to pharmacy in [place]. Tay Mcelroy PA-C OR HEALTH PHYSICS TECHNICIAN * Telephone Encounter - Bertha Olivarez - [...] ml - water 50 mlSUSP sent to [facility] in [facility] [phone] Patients is also needing her paperwork from [employer] filled out . Please give pt a call if needed [phone] OR HEALTH PHYSICS TECHNICIAN * Telephone Encounter - Honey Crouch - 09/04/2023 2:57 PM CST Physician is not enrolled on [place] Medicaid and pharmacy cannot fill order for Prednisone. nystatin susp 20 ML - hydrocortisone 50 MG- viscous lidocaine 2% 50 ml - water 50 ml SUSP needs to be sent to [place] pharmacy to be filled as a compound. OR HEALTH PHYSICS TECHNICIAN documented in this encounter Plan of Treatment Upcoming Encounters Date Type Department Care Team (Late st Contact Info) Description 01/29/2025 1:50 PM CDT Office Visit [facility] Dermatology [address] [place] [address], [place] [phone] Moriah Bray MD [address] [place] [address] [place] [phone] 02/19/2025 8:00 AM CDT Appointment [facility] [address] [place] [address] documented as of this encounter Visit Diagnoses Diagnosis Lichen planus- Primary documented in this encounter Care Teams Disc Inspector Relationship Specialty Start Date End Date Demarcus Camejo MD [address] [facility] [address] [place] [address] PCP - General Family Medicine 07/05/24 documented as of this encounter
--- OUTSIDE RECORDS SUMMARY | 2024-12-31 15:26 | XMS_ITS | Encounter Summary ---
Author Organization [facility] Health Address [address] [facility] [place] [address] Care Team Providers Care Product Controller Name Role Phone Demarcus Camejo MD Primary Care Provider [phone] Reason for Visit * Reason Onset Date Comments Nurse Only 11/02/2023 Encounter Details Date Type Department Care Team (Late st Contact Info) Description 11/02/2023 Telephone [facility] Dermatology [address] [place] [address], [facility] [place] [address] Moriah Bray MD [address] [place] [address] [place] [address] Nurse Only Social History Tobacco Use Types Packs/Day Years Used Date Smoking Tobacco: Some Days Cigarettes Smokeless Tobacco: Never PHQ-2 Answer Date Recorded Patient Health Questionnaire-2 Score 2 10/29/2023 Comments Unknown Sex and Gender Information Value Date Recorded Sex Assigned at Female 07/17/2023 12:21 AM CDT Legal Sex Female 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 She states that the office sent pages 1 and 2,and [employer] is missing page 3. Please call [employer] at [phone] or send to fax [phone] CTOR PROJECT MANAGEMENT documented in this encounter Plan of Treatment Upcoming Encounters Date Type Department Care Team (Late st Contact Info) Description 01/29/2025 1:50 PM CDT Office Visit [facility] [address] [facility], [place] [phone] Moriah Bray MD [address] [place] [address] [place] [address] 02/19/2025 8:00 AM CDT Appointment [address] [address] documented as of this encounter Visit Diagnoses Not on filedocumented in this encounter Care Teams Product Controller Relationship Specialty Start Date End Date Deamrcus Camejo MD [address] [address] [place] [address] PCP - General Family Medicine 07/05/24 documented as of this encounter
--- OUTSIDE RECORDS SUMMARY | 2024-12-31 15:26 | XMS_ITS | Encounter Summary ---
Author Organization [facility] Address [address] [place] [address] Care Team Providers Care Deli Associate Name Role Phone Demarcus Camejo MD Primary Care Provider Reason for Visit * Reason Onset Date Comments MEDICATION REFILL 08/18/2023 Encounter Details Date Type Department Care Team (Late Contact Info) Description 08/18/2023 Refill [facility] Dermatology [address] [place] [phone] Moriah Bray MD [address] [place], [place] [address]T [place] [phone] MEDICATION REFILL Social History Tobacco Use Types Packs/Day Years Used Date Smoking Tobacco: Some Days Cigarettes Smokeless Tobacco: Never Comments Unknown Sex and Gender Information Value Date Recorded Sex Assigned at Female 07/17/2023 12:21 AM CDT 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 Gender Identity Female 07/17/2023 12:21 AM CDT Sexual Orientation Straight 07/17/2023 12 :21 AM CDT documented as of this encounter Plan of Treatment Upcoming Encounters Date Type Department Care Team (Late Contact Info) Description 01/29/2025 1:50 PM CDT Office Visit [facility] Dermatology [address] [place] [phone] Moriah Bray MD [address] [facility] [place] [address] 02/19/2025 8:00 AM CDT Appointment [facility] [address] [place] [address] documented as of this encounter Visit Diagnoses Not on filedocumented in this encounter Care Teams Deli Associate Relationship Specialty Start Date End Date Demarcus Camejo MD [address] [address] [place] [phone] PCP - General Family Medicine 07/05/24 documented as of this encounter
--- OUTSIDE RECORDS SUMMARY | 2024-12-31 15:26 | XMS_ITS | CONTINUITY OF CARE DOCUMENT ---
Author Name masoodvika, masoodvika Address Unknown Organization [facility] Address [address] [facility] [address] [place] [address] Phone [phone] Care Team Providers Care Embossing Tool Setter Name Role Phone Yinka Leos MD Unavailable [phone] Emi HORTON, Nixon Unavailable [phone] NENA GRESHAM MD Unavailable [phone] PROBLEMS Condition Status Date Provider Notes [...] In-person encounter Office Visit Yinka Leos MD [facility] Tobacco useTobacco use, quit - In-person encounter Office Visit Yinka Leos MD [facility] - In-person encounter Office Visit Angelica Sharif MD [facility] Snoring - In-person encounter Office Visit Yinka Leos MD [facility] - In-person encounter Office Visit Yinka Leos MD [facility] Leg pain, bilateral - In-person encounter Office Visit Yinka Leos MD [facility] Cardiology examinationLeg edema, bilateralChronic venous hypertension [...] Rustam y height E&M 63 [in_i] Rustam [facility] y Body Mass Index (Ratio) [...] TABLET BY MOUTH ONCE DAILY Ann Alvarado WIRER MAINTENANCE nystatin 100,000 unit/mL suspension active Nai Pond NP clobetasol 0.05% ointment active Nai Pond NP triamcinolone acetonide 0.1% ointment active APPLY OINTMENT TOPICALLY TO AFFECTED VULVAR AREA TWICE DAILY FOR TWO WEEKS aNi Pond NP dexamethasone 0.5 mg/5 mL elixir [...] by mouth once a day Nai Bonareri PORCELAIN ENAMEL LABORER SOCIAL HISTORY Date Observation Value Provider smoking, year quit 2023 Yinka de la paz MD personal history of marijuana use yes Yinka Leos MD drug use no Yinka Leos MD alcohol use no Yinka Leos MD cigarette use yes Yinka Leos MD smoking status Former smoker Yinka Leos MD personal history of marijuana use yes Ann Ventimiglia [facility] drug use no Ann Ventimig nima [facility] alcohol use no Ann Ventimig nima [facility] cigarette use yes Ann Ventimi glia WIRER MAINTENANCE smoking status Current every day smoker A maverick Ventimiglia [facility] personal history of marijuana use yes Verclaudia Bonareri PORCELAIN ENAMEL LABORER drug use no Verah Bonareri PORCELAIN ENAMEL LABORER alcohol use no Verah Bonareri PORCELAIN ENAMEL LABORER cigarette use yes Verah Bonareri PORCELAIN ENAMEL LABORER smoking status Current every day smoker V chris Pond PORCELAIN ENAMEL LABORER social history reviewed E&M revi ewed - [...] Policy type / Coverage type Jacki red alliance party ID [place] MEDICAID (2) Medicaid [id number] ADVANCE DIRECTIVES Name Date DISCUSSED - NO DECISION MADE TREATMENT PLAN Date Name Performer [id number],C,T he pt tried support stockings unsuccessfully. Venous duplex showed insufficiency of the GSVs b/l. Will proceed with venography with IVUS and Venaseal. Mandi Annalise [id number],C,T he pt tried support stockings unsuccessfully. Venous duplex showed insufficiency of the GSVs b/l. Will proceed with venography with IVUS and Venaseal. Mandi Annalise [id number],C,T he pt tried support stockings unsuccessfully. Venous duplex showed insufficiency of the GSVs b/l. Will proceed with venography with IVUS and Venaseal. Mandi Annalise [id number],C,T he patient complained of leg heaviness, swelling, and bluish discoloration. No trauma, no SOB. She stands a lot. We will obtain Echo, venous duplex, and DAYAMI. Yinka Leos MD [id number],C,T he patient complained of leg heaviness, swelling, [...] Leos MD Cardiology:planned of [facility] Annnhan Alvarado [facility] Cardiology:angel ramos to trial chantix R isk/benefits discussed with patient and understanding verbalized Annnhan Alvarado [facility] Cardiology:has known venous insufficiency, unchanged. It is painfult and unresolved despite compression. Venogram done no venous compression. Add diuretic. continue compression. refer for laser therapy Annnhan Alvarado [facility] Cardiology: C omplete cessation encouraged. Patient is to discuss with her certification officer if she can use nicotine patches given [...]
--- OUTSIDE RECORDS SUMMARY | 2024-12-31 15:27 | XMS_ITS | Clinical Summary ---
Author Organization [facility] Address [address] [place] [address] Care Team Providers Care Pretzel Cooker Name Role Phone Demarcus Camejo MD Primary Care Provider Source Comments [facility],non-owned Affiliates and Associated Physician Practices is amultiple site organization consisting of ambulatory clinics and hospital sitesin [place], [place], [place] and [place]. This disclosure is being madepursuant to the Care Everywhere program and may not contain all information available regarding this patient. Last updated 18.[facility] Allergies No known active allergies Medications * [...] Department Care Team Description 11/20/2024 8:45 AM SILVER HOLLOWARE ASSEMBLER - 11/20/2024 11:59 PM SILVER HOLLOWARE ASSEMBLER Hospital Encounter [address] [address] Discharge Disposition: Home or Self Care 11/20/2024 Travel 10/30/2024 7:30 AM SILVER HOLLOWARE ASSEMBLER - 10/30/2024 11:59 PM SILVER HOLLOWARE ASSEMBLER Hospital Encounter [address] [address] Ira Barrett PA Discharge Disposition: Home or Self Care 10/30/2024 7:00 AM SILVER HOLLOWARE ASSEMBLER - 10/30/2024 7:29 AM SILVER HOLLOWARE ASSEMBLER Hospital Encounter [address] [address] Ira Barrett PA Discharge Disposition: Home or Self Care 10/30/2024 Travel 10/28/2024 2:10 PM SILVER HOLLOWARE ASSEMBLER Office Visit [facility] Derm[facility] [address] [place] [phone] Moriah Bray MD Other lichen planus (Primary Dx) 10/28/2024 Travel 10/14/2024 11:27 AM SILVER HOLLOWARE ASSEMBLER - 10/14/2024 11:59 PM SILVER HOLLOWARE ASSEMBLER Hospital Encounter [facility] [address] [place] [address] Ira Barrett PA Discharge Disposition: Home or [...] AM CDT Legal Sex Female 6:00 AM SILVER HOLLOWARE ASSEMBLER Gender Identity Female 07/17/2023 12:21 AM CDT [...] 98.4 kg (217 lb) 10/30/2024 8:08 AM SILVER HOLLOWARE ASSEMBLER Height 160 cm (5' 3 ) 10/30/2024 8:08 AM SILVER HOLLOWARE ASSEMBLER Body Mass Index 38.44 10/30/2024 8:08 AM SILVER HOLLOWARE ASSEMBLER Plan of Treatment Upcoming Encounters Date Type Department Care Team (Late st Contact Info) Description 01/29/2025 1:50 PM CDT Office Visit [facility]ology [address] [place] [address], [place] [phone] Moriah Bray MD [address] [place] [address] [place] [address] 02/19/2025 8:00 [place] [address] Health Maintenance Due Date Last Done Comments [...] this topic Medical Devices Implanted Type Area Gymnasium Teacher Device Identifier Shelf Expiration Date Model / Serial / Lot Senomark Ultracor Ultrasound Enhanced Heart Breast Tissue Marker Implanted:Qty: 1 on 12/18/2023 by Laurel Estrada DO at [facility] Left: Breast [id number] 07/19/2026 [id number] / / [id number] Procedures Procedure Name Priority Date/Time Associated Diagnosis Comments US BREAST RIGHT CYST ASPIRATION Routine 11/20/2024 9:47 AM SILVER HOLLOWARE ASSEMBLER Abnormal mammogram US BREAST RIGHT LTD Routine 10/30/2024 8 :15 AM SILVER HOLLOWARE ASSEMBLER Abnormal mammogram MAMMO RIGHT DIAGNOSTIC W FCO Routine 10/30/2024 7:45 AM SILVER HOLLOWARE ASSEMBLER Abnormal mammogram MAMMO BILAT SCREENING W FCO Routine 10/14/2024 12:28 PM SILVER HOLLOWARE ASSEMBLER Visit for screening mammogram ENDOSCOPY, COLON, SCREENING Routine 06/19/2024 9:00 AM CDT COMPREHENSIVE METABOLIC PANEL Routine 08/23/2023 3:46 PM SILVER HOLLOWARE ASSEMBLER Lichen planus LIPID PROFILE Routine 08/23/2023 3:46 PM SILVER HOLLOWARE ASSEMBLER Lichen planus HEPATITIS C AB SCREEN RFLX NAAT QUANT Routine 07/20/2023 4:31 PM CDT Lichen planus from Last 3 Months or Most Recently Relevant to Health Maintenance Results * US Breast Right Cyst Aspiration (11/20/2024 9:47 AM SILVER HOLLOWARE ASSEMBLER) Anatomical Region Laterality Modality Breast Right Mammography 11/20/2024 9:49 AM SILVER HOLLOWARE ASSEMBLER Impressions 11/20/2024 11:16 AM SILVER HOLLOWARE ASSEMBLER IMPRESSION: Technically successful, uncomplicated ultrasound-guided aspiration performed [...] 11/20/2024 11:16 AM Narrative 11/20/2024 11:16 AM SILVER HOLLOWARE ASSEMBLER EXAM: ULTRASOUND-GUIDED CYST ASPIRATION- RIGHT BREAST LOCATION: [facility] EXAM DATE: 11/20/2024 HISTORY: 44-year-old female with a 0.3 cm mass suggestive of a complicated cyst in the right breast 11:00 5 cm from the nipple. 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 COMPARISON: [...] (Diagnostic, most commonly ordered) (10/30/2024 8:15 AM SILVER HOLLOWARE ASSEMBLER) Anatomical Region Laterality Modality Breast Right Mammography 10/30/2024 7:45 AM SILVER HOLLOWARE ASSEMBLER Addenda Addendum by Slime Dillard MD on 10/30/2024 12:13 PM SILVER HOLLOWARE ASSEMBLER Findings and recommendations were communicated by Dr. Dillard to the patient via phone on 10/30/2024 at 8:04 AM. The nurse navigator will contact the patient and provider. > Interpreting Provider: Slime Dillard MD on 10/30/2024 12:11 PM Impressions 10/30/2024 8:07 AM SILVER HOLLOWARE ASSEMBLER IMPRESSION: A 0.3 cm mass suggestive of [...] 10/30/2024 8:07 AM Narrative 10/30/2024 8:07 AM SILVER HOLLOWARE ASSEMBLER EXAMINATIONS: 1. RIGHT DIGITAL DIAGNOSTIC MAMMOGRAM AND TOMOSYNTHESIS AND 2. LIMITED RIGHT BREAST ULTRASOUND (COMBINED REPORT) LOCATION: [facility] EXAM DATE: 10/30/2024 HISTORY: Follow-up to an [...] LIMITED RIGHT BREAST ULTRASOUND (COMBINED REPORT) LOCATION: [facility] EXAM DATE: 10/30/2024 HISTORY: Follow-up to an abnormal screening mammogram. [id number] presents for workup of a questioned focal [...] OVERALL ASSESSMENT: BI-RADS CATEGORY 4: SUSPICIOUS. (SUBSET [id number]: LOW SUSPICION FOR MALIGNANCY). > Interpreting Provider: Slime Dillard MD on 10/30/2024 8:07 AM us Ira SINGH ORDERABLES Edited Result - Final * (ABNORMAL) Mammo Right Diagnostic W Fco (10/30/2024 7:45 AM SILVER HOLLOWARE ASSEMBLER) Anatomical Region Laterality Modality Breast Right Mammography 10/30/2024 7:45 AM SILVER HOLLOWARE ASSEMBLER Addenda Addendum by Slime Dillard MD on 10/30/2024 12:13 PM SILVER HOLLOWARE ASSEMBLER Findings and recommendations were communicated by Dr. Dillard to the patient via phone on 10/30/2024 at 8:04 AM. The nurse navigator will contact the patient and provider. > Interpreting Provider: Slime Dillard MD on 10/30/2024 12:11 PM Impressions 10/30/2024 8:07 AM SILVER HOLLOWARE ASSEMBLER IMPRESSION: A 0.3 cm mass suggestive of [...] 10/30/2024 8:07 AM Narrative 10/30/2024 8:07 AM SILVER HOLLOWARE ASSEMBLER EXAMINATIONS: 1. RIGHT DIGITAL DIAGNOSTIC MAMMOGRAM AND TOMOSYNTHESIS AND 2. LIMITED RIGHT BREAST ULTRASOUND (COMBINED REPORT) LOCATION: [facility] EXAM DATE: 10/30/2024 HISTORY: Follow-up to an [...] LIMITED RIGHT BREAST ULTRASOUND (COMBINED REPORT) LOCATION: [facility] EXAM DATE: 10/30/2024 HISTORY: Follow-up to an abnormal screening mammogram. [id number] presents for workup of a questioned focal [...] OVERALL ASSESSMENT: BI-RADS CATEGORY 4: SUSPICIOUS. (SUBSET [id number]: LOW SUSPICION FOR MALIGNANCY). > Interpreting Provider: Slime Dillard MD on 10/30/2024 8:07 AM us Ira SINGH MAMMO ORDERABLES Edited Resul t - Final * Mammo Bilat Screening W Fco (10/14/2024 12:28 PM SILVER HOLLOWARE ASSEMBLER) Anatomical Region Laterality Modality Breast Bilateral Mammography 10/14/2024 12:5 8 PM SILVER HOLLOWARE ASSEMBLER Addenda Addendum by Laurel Estrada DO on 10/15/2024 8:58 AM SILVER HOLLOWARE ASSEMBLER ADDENDUM: This addendum is being submitted to correct the right/left discrepancy in the recommendation section of the original report. The recommendation should read a diagnostic RIGHT (not left) mammogram and possible RIGHT (not left) ultrasound is recommended. Please refer to below fold report with addendum. EXAMINATIONS: BILATERAL DIGITAL SCREENING MAMMOGRAM AND BILATERAL BREAST TOMOSYNTHESIS LOCATION: [facility] EXAM DATE: 10/14/2024 HISTORY: Screening. No reported [...] fellow). Memo Espinoza and Varghese Burnham MD (vice president marketing & development) assisted in interpretation of this exam. > Interpreting Provider: Laurel Estrada DO on 10/15/2024 8:56 AM Impressions 10/14/2024 1:57 PM SILVER HOLLOWARE ASSEMBLER IMPRESSION: 1. Suggestion of possible focal asymmetry [...] IMAGING EVALUATION. Report dictated by Ava MORRISON, [facility] (breast imaging fellow). Memo Espinoza and Varghese Burnham MD (vice president marketing & development) assisted in interpretation of this exam. I, Laurel Estrada DO have personally reviewed and interpreted this examination/study. > Interpreting Provider: Laurel Estrada DO on 10/14/2024 1:57 PM Narrative 10/14/2024 1:57 PM SILVER HOLLOWARE ASSEMBLER EXAMINATIONS: BILATERAL DIGITAL SCREENING MAMMOGRAM AND BILATERAL BREAST TOMOSYNTHESIS LOCATION: [facility] EXAM DATE: 10/14/2024 HISTORY: Screening. No reported [...] DIGITAL SCREENING MAMMOGRAM AND BILATERALBREAST TOMOSYNTHESIS LOCATION: [facility] EXAM DATE: 10/14/2024 HISTORY: Screening. No reported [...] NEED ADDITIONALIMAGING EVALUATION. Report dictated by [facility], [facility] (breast imaging fellow). Memo Espinoza and Varghese Burnham MD (vice president marketing & development) assistedin interpretation of this exam. I, Laurel [...] the patient. Procedure Code(s): --- Professional --- 91593, Colonoscopy, flexible; with removal of tumor(s), polyp(s), or other lesion(s) by snare technique Diagnosis Code(s): --- Professional --- Z12.11, Encounter for screening for malignant neoplasm of colon D12.2, Benign neoplasm of ascending colon D12.3, Benign neoplasm of transverse colon (hepatic flexure or splenic flexure) D12.5, Benign neoplasm of sigmoid colon CPT copyright 2021 [employer]. All rights reserved. The codes documented in this report are preliminary and upon marketing outreach coordinator review may be revised to meet current compliance requirements. Justin Otoole MD 06/19/2024 9:58:58 AM This report has been signed electronically. Note Initiated On: 06/19/2024 9:00 AM Number of Addenda: [id number] [place] [address] PROVATION 06/19/2024 9:00 AM CDT us Justin Otoole MD GI PROCEDURE ORDERABLES Edited Result - Final [facility] PROVATION * COMPREHENSIVE METABOLIC PANEL (08/23/2023 3:46 PM SILVER HOLLOWARE ASSEMBLER) Glucose 82 65 - 99 mg/dL [facility] [...] 29 U/L [facility] Comment: Test Performed at: [facility] [address] JORDYN DUMAS MD Blood BLOOD SPECIMEN / Unknown 08/23/2023 3:46 PM SILVER HOLLOWARE ASSEMBLER 08/23/2023 3:46 PM SILVER HOLLOWARE ASSEMBLER us Moriah Bray MD LAB - CHEMISTRY ORDERABLES Ping l Result [address] [address] * (ABNORMAL) LIPID PROFILE (08/23/2023 3:46 PM SILVER HOLLOWARE ASSEMBLER) Cholesterol 189 <200 mg/dL [facility] HDL Cholesterol [...] LDL-C. Mike SS et al. TOMER. 2013;310(19): 3962-7088 (http://education.m-spatial/faq/SFO808) CHOL/HDLC RATIO 3.1 <5.0 (calc) [facility] Non HDL Cholesterol 128 <130 mg/dL (calc) [facility] Comment: For patients with diabetes plus 1 major ASCVD risk factor, treating to a non-HDL-C goal of <100 mg/dL (LDL-C of <70 mg/dL) is considered a therapeutic option. Test Performed at: [facility] [address] JORDYN DUMAS MD Blood BLOOD SPECIMEN / Unknown 08/23/2023 3:46 PM SILVER HOLLOWARE ASSEMBLER 08/23/2023 3:46 PM SILVER HOLLOWARE ASSEMBLER us Moriah Bray MD LAB - CHEMISTRY ORDERABLES Ping l Result [facility] [id number] [place] [address] * HEPATITIS C AB SCREEN RFLX NAAT QUANT (07/20/2023 4:31 PM CDT) Hepatitis C Antibody Non-react rafy Non-reac tive 07/20/2023 5:[address] [facility] Comment:Hepatitis C Antibody screen [...] ORDERABLES Ping l Result Performing Organization Address City/[facility]/ZIP Co de Phone Number [facility] [address] [place] [address], [facility] [phone] from Last 3 Months or Most Recently Relevant to Health Maintenance Insurance [facility] Care Teams Pretzel Cooker Relationship Specialty Start Date End Date Demarcus Camejo MD [address] [facility] [address] [place] [address] PCP - General Family Medicine 07/05/24
--- OUTSIDE RECORDS SUMMARY | 2024-12-31 15:27 | XMS_ITS | Referral Summary ---
Author Organization [facility] Address [address] [address] Care Team Providers Care Environmental Educator Name Role Phone Ira Barrett Primary Care Provider + Encounters Date Type Department Care Team Description 12/23/[address] [facility] Medical [facility] Family Medicine [address] [phone] Ira Barrett PA Prior Auth Request for Pantoprazole Sodium 12/23/2024 6:30 AM CDT E-Visit [facility] Medical Group Virtual Care [address] [place] [address] Destini Bowles, SUZANNA Virtual Care Visit 12/23/2024 Patient Self-Triage [facility] [address] [place] [address] Deet, Generic Provider 12/10/[address] [facility] Medical [facility] Cardiology [address] [place] [phone] Unknown, Notinfile 12/09/[address] [facility] Medical [facility] Cardiology [address] [place] [phone] Unknown, Notinfile 12/09/2024 Telephone [facility] Cardiology [address] [place] [phone] Unknown, Notinfile 12/05/2024 Telephone [facility] Cardiology [address] [place] [phone] Unknown, Notinfile 11/29/2024 9:00 AM CDT Office Visit [address] [phone] Alize Mckeon PA Constipation, unspecified constipation type (Primary Dx); Abdominal pain; Blood in stool; External hemorrhoid; Class 3 severe obesity due to excess calories with serious comorbidity and body mass index (BMI) of 40.0 to 44.9 in adult (HCC) 11/28/2024 Nurse Triage [address] [phone] Ira Barrett PA 11/28/[address] [phone] Ira Barrett PA Recommendation Request 11/18/2024 12:30 PM ARTIST WOODBLOCK Office Visit [facility] Cardiology [address] [place] [phone] Darius Rodriguez MD Abnormal EKG (Primary Dx); Other chest pain; Venous insufficiency 11/12/2024 Results Follow-Up [address] [phone] Ira Barrett PA 11/08/2024 Letter (Out) [address] [phone] 11/08/2024 10:00 AM ARTIST WOODBLOCK Office Visit [address] [phone] Ira Barrett PA Pre-op evaluation (Primary Dx); Abnormal EKG 11/06/[address] [phone] Ira Barrett PA 11/05/2024 1:30 PM ARTIST WOODBLOCK Telemedicine [address] [phone] Ira Barrett PA Left hand pain (Primary Dx); Abnormal mammogram; Obesity, Class II, BMI 35-39.9; Constipation, unspecified constipation type; Hepatic steatosis 11/04/2024 Telephone [facility] Medicine [address] [phone] Ira Barrett PA 10/15/2024 Telephone [facility] [address] [phone] Ira Barrett PA Mammogram results 10/14/2024 Telephone [facility] [address] [phone] Ira Barrett PA 10/03/2024 2:54 PM ARTIST WOODBLOCK - 10/03/2024 11:59 PM ARTIST WOODBLOCK Hospital Encounter [facility] Medical Office Building [address] [phone] Irritable bowel syndrome without diarrhea; Hepatic steatosis; [...] Plan (06/12/2024 3:29 PM CDT): Taking omeprazole demi-syh-blhhjqc daily and feels it is no longer [...] as well. - Referred to a new home health lpn for further evaluation and management. - Recommend [...] almost the last year. Has started taking wigr-jna-fnkegke stool softener but not sure if it [...] 10/29/2023 Assessment & Plan (09/19/2024 3:16 PM ARTIST WOODBLOCK): Chronic, stable condition. Continue current medication regimen per psychiatrist Assessment & Plan (06/12/2024 3:27 PM CDT): Chronic, stable. Patient is following with psychiatrist Assessment & Plan (04/03/2024 1:42 PM CDT): Managed by psychiatrist - continues on Lamictal, benzo, Effexor Borderline personality disorder 10/29/2023 Assessment & Plan (09/19/2024 3:16 PM ARTIST WOODBLOCK): Chronic, stable condition. Continue current medication regimen [...] CDT): Chronic,worsening. Patient will follow up with engineering recruiter Assessment & Plan (06/12/2024 3:27 PM CDT): [...] on file Legal Sex Female 11:46 PM ARTIST WOODBLOCK Gender Identity Female 03/27/2024 7:14 AM CDT [...] LIPID PANEL Routine 11/18/2024 12:5 9 PM ARTIST WOODBLOCK Other chest pain COMPREHENSIVE METABOLIC PANEL Routine 11/11/2024 2:42 PM ARTIST WOODBLOCK Hepatic steatosis CBC WITH AUTO DIFFERENTIAL Routine 11/11/2024 2:42 PM ARTIST WOODBLOCK Hepatic steatosis ECG 12-LEAD Routine 11/08/2024 10:34 AM ARTIST WOODBLOCK Pre-op evaluation MAMMOGRAPHY Routine 10/14/2024 CT ABDOMEN PELVIS W CONTRAST Schedule Routine, Read Routine (OP Routine) 10/03/2024 3:01 PM ARTIST WOODBLOCK Irritable bowel syndrome without diarrhea Hepatic steatosis [...] * POCT lipid panel (11/18/2024 12:59 PM ARTIST WOODBLOCK) Cholesterol, POC 172 mg/dL HDL, POC 46 mg/dL Triglycerides, POC 304 mg/dL LDL Cholesterol POC 65 mg/dL Chol/HDL Ratio, POC 1.4 Non-HDL Cholesterol, POC 126 mg/dL Cholesterol Total, POC 172 mg/dL Capillary blood 11/18/2024 1 2:59 PM ARTIST WOODBLOCK Darius Rodriguez MD POINT OF CARE TEST O RDERABLES Final Result * CBC with auto differential (11/11/2024 2:42 PM ARTIST WOODBLOCK) WBC 9.3 3.8 - 10.8 Thousand/u L [...] [facility] Blood 11/11/2024 2:42 PM ARTIST WOODBLOCK 11/11/2024 2:43 PM ARTIST WOODBLOCK Narrative [facility] - 11/12/2024 5:52 AM ARTIST WOODBLOCK FASTING:NO FASTING: NO us Ira SINGH LAB BLOOD ORDERABLES Fin al Result [facility] [address] [address] [place] [phone] * (ABNORMAL) Comprehensive metabolic panel (11/11/2024 2:42 PM ARTIST WOODBLOCK) [facility] Glucose 94 65 - 139 mg/dL [...] [facility] Blood 11/11/2024 2:42 PM ARTIST WOODBLOCK 11/11/2024 2:43 PM ARTIST WOODBLOCK Narrative [facility] - 11/12/2024 5:52 AM ARTIST WOODBLOCK FASTING:NO FASTING: NO us Ira SINGH LAB BLOOD ORDERABLES Fin al Result [facility] [address] [place] [phone] * ECG 12 lead (11/08/2024 10:34 AM ARTIST WOODBLOCK) Ira SINGH ECG ORDERABLES Final Re sult * HM MAMMOGRAPHY (10/14/2024) Mammography Abnormal Historical Provider HEALTH MAINTENANCE Final Result * CT Abdomen Pelvis W Contrast (10/03/2024 3:01 PM ARTIST WOODBLOCK) Anatomical Region Laterality Modality Body N/A Computed Tomogra phy 10/05/2024 11:0 5 PM ARTIST WOODBLOCK Narrative 10/05/2024 11:15 PM ARTIST WOODBLOCK EXAM DESCRIPTION: CT ABDOMEN PELVIS W CONTRAST [...] enlarged lymph node or free fluid. MSK: Utqd-qd-xoorkssq L5-S1 disc disease and mild lower lumbar facet arthropathy. BODY WALL: Tiny fat containing periumbilical hernia. IMPRESSION: No abnormality identified to account for presentation. Gallbladder appears normal. THIS IS AN ELECTRONICALLY VERIFIED FINAL REPORT 10/05/2024 11:15 PM - Electronically signed by Frank Denney M.D. AR: KORTNEY Report ID: [id number] Reading Location: [id number] Procedure Note Frank Denney MD - 10/05/2024 [...] enlarged lymph node or free fluid. MSK: Lluy-ne-pyijkudv L5-S1 disc disease and mild lower lumbar facet arthropathy. BODY WALL: Tiny fat containing periumbilical hernia. IMPRESSION: No abnormality identified to account for presentation. Gallbladder appears normal. THIS IS AN ELECTRONICALLY VERIFIED FINAL REPORT 10/05/2024 11:15 PM - Electronically signed by Frank Denney M.D. AR: KORTNEY Report ID: [id number] Reading Location: [place] [address] PROCEDURES Final Result * COLONOSCOPY (06/19/2024 1:53 PM CDT) Scribed Colonoscopy Normal Historical Provider HEALTH MAINTENANCE Edited Result - Final * PAP SMEAR WITH HPV (01/10/2024) Historical Provider HEALTH MAINTENANCE Final Result from Last 3 Months or Most Recently Relevant to Health Maintenance Insurance [facility] Care Teams Environmental Educator Relationship Specialty Start Date End Date Ira Barrett PA [address] [facility] [place] [address] [place], [place] [phone] PCP - General Family Medicine 04/03/24
--- OUTSIDE RECORDS SUMMARY | 2024-12-31 15:27 | XMS_ITS | Encounter Summary ---
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
--- OUTSIDE RECORDS SUMMARY | 2024-12-31 15:27 | XMS_ITS | Clinical Summary ---
Author Organization [address] Address [address] [address] Care Team Providers Care Police Shift Commander Name Role Phone Ira Barrett Primary Care [...] Plan (06/12/2024 3:29 PM CDT): Taking omeprazole cnqx-ddd-rfboluk daily and feels it is no longer [...] as well. - Referred to a new fabrication and layout craftsman for further evaluation and management. - Recommend [...] almost the last year. Has started taking mqaj-rzq-fvytdal stool softener but not sure if it [...] 10/29/2023 Assessment & Plan (09/19/2024 3:16 PM SAMPLE PATTERNMAKER): Chronic, stable condition. Continue current medication regimen per psychiatrist Assessment & Plan (06/12/2024 3:27 PM CDT): Chronic, stable. Patient is following with psychiatrist Assessment & Plan (04/03/2024 1:42 PM CDT): Managed by psychiatrist - continues on Lamictal, benzo, Effexor Borderline personality disorder 10/29/2023 Assessment & Plan (09/19/2024 3:16 PM SAMPLE PATTERNMAKER): Chronic, stable condition. Continue current medication regimen [...] CDT): Chronic,worsening. Patient will follow up with piano assembler Assessment & Plan (06/12/2024 3:27 PM [...] Team Description 12/23/2024 6:30 AM CDT E-Visit [facility] Virtual Care [address] [place] [address] Destini Bowles, CIVIL LABORATORY TECHNICIAN Virtual Care Visit 12/23/2024 Telephone [facility] Family Medicine [address] [phone] Ira Barrett PA Prior Auth Request for Pantoprazole Sodium 12/23/2024 Patient Self-Triage [facility]/ Physicians [address] [place] [address] Mychart, Generic Provider 12/10/2024 Telephone [facility] Cardiology [address] [place] [address] Unknown, Notinfile 12/09/2024 Telephone [facility] Card[facility] [address] [place] [address] Unknown, Notinfile 12/09/2024 Telephone [facility] Cardiology [address] [place] [phone] Unknown, Notinfile 12/05/2024 Telephone [facility] Cardiology [address] [place] [address] Unknown, Notinfile 11/29/2024 9:00 AM CDT Office Visit [address] [phone] Alize Mckeon PA Constipation, unspecified constipation type (Primary Dx); Abdominal pain; Blood in stool; External hemorrhoid; Class 3 severe obesity due to excess calories with serious comorbidity and body mass index (BMI) of 40.0 to 44.9 in adult (HCC) 11/28/2024 Nurse Triage [address] [address] Ira Barrett PA 11/28/[address] [address] Ira Barrett PA Recommendation Request 11/18/2024 12:30 PM SAMPLE PATTERNMAKER Office Visit [facility] Cardiology [address] [place] [phone] Darius Rodriguez MD Abnormal EKG (Primary Dx); Other chest pain; Venous insufficiency 11/12/2024 Results Follow-Up [address] [address] Ira Barrett PA 11/08/2024 10:00 AM SAMPLE PATTERNMAKER Office Visit [address] [address] Ira Barrett PA Pre-op evaluation (Primary Dx); Abnormal EKG 11/08/2024 Letter (Out) [address] [address] 11/06/[address] [address] Ira Barrett PA 11/05/2024 1:30 PM SAMPLE PATTERNMAKER Telemedicine [address] [phone] Ira Barrett PA Left hand pain (Primary Dx); Abnormal mammogram; Obesity, Class II, BMI 35-39.9; Constipation, unspecified constipation type; Hepatic steatosis 11/04/[address] [address] Ira Barrett PA 10/15/[address] [address] Ira Barrett PA Mammogram results 10/14/[address] [address] Ira Barrett PA 10/03/2024 2:54 PM SAMPLE PATTERNMAKER - 10/03/2024 11:59 PM SAMPLE PATTERNMAKER Hospital Encounter [facility] Medical Office Building [address] [address] Irritable bowel syndrome without diarrhea; Hepatic steatosis; [...] on file Legal Sex Female 11:46 PM SAMPLE PATTERNMAKER Gender Identity Female 03/27/2024 7:14 AM CDT [...] LIPID PANEL Routine 11/18/2024 12:5 9 PM SAMPLE PATTERNMAKER Other chest pain COMPREHENSIVE METABOLIC PANEL Routine 11/11/2024 2:42 PM SAMPLE PATTERNMAKER Hepatic steatosis CBC WITH AUTO DIFFERENTIAL Routine 11/11/2024 2:42 PM SAMPLE PATTERNMAKER Hepatic steatosis ECG 12-LEAD Routine 11/08/2024 10:34 AM SAMPLE PATTERNMAKER Pre-op evaluation MAMMOGRAPHY Routine 10/14/2024 CT ABDOMEN PELVIS W CONTRAST Schedule Routine, Read Routine (OP Routine) 10/03/2024 3:01 PM SAMPLE PATTERNMAKER Irritable bowel syndrome without diarrhea Hepatic steatosis [...] * POCT lipid panel (11/18/2024 12:59 PM SAMPLE PATTERNMAKER) Pathologist [facility] Cholesterol, POC 172 mg/dL HDL, POC 46 mg/dL Triglycerides, POC 304 mg/dL LDL Cholesterol POC 65 mg/dL Chol/HDL Ratio, POC 1.4 Non-HDL Cholesterol, POC 126 mg/dL Cholesterol Total, POC 172 mg/dL Capillary blood 11/18/2024 1 2:59 PM SAMPLE PATTERNMAKER Darius Rodriguez MD POINT OF CARE TEST O RDERABLES Final Result * CBC with auto differential (11/11/2024 2:42 PM SAMPLE PATTERNMAKER) WBC 9.3 3.8 - 10.8 Thousand/u L [...] [facility] Blood 11/11/2024 2:42 PM SAMPLE PATTERNMAKER 11/11/2024 2:43 PM SAMPLE PATTERNMAKER Narrative [facility] - 11/12/2024 5:52 AM SAMPLE PATTERNMAKER FASTING:NO FASTING: NO us Ira SINGH LAB BLOOD ORDERABLES Fin al Result [facility] [address] [phone] * (ABNORMAL) Comprehensive metabolic panel (11/11/2024 2:42 PM SAMPLE PATTERNMAKER) [facility] Glucose 94 65 - 139 mg/dL [...] [facility] Blood 11/11/2024 2:42 PM SAMPLE PATTERNMAKER 11/11/2024 2:43 PM SAMPLE PATTERNMAKER Narrative [facility] - 11/12/2024 5:52 AM SAMPLE PATTERNMAKER FASTING:NO FASTING: NO us Ira SINGH LAB BLOOD ORDERABLES Fin al Result [facility] [address] [address] * ECG 12 lead (11/08/2024 10:34 AM SAMPLE PATTERNMAKER) Ira SINGH ECG ORDERABLES Final Re sult * HM MAMMOGRAPHY (10/14/2024) Mammography Abnormal Historical Provider HEALTH MAINTENANCE Final Result * CT Abdomen Pelvis W Contrast (10/03/2024 3:01 PM SAMPLE PATTERNMAKER) Anatomical Region Laterality Modality Body N/A Computed Tomogra phy 10/05/2024 11:0 5 PM SAMPLE PATTERNMAKER Narrative 10/05/2024 11:15 PM SAMPLE PATTERNMAKER EXAM DESCRIPTION: CT ABDOMEN PELVIS W CONTRAST [...] enlarged lymph node or free fluid. MSK: Cmwh-my-ryvxxhhy L5-S1 disc disease and mild lower lumbar facet arthropathy. BODY WALL: Tiny fat containing periumbilical hernia. IMPRESSION: No abnormality identified to account for presentation. Gallbladder appears normal. THIS IS AN ELECTRONICALLY VERIFIED FINAL REPORT 10/05/2024 11:15 PM - Electronically signed by Frank Denney M.D. AR: KORTNEY Report ID: [id number] Reading Location: [id number] Procedure Note Frank Denney MD - 10/05/2024 [...] enlarged lymph node or free fluid. MSK: Atno-dc-caaxklvd L5-S1 disc disease and mild lower lumbar facet arthropathy. BODY WALL: Tiny fat containing periumbilical hernia. IMPRESSION: No abnormality identified to account for presentation. Gallbladder appears normal. THIS IS AN ELECTRONICALLY VERIFIED FINAL REPORT 10/05/2024 11:15 PM - Electronically signed by Frank Denney M.D. AR: KORTNEY Report ID: [id number] Reading Location: [place] [address] PROCEDURES Final Result * COLONOSCOPY (06/19/2024 1:53 PM CDT) Scribed Colonoscopy Normal Historical Provider HEALTH MAINTENANCE Edited Result - Final * PAP SMEAR WITH HPV (01/10/2024) Historical Provider HEALTH MAINTENANCE Final Result from Last 3 Months or Most Recently Relevant to Health Maintenance Insurance [facility] Care Teams Police Shift Commander Relationship Specialty Start Date End Date Ira Barrett PA [address] [address] PCP - General Family Medicine 04/03/24
== END 2024-12-31 14:20 | disposition home or self-care (01) ==
PROVIDERS: PCP Family Medicine; Visit Provider Plastic Surgery
DX: S62.627A Displaced fracture of middle phalanx of left little finger, initial encounter for closed fracture (principal); X58.XXXA Exposure to other specified factors, initial encounter
CPT/HCPCS: 73140

== ENCOUNTER 2025-03-18 08:00 | Outpatient (RCR) | payer OTHER, SELFPAY ==
--- NOTE | 2025-02-14 10:13 | OPREHPOC ---
Outpatient Therapy Plan of Care This is a Multidisciplinary Plan of Care that may contain components documented by all disciplines (PT, OT, and ST.) PT Problem 1 PT Problem #1 Knowledge Deficit PT Goal 1 Goal / Goal Update 1* independent with HEP 2* pt demonstrate correct body mechanics with lifting from floor Target Visit 10 PT Problem 2 PT Problem #2 Pain PT Goal 1 Goal / Goal Update 1* pt report pain rating at worst of knees 5/10 2* pain rating at worst of low back 5/10 Target Visit 10 PT Problem 3 PT Problem #3 Impaired Flexibility PT Goal 1 Goal / Goal Update supine piriformis length with knee cross mid line of body and no pain 1* R 2* L supine figure 4 hip stretch without pain increase 3* R 4* L Target Visit 10 PT Problem 4 PT Problem #4 Impaired Strength PT Goal 1 Goal / Goal Update increase strength of LE and trunk, to improve stability to spine and hips: single leg standing with good stability, 20 seconds 1* R 2* L 3* R and L LE and trunk strength of 4+/5 Target Visit 10
--- NOTE | 2025-02-14 10:13 | PTOPEVAL1 ---
Assessment and note entered by Mony Goel, PT Evaluation Information Assessment Status Evaluation ICD-10 Condition Codes (PT) Pain in low back M54.50,Pain in right hip M25.551, Pain in left hip M25.552,Pain in right knee M25. 561,Pain in left knee M25.562 Onset about one year Subjective Information knee pain onset after taking round of steroids-- had overall body pain after steroids for skin condition were completed; x ray of knee Jun 2024- unremarkable take celebrex- for joint pain lost her job due to medical issues problems getting in/out car, into their boat, walking on uneven ground of her back yard, play with grand daughter have gained weight lately- most she has ever weighed is now Reported Pain Level Pain Score self Report Additional Pain Score Comments pain range in the past week 0-8/10; both knees painful, bone on bone feeling, cartridge grinding; increase pain: when first get up from sitting- walking is hard decrease pain: move and walk, cold stone roller, muscle cream, heat pad have home stim for back- not used on knee BACK- reports pain range of 6-7/10 Assessment PT Clinical Summary Rasheeda has the diagnosis of knee pain, and also has chronic back and hip pain. Onset about 1 year ago, after being diagnosed with an auto immune disease and completed oral steroids. She is under the care of rheumatology and general dr, who are trying to figure what is going on with her. LE functional scale self rating of 65% limitation in activity level. She has decreased activity level due to chronic pain. Medical history includes: abdominal hernia-- awaiting to have surgery on it; venous insufficiency of legs; fatty liver issues, lichen planeus--auto immune disease; chronic back pain; recent weight gain; abdominal bloating with constipation and discomfort. With the evaluation: bilateral ankle, knee and hip ROM is WNL, except bilateral piriformis, and with reports of pain over multiple joints and with most motions; supine bridge increase low back pain; gross strength of legs is 4/5, with decreased R single leg standing stability; Skilled PT services are indicated for modalities to decrease back and leg pain, therapeutic exercises to increase LE and trunk strength and piriformis flexibility with education for HEP and posture/body mechanics. Plan of Care Interventions Hot Pack/Cold Pack,Manual Therapy,Mechanical Traction,Neuro Re-education,Patient/Caregiver Education,Therapeutic Activities,Therapeutic Exercise,Ultrasound,Other Other Interventions taping PT Services Indicated Yes Treatment Frequency and 1-2x/wk for 10 visits Duration These treatments will address the objective and functional deficits as defined above. The patient will be advanced safely and appropriately in order for the patient to progress towards his/her prior level of function. Additional exercises will be introduced and as well as a comprehensive home exercise program upon discharge, if needed, ?to ensure carryover of functional gains achieved in the clinic. This treatment plan has been reviewed and agreement upon by the patient.
--- NOTE | 2025-02-14 10:15 | PCPTNOTE ---
Was 15 minutes late for start of initial evaluation due to delayed registration process.
--- NOTE | 2025-02-25 11:40 | PCPTNOTE ---
pt did not show for today's treatment appt, called and left voice mail with reminder of next appt.
--- NOTE | 2025-03-20 09:49 | PCPTNOTE ---
pt called and canceled today's reeval due to illness.
--- NOTE | 2025-04-22 12:00 | OPREHPOC ---
Outpatient Therapy Plan of Care This is a Multidisciplinary Plan of Care that may contain components documented by all disciplines (PT, OT, and ST.) PT Problem 1 PT Problem #1 Knowledge Deficit PT Goal 1 Goal / Goal Update 1* independent with HEP 2* pt demonstrate correct body mechanics with lifting from floor 04-22-25 d/c pt stopped attending the goals were not addressed Target Visit 10 PT Problem 2 PT Problem #2 Pain PT Goal 1 Goal / Goal Update 1* pt report pain rating at worst of knees 01/25 2* pain rating at worst of low back 01/25 04-22-25 d/c pt stopped attending the goals were not addressed Target Visit 10 PT Problem 3 PT Problem #3 Impaired Flexibility PT Goal 1 Goal / Goal Update supine piriformis length with knee cross mid line of body and no pain 1* R 2* L supine figure 4 hip stretch without pain increase 3* R 4* L 04-22-25 d/c pt stopped attending the goals were not addressed Target Visit 10 PT Problem 4 PT Problem #4 Impaired Strength PT Goal 1 Goal / Goal Update increase strength of LE and trunk, to improve stability to spine and hips: single leg standing with good stability, 20 seconds 1* R 2* L 3* R and L LE and trunk strength of 4+/5 25 d/c pt stopped attending the goals were not addressed Target Visit 10
--- NOTE | 2025-04-22 12:00 | PTOPDC ---
Assessment and note entered by Mony Goel, PT Assessment Status Discharge - Pt Not Present ICD-10 Condition Codes (PT) Pain in low back M54.50,Pain in right hip M25.551, Pain in left hip M25.552,Pain in right knee M25. 561,Pain in left knee M25.562 Onset about one year Subjective Information pt was not seen this date. Assessment PT Clinical Summary Rasheeda has received 8 PT sessions, from February 14 to March 27 for the diagnosis of low back and bilateral knee pain. She stopped attending therapy, there fore, she will be discharged at this time. The goals were not addressed. Plan of Care PT Services Indicated No
== END 2025-04-22 12:48 | disposition home or self-care (01) ==
LOC: ANHPT 08:00
DX: M25.561 Pain in right knee (principal); M25.562 Pain in left knee; G89.29 Other chronic pain
CPT/HCPCS: 97110; 97140; 97162; 97530

== ENCOUNTER 2025-04-18 18:20 | Emergency (ER) | payer OTHER, SELFPAY ==
--- NOTE | 2025-04-18 18:35 | ED.SKABFB ---
HPI - Skin/Abscess/Foreign Bdy General Chief complaint: Skin/Abscess/Foreign Body Stated complaint: Cyst by tailbone Time Seen by Provider: 04/18/25 18:40 Source: patient and RN notes reviewed Mode of arrival: ambulatory Limitations: dementia History of Present Illness HPI narrative: 45-year-old female presents concern for infection. She reports she has abscesses on her buttock, reports the most painful 1 has recently started draining. She gets these frequently and they usually will heal on their own, however the area that is draining is not getting better. She reports she has had general malaise. She denies fever MD complaint: abscess/boil and other (Redness) Related Data Home Medications ?Medication ?Instructions ?Recorded ?Confirmed ?Last Taken ?Type venlafaxine 75 mg capsule,extended mg PO 10/31/23 01/13/25 Unknown History release 24 hr furosemide 20 mg tablet 20 mg PO 07/02/24 01/13/25 Unknown History pantoprazole 40 mg tablet,delayed mg PO 07/02/24 01/13/25 Unknown History release phentermine 37.5 mg tablet 37.5 mg PO 08/29/24 01/13/25 Unknown History lamotrigine 100 mg tablet mg 11/14/24 01/13/25 Unknown History plecanatide 3 mg tablet (Trulance) mg 11/14/24 01/13/25 Unknown History Allergies Allergy/AdvReac Type Severity Reaction Status Date / Time hydroxychloroquine (From AdvReac Back Pain Verified 04/18/25 18:43 Plaquenil) Review of Systems Review of Systems: CONSTITUTIONAL: Denies malaise, chills, sweats, or fever. EYES: Denies redness, or discharge. ENT: Denies rhinorrhea, congestion, swollen lips, swollen tongue CARDIOVASCULAR: Denies chest pain, palpitations, or edema. RESPIRATORY: Denies cough or dyspnea. GASTROINTESTINAL: Denies abdominal pain, nausea, vomiting SKIN: Reports redness, swelling tenderness with purulent drainage to the left buttock. Reports another healing bump on the left buttock. Denies vesicles, bullae, numbness, pain beyond proportion MUSCULOSKELETAL: Denies joint pain or myalgia. NEUROLOGIC: Denies headache. All systems reviewed & are unremarkable except as noted in HPI and below PMFSH Past Medical History Medical History Spondylosis GERD (gastroesophageal reflux disease) Chronic venous insufficiency Lichen planus classic , oral , vulvar History of HPV infection Fatty liver Anxiety Depression Carpal tunnel syndrome, bilateral Surgical History Surgical History History of mandibular surgery parts of jaw bone removed H/O colposcopy with cervical biopsy (~11/15/21) Benign H/O colposcopy with cervical biopsy (05/29/01) colpsocopy- LGSIL mild dysplasia H/O colposcopy with cervical biopsy (08/26/04) colposcopy HGSIL PATY 2-3 H/O LEEP (10/07/04) LEEP LGSIL PATY 1/ chronic cervicitis H/O tubal ligation Delivery by section x 2 Hx of tonsillectomy Family History Family History Father Diabetes mellitus Acute myocardial infarction Grandparent Arthritis maternal grandmother H/O ovarian cancer maternal Grandmother Social History Social History (Updated 01/13/25 @ 15:07 by Darya Bryson CMA) Smoking status: Former smoker Tobacco type: cigarettes Second hand tobacco smoke exposure: Yes Smoking end date: 02/24/24 Alcohol intake: current Drinks per week: 5 Alcohol use details: rarely Substance use: never Substance use type: does not use Do You Feel Safe in your Home?: Yes Lack of Transportation: No Lack of Food: Never True Current Housing: I Have Housing Concerned About Future Housing: No Difficulty Paying Gas/Electric Bills: No Difficulty Paying for Meds: No Currently Unemployed: No Education: Trade/Vocational Certificate Difficulty w/ Childcare or Family Care: No Living arrangements: with family Additional living arrangements comments: boyfriend Occupation/Education: unemployed Gender identity (if verbalized by the patient): Female Sexual Orientation (if Verbalized by the Patient): Straight or Heterosexual Comments At time of signature, agree with nursing past medical, surgical, social and family history. There is no relevant family history pertinent to the presenting complaint Exam Narrative: GENERAL: Well-appearing, well-nourished, and in no acute distress. HEAD: Normocephalic, atraumatic. EYES: PERRLA, conjunctivae clear ENT: Mucous membranes moist. NECK: Supple. No lymphadenopathy CHEST: Clear to auscultation. No respiratory distress. HEART: Regular rate and rhythm. SKIN: Warm, dry. Approximately 4 cm area of Erythema, induration, tenderness, warmth with central scab noted to the left buttock, no fluctuation or drainage noted. No vesicles, bullae, necrosis, ecchymosis, crepitus noted. NEURO: Alert and oriented x3. PSYCH: Normal mood and affect Course Course Emergency Course: Patient is aware of diagnosis, understands and agrees to treatment plan. Anticipatory guidance given. Patient agrees to follow-up as directed and is aware of reasons to seek care at the emergency department. Portions of this record may have been created with voice recognition software Level of Care: Express Care Visit Vital Signs Vital signs: Reviewed. MDM - Skin/Abscess/Foreign Bdy MDM Narrative Medical decision making narrative: I evaluated this in the [facility] care. History is obtained from patient who is an independent historian and physical exam was performed.? Available medical records were reviewed. ? Exam findings and relevant testing show no acute concerns or changes; patient is non-toxic appearing and is in no distress. Does not appear at this time to be erythema multiforme, bullous, SJS, TEN; no evidence at this time to suggest RMSF, NSTI, endocarditis or Lyme disease; patient looks well, nontoxic and is tolerating oral intake; no neurologic signs or symptoms; no headache, photophobia or neck pain; afebrile.? Patient does not have history of of penetrating trauma, laceration, blunt trauma, recent surgery, immunosuppression, malignancy, obesity, alcoholism, corticosteroid use.? Discussed the importance of follow-up, patient agrees; question, cellulitis versus necrotizing soft tissue infection versus abscess.?? Patient is appropriate for outpatient treatment and follow-up. Critical Care Time Critical Care Time Critical Care Time: No Discharge Plan Discharge Clinical Impression: Boil of buttock Patient Disposition: Home Condition: Stable Instructions: Antibiotic Form, Abscess (ED) Additional Instructions: Please follow up with your Primary Care Doctor within 48-72 hours - call for an appointment. Rest and elevate affected area; apply moist heat 3-4 times daily for 10-15 minutes. Take Motrin 600mg or Tylenol every 8 hours with food for pain. Please take Antibiotics as directed. If you experience any worsening redness, swelling, streaking (red lines), fever or chills please go to the ER Patient Language: Ethiopian Prescriptions: New clindamycin HCl 300 mg capsule 300 mg PO Q8H 7 Days Qty: 21 0RF No Action lamotrigine 100 mg tablet Trulance 3 mg tablet furosemide 20 mg tablet 20 mg PO pantoprazole 40 mg tablet,delayed release (DR/EC) PO phentermine 37.5 mg tablet 37.5 mg PO venlafaxine 75 mg capsule,extended release 24hr PO celecoxib 200 mg capsule 200 mg PO BID Qty: 60 3RF Follow-up/Referrals: Ira Barrett [Other] Time of Disposition: 18:50
[2025-04-18 18:38] VITALS: BP 116/68; PULSE 92; RESP 16; TEMP 36.2; O2SAT 97
== END 2025-04-18 18:55 | disposition home or self-care (01) ==
PROVIDERS: Emergency Provider Nurse Practitioner
DX: L02.32 Furuncle of buttock (principal); Z87.891 Personal history of nicotine dependence; K21.9 Gastro-esophageal reflux disease without esophagitis; K76.0 Fatty (change of) liver, not elsewhere classified; L43.9 Lichen planus, unspecified; I87.2 Venous insufficiency (chronic) (peripheral); F41.9 Anxiety disorder, unspecified; F32.A Depression, unspecified
CPT/HCPCS: 99213; G0463

== ENCOUNTER 2025-05-07 15:16 | Outpatient (CLI) | payer OTHER, SELFPAY ==
--- OUTSIDE RECORDS SUMMARY | 2025-05-06 10:30 | XMS_ITS | Encounter Summary ---
Author Organization [facility] Healthcare Address [address] [place] [address] Care Team Providers Care Sole Stitcher Hand Name Role Phone Ira Barrett Primary Care Provider + Reason for Referral * Consultation (Routine) - Closed Specialty Diagnoses / Procedures Referred By Contac t Referred To Contact Physical Therapy Diagnoses Degeneration of intervertebral disc of lumbar region with discogenic back pain and lower extremity pain Sanjuana Lemon NP [address] [address] Phone: tel: fax: [facility] Physical Therapy [place] [address] [facility] [place] [address] Phone: tel: fax: Referral ID Status Reason Start Date Expiration Date V isits Requested Visits Authorized [id number] Closed Specialty Services Required 05/06/2025 06/05/2026 24 24 Question Answer PTRFR PT Evaluate and Treat Therapy options discussed with patient? Yes Location provided for therapy services is: Patient requested/Patient preferred Please select the performing region: External Order [171] To loc/pos [facility] Physical Therapy [place] [[id number]] # of visits: 24 Reason for Visit * Reason Comments Surgical Clearance Cyst removal Discuss Test Results CT done on 04/19/25 Encounter Details Date Type Department Care Team (Latest Contact Info) Description 05/06/2025 10:30 AM CDT Office Visit [facility] Family Medicine [address] [phone] Sanjuana Lemon, SEALER SANDER [address] [facility] [address] [place], [place] [phone] Hemorrhoids, unspecified hemorrhoid type (Primary Dx); Pilonidal cyst; Preop examination; Gastroesophageal reflux disease with esophagitis without hemorrhage; Morbid obesity with BMI of 40.0-44.9, adult (HCC); Degeneration of intervertebral disc of lumbar region with discogenic back pain and lower extremity pain; Chronic cough; Prediabetes; Hepatic steatosis; Former smoker; Venous insufficiency Social History Tobacco Use Types Packs/Day Years Used Date Smoking Tobacco: Former Cigarettes 1.3 28 0 01/16/1997 - 02/24/2024 Vaping Smokeless Tobacco: Never Tobacco Cessation:Counseling Given: Not Answered Comments:The vapes I marked up above are nicotine free. And I hit it maybe 2 times a day if that. PHQ-2 Answer Date Recorded PHQ-2 Total Score (If total score is 3 or more points, staff should administer the PHQ-9) 0 05/06/2025 PHQ-9 Answer Date Recorded PHQ-9 Total Score 11 04/03/2024 AUDIT-C Answer Date Recorded Q1: How often do you have a drink containing alcohol? Never 05/07/2025 Q2: How many drinks containi ng alcohol do you have on a typical day when you are drinking? Patient does not drink Q3: How often do you have si x or more drinks on one occasion? Never 05/07/2025 Personal Safety Answer Date Recorded Have you ever been in or are you currently in a harmful physical or emotional relationship or is someone making you feel afraid or unsafe? 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 Gender Identity Female 03/27/2024 7:14 AM CDT Sexual Orientation Straight 03/27/2024 7: 14 AM CDT documented as of this encounter Last Filed Vital Signs Vital Sign Reading Time Taken Comments Blood Pressure 128/70 05/06/2025 10:20 AM CDT Pulse 94 05/06/2025 10:20 AM CDT Temperature 36.3 C (97.3 F) 05/06/2025 10:20 AM CDT Respiratory Rate 18 05/06/2025 10:20 AM CDT Oxygen Saturation 97% 05/06/2025 10:20 AM CDT Inhaled Oxygen Concentration - - Weight 106.6 kg (235 lb) 05/06/2025 10:20 AM CDT Height 160 cm (5' 3) 05/06/2025 10:20 AM CDT Body Mass Index 41.63 05/06/2025 10:20 AM CDT documented in this encounter Progress Notes * Sanjuana Lemon, SEALER SANDER - 05/06/2025 10:30 AM CDT Images from the original note were not included. Subjective/Objective Visit Date: 05/06/2025 Patient ID: Rasheeda Garcia is a 45 y.o. female. This patient has verbally consented to recording this visit in order to utilize AI technology in generating this note. Chief Complaint Chief Complaint Patient presents with Surgical Clearance Cyst removal Discuss Test Results CT done on 04/19/25 History of Present Illness 45 y/o F here for pre-op clearance for proctoscopy, hemorrhoidectomy, and pilonidal cystectomy on 05/20/[address] Sree Denton from [facility] Abnormal EKG - EKG performed about 6 months ago w/ T wave inversions and minimal ST depression -Evaluated by Dr. Rodriguez 02/2025 w/out further concerns. CTA chest and coronary angiogram w/ 0 calcium score and negative for CAD. Patient denies CP or SOB Pilonidal cyst - recurrent need for abx tx prompting removal per surgery Internal hemorrhoids - noted on colonoscopy and causing weekly rectal bleeding. Linzess prescribed to help with constipation - surgical removal due to sx Cough -She has a sporadic cough occurring approximately once every few months, attributed to quitting smoking in February of the previous year after a 28-year history. She occasionally smokes marijuana, which she does not believe exacerbates her cough. Venous Insufficiency - wears compression stockings and prescribed furosemide Former smoker - quit 02/2024 GERD - PPI therapy -Symptoms are generally well-controlled, though she experiences pain near the liver and constipation. Dairy products like ice cream alleviate her heartburn, but she is cautious dueto her fatty liver Prediabetes - recent lab with an A1c of 5.9 two months ago. Patient reports she is aware she needs to work on improving her diet. She tries to stay active w/ boating Chronic venous insufficiency - intermittent pain and swelling. She takes furosemide and typically wears compression socks, though she has not worn them recently due to high temperatures. Swimming andincreased activity help reduce swelling. . Chronic lumbar pain - evaluated previously at our office and referred to physical therapy. Requesting referral to a different location due to long wait time to be seen Physical Exam Constitutional: Appearance: Normal appearance. Eyes: Conjunctiva/sclera: Conjunctivae normal. Cardiovascular: Rate and Rhythm: Normal rate and regular rhythm. Heart sounds: Normal heart sounds. Pulmonary: Effort: Pulmonary effort is normal. Breath sounds: Normal breath sounds. Musculoskeletal: Right lower leg: No edema. Left lower leg: No edema. Neurological: General: No focal deficit present. Mental Status: She is alert and oriented to person, place, and time. Psychiatric: Mood and Affect: Mood normal. Behavior: Behavior normal. EKG: NSR with V2-V6 T wave inversion and minimal ST depression V5/V6 - no changes compared to EKG 10/2024 Assessment & Plan Hemorrhoids, unspecified hemorrhoid type Acute, unstable Frequent rectal bleeding Surgical removal planned 05/20/25 Pilonidal cyst Acute, recurrent exacerbations Surgical removal planned 05/20/25 Preop examination Scheduled for cyst and hemorrhoid removal on May 20. No contraindications identified for surgery. -EKG stable w/out changes compared to 10/2024 EKG - Order preoperative labs. - Order chest x-ray due to intermittent cough and smoking history -Clearance pending unremarkable findings Orders: ECG 12 lead CBC with auto differential; Future Comprehensive metabolic panel; Future XR Chest PA Lateral 2 Views; Future Gastroesophageal reflux disease with esophagitis without hemorrhage Chronic, uncontrolled Followed by GI - Continue Protonix twice daily. - Advise dietary modifications to avoid heavy foods and late meals. Morbid obesity with BMI of 40.0-44.9, adult (HCC) Chronic, uncontrolled Goal of BMI under 30 Exercise encouraged 30 minutes 5 times a week or 150 minutes a week with no more than 2 days in between Healthy diet recommended 2 lb per week healthy weight loss goal Degeneration of intervertebral disc of lumbar region with discogenic back pain and lower extremity pain Chronic, uncontrolled New referral provided per request Orders: Ambulatory referral order to Physical Therapy -; Future Chronic cough Chronic, intermittent XR ordered Orders: XR Chest PA Lateral 2 Views; Future Prediabetes New problem A1c is 5.9, indicating prediabetes. Discussed importance of lifestyle modifications to prevent progression to diabetes. - Advise dietary modifications to limit pastas, breads, and sweets. - Encourage regular physical activity. Hepatic steatosis Chronic, Unstable Liver enzymes w/ ALT elevated at 52 Low fat, cholesterol diet recommended Former smoker Smoking history of 28 years, quit in February last year. Venous insufficiency Chronic, intermittent Chronic venous insufficiency with leg pain and swelling. Uses furosemide and compression socks inconsistently due to heat. Increased activity reduces swelling. - Continue furosemide. - Encourage use of compression socks when feasible. - Encourage regular physical activity. Assessment & Plan Return for Next scheduled follow up. aSnjuana Lemon NP Cosigned by Miguel Lozada DO at 05/06/2025 1:35 PM CDT documented in this encounter Miscellaneous Notes * Assessment & Plan Note - Sanjuana Lemon NP - 05/06/2025 10:30 AM CDT Associated Problem(s): Pilonidal cyst Acute, recurrent exacerbations Surgical removal planned 05/20/25 * Assessment & Plan Note - Sanjuana Lemon NP - 05/06/2025 10:30 AM CDT Associated Problem(s): Gastroesophageal reflux disease Chronic, uncontrolled Followed by GI - Continue Protonix twice daily. - Advise dietary modifications to avoid heavy foods and late meals. * Assessment & Plan Note - Sanjuana Lemon NP - 05/06/2025 10:30 AM CDT Associated Problem(s): Morbid obesity with BMI of 40.0-44.9, adult (HCC) Chronic, uncontrolled Goal of BMI under 30 Exercise encouraged 30 minutes 5 times a week or 150 minutes a week with no more than 2 days in between Healthy diet recommended 2 lb per week healthy weight loss goal * Assessment & Plan Note - Sanjuana Lemon NP - 05/06/2025 10:30 AM CDT Associated Problem(s): Degeneration of lumbar intervertebral disc Chronic, uncontrolled New referral provided per request Orders: Ambulatory referral order to Physical Therapy -; Future * Assessment & Plan Note - Sanjuana Lemon NP - 05/06/2025 10:30 AM CDT Associated Problem(s): Prediabetes New problem A1c is 5.9, indicating prediabetes. Discussed importance of lifestyle modifications to prevent progression to diabetes. - Advise dietary modifications to limit pastas, breads, and sweets. - Encourage regular physical activity. * Assessment & Plan Note - Sanjuana Lemon NP - 05/06/2025 10:30 AM CDT Associated Problem(s): Hepatic steatosis Chronic, Unstable Liver enzymes w/ ALT elevated at 52 Low fat, cholesterol diet recommended * Assessment & Plan Note - Sanjuana Lemon NP - 05/06/2025 10:30 AM CDT Associated Problem(s): Former smoker Smoking history of 28 years, quit in February last year. * Assessment & Plan Note - Sanjuana Lemon NP - 05/06/2025 10:30 AM CDT Associated Problem(s): Venous insufficiency Chronic, intermittent Chronic venous insufficiency with leg pain and swelling. Uses furosemide and compression socks inconsistently due to heat. Increased activity reduces swelling. - Continue furosemide. - Encourage use of compression socks when feasible. - Encourage regular physical activity. documented in this encounter Plan of Treatment Upcoming Encounters Date Type Department Care Team (Latest Contact Info) Description 05/20/2025 10:20 AM CDT Hospital Encounter [facility] [address] [place], [place] [phone] Sree Denton MD [address] [place] [phone] 05/20/2025 10:20 AM CDT Anesthesia Event [facility] [place] [address] [place] [address] Jaquan Avina MD [address] [facility] [place] [address] 05/20/2025 10:20 AM CDT - 05/20/2025 11:50 AM CDT Surgery [facility] [place] [address] [place] [address] Sree Denton MD [address] [phone] RECTAL EXAM UNDER ANESTHESIA WITH HEMORRHOIDECTOMY, PROCTOCTOSCOPY Scheduled Orders Name Type Priority Associated Diagnoses Orde r Schedule CBC with auto differential Lab Routine Preop examination Expected: 05/06/2025, Expires: 05/06/2026 Scheduled Procedures Name Priority Associated Diagnoses Date/Ti me HEMORRHOIDECTOMY HEMORRHOID, PILONIDAL CYST 05/20/2025 10:20 AM CDT EXCISION PILONIDAL CYST HEMORRHOID, PILONIDAL CYST 05/20/2025 10:20 AM CDT Scheduled Referrals Name Type Priority Associated Diagnoses Orde r Schedule Ambulatory referral order to Physical Therapy - Outpatient Referral Routine Degeneration of intervertebral disc of lumbar region with discogenic back pain and lower extremity pain Expected: 05/20/2025 (Approximate), Expires: 05/06/2026 documented as of this encounter Procedures Procedure Name Priority Date/Time Associated Diagnosis Comments CBC WITH AUTO DIFFERENTIAL Routine 05/06/2025 12:47 PM CDT COMPREHENSIVE METABOLIC PANEL Routine 05/06/2025 12:47 PM CDT Preop examination ECG 12-LEAD Routine 05/06/2025 10:40 AM CDT Preop examination documented in this encounter Results * CBC with auto differential (05/06/2025 12:47 PM CDT) WBC 10.6 3.8 - 10.8 Thousand/u L [facility] RBC, POC 4.17 3.80 - 5.10 Million/uL [facility] Hgb 13.2 11.7 - 15.5 g/dL [facility] Hct 40.0 35.0 - 45.0 % [facility] MCV 95.9 80.0 - 100.0 fL [facility] MCH 31.7 27.0 - 33.0 pg [facility] MCHC 33.0 32.0 - 36.0 g/dL [facility] Comment: For adults, a slight decrease in the calculated MCHC value (in the range of 30 to 32 g/dL) is most likely not clinically significant; however, it should be interpreted with caution in correlation with other red cell parameters and the patient's clinical condition. Rdw 12.1 11.0 - 15.0 % [facility] Platelets 339 140 - 400 Thousand/u L [facility] MPV 9.4 7.5 - 12.5 fL [facility] Neutrophils, abs 6,339 1,500 - 7,800 cells/uL [facility] Lymphocytes, abs 3,095 850 - 3,900 cells/uL [facility] Monocyte abs 943 200 - 950 cells/uL [facility] Eosinophils, abs 180 15 - 500 cells/uL [facility] Basophils, abs 42 0 - 200 cells/uL [facility] Neutrophils 59.8 % [facility] Lymphocyte pct 29.2 % [facility] Monocytes 8.9 % [facility] Eosinophils 1.7 % [facility] Basophils 0.4 % [facility] 05/06/2025 12:4 7 PM CDT 05/06/2025 12:47 PM CDT us Sanjuana Lemon SEALER SANDER LAB BLOOD ORDERABLES Final R esult [facility] [address] [address] [place] [phone] * (ABNORMAL) Comprehensive metabolic panel (05/06/2025 12:47 PM CDT) Pathologist [facility] Glucose 103(H) 65 - 99 mg/dL [facility] Comment: Fasting reference interval For someone without known diabetes, a glucose value between 100 and 125 mg/dL is consistent with prediabetes and should be confirmed with a follow-up test. BUN 18 7 - 25 mg/dL [facility] Creatinine 0.77 0.50 - 0.99 mg/dL [facility] eGFR 96 > OR = 60 mL/min/1.7 3m2 [facility] BUN/creat ratio SEE NOTE: 6 - 22 (calc) [facility] Comment: Not Reported: BUN and Creatinine are within reference range. Sodium 137 135 - 146 mmol/L [facility] Potassium, pl 4.4 3.5 - 5.3 mmol/L [facility] Chloride 103 98 - 110 mmol/L [facility] CO2 30 20 - 32 mmol/L [facility] Calcium 9.5 8.6 - 10.2 mg/dL [facility] Protein, sr 7.1 6.1 - 8.1 g/dL [facility] Albumin 4.1 3.6 - 5.1 g/dL [facility] GLOBULIN 3.0 1.9 - 3.7 g/dL (calc) [facility] Alb/glob ratio 1.4 1.0 - 2.5 (calc) [facility] Bilirubin, total 0.4 0.2 - 1.2 mg/dL [facility] Alk phos 122 31 - 125 U/L [facility] AST 59(H) 10 - 35 U/L [facility] ALT (SGPT) 78(H) 6 - 29 U/L [facility] Blood 05/06/2025 12:4 7 PM CDT 05/06/2025 12:47 PM CDT us Sanjuana Lemon SEALER SANDER LAB BLOOD ORDERABLES Final R esult [facility] [address] [address] [place] [phone] * ECG 12 lead (05/06/2025 10:40 AM CDT) Sanjuana Lemon SEALER SANDER ECG ORDERABLES Final Result documented in this encounter Visit Diagnoses Diagnosis Hemorrhoids, unspecified hemorrhoid type- Primary Pilonidal cyst Preop examination Unspecified pre-operative examination Gastroesophageal reflux disease with esophagitis without hemorrhage Morbid obesity with BMI of 40.0-44.9, adult (HCC) Degeneration of intervertebral disc of lumbar region with discogenic back pain and lower extremity pain Chronic cough Cough Prediabetes Other abnormal glucose Hepatic steatosis Other chronic nonalcoholic liver disease Former smoker Personal history of tobacco use, presenting hazards to health Venous insufficiency Unspecified venous (peripheral) insufficiency documented in this encounter Discontinued Medications Medication Sig Discontinue Reason Start Date End Da te cholecalciferol (VITAMIN D-3) 5,000 unit tablet Patient Reported 05/06/2025 coenzyme Q10 10 mg capsule Take 1 capsule (10 mg total) by mouth daily Patient Reported 05/06/2025 hydrocortisone 2.5 % cream Apply topically 2 (two) times a day Patient Reported 11/29/2024 05/06/2025 timolol (TIMOPTIC) 0.5 % ophthalmic solution APPLY 1 DROP TO FISSURED SKIN 2-3 TIMES A DAY NEEDED FOR ASSOCIATED PAIN Patient Reported 05/06/2025 documented as of this encounter Historical Medications * This list may reflect changes made after this encounter. ketoconazole (NIZORAL) 2 % cream Apply topically daily 05/05/2025 Procto-Med HC 2.5 % rectal cream Insert into the rectum 2 (two) times a day 05/05/2025 added in this encounter Care Teams Sole Stitcher Hand Relationship Specialty Start Date End Date Ira Barrett PA [address] [facility] [address] [place] [address] PCP - General Family Medicine 04/03/24 documented as of this encounter
--- NOTE | ~2025-05-07 | XR_ITS ---
EXAMINATION: XR chest 2V 05/07/2025 15:40 INDICATION: Preop examination. Chronic cough. PROCEDURE: 2 view chest COMPARISON: No prior studies for comparison. FINDINGS: The lungs are clear. The cardiomediastinal silhouette is within normal limits. There are no pleural effusions. There is no pneumothorax suspected. IMPRESSION: 1: NO ACUTE CARDIOPULMONARY DISEASE. Reviewed, dictated and finalized at location A.
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
--- OUTSIDE RECORDS SUMMARY | 2025-05-07 15:46 | XMS_ITS | Clinical Summary ---
Author Organization [facility] [employer] Address [address] [place] [address] Care Team Providers Care Logistics Solution Manager Name Role Phone Demarcus Camejo MD Primary Care Provider Source Comments [facility] [employer],non-owned Affiliates and Associated Physician Practices is amultiple site organization consisting of ambulatory clinics and hospital sitesin [place], [place], [place] and [place]. This disclosure is being madepursuant to the Care Everywhere program and may not contain all information available regarding this patient. Last updated 18.[facility] [employer] Allergies Active Allergy Reactions Criticality Noted Date Comments Hydroxychloroquine Unknown Low 01/19/2024 Medications * Be aware that medications may not be up to date on this document. Alwaysverify current medications with the patient. venlafaxine XR 24hr (Effexor XR) 75 MG capsule TAKE 1 CAPSULE BY MOUTH EVERY DAY IN THE MORNING 03/17/20 18 Active lamoTRIgine (LaMICtal) 100 MG tabletIndicati ons:Bipolar [...] once daily Reasons: Musculoskeletal Pain Acti ve tacrolimus (Protopic) 0.1 % ointmentIndica tions:Other lichen planus Apply to itchy areas on vulva, trunk and extremities up to two times daily PRN. 30 days supply. 30 g 3 10/28/19 25 Active famotidine (Pepcid) 40 MG tablet Take 1 (one) tablet by mouth once daily 01/30/20 25 026 Active hydrocortisone (Hytone) 2.5 % cream Apply to affected area 2 times daily 11/30/19 25 Active Linzess 145 MCG capsule Take 1 (one) capsule by mouth once daily Activ e loperamide (Imodium) 2 MG capsule TAKE 1 CAPSULE BY MOUTH 4 TIMES DAILY NEEDED FOR DIARRHEA 12/24/19 25 Active ketoconazole (Nizoral) 2 % creamIndicatio ns:Other seborrheic dermatitis,Int ertrigo Apply to lower abdomen skin fold and brows twice daily (1g per application). 30 days supply. 60 g 3 04/03/20 25 Active Active Problems Problem Noted Date Diagnosed Date Bipolar II disorder 10/29/2023 10/29/2023 Borderline personality disorder 10/29/2023 10/29/2023 Generalized anxiety disorder 10/29/202307/2024 Erosive lichen planus of vulva 06/23/2023 0 10/29/2023 Degeneration of lumbar intervertebral disc 06/2310/29/2023 Encounters Date Type Department Care Team Description 04/03/2025 Telephone [facility] - Centralized Scheduling [address] [place] [address] Moriah Bray MD Medication Issue 03/13/2025 1:00 PM CDT - 03/13/2025 11:59 PM CDT Hospital Encounter [facility] [address] [place] [id number] Ira Barrett PA Discharge Disposition: Home or Self Care 03/13/2025 Travel 03/08/2025 2:55 PM CDT Video Visit [facility] [employer] [address] [phone] Louisa Melton, LEAD [employer] Localized infection of skin 03/05/2025 4:00 PM CDT Office Visit [facility] - Dermatology [address] [place] [phone] Moriah Bray MD Other lichen planus (Primary Dx); Other specified follicular disorders; Other seborrheic dermatitis; Intertrigo 03/05/2025 Travel 02/06/2025 Telephone [facility] - Dermatology [address] [place] [phone] None, Physician from Last 3 Months Social History Tobacco [...] AM CDT Legal Sex Female 6:00 AM [employer] Gender Identity Female 07/17/2023 12:21 AM CDT [...] 98.4 kg (217 lb) 10/30/2024 8:08 AM [employer]CH[employer] Height 160 cm (5' 3) 10/30/2024 8:08 AM [employer] MERCHAND[employer] Body Mass Index 38.44 10/30/2024 8:08 AM [employer]AL MERCHAND[employer] Plan of Treatment Upcoming Encounters Date Type Department Care Team (Late st Contact Info) Description 09/24/2025 12:50 PM [employer]AL MERCHANDISER Office Visit [facility] - Dermatology [address] [place], [place] [address]vd, [place] [phone] Moriah Bray MD [address] [facility] [place] [phone] Health Maintenance Due Date Last Done Comments COLOGUARD (AGES 45-75) - COLON CA SCREENING 1978 CT COLONOGRAPHY - COLON CA SCREENING 1978 FIT - COLON CA SCREENING 1978 FLEX SIG - COLON CA SCREENING 1978 HIV SCREENING 1993 DTAP/TDAP/TD VACCINES (1 - Tdap) 1997 HEPATITIS B VACCINE (1 of 3 - 19+ 3-dose series) 1997 PNEUMOCOCCAL VACCINE (1 of 2 - PCV) 1997 PAP SMEAR 1999 COVID-19 VACCINE (3 - 2023- season) 2024 02/20/2021, 11/18/2020 INFLUENZA VACCINE (#1) 2025 , 07/12/2022, 06/23/2021, Additional history exists MAMMOGRAM 10/14/2026 10/14/2024, 10/11/2023 ZOSTER VACCINE (1 of 2) 02/16/2028 SCREENING FOR DIABETES 03/05/2028 , 11/18/2024, 08/23/2023 LIPID TESTING 11/18/2029 11/18/2024, 08/23/2023 COLON MONITORING 02/05/2035 02/05/2025, 10/2023, 06/19/2024 COLONOSCOPY - COLON CA SCREENING 02/05/2035 02/05/2025, 06/19/2024, 06/19/2024 Colorectal Cancer Screening 02/05/2035 HEPATITIS C SCREENING Completed 03/05/2025 , 03/05/2025, 07/20/2023 HIB VACCINE Aged Out No longer [...] this topic Medical Devices Implanted Type Area It Assistant Device Identifier Shelf Expiration Date Model / Serial / Lot Senirisrk Ultracor Ultrasound Enhanced Heart Breast Tissue Marker Implanted:Qty: 1 on 12/18/2023 by Laurel Estrada DO at [facility] Left: Breast [id number] 07/19/2026 [id number] / / [id number] Procedures Procedure Name Priority Date/Time Associated Diagnosis Comments US BREAST RIGHT LTD Routine 03/13/2025 1 :27 PM CDT Follow-up exam MAMMO BILAT SCREENING W FCO Routine 10/14/2024 12:28 PM [employer]AL MERCHANDISER Visit for screening mammogram ENDOSCOPY, COLON, SCREENING Routine 06/19/2024 9:00 AM CDT COMPREHENSIVE METABOLIC PANEL Routine 08/23/2023 3:46 PM [employer] MERCH[employer]ER Lichen planus LIPID PROFILE Routine 08/23/2023 3:46 PM [employer]CH[employer] Lichen planus HEPATITIS C AB SCREEN RFLX NAAT QUANT Routine 07/20/2023 4:31 PM CDT Lichen planus from Last 3 Months or Most Recently Relevant to Health Maintenance Results * US BREAST RIGHT LTD (Diagnostic, most commonly ordered) (03/13/2025 1:27 PM CDT) Anatomical Region Laterality Modality Breast Right Ultrasound 03/13/2025 1:43 PM CDT Impressions 03/13/2025 4:41 PM CDT IMPRESSION: No residual mass or cyst reaccumulation in the region of previously aspirated right breast cyst. RECOMMENDATION: Continue annual routine screening mammography, next due September 2025 Patient was notified of the results at the time of the study. Patient will also receive the exam results by lay letter. OVERALL ASSESSMENT: BI-RADS CATEGORY 1: NEGATIVE. > Dictated by Calvin Bansal DO (residential property consultant). Laurel Polk DO have personally reviewed and interpreted this examination/study. > Interpreting Provider: Laurel Estrada DO on 03/13/2025 4:41 PM Narrative 03/13/2025 4:41 PM CDT EXAMINATION: LIMITED RIGHT BREAST ULTRASOUND LOCATION: [facility] EXAM DATE: 03/13/2025 HISTORY: Follow-up of a probably benign finding of the right breast. Patient is a 44-year-old female with a previously demonstrated 0.3 cm mass suggestive of a complicated cyst in the right breast 11:00 5 cm from the nipple on ultrasound who is now status post cyst aspiration performed on 11/20/2024 with aspiration of what appeared to be bloody contents. As such, RISK ASSESSMENT CALCULATION: Patient completed a breast cancer risk assessment during her appointment 03/13/2025. Based upon the information she provided and her mammographic breast density, her lifetime risk of developing breast cancer is 12 % (Average Risk <15%; Intermediate / Moderate Risk 15-19; High Risk > 20%). Risk assessment based upon the BRCAPRO model. COMPARISON: Compare prior breast exams back to 10/14/2024 including right breast cyst aspiration from 11/20/2024 LIMITED RIGHT BREAST ULTRASOUND: Scanning performed from the 11 o'clock area. FINDINGS: No evidence of residual cyst or other mass within the region of previously demonstrated cyst which was successfully aspirated and resolved upon aspiration. Additionally, no evidence of cyst reaccumulation. No new sonographic findings. us Ira SINGH US ORDERABLES Final Result * Mammo Bilat Screening W Fco (10/14/2024 12:28 PM FLORAL MERCHANDISER) Anatomical Region Laterality Modality Breast Bilateral Mammography 10/14/2024 12:5 8 PM [employer]AL MERCHAND[employer]ER Addenda Addendum by Laurel Estrada DO on 10/15/2024 8:58 AM [employer]ORAL MERCHANDISER ADDENDUM: This addendum is being submitted to correct the right/left discrepancy in the recommendation section of the original report. The recommendation should read a diagnostic RIGHT (not left) mammogram and possible RIGHT (not left) ultrasound is recommended. Please refer to below fold report with addendum. EXAMINATIONS: BILATERAL DIGITAL SCREENING MAMMOGRAM AND BILATERAL BREAST TOMOSYNTHESIS LOCATION: [facility] EXAM DATE: 10/14/2024 HISTORY: Screening. [...] IMAGING EVALUATION. Report dictated by Ava MORRISON, FR (breast imaging fellow). Memo Espinoza and Varghese Burnham MD (residential property consultant) assisted in interpretation of this exam. > Interpreting Provider: Laurel Estrada DO on 10/15/2024 8:56 AM Impressions 10/14/2024 1:57 PM [employer] MERCHANDISER IMPRESSION: 1. Suggestion of possible focal asymmetry [...] (breast imaging fellow). Memo Espinoza and Varghese Burhnam MD (residential property consultant) assisted in interpretation of this exam. ILaurel DO have personally reviewed and interpreted this examination/study. > Interpreting Provider: Laurel Estrada DO on 10/14/2024 1:57 PM Narrative 10/14/2024 1:57 PM [employer] MERCH[employer]ER EXAMINATIONS: BILATERAL DIGITAL SCREENING MAMMOGRAM AND BILATERAL BREAST TOMOSYNTHESIS LOCATION: [facility] EXAM DATE: 10/14/2024 HISTORY: Screening. [...] DIGITAL SCREENING MAMMOGRAM AND BILATERALBREAST TOMOSYNTHESIS LOCATION: [facility] EXAM DATE: 10/14/2024 HISTORY: Screening. [...] NEED ADDITIONALIMAGING EVALUATION. Report dictated by Ava Levine, [facility] (breast imaging fellow). Memo Espinoza and Varghese Burnham MD (residential property consultant) assistedin interpretation of this exam. ILaurel DO [...] the patient. Procedure Code(s): --- Professional --- 65740, Colonoscopy, flexible; with removal of tumor(s), polyp(s), or other lesion(s) by snare technique Diagnosis Code(s): --- Professional --- Z12.11, Encounter for screening for malignant neoplasm of colon D12.2, Benign neoplasm of ascending colon D12.3, Benign neoplasm of transverse colon (hepatic flexure or splenic flexure) D12.5, Benign neoplasm of sigmoid colon CPT copyright 2021 [employer]. All rights reserved. The codes documented in this report are preliminary and upon boot turner review may be revised to meet current compliance requirements. Justin Otoole MD 06/19/2024 9:58:58 AM This report has been signed electronically. Note Initiated On: 06/19/2024 9:00 AM Number of Addenda: 0 [facility] [address] [place] [id number] [facility] [employer] 06/19/2024 9:00 AM CDT us Justin Otoole MD GI PROCEDURE ORDERABLES Edited Result - [facility] * COMPREHENSIVE METABOLIC PANEL (08/23/2023 3:46 PM FLORAL MERCHANDISER) Glucose 82 65 - 99 mg/dL [facility] [...] 29 U/L [facility] Comment: Test Performed at: [email or web address] [address] JORDYN DUMAS MD Blood BLOOD SPECIMEN / Unknown 08/23/2023 3:46 PM [employer]CH[employer] 08/23/2023 3:46 PM [employer] MERCHAND[employer]ER us Moriah Bray MD LAB - CHEMISTRY ORDERABLES Ping harvey Result Performing Organization Address [facility]/ZIP Co de Phone Number [address] [address] * (ABNORMAL) LIPID PROFILE (08/23/2023 3:46 PM [employer]ORAL MERCHANDISER) Cholesterol 189 <200 mg/dL [facility] HDL Cholesterol 61 > OR = 50 mg/dL [facility] Triglycerides 115 <150 mg/dL [facility] LDL Calculated 107(H) mg/dL (calc) [facility] Comment: Reference range: <100 Desirable range <100 mg/dL for primary prevention; <70 mg/dL for patients with CHD or diabetic patients with > or = 2 CHD risk factors. LDL-C is now calculated using the Silvestre calculation, which is a validated novel method providing better accuracy than the Friedewald equation in the estimation of LDL-C. Mike SS et al. TOMER. 2013;310(19): 1313-4286 (http://education.[employer]/faq/NGQ342) CHOL/HDLC RATIO 3.1 <5.0 (calc) [facility] Non HDL Cholesterol 128 <130 mg/dL (calc) [facility] Comment: For patients with diabetes plus 1 major ASCVD risk factor, treating to a non-HDL-C goal of <100 mg/dL (LDL-C of <70 mg/dL) is considered a therapeutic option. Test Performed at: [email or web address] [address] JORDYN DUMAS MD Blood BLOOD SPECIMEN / Unknown 08/23/2023 3:46 PM FLORAL MERCHANDISER 08/23/2023 3:46 PM [employer]ORAL MERCHANDISER us Moriah Bray MD LAB - CHEMISTRY ORDERABLES Ping harvey Result Performing Organization Address City/[facility]/ZIP Co de Phone Number [address] [address] * HEPATITIS C AB SCREEN RFLX NAAT QUANT (07/20/2023 4:31 PM CDT) Hepatitis C Antibody Non-react rafy Non-reac tive 07/20/2023 5:52 PM CDT [facility] Comment:Hepatitis C Antibody screen indicates no [...] PM CDT 07/20/2023 4:58 PM CDT us Moraih Bray MD LAB - CHEMISTRY ORDERABLES Ping harvey Result [facility] [address] [place] [address], [facility] [phone] from Last 3 Months or Most Recently Relevant to Health Maintenance Insurance [facility] Care Teams Logistics Solution Manager Relationship Specialty Start Date End Date Demarcus Camejo MD [address] [facility] [address] [place] [address] PCP - General Family Medicine 07/05/24
--- OUTSIDE RECORDS SUMMARY | 2025-05-07 15:46 | XMS_ITS | Clinical Summary ---
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 Name Role Phone Ira Barrett Primary Care Provider + Darius Rodriguez MD Unavailable [phone] Allergies No known active allergies Medications venlafaxine XR (EFFEXOR-XR) 75 mg 24 hr capsule Take 1 capsule (75 mg total) by mouth daily 024 Active furosemide (LASIX) 20 mg tablet Take 1 tablet (20 mg total) by mouth daily 30 tablet 6 025 Active famotidine (PEPCID) 40 mg tabletIndication s:Gastroesophage al reflux disease, unspecified whether esophagitis present Take 1 tablet (40 mg total) by mouth daily 30 tablet [address] (PROTONIX) 40 mg EC tabletIndication s:Gastroesophage al reflux disease, unspecified whether esophagitis present Take 1 tablet (40 mg total) by mouth 2 (two) times a day before breakfast and dinner 60 tablet 3 025 Active Linzess 145 mcg capsule Take 1 capsule by mouth once daily 30 capsule 025 Active lamoTRIgine (LaMICtal) 200 mg tablet 025 Active acetaminophen ER (TYLENOL) 650 mg 8 hr tabletIndication s:Chronic bilateral low back pain without sciatica Take 1 tablet (650 mg total) by mouth every 8 (eight) hours as needed for pain 90 tablet 1 Active Procto-Med HC 2.5 % rectal cream Insert into the rectum 2 (two) times a day Active ketoconazole (NIZORAL) 2 % cream Apply topically daily Active celecoxib (CeleBREX) 200 mg capsuleIndicatio ns:Degeneration of lumbar intervertebral disc Take 1 capsule (200 mg total) by mouth 2 (two) times a day 60 capsule 5 Active lamoTRIgine (LaMICtal) 100 mg tablet Take 1 tablet (100 mg total) by mouth nightly 024 2024 Discontinued cholecalciferol (VITAMIN D-3) 5,000 unit tablet 2024 Discontinued(P atient Reported) coenzyme Q10 10 mg capsule Take 1 capsule (10 mg total) by mouth daily 2024 Discontinued(P atient Reported) celecoxib (CeleBREX) 200 mg capsuleIndicatio ns:Degeneration of lumbar intervertebral disc Take 1 capsule (200 mg total) by mouth 2 (two) times a day 60 capsule 5 024 2024 Discontinued(R eorder) hydrocortisone 2.5 % cream Apply topically 2 (two) times a day 30 g 025 2024 Discontinued(P atient Reported) hydrocortisone (ANUSOL-HC) 25 mg suppository Insert 1 suppository (25 mg total) into the rectum daily Take prior to procedure as directed 12 suppository 1 025 2024 Discontinued(N o longer taking - Do not display on AVS) timolol (TIMOPTIC) 0.5 % ophthalmic solution APPLY 1 DROP TO FISSURED SKIN 2-3 TIMES A DAY NEEDED FOR ASSOCIATED PAIN 2024 Discontinued(P atient Reported) amoxicillin-clav ulanate (AUGMENTIN) 500-125 mg per tablet Take 1 tablet by mouth 3 (three) times a day for 7 days 21 tablet 025 2024 Active Problems Problem Noted Date Diagnosed Date Prediabetes 05/06/2025 Assessment & Plan (05/06/2025 12:53 PM CDT): New problem A1c is 5.9, indicating prediabetes. Discussed importance of lifestyle modifications to prevent progression to diabetes. - Advise dietary modifications to limit pastas, breads, and sweets. - Encourage regular physical activity. Former smoker 05/06/2025 Assessment & Plan (05/06/2025 12:53 PM CDT): Smoking history of 28 years, quit in February last year. Pilonidal cyst 04/11/2025 Assessment & Plan (05/06/2025 12:53 PM CDT): Acute, recurrent exacerbations Surgical removal planned 05/20/25 Assessment & Plan (04/11/2025 12:33 PM CDT): Nothing visible on exam today - discussed with patient. Recurrent issue. Recommend hot compresses for pain. Continue celebrex and start Tylenol PRN for pain. Will get set up with general surgery to discuss intervention for recurrent flares/abscesses Orders: Ambulatory referral to General Surgery; Future Morbid obesity with BMI of 40.0-44.9, adult 02/16 Assessment & Plan (05/06/2025 12:53 PM CDT): Chronic, uncontrolled Goal of BMI under 30 Exercise encouraged 30 minutes 5 times a week or 150 minutes a week with no more than 2 days in between Healthy diet recommended 2 lb per week healthy weight loss goal Assessment & Plan (03/06/2025 10:11 AM CDT): BMI Follow-up includes: Referral to bariatric surgeon. Limited medication options due to insurance. Labs ordered Orders: CBC with auto differential; Future Comprehensive metabolic panel; Future Thyroid Function Cache; Future Hemoglobin A1c; Future Vitamin D 25 hydroxy; Future Ambulatory referral to Bariatric Surgery; Future Carpal tunnel syndrome 03/04/2025 Irritable bowel syndrome 03/04/2025 Osteoarthritis 03/04/2025 Other hemorrhoids 01/29/2025 Assessment & Plan (02/17/2025 12:08 PM CDT): Most recent colonoscopy performed on 02/05 showed internal hemorrhoids. States that rectal bleeding has subsided to roughly once a week with use of Linzess to help with her constipation. States that she is having continued complaints of rectal itching with occasional bleeding. -We will send to Colorectal surgery for treatment Assessment & Plan (01/29/2025 4:54 PM CDT): States that a few months ago began having significant rectal bleeding. Does have a history of constipation as well as hemorrhoids but is extremely worried of colon cancer. Pictures shown of toilet bowl full of blood. States that this happened on multiple occasions. -Colonoscopy for further evaluation -We will send in a prescription for Anusol to help with hemorrhoid problems -Discussed that resolution of constipation can minimize complaints of hemorrhoids. -Possible colorectal surgical referral discussed as well Screening for colon cancer 01/29/2025 Abnormal EKG 11/18/2024 Other chest pain 11/18/2024 Venous insufficiency 11/18/2024 Assessment & Plan (05/06/2025 12:53 PM CDT): Chronic, intermittent Chronic venous insufficiency with leg pain and swelling. Uses furosemide and compression socks inconsistently due to heat. Increased activity reduces swelling. - Continue furosemide. - Encourage use of compression socks when feasible. - Encourage regular physical activity. Colon polyp 07/18/2024 Assessment & Plan (02/17/2025 12:09 PM CDT): Most recent colonoscopy performed on 02/05/2025 showed a hyperplastic polyp. Recommended repeat colonoscopy in 5 years. -We will be due for colonoscopy of January of 2030 Hepatic steatosis 06/12/2024 Assessment & Plan (05/06/2025 12:53 PM CDT): Chronic, Unstable Liver enzymes w/ ALT elevated at 52 Low fat, cholesterol diet recommended Assessment & Plan (06/12/2024 3:28 PM CDT): Seen on ultrasound. Discussed mainstay of treatment as weight loss. Gastroesophageal reflux disease 06/12/2024 Assessment & Plan (05/06/2025 12:53 PM CDT): Chronic, uncontrolled Followed by GI - Continue Protonix twice daily. - Advise dietary modifications to avoid heavy foods and late meals. Assessment & Plan (03/06/2025 10:11 AM CDT): Chronic, stable condition. Continue current medication regimen: PPI per GI Assessment & Plan (02/17/2025 12:07 PM CDT): EGD was performed on 02/05/2025 in which showed grade B esophagitis, gastritis. Currently doing well on Protonix b.i.d. and will utilize famotidine at bedtime for breakthrough complaints. -We will continue Protonix b.i.d. for 1 month and then decrease back down to once daily. -May utilize famotidine at bedtime for breakthrough complaints. -Educated on importance of avoiding possible trigger foods including coffee, soda, fried greasy foods, tomato based products. -May use [id number] Gaviscon Assessment & Plan (01/29/2025 4:51 PM CDT): Reports that she is having increasing complaints of reflux. Was currently on daily PPI b.i.d. but has since been decreased to once daily. Reports that she is having a burning sensation in her chest as well as epigastric discomfort and occasional nausea. No reports of vomiting. -EGD for further evaluation -We will send in a prescription for famotidine at bedtime -Educated on importance of avoiding certain food triggers including coffee, soda, fried greasy foods, tomato based products, and chocolate. Assessment & Plan (06/12/2024 3:29 PM CDT): Taking omeprazole [id number]-hma-[id number] daily and feels it is no longer helping. Stop omeprazole. Start Protonix 40 mg daily Proceed with colonoscopy and follow up with GI as scheduled Likely will need EGD, but patient does not think she is scheduled for this along with her colonoscopy. Constipation 05/06/2024 Assessment & Plan (02/17/2025 12:08 PM CDT): Doing well on Linzess 145 mcg in which he is having a soft formed stool roughly every other day. -We will continue medication at this time Assessment & Plan (01/29/2025 4:55 PM CDT): Does have a history of constipation in his trialed and failed loag-ltk-vcdodll medications including stool softeners, MiraLax, and fiber. Was started on Trulance and states that medication gave her horrible diarrhea and she is currently taking every other day. Does report that she was on Linzess years ago that was extremely helpful but insurance was unable to cover. -Sample card for Linzess to receive free sample If therapeutic hopefully we can put in a PA for approval Assessment & Plan (11/29/2024 9:54 AM CDT): Constipation with associated rectal bleeding. Chronic constipation, uncontrolled, with rectal bleeding likely due to hemorrhoids and straining x 1 week.. Linzess discontinued due to insurance; Trulance causes liquid stools without resolving incomplete evacuation. Bright red bleeding suggests hemorrhoidal origin. Hemorrhoid confirmed on rectal exam. Consider IBS as well. - Referred to a new speech coach for further evaluation and management. - Recommend [...] almost the last year. Has started taking tlxj-qqm-ripepfw stool softener but not sure if it [...] 10/29/2023 Assessment & Plan (09/19/2024 3:16 PM SUPPORTIVE EMPLOYMENT CASE MANAGER): Chronic, stable condition. Continue current medication regimen per psychiatrist Assessment & Plan (06/12/2024 3:27 PM CDT): Chronic, stable. Patient is following with psychiatrist Assessment & Plan (04/03/2024 1:42 PM CDT): Managed by psychiatrist - continues on Lamictal, benzo, Effexor Borderline personality disorder 10/29/2023 Assessment & Plan (09/19/2024 3:16 PM SUPPORTIVE EMPLOYMENT CASE MANAGER): Chronic, stable condition. Continue current medication regimen per psychiatrist Assessment & Plan (06/12/2024 3:27 PM CDT): Chronic, stable. Patient is following with psychiatrist and manage his medication Assessment & Plan (04/03/2024 1:42 PM CDT): Managed by psychiatrist - continues on Lamictal, benzo, Effexor Generalized anxiety disorder 10/29/2023 Assessment & Plan (03/06/2025 10:11 AM CDT): Seeing psychiatrist Chronic, stable Assessment & Plan (06/12/2024 3:28 PM CDT): Chronic, stable. Continue current medications as prescribed by psychiatrist Assessment & Plan (04/03/2024 1:42 PM CDT): Managed by psychiatrist - continues on Lamictal, benzo, Effexor Lichen planus 06/23/2023 Assessment & Plan (07/18/2024 1:14 PM CDT): Chronic,worsening. Patient will follow up with rn enterostomal Assessment & Plan (06/12/2024 3:27 PM CDT): Ongoing issue. Patient is scheduled to see Rheumatology later in June Assessment & Plan (04/03/2024 1:42 PM CDT): Chronic, improved - finished 9 week course of steroids per dermatology Degeneration of lumbar intervertebral disc 06/23 Assessment & Plan (05/06/2025 12:53 PM CDT): Chronic, uncontrolled New referral provided per request Orders: Ambulatory referral order to Physical Therapy -; Future Assessment & Plan (04/11/2025 12:33 PM CDT): As above Orders: Ambulatory referral order to Physical Therapy -; Future Assessment & Plan (06/12/2024 3:26 PM CDT): Chronic, worsening. Increase Celebrex to 200 mg twice daily. Resolved Problems Problem Noted Date Diagnosed Date Resolved Date Class 3 severe obesity due t o excess calories with serious comorbidity and body mass index (BMI) of 40.0 to 44.9 in adult 07/18/2024 Assessment & Plan (11/29/2024 9:54 AM CDT): BMI Follow-up includes: education provided. Assessment & Plan (07/18/2024 1:14 PM CDT): Chronic, patient is concerned about her weight. BMI Follow-up includes: nutrition counseling and exercise counseling. Trial phentermine Encounters Date Type Department Care Team Description 05/06/20 10:30 AM CDT Office Visit [facility] [address] [phone] Sanjuana Lemon NP Hemorrhoids, unspecified hemorrhoid type (Primary Dx); Pilonidal cyst; Preop examination; Gastroesophageal reflux disease with esophagitis without hemorrhage; Morbid obesity with BMI of 40.0-44.9, adult (HCC); Degeneration of intervertebral disc of lumbar region with discogenic back pain and lower extremity pain; Chronic cough; Prediabetes; Hepatic steatosis; Former smoker; Venous insufficiency 05/06/20 Results Follow-Up [address] [phone] Sanujana Lemon NP ECG 12 lead, Comprehensive metabolic panel, CBC with auto differential 05/02/[address] [phone] Ira Barrett PA Medical Question/Miscellaneous 04/21/20 Nurse Triage [address] [phone] Ira Barrett PA 04/19/20 9:23 AM CDT - 04/19/20 11:59 PM CDT Hospital Encounter [address] [address] Gastrointestinal hemorrhage associated with gastritis, unspecified gastritis type Discharge Disposition: Discharge to home or self care 04/11/20 10:30 AM CDT Office Visit [address] [phone] Ira Barrett PA Pilonidal cyst (Primary Dx); Chronic bilateral low back pain without sciatica; Degeneration of intervertebral disc of lumbar region with discogenic back pain and lower extremity pain 04/11/20 Letter (Out) [address] [phone] 03/25/20 25 Orders Only [address] [address] Ira Barrett PA Morbid obesity with BMI of 40.0-44.9, adult (HCC); Vitamin D deficiency; Elevated cholesterol; Elevated LFTs; Hyperglycemia; Need for hepatitis C screening test 03/06/20 Results Follow-Up [address] [address] Ira Barrett PA CBC with auto differential, Comprehensive metabolic panel, Thyroid Function Cache, Additional followed-up results: 6 03/04/20 9:00 AM CDT Office Visit [facility] Medicine [address] [phone] Ira Barrett PA Morbid obesity with BMI of 40.0-44.9, adult (HCC) (Primary Dx); Gastroesophageal reflux disease with esophagitis without hemorrhage; Generalized anxiety disorder; Vitamin D deficiency; Elevated cholesterol; Hyperglycemia; Elevated LFTs; Umbilical hernia without obstruction and without gangrene; Need for hepatitis C screening test 03/04/20 Letter (Out) [facility] [address] [address] 02/25/20 12:00 PM CDT Office Visit [facility] Card[facility] [address] [facility] [address] [place] [address] Darius Rodriguez MD Venous insufficiency (Primary Dx); Abnormal EKG; Other chest pain 02/22/20 Orders Only [facility] Gastroenterology at [address] [place] [phone] Aditi Panda NP Other hemorrhoids (Primary Dx) 02/18/20 11:30 AM CDT Office Visit [facility] Gastroenterology at [address] [place] [phone] Aditi Panda NP Gastroesophageal reflux disease with esophagitis without hemorrhage (Primary Dx); Other hemorrhoids; Constipation, unspecified constipation type; Colon polyp 02/08/20 Orders Only [facility] Gastroenterology at [address] [place] [phone] Slade Nash MD 02/08/20 Results Follow-Up [facility] Gastroenterology at [address] [place] [address] Slade Nash MD Surgical pathology 02/06/20 11:16 AM CDT Anesthesia Event [facility] [address] [place] [address] Demetri Segura MD 02/06/20 11:00 AM CDT - 02/06/20 11:30 AM CDT Surgery [facility] [address] [place] [address] Slade Nash MD ESOPHAGOGASTRODUODENOSCOPY BIOPSY 02/06/20 10:06 AM CDT - 02/06/20 1:10 PM CDT Hospital Encounter [facility] [address] [place] [address] Slade Nash MD Gastroesophageal reflux disease, unspecified whether esophagitis present; Rectal bleeding; Constipation, unspecified constipation type; Screening for colon cancer Discharge Disposition: Discharge to home or self care from Last 3 Months Immunizations Immunization Administration Dates Next Due Influenza, Quadrivalent, Spl it, Intramuscular 06/07/2023,06/23/2021 Influenza, Quadrivalent, Spl it, Preservative Free, Intramuscular 07/12/2022,06/01/2017 Influenza, Unspecified 07/18/2024(Deferr ed: Patient Refused),06/18/2024(Deferred: Patient decision),06/18/2024(Deferred: Patient Refused) Tdap 03/15/2016 Surgical History Surgery Date Site/Laterality Comments SECTION 2001,2006 x2 TONSILLECTOMY/ADENOIDECTOMY TOOTH EXTRACTION TUBAL LIGATION 2006 COLONOSCOPY x2 with polypectomy COLON SURGERY HYSTEROSCOPY W/ ENDOMETRIAL ABLATION Medical History Medical History Date Comments Anxiety 2007 Depression 2008 Autoimmune disease 2022 Chronic venous insufficiency Lichen planus HPV in female Carpal tunnel syndrome ((Pt Qnr Sub: Nerve /muscle disease)) Arthritis GERD (gastroesophageal reflux disease) Liver disease Colon polyp Chronic diarrhea Irritable bowel syndrome Bipolar disorder PTSD (post-traumatic stress disorder) Family History Medical History Relation Name Comments Depression Daughter 1 Philly Asthma Daughter 2 Praveena Depression Daughter 2 Praveena Diabetes Father Dad Heart disease Father Dad Alcohol abuse Maternal Grandfather Miguel Blumt Cancer Maternal Grandmother Lizeth Lupus Maternal Grandmother [...] maybe 2 times a day if that. Alcohol Use Standard Drinks/Week Comments Never 0 (1 standard drink = 0.6 oz pur e alcohol) PHQ-2 Answer Date Recorded PHQ-2 Total Score [...] on file Legal Sex Female 11:46 PM SUPPORTIVE EMPLOYMENT CASE MANAGER Gender Identity Female 03/27/2024 7:14 AM CDT [...] CDT Inhaled Oxygen Concentration - - Weight 106.1 kg (234 lb) 05/07/2025 10:18 AM CDT Height 160 cm (5' 3) 05/07/2025 10:18 AM CDT Body Mass Index 41.45 05/07/2025 10:18 AM CDT Plan of Treatment Upcoming Encounters Date Type Department Care Team (Latest Contact Info) Description 05/20/2025 10:20 AM CDT Hospital Encounter [facility] OR [address] [place] [phone] Sree Denton MD [address] [place] [id number] 05/20/2025 10:20 AM CDT Anesthesia Event [facility] OR [address] [place] [phone] Jaquan Avina MD [address] [place] [address] [place] [address] 05/20/2025 10:20 AM CDT - 05/20/2025 11:50 AM CDT Surgery [facility] OR [address] [place] [address] Sree Denton MD [address] [place] [id number] RECTAL EXAM UNDER ANESTHESIA WITH HEMORRHOIDECTOMY, PROCTOCTOSCOPY Scheduled Procedures Name Priority Associated Diagnoses Date/Ti me HEMORRHOIDECTOMY HEMORRHOID, PILONIDAL CYST 05/20/2025 10:20 AM CDT EXCISION PILONIDAL CYST HEMORRHOID, PILONIDAL CYST 05/20/2025 10:20 AM CDT Health Maintenance Due Date Last Done Comments Regular Well Visit/Exam 18-64 02/16/1996 Pneumococcal vaccine <65 (1 of 2 - PCV) 1997 Covid-19 Vaccine (3 - 2023-2 5 season) 2024 02/20/2021, 11/18/2020 Influenza Vaccine (#1) 2025 3, 07/12/2022, 06/23/2021, Additional history exists Breast Cancer Screening-Mammogram 10/14/2025 10/14/2024, 10/14/2024, 10/14/2024, Additional history exists DTaP/Tdap/Td Vaccine (2 - Td or Tdap) 03/15/2026 03/15/2016 Depression Screening 05/06/2026 05/06/2025, 04/11/2025, 03/04/2025, Additional history exists Cervical Cancer Screening 01/09/2029 01/10/2024 Colon Cancer Screening-Colonoscopy 02/05/2030 02/05/2025, 06/19/2024, 07/05/2023 Hepatitis B Screening Completed 03/05/2025 Hepatitis C Screening Completed 03/05/2025 Procedures Procedure Name Priority Date/Time Associated Diagnosis Comments CBC WITH AUTO DIFFERENTIAL Routine 05/06 12:47 PM CDT COMPREHENSIVE METABOLIC PANEL Routine 12:47 PM CDT Preop examination ECG 12-LEAD Routine 05/06/2025 10:40 AM CDT Preop examination CT ABDOMEN PELVIS W CONTRAST Schedule Routine, Read Routine (OP Routine) 04/19/2025 9:57 AM CDT Gastrointestinal hemorrhage associated with gastritis, unspecified gastritis type HEPATITIS C ANTIBODY Routine 03/05/2025 8:34 AM CDT Need for hepatitis C screening test HEPATITIS B SURFACE ANTIGEN Routine 02/16 8:34 AM CDT Need for hepatitis C screening test HEPATITIS B SURFACE ANTIBODY (IMMUNE STATUS) Routine 03/05/2025 8:34 AM CDT Need for hepatitis C screening test HEPATITIS B CORE ANTIBODY, TOTAL Routine 03/05/2025 8:34 AM CDT Need for hepatitis C screening test VITAMIN D 25 HYDROXY Routine 03/05/2025 8:32 AM CDT Morbid obesity with BMI of 40.0-44.9, adult (HCC) Vitamin D deficiency Elevated cholesterol Elevated LFTs HEMOGLOBIN A1C Routine 03/05/2025 8:32 AM CDT Morbid obesity with BMI of 40.0-44.9, adult (HCC) Vitamin D deficiency Elevated cholesterol Hyperglycemia Elevated LFTs THYROID FUNCTION CASCADE Routine 025 8:32 AM CDT Morbid obesity with BMI of 40.0-44.9, adult (HCC) Vitamin D deficiency Elevated cholesterol Elevated LFTs COMPREHENSIVE METABOLIC PANEL Routine 8:32 AM CDT Morbid obesity with BMI of 40.0-44.9, adult (HCC) Vitamin D deficiency Elevated cholesterol Elevated LFTs CBC WITH AUTO DIFFERENTIAL Routine 03/05 8:32 AM CDT Morbid obesity with BMI of 40.0-44.9, adult (HCC) Vitamin D deficiency Elevated cholesterol Elevated LFTs SURGICAL PATHOLOGY Routine 02/05/2025 11:24 AM CDT Gastroesophageal reflux disease, unspecified whether esophagitis present Rectal bleeding Constipation, unspecified constipation type Screening for colon cancer EGD 02/05/2025 11:21 AM CDT COLONOSCOPY 02/05/2025 11:21 AM CDT ENDO ADD ON COLON BIOPSY 025 11:16 AM CDT Gastroesophageal reflux disease, unspecified whether esophagitis present Rectal bleeding Constipation, unspecified constipation type Screening for colon cancer COLON REMOVAL SNARE 02/05/2025 11:16 AM CDT Gastroesophageal reflux disease, unspecified whether esophagitis present Rectal bleeding Constipation, unspecified constipation type Screening for colon cancer ESOPHAGOGASTRODUODENOSCOPY BIOPSY 02/05/2025 11:16 AM CDT Gastroesophageal reflux disease, unspecified whether esophagitis present Rectal bleeding Constipation, unspecified constipation type Screening for colon cancer POC BLOOD GAS AND CHEMISTRIE S, VENOUS Routine 02/05/2025 10:51 AM CDT HM MAMMOGRAPHY Routine 10/14/2024 PAP SMEAR WITH HPV Routine 01/10/2024 from Last 3 Months or Most Recently Relevant to Health Maintenance Results * CBC with auto differential (05/06/2025 [...] 05/06/2025 12:47 PM CDT us Sanjuana Lemon FINANCIAL AID COUNSELOR LAB BLOOD ORDERABLES Final R esult [facility] [address] [phone] * (ABNORMAL) Comprehensive metabolic panel (05/06/2025 12:47 PM CDT) Glucose 103(H) 65 - 99 mg/dL [facility] [...] 7 PM CDT 05/06/2025 12:47 PM CDT Sanjuana Lemon NP LAB BLOOD ORDERABLES Final R esult [facility] [address] [place] [address] * ECG 12 lead (05/06/2025 10:40 AM CDT) Sanjuana Lemon NP ECG ORDERABLES Final Result * CT Abdomen Pelvis W Contrast (04/19/2025 9:57 AM CDT) Anatomical Region Laterality Modality Body N/A Computed Tomogra phy 04/29/2025 10:0 2 PM CDT Narrative 04/29/2025 10:07 PM CDT EXAM DESCRIPTION: CT ABDOMEN PELVIS W CONTRAST REASON FOR STUDY: r10.31 k92.2 Abdomen pain x 6 months TECHNIQUE: CT scan of the abdomen and pelvis performed with intravenous and without oral contrast using helical scanning technique with dynamic intravenous contrast injection. Reconstructed coronal and sagittal MPR images reviewed. All images stored on PACS. Automated exposure control was used as a dose optimization technique for this examination. CONTRAST TYPE/DOSE: 100mL of IOVERSOL 350 MG IODINE/ML INTRAVENOUS SYRINGE injected via intravenous COMPARISON: 10/03/2024 FINDINGS: LOWER CHEST: No significant pulmonary abnormalities. No effusion. LIVER: Moderately severe fatty liver. No masses or bile duct distention. Liver is nonenlarged. GALLBLADDER: Contracted BILE DUCTS: No intrahepatic or extrahepatic ductal dilatation. SPLEEN: Normal size. No focal lesions. PANCREAS: No identified cystic or solid masses. No significant calcifications. No adjacent inflammation or peripancreatic fluid collections. Pancreatic duct not dilated. ADRENALS: Normal. KIDNEYS/URINARY TRACT: No identified significant cystic or solid masses. No visualized stones. No hydronephrosis or hydroureter. Symmetric enhancement. Urinary bladder is unremarkable. GI: No dilated bowel loops. No obvious wall thickening. Small hyperdense material within the appendix but no signs of appendicitis. No significant diverticular disease. Colonic stool burden is normal. Stomach is normal without gastric wall thickening. Duodenal sweep is normal. PERITONEUM: No ascites or free air. . Small fat containing umbilical hernia. RETROPERITONEUM: No mass or adenopathy. REPRODUCTIVE: No significant abnormality. VASCULATURE: No abdominal aortic aneurysm. There is minimal plaque. MUSCULOSKELETAL: No significant abnormality. OTHER: No other abnormality. IMPRESSION: 1. Fatty liver without hepatomegaly. 2. No significant acute abnormalities. THIS IS AN ELECTRONICALLY VERIFIED FINAL REPORT 04/29/2025 10:07 PM - Electronically signed by Milan Daigle M.D. DA: NAGI Report ID: [id number] Reading Location: [place] [address] Procedure Note Milan Daigle MD - 04/29/2025 EXAM DESCRIPTION: CT ABDOMEN PELVIS W CONTRAST REASON FOR STUDY: r10.31 k92.2 Abdomen pain x 6 months TECHNIQUE: CT scan of the abdomen and pelvis performed with intravenousand without oral contrast using helical scanning technique with dynamic intravenous contrast injection. Reconstructed coronal and sagittal MPRimages reviewed. All images stored on PACS. Automated exposure control was usedas a dose optimization technique for this examination. CONTRAST TYPE/DOSE: 100mL of IOVERSOL 350 MG IODINE/ML INTRAVENOUSSYRINGE injected via intravenous COMPARISON: 10/03/2024 FINDINGS: LOWER CHEST: No significant pulmonary abnormalities. Noeffusion. LIVER: Moderately severe fatty liver. No masses or bile ductdistention. Liver is nonenlarged. GALLBLADDER: Contracted BILE DUCTS: No intrahepatic or extrahepatic ductal dilatation. SPLEEN: Normal size. No focal lesions. PANCREAS: No identified cystic or solid masses. No significant calcifications. No adjacent inflammation or peripancreatic fluidcollections. Pancreatic duct not dilated. ADRENALS: Normal. KIDNEYS/URINARY TRACT: No identified significant cystic or solid masses.No visualized stones. No hydronephrosis or hydroureter. Symmetricenhancement. Urinary bladder is unremarkable. GI: No dilated bowel loops. No obvious wall thickening. Smallhyperdense material within the appendix but no signs of appendicitis. No significant diverticular disease. Colonic stool burden is normal. Stomach is normal without gastric wall thickening. Duodenal sweep is normal. PERITONEUM: No ascites or free air. . Small fat containing umbilical hernia. RETROPERITONEUM: No mass or adenopathy. REPRODUCTIVE: No significant abnormality. VASCULATURE: No abdominal aortic aneurysm. There is minimal plaque. MUSCULOSKELETAL: No significant abnormality. OTHER: No other abnormality. IMPRESSION: 1. Fatty liver without hepatomegaly. 2. No significant acute abnormalities. THIS IS AN ELECTRONICALLY VERIFIED FINAL REPORT 04/29/2025 10:07 PM - Electronically signed by Milan Daigle M.D. DA: DA Report ID: [id number] Reading Location: [place] [address] Sree Denton MD IMG CT PROCEDURES Final Resu lt * Hepatitis C antibody Blood (03/05/2025 8:34 AM CDT) Hep C Ab NON-REACTI VE NON-REACT HEMANT [facility] Comment: HCV antibody was non-reactive. There is no laboratory evidence of HCV infection. In most cases, no further action is required. However, if recent HCV exposure is suspected, a test for HCV RNA (test code 41748) is suggested. For additional information please refer to http://TopFachhandel UG.ABL Solutions/faq/IPU75l8 (This link is being provided for informational/ educational purposes only.) Blood 03/05/2025 8:34 AM CDT 03/05/2025 8:34 AM CDT us Ira SINGH [facility] MICROBIOLOGY - [facility] AL ORDERABLES Final Result [facility] [address] [facility] [place] [address] * Hepatitis B core antibody, total Blood (03/05/2025 8:34 AM CDT) Hep B core IgG/IgM NON-REACTI VE NON-REACTI VE [facility] Comment: For additional information, please refer to http://TopFachhandel UG.ABL Solutions/faq/QDU130 (This link is being provided for informational/ educational purposes only.) Blood 03/05/2025 8:34 AM CDT 03/05/2025 8:34 AM CDT us Ira SINGH LAB MICROBIOLOGY - GENER AL ORDERABLES Final Result Performing Organization Address [facility]/ZIP Co de Phone Number QUEST [facility] [address] [place] [address] * Hepatitis B surface antibody (immune status) Blood (03/05/2025 8:34 AM CDT) HBsAb (immune status) NON-REACTI VE NON-REACTI VE [facility] Blood 03/05/2025 8:34 AM CDT 03/05/2025 8:34 AM CDT us Ira SINGH LAB MICROBIOLOGY - GENER AL ORDERABLES Final Result Performing Organization Address [facility] Co de Phone Number QUEST [facility] [address] [place] [address] * Hepatitis B Surface Antigen Blood (03/05/2025 8:34 AM CDT) HepBsAg NON-REACTI VE NON-REACTI VE [facility] Comment: For additional information, please refer to http://education.Xenoport.Adaptly/faq/WRH106 (This link is being provided for informational/ educational purposes only.) Blood 03/05/2025 8:34 AM CDT 03/05/2025 8:34 AM CDT us Ira SINGH LAB MICROBIOLOGY - GENER AL ORDERABLES Final Result Performing Organization Address [facility] Co de Phone Number MyVR [facility] [address] [place] [address] * Thyroid Function Cache (03/05/2025 8:32 AM CDT) TSH 2.67 mIU/L [facility] Comment: Reference Range > or = 20 Years 0.40-4.50 Ranges First trimester 0.26-2.66 Second trimester 0.55-2.73 Third trimester 0.43-2.91 Blood 03/05/2025 8:32 AM CDT 03/05/2025 8:33 AM CDT Narrative QUEST - 03/06/2025 3:22 AM CDT FASTING:YES FASTING: YES us Ira SINGH LAB BLOOD ORDERABLES Fin al Result [facility] [address] [address] * CBC with auto differential (03/05/2025 8:32 AM CDT) Pathologist [facility] WBC 9.3 3.8 - 10.8 Thousand/u L [facility] RBC, POC 4.38 3.80 - 5.10 Million/uL [facility] Hgb 13.7 11.7 - 15.5 g/dL [facility] Hct 41.8 35.0 - 45.0 % [facility] MCV 95.4 80.0 - 100.0 fL [facility] MCH 31.3 27.0 - 33.0 pg [facility] MCHC 32.8 32.0 - 36.0 g/dL [facility] Comment: For adults, a slight decrease in the calculated MCHC value (in the range of 30 to 32 g/dL) is most likely not clinically significant; however, it should be interpreted with caution in correlation with other red cell parameters and the patient's clinical condition. Rdw 11.9 11.0 - 15.0 % [facility] Platelets 363 140 - 400 Thousand/u L [facility] MPV 9.9 7.5 - 12.5 fL [facility] Neutrophils, abs 4,715 1,500 - 7,800 cells/uL [facility] Lymphocytes, abs 3,525 850 - 3,900 cells/uL [facility] Monocyte abs 837 200 - 950 cells/uL [facility] Eosinophils, abs 177 15 - 500 cells/uL [facility] Basophils, abs 47 0 - 200 cells/uL [facility] Neutrophils 50.7 % [facility] Lymphocyte pct 37.9 % [facility] Monocytes 9.0 % [facility] Eosinophils 1.9 % [facility] Basophils 0.5 % [facility] Blood 03/05/2025 8:32 AM CDT 03/05/2025 8:33 AM CDT Narrative QUEST - 03/06/2025 3:22 AM CDT FASTING:YES FASTING: YES Ira SINGH LAB BLOOD ORDERABLES Fin al Result QUEST [facility] [address] [place] [address] * Vitamin D 25 hydroxy (03/05/2025 8:32 AM CDT) Vitamin D 25-OH 43 30 - 100 ng/mL [facility] Comment: Vitamin D Status 25-OH Vitamin D: Deficiency: <20 ng/mL Insufficiency: 20 - 29 ng/mL Optimal: > or = 30 ng/mL For 25-OH Vitamin D testing on patients on D2-supplementation and patients for whom quantitation of D2 and D3 fractions is required, the QuestAssureD(TM) 25-OH VIT D, (D2,D3), LC/MS/MS is recommended: order code 48686 (patients >2yrs). See Note 1 Note 1 For additional information, please refer to http://education.Cloudike.Adaptly/faq/CAS734 (This link is being provided for informational/ educational purposes only.) Blood 03/05/2025 8:32 AM CDT 03/05/2025 8:33 AM CDT Narrative [facility]ST - 03/06/2025 3:22 AM CDT FASTING:YES FASTING: YES Ira SINGH LAB BLOOD ORDERABLES Fin al Result [facility] [address] [address] * (ABNORMAL) Hemoglobin A1c (03/05/2025 8:32 AM CDT) Hgb A1C 5.9(H) <5.7 % of total Hgb [facility] Comment: For someone without known diabetes, a hemoglobin A1c value between 5.7% and 6.4% is consistent with prediabetes and should be confirmed with a follow-up test. For someone with known diabetes, a value <7% indicates that their diabetes is well controlled. A1c targets should be individualized based on duration of diabetes, age, comorbid conditions, and other considerations. This assay result is consistent with an increased risk of diabetes. Currently, no consensus exists regarding use of hemoglobin A1c for diagnosis of diabetes for children. Blood 03/05/2025 8:32 AM CDT 03/05/2025 8:33 AM CDT Narrative [facility]ST - 03/06/2025 3:22 AM CDT FASTING:YES FASTING: YES Ira SINGH LAB BLOOD ORDERABLES Fin al Result Performing Organization Address City/[facility]/ZIP Co de Phone Number QUEST [facility] [address] [place] [address] * (ABNORMAL) Comprehensive metabolic panel (03/05/2025 8:32 AM CDT) Glucose 107(H) 65 - 99 mg/dL [facility] Comment: Fasting reference interval For someone without known diabetes, a glucose value between 100 and 125 mg/dL is consistent with prediabetes and should be confirmed with a follow-up test. BUN 20 7 - 25 mg/dL [facility] Creatinine 0.90 0.50 - 0.99 mg/dL [facility] eGFR 79 > OR = 60 mL/min/1.7 3m2 [facility] BUN/creat ratio SEE NOTE: 6 - 22 (calc) [facility] Comment: Not Reported: BUN and Creatinine are within reference range. Sodium 139 135 - 146 mmol/L [facility] Potassium, pl 3.9 3.5 - 5.3 mmol/L [facility] Chloride 101 98 - 110 mmol/L [facility] CO2 28 20 - 32 mmol/L [facility] Calcium 9.5 8.6 - 10.2 mg/dL [facility] Protein, sr 7.5 6.1 - 8.1 g/dL [facility] Albumin 4.4 3.6 - 5.1 g/dL [facility] GLOBULIN 3.1 1.9 - 3.7 g/dL (calc) [facility] Alb/glob ratio 1.4 1.0 - 2.5 (calc) [facility] Bilirubin, total 0.4 0.2 - 1.2 mg/dL [facility] Alk phos 115 31 - 125 U/L [facility] AST 34 10 - 35 U/L [facility] ALT (SGPT) 52(H) 6 - 29 U/L [facility] Blood 03/05/2025 8:32 AM CDT 03/05/2025 8:33 AM CDT Narrative [facility]ST - 03/06/2025 3:22 AM CDT FASTING:YES FASTING: YES us Ira SINGH LAB BLOOD ORDERABLES Fin al Result Performing Organization Address City/State/[facility] Co de Phone Number QUEST [facility] [address] [place] [address] * Surgical pathology (02/05/2025 11:24 AM CDT) Tissue (Duodenum, Biopsy) 02/05/2025 11:24 AM CDT Tissue specimen (specimen) (Gastric/Stomach biopsy) 02/05/2025 11:25 AM CDT Tissue specimen (specimen) (Esophageal biopsy) 02/05/2025 11:26 AM CDT Tissue specimen (specimen) (Polyp(s), colon/colorectal, esophageal, gastric) 02/05/2025 11:43 AM CDT Comment:Hot snare Tissue specimen (specimen) (Colon, Biopsy) 02/05/2025 11:45 AM CDT Comment:Cold bx Narrative PATHOLOGY H - 02/06/2025 6:43 PM CDT [facility] Department of Pathology [address] [place] [address] Note to Patients: This report may contain a detailed description of human tissue sent by a health care provider to the laboratory for pathologic evaluation. The content of this report is essential for diagnosis and may provide important critical findings. This information may be unfamiliar to patients to review without a medical professional present. It is advised that the patient review this report in the presence of a health care provider who can answer questions and explain the details. Final Report Patient Name: ARDEN GARCIA : 1980 (Age: 44) Gender: F Address: [address] [place] [address] Hospital #: [id number] Service: Gastro Location: Patient Type: [facility] OUTPATIENT Taken: 02/05/2025 Received: 02/05/2025 Accessioned: 02/05/2025 Reported: 02/06/2025 Physician(s): Fabricio Hernandez PA Diagnosis: A. Small intestine, duodenum, biopsy: - Duodenal mucosa with gastric mucin cell metaplasia; otherwise with no significant abnormality. - Negative for intraepithelial lymphocytosis, villous blunting and crypt hyperplasia. B. Stomach, body antrum, biopsy: - Antral and oxyntic mucosa with reactive epithelial changes. - No Helicobacter pylori is seen on H&E stained slides. C. Esophagus, distal, biopsy: - Columnar mucosa with chronic inflammation and reactive epithelial changes. - No definitive goblet cells characteristic of Manzano mucosa are seen. - Squamous mucosa with reactive epithelial changes. D. Colon, sigmoid, polyp, polypectomy: - Hyperplastic polyp. E. Colon, rectosigmoid, polyp, polypectomy: - Polypoid colonic mucosa with lymphoid aggregate and reactive epithelial changes. Junaid Johnston MD, PHD Report Electronically Reviewed and Signed Out By Junaid Johnston MD, PHD 02/06/2025 18:43:01 Specimen(s) Received: A: duodenal biopsies rule out Celiac B: gastric and body antrum rule out H. pylori C: distal esophageal biopsies rule out Manzano's esophagus D: sigmoid colon polyp E: biopsy rectosigmoid polyp Microscopic Description: Unless gross-only is specified, the final diagnosis for each specimen is based on a microscopic examination of each tissue sample. Clinical History: The patient is a 44-year-old woman with GERD, rectal bleeding, constipation, and presents for colon cancer screening. Operative procedure: Upper GI endoscopy and colonoscopy with biopsy. Gross Description Received in five formalin jars labeled with the patient's identifiers. A. Labeled duodenal biopsies rule out celiac and consists of four rogers tissue fragments ranging from 0.1-0.2 cm. Entirely submitted. Labeled A1. Jar 0. B. Labeled gastric and body antrum rule out H pylori and consists of two rogers tissue fragments measuring 0.2 cm and 0.5 cm. Entirely submitted. Labeled B1. Jar 0. C. Labeled distal esophageal biopsies rule out Barretts and consists of two rogers tissue fragments each measuring 0.5 cm. Entirely submitted. Labeled C1. Jar 0. D. Labeled sigmoid colon polyp and consists of a 0.6 cm rogers-red tissue fragment, which is entirely submitted. Labeled D1. Jar 0. E. Labeled biopsy rectosigmoid polyp and consists of a 0.3 cm rogers-pink tissue fragment, which is entirely submitted. Labeled E1. Jar 0. jjmhb/02/05/2025 14:39 KATHY Valentin, PA ([facility]) Microscopic slide review and interpretation for this case was performed at [facility], Department of Surgical Pathology, [address] [facility], [id number], [place] [address] CLIA # [id number] us Slade Nash MD LAB PATHOLOGY ORDERABLES Final R esult PATHOLOGY [facility] * EGD (02/05/2025 11:21 AM CDT) Anatomical Region Laterality Modality Other Narrative Procedure Note Slade Nash MD - 02/05/2025 11:21 AM CDT [facility] GI ENDOSCOPY Patient Name: Arden Garcia Procedure Date: 02/05/2025 11:21 AM Date of : 1980 Admit Type: Outpatient Age: 44 Gender: Female Attending MD: Slade Nash M.D. Room: [facility] ENDOSCOPY ROOM 03 Note Status: Finalized Procedure: Upper GI endoscopy Indications: Abdominal pain, Gastro-esophageal reflux disease Referring MD: Ira Barrett PA-C Providers: Slade Nash M.D. Medicines: Monitored Anesthesia Care Complications: No immediate complications. Procedure: Pre-Anesthesia Assessment: - Prior to the procedure, a History and Physicalwas performed, and patient medications and allergieswere reviewed. The risks and benefits of the procedureand the sedation options and risks were discussed withthe patient. All questions were answered and informed consent was obtained. Patient identification and proposed procedure were verified. After reviewingthe risks and benefits, the patient was deemed in satisfactory condition to undergo the procedure.The anesthesia plan was to use monitored anesthesiacare (MAC). Immediately prior to administration of medications, the patient was re-assessed foradequacy to receive sedatives. The heart rate, respiratory rate, oxygen saturations, blood pressure, adequacyof pulmonary ventilation, and response to care were monitored throughout the procedure. The physical status of the patient was re-assessed after the procedure. The benefits, risks, and alternatives to theprocedure and sedation were discussed and informed consentwas obtained. The scope was passed under direct vision. The GIF-Q180 upper endoscope was introduced through the mouth, and advanced to the second part of duodenum. The upper GI endoscopy was accomplished without difficulty. The patient tolerated the procedure well. Findings: LA Grade B (one or more mucosal breaks greater than 5 mm, notextending between the tops of two mucosal folds) esophagitis with no bleedingwas found in the distal esophagus. Biopsies were taken with a coldforceps for histology. Mild inflammation characterized by erythema was found in the stomach. Biopsies were taken with a cold forceps for Helicobacter pyloritesting. The examined duodenum was normal. Biopsies for histology were takenwith a cold forceps for evaluation of celiac disease. The cardia and gastric fundus were normal on retroflexion. The exam was otherwise without abnormality. Impression: - LA Grade B esophagitis with no bleeding.Biopsied. - Gastritis. Biopsied. - Normal examined duodenum. Biopsied. - The examination was otherwise normal. Recommendation: - Patient has a contact number available for emergencies. The signs and symptoms of potential delayed complications were discussed with thepatient. Return to normal activities tomorrow. Written discharge instructions were provided to thepatient. - GERD RECOMMENDATIONS given include: anti-reflux maneuvers, avoid acidic foods like oranges and tomatoes, avoidance of spicy foods, avoid eating3-4 hours before bed, elevation of the head of the bed, and weight loss. - Await pathology results. - Increase pantoprazole to 40 mg p.o. b.i.d. for 2 months, then decrease to once daily - Patient was advised to call GI office and make an appointment if symptoms persist. Slade Nash M.D. Slade Nash M.D. 02/05/2025 11:50:43 AM . Number of Addenda: 0 Note Initiated On: 02/05/2025 11:21 AM Recognized by the [place] for promoting quality in endoscopy us Slade Nash MD ENDOSCOPY PROCEDURES Final Resul t * Colonoscopy (02/05/2025 11:21 AM CDT) Anatomical Region Laterality Modality Other Narrative Procedure Note Slade Nash MD - 02/05/2025 11:21 AM CDT [facility] GI ENDOSCOPY Patient Name: Arden Garcia Procedure Date: 02/05/2025 11:21 AM Date of : 1980 Admit Type: Outpatient Age: 44 Gender: Female Attending MD: Slade Nash M.D. Room: [facility] ENDOSCOPY ROOM 03 Note Status: Finalized Procedure: Colonoscopy Indications: Rectal bleeding, History of colon polyps Referring MD: Ira Barrett PA-C Providers: Slade Nash M.D. Medicines: Monitored Anesthesia Care Complications: No immediate complications. Estimated Blood Loss: Estimated blood loss: none. Procedure: Pre-Anesthesia Assessment: - Prior to the procedure, a History and Physicalwas performed, and patient medications and allergieswere reviewed. The risks and benefits of the procedureand the sedation options and risks were discussed withthe patient. All questions were answered and informed consent was obtained. Patient identification and proposed procedure were verified. After reviewingthe risks and benefits, the patient was deemed in satisfactory condition to undergo the procedure.The anesthesia plan was to use monitored anesthesiacare (MAC). Immediately prior to administration of medications, the patient was re-assessed foradequacy to receive sedatives. The heart rate, respiratory rate, oxygen saturations, blood pressure, adequacyof pulmonary ventilation, and response to care were monitored throughout the procedure. The physical status of the patient was re-assessed after the procedure. The benefits, risks and alternatives of theprocedure and sedation were discussed and informed consentwas obtained. All questions were answered. Please referto the signed informed consent document in the medical record. The scope was passed under direct vision.The Colonoscope was introduced through the anus and advanced to the cecum, identified by appendiceal orifice and ileocecal valve. The colonoscopy was performed without difficulty. The patient tolerated the procedure well. The quality of the bowel preparation was adequate. Scope withdrawal time was12 minutes. Prep was administered in a split dose. Findings: The perianal and digital rectal examinations were normal. An 8 mm polyp was found in the sigmoid colon. The polyp was sessile.The polyp was removed with a hot snare. Resection and retrieval were complete. A diminutive polyp was found in the recto-sigmoid colon. The polypwas removed with a cold biopsy forceps. Resection and retrieval were complete. Non-bleeding internal hemorrhoids were found during retroflexion. The hemorrhoids were small. The exam was otherwise without abnormality. Impression: - One 8 mm polyp in the sigmoid colon, removed witha hot snare. Resected and retrieved. - One diminutive polyp at the recto-sigmoid colon, removed with a cold biopsy forceps. Resected and retrieved. - Non-bleeding internal hemorrhoids. - The examination was otherwise normal. Recommendation: - Patient has a contact number available for emergencies. The signs and symptoms of potential delayed complications were discussed with thepatient. Return to normal activities tomorrow. Written discharge instructions were provided to thepatient. - High fiber diet. - Continue present medications. - Await pathology results. - Repeat colonoscopy in 5 years for surveillance. - Recommend chnw-pdf-iixzyts hemorrhoidsuppositories b.i.d. for 2 weeks if bleeding recurs. Ifineffective, we will refer to Colorectal surgery. - Patient was advised to call GI office and make an appointment if symptoms persist. Slade Nash M.D. Slade Nash M.D. 02/05/2025 11:53:08 AM . Number of Addenda: 0 Note Initiated On: 02/05/2025 11:21 AM Recognized by the [place] for promoting quality in endoscopy Slade Nash MD ENDOSCOPY PROCEDURES Final Resul t * POC Blood Gas and Chemistries, Venous - (02/05/2025 10:51 AM CDT) Pathologist [facility] pH,evans POC 7.42 7.32 - 7.43 pCO2, evans POC 41 40 - 50 mmHg [facility] pO2,evans POC 39 mmHg [facility] Comment: Interpretive Data No reference range established. Current interpretive data was last revised 2020. HCO3, evans (Calc) POC 27 20 - 30 mmol/L [facility] Base excess, evans POC 2 mmol/L [facility] Comment: Interpretive Data No reference range established. Current interpretive data was last revised 2020. Hemoglobin, evans POC 13.3 11.9 - 15.5 g/dL [facility] Hematocrit, evans POC 39.0 35.6 - 45.5 % [facility] Sodium, evans POC 141 135 - 145 mmol/L [facility] Potassium, evans POC 3.4 3.3 - 4.9 mmol/L [facility] Comment: Interpretive Data This method is not able to assess for hemolysis, which may falsely increase potassium concentrations. If further testing is needed to evaluate this result, consider in-laboratory plasma potassium. Current Interpretive Data was last revised on 2022. Glucose, evans POC 89 70 - 199 mg/dL [facility] Ionized Calcium, evans POC 4.80 4.50 - 5.10 mg/dL [facility] Blood 02/05/2025 10:5 1 AM CDT 02/05/2025 10:51 AM CDT Slade Nash MD LAB POCT ORDERABLES - DEVICE Fin al Result [facility] [address] [facility] [place] [address] * HM MAMMOGRAPHY (10/14/2024) Mammography Abnormal us Historical Provider HEALTH MAINTENANCE Final Result * HM PAP SMEAR WITH HPV (01/10/2024) us Historical Provider HEALTH MAINTENANCE Final Result from Last 3 Months or Most Recently Relevant to Health Maintenance Insurance [facility] 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 [address], [place] [id number] Consulting Physician Cardiology 05/07/25
--- OUTSIDE RECORDS SUMMARY | 2025-05-07 15:46 | XMS_ITS | Encounter Summary ---
Author Organization [facility] Healthcare Address [address] [place] [address] Care Team Providers Care Telephoto Installer Name Role Phone Ira Barrett Primary Care Provider + Darius Rodriguez MD Unavailable [phone] Reason for Visit * Reason Onset Date Comments Information Only 04/21/2025 Encounter Details Date Type Department Care Team (Late st Contact Info) Description 04/21/2025 Nurse Triage [facility] Medical Group Family Medicine [address] [address] Ira Barrett PA [address] [place] [address] Social History Tobacco Use Types Packs/Day Years Used Date Smoking Tobacco: Former Cigarettes 1.3 28 0 01/16/1997 - 02/24/2024 Vaping Smokeless Tobacco: Current Comments:The vapes I marked up above are nicotine free. And I hit it maybe 2 times a day if that. AUDIT-C Answer Date Recorded Q1: How often do you have a drink containing alc ohol? Monthly or less 04/11/2025 Q2: How many drinks containi ng alcohol do you have on a typical day when you are drinking? 1 or 2 04/11/2025 Q3: How often do you have si x or more drinks on one occasion? Never 04/11/2025 PHQ-2 Answer Date Recorded PHQ-2 Total Score (If total score is 3 or more points, staff should administer the PHQ-9) 0 04/11/2025 PHQ-9 Answer Date Recorded PHQ-9 Total Score 11 04/03/2024 Personal Safety Answer Date Recorded Have you ever been in or are you currently in a harmful physical or emotional relationship or is someone making you feel afraid or unsafe? Denies 02/05/2025 Comments No Sex and Gender Information Value Date Recorded Sex Assigned at Not on file Legal Sex Female 11:46 PM STRIPPER AND PRINTER Gender Identity Female 03/27/2024 7:14 AM CDT Sexual Orientation Straight 03/27/2024 7: 14 AM CDT documented as of this encounter Ordered Prescriptions Prescription Sig Dispense Quantity Refills Last Filled Start Date End Date amoxicillin-clavul anate (AUGMENTIN) 500-125 mg per tablet Take 1 tablet by mouth 3 (three) times a day for 7 days 21 tablet 04/21/2025 04/28/2025 documented in this encounter Miscellaneous Notes * Telephone Encounter - Ariella Frances LPN - 04/22/2025 8:14 AM CDT Pt informed. * Telephone Encounter - Ira Barrett PA - 04/21/2025 4:50 PM CDT Stop clindamycin If she develops worsening symptoms or diarrhea, needs eval for C. Diff Augmentin sent instead * Telephone Encounter - Emma Bray LPN - 04/21/2025 3:43 PM CDT She states she is having an active abscess- she is having bloody puss drainage, It has decreased but it still present. She states the day she went to she felt it pop. She states she was planning on bringing up the cyst to Dr. Denton when she sees him but that her visit is for the other issue. I let her know to call dr. Denton's office to make sure he can also address that. * Telephone Encounter - Emma Bray LPN - 04/21/2025 3:33 PM CDT LM, awaiting return call * Telephone Encounter - Ira Barrett PA - 04/21/2025 3:26 PM CDT I agree with d/c the clindamycin if its giving her such serious side effects I'm not sure what they prescribed the antibiotics for? Unless there an active abscess, usually not indicated for pilonidal cyst (usually has I&D done which is what I referred her to general surgery for). Is she having any drainage or fevers, etc? Was Dr. Denton also addressing the pilonidal cyst? Her CT results are not available. The diagnosis code attached says GI hemorrhage so that may be what she's seeing. She will get results once available and reviewed by ordering provider. * Telephone Encounter - Emma Bray LPN - 04/21/2025 2:57 PM CDT Pt was seen on 04/18 at [facility] r/t pilonidal cyst. She is on day 2, has taken 3 pills so far. She is supposed to take it every 8 hours x7 days. Do you want patient to DC clindamycin? I told her tohold medication until I hear back from you as it is causing her severe stomach pain. I'm not sure if you want to prescribe anything in its place. She is aware ct results still pending that dr. Denton ordered. * Telephone Encounter - Gabby Nix RN - 04/21/2025 1:35 PM CDT Reason for Conversation Information Only Background Pt reported side and right upper quad pain and is seeing specialist, seen in [facility] for cyst on tail bone and was given clindamycin pain doubles 1/2 hours after taking it. Pt stated she is unsure if clindamycin flares her gastritis and if she should be taking this. Pt added she is seeing surgeon for internal hemorrhoid and pyeolidal cysts and a ct was done on Sat and aftercare summary results say gastrointestinal hemorrhage and she is concerned and wants to know what this means. Routed to PCP's clinical group. Disposition Discuss With PCP and Callback by Nurse Today Reason for Disposition Requesting lab results and adult stable (no new symptoms, not getting worse) Protocols Used Information Only Call - No [id number] * Telephone Encounter - Gabby Nix, RN - 04/21/2025 1:08 PM CDT Regarding: Severe to moderate pain in right side, abdomen and pelvic area ----- Message from ZeaKal sent at 04/21/2025 1:07 PM CDT ----- Symptom Based Call Chief Complaint(s): Severe to moderate right upper quadrant; pain in right side, abdomen and pelvicarea Duration: Started yesterday What type of symptom(s) is the patient experiencing? Red Flag. Is the patient concerned they are experiencing a medical emergency requiring an ambulance? No Additional Comments: Patient visited [facility] in [place] on 04/18/25 for cyst right above tailbone. Patient was given 300 mg Clindamycin, to be taken every 8 hours. The symptoms above started once she started taking this medication. Patient stated she has gastritis. Does message need to be routed? Yes-Action Needed documented in this encounter Plan of Treatment Upcoming Encounters Date Type Department Care Team (Latest Contact Info) Description 05/20/2025 10:20 AM CDT Hospital [place] [facility] [place] [address] [place] [address] [phone] Sree Denton MD [address] [place] [address] [phone] 05/20/2025 10:20 AM CDT Anesthesia Event [facility] [place] [address] [place] [address] Jaquan Avina MD [facility] [facility] [place] [address] 05/20/2025 10:20 AM CDT - 05/20/2025 11:50 AM CDT Surgery [facility] [place] [address] [place] [address] Sree Denton MD [address] [facility] [address] [place] [address] RECTAL EXAM UNDER ANESTHESIA WITH HEMORRHOIDECTOMY, PROCTOCTOSCOPY Scheduled Procedures Name Priority Associated Diagnoses Date/Ti me HEMORRHOIDECTOMY HEMORRHOID, PILONIDAL CYST 05/20/2025 10:20 AM CDT EXCISION PILONIDAL CYST HEMORRHOID, PILONIDAL CYST 05/20/2025 10:20 AM CDT documented as of this encounter Visit Diagnoses Not on filedocumented in this encounter Care Teams Telephoto Installer Relationship Specialty Start Date End Date Ira Barrett PA [address] [facility] [address] [place] [address] PCP - General Family Medicine 04/03/24 Darius Rodriguez MD [address] [place] [address] [address] [place] [address] Consulting Physician Cardiology 05/07/25 documented as of this encounter
--- OUTSIDE RECORDS SUMMARY | 2025-05-07 15:46 | XMS_ITS | Encounter Summary ---
Author Organization [facility] Address [address] [facility] [place] [address] Care Team Providers Care Direct Marketing Representative Name Role Phone Demarcus Camejo MD Primary Care Provider Reason for Visit * Reason Onset Date Comments MEDICATION REFILL 08/16/2023 Encounter Details Date Type Department Care Team (Late Contact Info) Description 08/16/2023 Refill [facility] - Dermatology [address] [place] [phone] Moriah Bray MD [address] [place], [place] [address] [phone] MEDICATION REFILL Social History Tobacco Use Types Packs/Day Years Used Date Smoking Tobacco: Some Days Cigarettes Smokeless Tobacco: Never Comments Unknown Sex and Gender Information Value Date Recorded Sex Assigned at Female 07/17/2023 12:21 AM CDT Legal Sex Female 6:00 AM AIRLINE MECHANIC Gender Identity Female 07/17/2023 12:21 AM CDT Sexual Orientation Straight 07/17/2023 12 :21 AM CDT documented as of this encounter Plan of Treatment Upcoming Encounters Date Type Department Care Team (Late Contact Info) Description 09/24/2025 12:50 PM AIRLINE MECHANIC Office Visit [facility] - Dermatology [address] [place] [phone] Moriah Bray MD [facility] [place] [address] documented as of this encounter Visit Diagnoses Not on filedocumented in this encounter Care Teams Direct Marketing Representative Relationship Specialty Start Date End Date Demarcus Camejo MD [address] [facility] [address] [place] [phone] PCP - General Family Medicine 07/05/24 documented as of this encounter
--- OUTSIDE RECORDS SUMMARY | 2025-05-07 15:46 | XMS_ITS | Encounter Summary ---
Author Organization [facility] Health Address [address] [place] [address] Care Team Providers Care Nib Inspector Name Role Phone Demarcus Camejo MD Primary Care Provider Reason for Visit * Reason Onset Date Comments Nurse Only 11/02/2023 Encounter Details Date Type Department Care Team (Late st Contact Info) Description 11/02/2023 Telephone [facility] Dermatology [address] [place] [address], [facility] [place] [address] Moriah Bray MD [address] [place] [address] [place] [address] Nurse Only Social History Tobacco Use Types Packs/Day Years Used Date Smoking Tobacco: Some Days Cigarettes Smokeless Tobacco: Never PHQ-2 Answer Date Recorded Patient Health Questionnaire-2 Score 2 10/29/2023 Comments Unknown Sex and Gender Information Value Date Recorded Sex Assigned at Female 07/17/2023 12:21 AM CDT Legal Sex Female 6:00 AM COMMISSION CLERK Gender Identity Female 07/17/2023 12:21 AM CDT Sexual Orientation Straight 07/17/2023 12 :21 AM CDT documented as of this encounter Miscellaneous Notes * Telephone Encounter - Bertha Olivarez - 11/02/2023 8:53 AM CST [employer] is calling in regards of pt FMLA paperwork. She states that the office sent pages 1 and 2,and [employer] is missing page 3. Please call [employer] at [phone] or send to fax [phone] ISSION CLERK documented in this encounter Plan of Treatment Upcoming Encounters Date Type Department Care Team (Late st Contact Info) Description 09/24/2025 12:50 PM COMMISSION CLERK Office Visit [facility] - Dermatology [address] [place] [address], [place] [phone] Moriah Bray MD [address] [place] [address] [place] [phone] documented as of this encounter Visit Diagnoses Not on filedocumented in this encounter Care Teams Nib Inspector Relationship Specialty Start Date End Date Demarcus Camejo MD [address] [facility] [address] [place] [address] PCP - General Family Medicine 07/05/24 documented as of this encounter
--- OUTSIDE RECORDS SUMMARY | 2025-05-07 15:46 | XMS_ITS | Encounter Summary ---
Author Organization [facility] Health Address [address] [facility] [place] [address] Care Team Providers Care Mineral Technologist Name Role Phone Demarcus Camejo MD Primary Care Provider Encounter Details Date Type Department Care Team (Late st Contact Info) Description 08/08/2023 Telephone [facility] - Dermatology [address] [place] [address] [place] [address] Moriah Bray MD [address] [place], [place] [address] [address] Social History Tobacco Use Types Packs/Day Years Used Date Smoking Tobacco: Some Days Cigarettes Smokeless Tobacco: Never Comments Unknown Sex and Gender Information Value Date Recorded Sex Assigned at Female 07/17/2023 12:21 AM CDT Legal Sex Female 6:00 AM RETORT ENGINEER Gender Identity Female 07/17/2023 12:21 AM CDT [...] case she needs to reschedule Please advise RT ENGINEER documented in this encounter Plan of Treatment Upcoming Encounters Date Type Department Care Team (Late st Contact Info) Description 09/24/2025 12:50 PM RETORT ENGINEER Office Visit [facility] - Dermatology [address] [place] [address], [place] [address] Moriah Bray MD [address] [place] [address] [place] [address] documented as of this encounter Visit Diagnoses Not on filedocumented in this encounter Care Teams Mineral Technologist Relationship Specialty Start Date End Date Demarcus Camejo MD [address] [address] [place] [address] PCP - General Family Medicine 07/05/24 documented as of this encounter
--- OUTSIDE RECORDS SUMMARY | 2025-05-07 15:46 | XMS_ITS | Encounter Summary ---
Author Organization [facility] Address [address] [facility] [place] [address] Care Team Providers Care Supervisor Cutting And Boning Name Role Phone Demarcus Camejo MD Primary Care Provider [phone] Reason for Visit * Reason Onset Date Comments MEDICATION REFILL 08/18/2023 Encounter Details Date Type Department Care Team (Late Contact Info) Description 08/18/2023 Refill [facility] - Dermatology [address] [place] [phone] Moriah Bray MD [address] [place] [address] [place] [phone] MEDICATION REFILL Social History Tobacco Use Types Packs/Day Years Used Date Smoking Tobacco: Some Days Cigarettes Smokeless Tobacco: Never Comments Unknown Sex and Gender Information Value Date Recorded Sex Assigned at Female 07/17/2023 12:21 AM CDT Legal Sex Female 6:00 AM FAMILY SERVICES COORDINATOR Gender Identity Female 07/17/2023 12:21 AM CDT Sexual Orientation Straight 07/17/2023 12 :21 AM CDT documented as of this encounter Plan of Treatment Upcoming Encounters Date Type Department Care Team (Late Contact Info) Description 09/24/2025 12:50 PM FAMILY SERVICES COORDINATOR Office Visit [facility] - Dermatology [address] [place] [phone] Moriah Bray MD [facility] [place] [address] documented as of this encounter Visit Diagnoses Not on filedocumented in this encounter Care Teams Supervisor Cutting And Boning Relationship Specialty Start Date End Date Demarcus Camejo MD [address] [facility] [address] [place] [phone] PCP - General Family Medicine 07/05/24 documented as of this encounter
--- OUTSIDE RECORDS SUMMARY | 2025-05-07 15:46 | XMS_ITS | Encounter Summary ---
Author Organization [facility] Health Address [address] [facility] [place] [address] Care Team Providers Care Boat Dispatcher Name Role Phone Demarcus Camejo MD Primary Care Provider Encounter Details Date Type Department Care Team (Late st Contact Info) Description 02/06/2025 Telephone [facility] - Dermatology [address] [facility] [place] [address] None, Physician [address] [place] [address] Social History Tobacco Use Types Packs/Day Years Used Date Smoking Tobacco: Some Days Cigarettes Smokeless Tobacco: Never Alcohol Use Standard Drinks/Week Comments Not Currently 0 (1 standard drink = 0.6 oz pur e alcohol) PHQ-2 Answer Date Recorded Patient Health Questionnaire-2 Score 2 10/29/2023 Comments No Sex and Gender Information Value Date Recorded Sex Assigned at Female 07/17/2023 12:21 AM CDT Legal Sex Female 6:00 AM WOOL BROKER Gender Identity Female 07/17/2023 12:21 AM CDT Sexual Orientation Straight 07/17/2023 12 :21 AM CDT documented as of this encounter Functional Status * Is person deaf or have serious hearing difficulty? Answer Date of Assessment Author No 06/19/2024 10:25 AM CDT Ruby Seaman RN * Is person blind or have serious difficulty seeing? Answer Date of Assessment Author No 06/19/2024 10:25 AM CDT Ruby Seaman RN * Does person have serious difficulty walking/climbing stairs? Answer Date of Assessment Author No 06/19/2024 10:25 AM CDT Ruby Seaman RN * Does person have difficulty dressing/bathing? Answer Date of Assessment Author No 06/19/2024 10:25 AM CDT Ruby Seaman RN * Does person have difficulty doing errands alone? Answer Date of Assessment Author No 06/19/2024 10:25 AM MICHAELAT Ruby Seaman RN documented as of this encounter Mental Status * Does person have difficulty concentrating/remembering/making decisions? Answer Entry Date Author No 06/19/2024 10:25 AM MICHAELAT Ruby Seaman RN documented in this encounter Miscellaneous Notes * Telephone Encounter - Moncho Schulz - 02/06/2025 1:27 PM CDT Called pt to rescheduled. left detailed message and a call back number, will continue to follow up. documented in this encounter Plan of Treatment Upcoming Encounters Date Type Department Care Team (Late st Contact Info) Description 09/24/2025 12:50 PM WOOL BROKER Office Visit [facility] - Dermatology [address] [place] [address] [place] [phone] Moriah Bray MD [address] [place] [address] [place] [address] documented as of this encounter Visit Diagnoses Not on filedocumented in this encounter Care Teams Boat Dispatcher Relationship Specialty Start Date End Date Demarcus Camejo MD [address] [facility] [address] [place] [phone] PCP - General Family Medicine 07/05/24 documented as of this encounter
--- OUTSIDE RECORDS SUMMARY | 2025-05-07 15:46 | XMS_ITS | Encounter Summary ---
Author Organization [facility] Health Address [address] [place] [address] Care Team Providers Care Systems Administration Analyst Name Role Phone Demarcus Camejo MD Primary Care Provider Reason for Visit * Reason Onset Date Comments Medication Issue 09/04/2023 Encounter Details Date Type Department Care Team (Late st Contact Info) Description 09/04/2023 Telephone [facility] - Centralized Scheduling [address] [place] [address] Moriah Bray MD [facility] [facility] [place] [address] Medication Issue Social History Tobacco Use Types Packs/Day Years Used Date Smoking Tobacco: Some Days Cigarettes Smokeless Tobacco: Never Comments Unknown Sex and Gender Information Value Date Recorded Sex Assigned at Female 07/17/2023 12:21 AM CDT Legal Sex Female 6:00 AM INSET CUTTER Gender Identity Female 07/17/2023 12:21 AM CDT Sexual Orientation Straight 07/17/2023 12 :21 AM CDT documented as of this encounter Miscellaneous Notes * Telephone Encounter - Crystal Cui - 09/12/2023 3:02 PM CST Pt is calling in again to address the previous two messages. Please contact pt, . T CUTTER * Telephone Encounter - Tay Mcelroy PA-C - 09/08/2023 4:16 PM CST Patient unable to mixing picker tender prescriptions. Prescriptions were resent to pharmacy in [place]. Tay Mcelroy PA-C T CUTTER * Telephone Encounter - Bertha Olivarez - [...] ml - water 50 mlSUSP sent to [place] [facility] in [facility] [phone] Patients is also needing her paperwork from [employer] filled out . Please give pt a call if needed [phone] T CUTTER * Telephone Encounter - oHney Crouch - 09/04/2023 2:57 PM CST Physician is not enrolled on [place] Medicaid and pharmacy cannot fill order for Prednisone. nystatin susp 20 ML - hydrocortisone 50 MG- viscous lidocaine 2% 50 ml - water 50 ml SUSP needs to be sent to [place], [place] pharmacy to be filled as a compound. T CUTTER documented in this encounter Plan of Treatment Upcoming Encounters Date Type Department Care Team (Late st Contact Info) Description 09/24/2025 12:50 PM INSET CUTTER Office Visit [facility] - Dermatology [address] [place] [address], [place] [address] Moriah Bray MD [address] [place] [address] [place] [address] documented as of this encounter Visit Diagnoses Diagnosis Lichen planus- Primary documented in this encounter Care Teams Systems Administration Analyst Relationship Specialty Start Date End Date Demarcus Camejo MD [address] [facility] [address] [place] [address] PCP - General Family Medicine 07/05/24 documented as of this encounter
--- OUTSIDE RECORDS SUMMARY | 2025-05-07 15:46 | XMS_ITS | Encounter Summary ---
Author Organization [facility] Healthcare Address [address] [place] [address] Care Team Providers Care Aviation Electronic Warfare Operator Name Role Phone Ira Barrett Primary Care Provider + Encounter Details Date Type Department Care Team (Late st Contact Info) Description 03/06/2025 Results Follow-Up [facility] Medical Group Family Medicine [address] [address] Ira Barrett PA [address] [place], [place] [phone] CBC with auto differential, Comprehensive metabolic panel, Thyroid Function Nash, Additional followed-up results: 6 Social History Tobacco Use Types Packs/Day Years [...] on file Legal Sex Female 11:46 PM RN X RAY Gender Identity Female 03/27/2024 7:14 AM CDT Sexual Orientation Straight 03/27/2024 7: 14 AM CDT documented as of this encounter Functional Status * AUDIT-C Score Answer Date of Assessment Author 1 04/11/2025 10:53 AM CDT Ketty Bo MA * Question Answer Date of Assessment Author Q1: How often do you have a drink containing alcohol? Monthly or less 04/11/2025 10:53 AM CDT Ketty Bo MA Q2: How many drinks containing alcohol do you have on a typical day when you are drinking? 1 or 2 04/11/2025 10:53 AM CDT Mark Bo MA Q3: How often do you have six or more drinks on one occasion? Never 04/11/2025 10:53 AM CDT Ketty Bo MA documented as of this encounter Miscellaneous Notes * Telephone Encounter - Shanti Zapata MA - 03/06/2025 9:13 AM CDT Noted. documented in this encounter Plan of Treatment Upcoming Encounters Date Type Department Care Team (Latest Contact Info) Description 05/20/2025 10:20 AM CDT Hospital Encounter [facility] OR [facility] [place] [address] [place] [address] [place] [phone] 05/20/2025 10:20 AM CDT Anesthesia Event [facility] OR [facility]4 [place], [place] [address] Jaquan Avina MD [address] [place] [address] [place] [address] 05/20/2025 10:20 AM CDT - 05/20/2025 11:50 AM CDT Surgery [facility] [place] [address] [place] [address] Sree Denton MD [address] [facility] [address] [place] [address] RECTAL EXAM UNDER ANESTHESIA WITH HEMORRHOIDECTOMY, PROCTOCTOSCOPY Scheduled Procedures Name Priority Associated Diagnoses Date/Ti me HEMORRHOIDECTOMY HEMORRHOID, PILONIDAL CYST 05/20/2025 10:20 AM CDT EXCISION PILONIDAL CYST HEMORRHOID, PILONIDAL CYST 05/20/2025 10:20 AM CDT documented as of this encounter Visit Diagnoses Not on filedocumented in this encounter Care Teams Aviation Electronic Warfare Operator Relationship Specialty Start Date End Date Ira Barrett PA [address] [facility] [address] [place] [address] PCP - General Family Medicine 04/03/24 documented as of this encounter
--- OUTSIDE RECORDS SUMMARY | 2025-05-07 15:46 | XMS_ITS | Encounter Summary ---
Author Organization [facility] Healthcare Address [address] [place] [address] Care Team Providers Care Industrial Gas Servicer Supervisor Name Role Phone Ira Barrett Primary Care Provider + Darius Rodriguez MD Unavailable +1- [phone] Reason for Visit * Reason Onset Date Comments Medication Request 05/06/2025 Encounter Details Date Type Department Care Team (Latest Contact Info) Description 05/06/2025 Results Follow-Up [facility] Medical Group Family Medicine [address] [address] Sanjuana Lemon, JAVA ANALYST 310 [facility] 220 [place] [address] ECG 12 lead, Comprehensive metabolic panel, CBC with auto differential Social History Tobacco Use Types Packs/Day Years [...] on file Legal Sex Female 11:46 PM DIAMOND 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 Never 05/07/2025 10:37 AM Ashley Urias RN Q2: How many drinks containing alcohol do you have on a typical day when you are drinking? Patient does not drink 05/07/2025 10:37 AM Ashley Urias RN Q3: How often do you have six or more drinks on one occasion? Never 05/07/2025 10:37 AM Ashley Urias RN documented as of this encounter Ordered Prescriptions Prescription Sig Dispense Quantity Refills Last Filled Start Date End Date celecoxib (CeleBREX) 200 mg capsuleIndications:D egeneration of lumbar intervertebral disc Take 1 capsule (200 mg total) by mouth 2 (two) times a day 60 capsule 5 05/07/2025 documented in this encounter Miscellaneous Notes * Result Encounter Note - Ariella Frances LPN - 05/07/2025 2:30 PM CDT Would the celebrex help with her headaches as well? * Telephone Encounter - Jose Elias Sharpe - 05/07/2025 11:24 AM CDT Call Back Caller???s Concern: Patient returned missed call regarding prescription. Patient stated understanding but has questions regarding which medication she can now take for headaches since ibuprofen and Tylenol are not advised. Requesting call back, leave message if no answer Does message need to be routed? Yes-Action Needed * Addendum Note - Ariella Frances LPN - 05/07/2025 10:32 AM CDTAddended by: ARIELLA FRANCES on: 05/07/2025 10:32 AM Modules accepted: Orders * Result Encounter Note - Ariella Frances LPN - 05/07/2025 10:32 AM CDT Call placed to pt, no answer, lmtc. Medication sent to: [facility] [address] [place] [address] [address] [employer] [facility] [address] [facility] [address] * Result Encounter Note - Ariella Frances LPN - 05/07/2025 8:48 AM CDT Order faxed to [facility] at [phone]. * Result Encounter Note - Ariella Frances LPN - 05/07/2025 8:44 AM CDT Pt informed, she states tylenol arthritis as advised by her pcp. She would like to know if she needs to stop this and take an alternate medication. Pt requested xray be sent to [facility], will fax. documented in this encounter Plan of Treatment Upcoming Encounters Date Type Department Care Team (Latest Contact Info) Description 05/20/2025 10:20 AM CDT Hospital Encounter [facility] OR [address] [place] [address] Sree Denton MD [address] [place] [address] 05/20/2025 10:20 AM CDT Anesthesia Event [facility] OR [address] [place] [address] Jaquan Avina MD [address] [place] [address] [place] [address] 05/20/2025 10:20 AM CDT - 05/20/2025 11:50 AM CDT Surgery [facility] OR [address] [place] [address] Sree Denton MD [address] [place] [address] RECTAL EXAM UNDER ANESTHESIA WITH HEMORRHOIDECTOMY, PROCTOCTOSCOPY Scheduled Orders Name Type Priority Associated Diagnoses Orde r Schedule XR Chest PA Lateral 2 Views Imaging Schedule Routine, Read Routine (OP Routine) Preop examination Chronic cough Expected: 05/07/2025, Expires: 05/06/2026 Scheduled Procedures Name Priority Associated Diagnoses Date/Ti me HEMORRHOIDECTOMY HEMORRHOID, PILONIDAL CYST 05/20/2025 10:20 AM CDT EXCISION PILONIDAL CYST HEMORRHOID, PILONIDAL CYST 05/20/2025 10:20 AM CDT documented as of this encounter Visit Diagnoses Diagnosis Preop examination Unspecified pre-operative examination Chronic cough Cough Degeneration of lumbar intervertebral disc Degeneration of lumbar or lumbosacral intervertebral disc documented in this encounter Discontinued Medications Medication Sig Discontinue Reason Start Date End Da te celecoxib (CeleBREX) 200 mg capsuleIndications:Degener ation of lumbar intervertebral disc Take 1 capsule (200 mg total) by mouth 2 (two) times a day Reorder 06/12/2024 05/07/2025 documented as of this encounter Care Teams Industrial Gas Servicer Supervisor Relationship Specialty Start Date End Date Ira Barrett PA [address] [facility] [address] [place] [address] PCP - General Family Medicine 04/03/24 Darius Rodriguez MD [address] [facility] [address] [place] [address] Consulting Physician Cardiology 05/07/25 documented as of this encounter
--- OUTSIDE RECORDS SUMMARY | 2025-05-07 15:46 | XMS_ITS | Encounter Summary ---
Author Organization [facility] Healthcare Address [address] [place] [address] Care Team Providers Care Family Helper Name Role Phone Ira Barrett Primary Care Provider + Darius Rodriguez MD Unavailable [phone]- [phone] Reason for Visit * Reason Onset Date Comments Medical Question/Miscellaneous 05/02/2025 Encounter Details Date Type Department Care Team (Late st Contact Info) Description 05/02/2025 Telephone [facility] Medical Group Family Medicine [address] [address] Ira Barrett PA [address] [address] Medical Question/Miscellaneous Social History Tobacco Use Types Packs/Day Years [...] on file Legal Sex Female 11:46 PM MGMT ANALYST Gender Identity Female 03/27/2024 7:14 AM CDT Sexual Orientation Straight 03/27/2024 7: 14 AM CDT documented as of this encounter Miscellaneous Notes * Telephone Encounter - Corrine Krishnan - 05/02/2025 12:59 PM CDT Pt scheduled for 05.06.2025. * Telephone Encounter - Emma Bray LPN - 05/02/2025 11:27 AM CDT Pt will need surgical clearance set up within 30 days of surgery- please schedule * Telephone Encounter - Yina Siddiqui - 05/02/2025 10:13 AM CDT Medical Question/Miscellaneous Caller???s Concern: Dr. Denton's office just faxed a surgery clearance form over for patient's hemorrhoid surgery on May 20. Please review and call patient to make office visit appt if needed. Does message need to be routed? Yes-Action Needed documented in this encounter Plan of Treatment Upcoming Encounters Date Type Department Care Team (Latest Contact Info) Description 05/20/2025 10:20 AM CDT Hospital Encounter [address] [address] Sree Denton MD [address] [place] [address] 05/20/2025 10:20 AM CDT Anesthesia Event [facility] [place] [address] [place] [address] Jaquan Avina MD [address] [facility] [address] 05/20/2025 10:20 AM CDT - 05/20/2025 11:50 AM CDT Surgery [facility] [place] [address] [place] [address] Sree Denton MD [address] [facility] [address] [place], [place] [address] RECTAL EXAM UNDER ANESTHESIA WITH HEMORRHOIDECTOMY, PROCTOCTOSCOPY Scheduled Procedures Name Priority Associated Diagnoses Date/Ti me HEMORRHOIDECTOMY HEMORRHOID, PILONIDAL CYST 05/20/2025 10:20 AM CDT EXCISION PILONIDAL CYST HEMORRHOID, PILONIDAL CYST 05/20/2025 10:20 AM CDT documented as of this encounter Visit Diagnoses Not on filedocumented in this encounter Care Teams Family Helper Relationship Specialty Start Date End Date Ira Barrett PA [address] [facility] [address] [place] [address] PCP - General Family Medicine 04/03/24 Darius Rodriguez MD [address] [place] [address] [address] [place] [address] Consulting Physician Cardiology 05/07/25 documented as of this encounter
== END 2025-05-07 15:17 | disposition home or self-care (01) ==
DX: Z01.818 Encounter for other preprocedural examination (principal); R05.3 Chronic cough
CPT/HCPCS: 71046

== ENCOUNTER 2025-06-12 13:43 | Outpatient (CLI) | payer OTHER, SELFPAY ==
--- OUTSIDE RECORDS SUMMARY | 2004-12-17 08:00 | XMS_ITS | Continuity of Care Document ---
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 [address] , [address], [place], [address], [place]. tel:[phone] Family History Family Member Type Diagnosis Age At Onset No Information Payers Payer name Insurance type Covered green party ID Authoriza tion(s) Medicaid [facility] [id number] Social History Type Description Quantity Date Captured Comments Sex Female Smoking Status No Information Chief Complaint And Reason For Visit No Information Reason For Referral Reason For Referral No Information History Of Present Illness Encounter Date Complaint History Of Prese nt Illness No Information Functional Status Date Functional Assessmen t No Information Instructions Date Instruction Additional Infor mation No Information Assessments Type Assessment Date No Information Patient Care Teams Name Effective Dates (start - stop) Status Members No Information
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
--- NOTE | ~2025-06-12 | XR_ITS ---
XR lumbar spine 2-3V 06/12/2025 13:59 Indication: Low back pain Procedure: 3 views lumbar spine Comparison: 05/13/2024 Findings: There is disc narrowing at L5-S1. No fracture, subluxation or dislocation. No evidence for spondylolisthesis. Pedicles intact. Sacral foramen are symmetric. Impression: 1: Mild lumbar spondylosis. Reviewed, dictated and finalized at location O. Impression: 1: Mild lumbar spondylosis.
--- OUTSIDE RECORDS SUMMARY | 2025-06-12 16:30 | XMS_ITS | Encounter Summary ---
Author Organization [facility] Address [address] [facility] [address] Care Team Providers Care Malthouse Laborer Name Role Phone Demarcus Camejo MD Primary Care Provider Reason for Visit * Reason Onset Date Comments MEDICATION REFILL 08/18/2023 Encounter Details Date Type Department Care Team (Late Contact Info) Description 08/18/2023 Refill [facility] - Dermatology [address] [place] [phone] Moriah Bray MD [address] [place], [place] [address] [phone] MEDICATION REFILL Social History Tobacco Use Types Packs/Day Years Used Date Smoking Tobacco: Some Days Cigarettes Smokeless Tobacco: Never Comments Unknown Sex and Gender Information Value Date Recorded Sex Assigned at Female 07/17/2023 12:21 AM CDT Legal Sex Female 6:00 AM CUTTER IN Gender Identity Female 07/17/2023 12:21 AM CDT Sexual Orientation Straight 07/17/2023 12 :21 AM CDT documented as of this encounter Plan of Treatment Upcoming Encounters Date Type Department Care Team (Late Contact Info) Description 09/24/2025 12:50 PM CUTTER IN Office Visit [facility]ology [address] [place] [phone] Moriah Bray MD [facility] [place] [address] documented as of this encounter Visit Diagnoses Not on filedocumented in this encounter Care Teams Malthouse Laborer Relationship Specialty Start Date End Date Demarcus Camejo MD [address] [facility] [address] [place] [phone] PCP - General Family Medicine 07/05/24 documented as of this encounter
--- OUTSIDE RECORDS SUMMARY | 2025-06-12 16:30 | XMS_ITS | Encounter Summary ---
Author Organization [facility] Address [address] [place] [address] Care Team Providers Care Model Technician Name Role Phone Demarcus Camejo MD Primary Care Provider [phone] Encounter Details Date Type Department Care Team (Late st Contact Info) Description 08/08/2023 Telephone [facility] - Dermatology [address] [place] [address] [place] [address] Moriah Bray MD [address] [place], [place] [address] [address] Social History Tobacco Use Types Packs/Day Years Used Date Smoking Tobacco: Some Days Cigarettes Smokeless Tobacco: Never Comments Unknown Sex and Gender Information Value Date Recorded Sex Assigned at Female 07/17/2023 12:21 AM CDT Legal Sex Female 6:00 AM FAMILY MEDIATOR Gender Identity Female 07/17/2023 12:21 AM CDT [...] case she needs to reschedule Please advise LY MEDIATOR documented in this encounter Plan of Treatment Upcoming Encounters Date Type Department Care Team (Late st Contact Info) Description 09/24/2025 12:50 PM FAMILY MEDIATOR Office Visit [facility] - Dermatology [address] [place] [address], [place] [address] Moriah Bray MD [address] [place] [address] [place] [address] documented as of this encounter Visit Diagnoses Not on filedocumented in this encounter Care Teams Model Technician Relationship Specialty Start Date End Date Demarcus Camejo MD [address] [address] [place] [address] PCP - General Family Medicine 07/05/24 documented as of this encounter
--- OUTSIDE RECORDS SUMMARY | 2025-06-12 16:30 | XMS_ITS | Patient Health Record ---
Author Organization [facility] Address [address] [place] [address] Care Team Providers Care Supervisor Grounds Name Role Phone Arlene Nieto Primary Care Provider Allergies Allergen (clinical drug ingredient) Drug/Non Drug [...] a day; Duration: 30 day(s) 06/03/2025 Active Furosemide 20 MG TAKE 1 TABLET BY ABIGAIL TH ONCE DAILY Oral; Duration: 30 Days Active Celecoxib 200 MG 1 capsule as needed Oral twice a day; Duration: 30 days Active Venlafaxine HCl 37.5 MG 1 tablet with fo od Orally Once a day; Duration: 14 days Active lamoTRIgine 150 MG 1 tablet Orally Once a day; Duration: 30 days Active Linzess 145 MCG 1 capsule at least 3 0 minutes before the first meal of the day on an empty stomach Oral; Duration: 30 days Active Social History Tobacco [...] Education- Some college, 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 Psychiatric Diagnosis(es) - Bipolar, borderline personality disorder [...] W/U Status Risk Notes Problem Periodontal disease (3886641) Periodontal disease, unspecified (K05.6) Active confirmed Problem Osteoarthritis (950041431) Osteoarthritis (M19.90) Active confirmed Problem Gastroesophageal reflux disease (521909806) GERD (gastroesophageal reflux disease) (K21.9) Active confirmed Problem Obesity (625105748) Obesity (E66.9) Active conf irmed Problem Posttraumatic stress disorder (90122293) PTSD (post-traumatic stress disorder) (F43.10) Active confirmed Problem Irritable bowel syndrome (00986610) IBS (irritable bowel syndrome) (K58.9) Active confirmed Problem Carpal tunnel syndrome (56976940) Carpal tunnel syndrome (G56.00) Active confirmed Problem Bipolar disorder (07562996) Bipolar disorder (F31.9) Active confirmed Problem Fatty liver (512195787) Fatty liver (K76.0) Active confirmed Problem Lichen planus (5493885) Lichen planus (L43.9) Active confirmed Problem Chronic venous insufficiency (50855196) Chronic venous insufficiency (I87.2) Active confirmed Encounters Encounter Location Date Provider Diagnosis [address] [place] [address] 06/03/2025 Arlene Nieto PTSD (post-traumatic stress disorder) F43.10 ; Bipolar disorder F31.9 and Medication management Z79.[address] [place] [address] 02/12/2025 Arlene Nieto Bipolar disorder F31.9 ; PTSD (post-traumatic stress disorder) F43.10 and Medication management Z79.[address] [place] [address] 03/17/2025 Arlene Nieto PTSD (post-traumatic stress disorder) F43.10 ; Bipolar disorder F31.9 and Medication management Z79.[address] [place] [address] 05/05/2025 Arlene Nieto PTSD (post-traumatic stress disorder) F43.10 ; Bipolar disorder F31.9 and Medication management Z79.899 Assessments Encounter Date Diagnosis (ICD Code) Assessment Notes Treatment Notes Treatment Clinical Notes Section Notes 02/12/2025 PTSD (post-traumati c stress disorder) (ICD-10 - F43.10) Trauma-based therapy, specifically EMDR, recommended once client's mood has stabilized. Therapy modality discussed with client, including purpose and benefits. 02/12/2025 Bipolar disorder (ICD-10 - F31.9) Consider adding a second mood stabilizer if maximizing lamotrigine doesn't improve mood. 03/17/2025 PTSD (post-traumati c stress disorder) (ICD-10 - F43.10) Trauma-based therapy, specifically EMDR, recommended once client's mood has stabilized. Therapy modality discussed with client, including purpose and benefits. 05/05/2025 PTSD (post-traumati c stress disorder) (ICD-10 - F43.10) Continue psychotherapy as scheduled. Consider trauma-based therapy, specifically EMDR. Therapy modality discussed with client, including purpose and benefits. 06/03/2025 PTSD (post-traumati c stress disorder) (ICD-10 [...] stabilizer if needed. Risperidone causes emotional blunting. 05/05/2025 Bipolar disorder (ICD-10 - F31.9) Decreasing lamotrigine from 200 mg to 150 mg d/t report of headaches. Consider adding a second mood stabilizer if needed. 03/17/2025 Bipolar disorder (ICD-10 - F31.9) Consider adding a second mood stabilizer if maximizing lamotrigine doesn't improve mood. 02/12/2025 Medication management (ICD-10 - Z79.899) May self-administer medications or be administered own oral medications per [facility] protocols. Provided informed consent with understanding of side effects, adverse effects, risks and benefits as well as alternative treatments as previously discussed and with the above recommended medications & other aspects of the treatment program. Agrees to return sooner if symptoms worsen or suicidal or homicidal ideations occur. 05/05/2025 Medication management (ICD-10 - Z79.899) May self-administer medications or be administered own oral medications per [facility] protocols. Provided informed consent with understanding of [...] or be administered own oral medications per [facility] protocols. Provided informed consent with understanding of side effects, adverse effects, risks and benefits as well as alternative treatments as previously discussed and with the above recommended medications & other aspects of the treatment program. Agrees to return sooner if symptoms worsen or suicidal or homicidal ideations occur. 06/03/2025 Medication management (ICD-10 - Z79.899) May self-administer medications or be administered own oral medications per [facility] protocols. Provided informed consent with understanding of [...] Insured Coverage Start Date Coverage End Date [facility] Attn Claims Department [address] [place] [address] [phone] [id number] Rasheeda Garcia Self - patient is the insured [employer] Attn Claims Department [address] [place] [address] [phone] [id number] Rasheeda Garcia Self - patient is the insured Medical (General) History Medical History History ICD [...]
--- OUTSIDE RECORDS SUMMARY | 2025-06-12 16:30 | XMS_ITS | Encounter Summary ---
Author Organization [facility] Address [address] [facility] [place] [address] Care Team Providers Care Ballaster Name Role Phone Demarcus Camejo MD Primary Care Provider [phone] Reason for Visit * Reason Onset Date Comments Nurse Only 11/02/2023 Encounter Details Date Type Department Care Team (Late st Contact Info) Description 11/02/2023 Telephone [facility] - Dermatology [address] [place] [address], [facility] [place] [address] Moriah Bray MD [address] [place] [address] [place] [address] Nurse Only Social History Tobacco Use Types Packs/Day Years Used Date Smoking Tobacco: Some Days Cigarettes Smokeless Tobacco: Never PHQ-2 Answer Date Recorded Patient Health Questionnaire-2 Score 2 10/29/2023 Comments Unknown Sex and Gender Information Value Date Recorded Sex Assigned at Female 07/17/2023 12:21 AM CDT Legal 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 She states that the office sent pages 1 and 2,and [employer] is missing page 3. Please call [employer] at [phone] or send to fax [phone] PAINT SHADER documented in this encounter Plan of Treatment Upcoming Encounters Date Type Department Care Team (Late st Contact Info) Description 09/24/2025 12:50 PM OIL PAINT SHADER Office Visit [facility] - Dermatology [address] [place] [address], [place] [address] Moriah Bray MD [address] [place] [address] [place] [address] documented as of this encounter Visit Diagnoses Not on filedocumented in this encounter Care Teams Ballaster Relationship Specialty Start Date End Date Demarcus Camejo MD [address] [facility] [address] [place] [address] PCP - General Family Medicine 07/05/24 documented as of this encounter
--- OUTSIDE RECORDS SUMMARY | 2025-06-12 16:30 | XMS_ITS | Encounter Summary ---
Author Organization [facility] Address [address] [facility] [place] [address] Care Team Providers Care Grain Elevator Operator Name Role Phone Demarcus Camejo MD Primary Care Provider [phone] Reason for Visit * Reason Onset Date Comments Medication Issue 09/04/2023 Encounter Details Date Type Department Care Team (Late st Contact Info) Description 09/04/2023 Telephone [facility] - Centralized Scheduling [address] [place] [address] Moriah Bray MD [facility] [facility] [place] [address] Medication Issue Social History Tobacco Use Types Packs/Day Years Used Date Smoking Tobacco: Some Days Cigarettes Smokeless Tobacco: Never Comments Unknown Sex and Gender Information Value Date Recorded Sex Assigned at Female 07/17/2023 12:21 AM CDT Legal Sex Female 6:00 AM 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 Please contact pt, . 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 Prescriptions were resent to pharmacy in [place]. Tay Mcelroy PA-C TIC AND RECONSTRUCTIVE SURGEON * Telephone Encounter - Bertha Olivarez - [...] ml - water 50 mlSUSP sent to [facility] [phone] Patients is also needing her paperwork from [employer] filled out . 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 nystatin susp 20 ML - hydrocortisone 50 MG- viscous lidocaine 2% 50 ml - water 50 ml SUSP needs to be sent to [place], [place] pharmacy to be filled as a compound. TIC AND RECONSTRUCTIVE SURGEON documented in this encounter Plan of Treatment Upcoming Encounters Date Type Department Care Team (Late st Contact Info) Description 09/24/2025 12:50 PM PLASTIC AND RECONSTRUCTIVE SURGEON Office Visit [facility] - Dermatology [address] [place] [address], [place] [address] Moriah Bray MD [address] [place] [address] [place] [address] documented as of this encounter Visit Diagnoses Diagnosis Lichen planus- Primary documented in this encounter Care Teams Grain Elevator Operator Relationship Specialty Start Date End Date Demarcus Camejo MD [address] [facility] [address] [place] [address] PCP - General Family Medicine 07/05/24 documented as of this encounter
--- OUTSIDE RECORDS SUMMARY | 2025-06-12 16:30 | XMS_ITS | Clinical Summary ---
Author Organization [address] Address [address] [address] Care Team Providers Care Nut Packer Name Role Phone Ira Barrett Primary Care Provider + Darius Rodriguez MD Unavailable [phone] Sree Denton MD Unavailable [phone] Allergies No known active allergies Medications furosemide (LASIX) 20 mg tablet Take 1 tablet (20 mg total) by mouth daily 30 tablet 6 025 Active famotidine (PEPCID) 40 mg tabletIndications :Gastroesophageal reflux disease, unspecified whether esophagitis [...] mouth once daily 30 capsule 025 Active acetaminophen ER (TYLENOL) 650 mg 8 hr tabletIndications :Chronic bilateral low back pain without sciatica Take 1 tablet (650 mg total) by mouth every 8 (eight) hours as needed for pain 90 tablet 1 025 Active Procto-Med HC 2.5 % rectal cream Insert into the rectum 2 (two) times a day 025 Active ketoconazole (NIZORAL) 2 % cream Apply topically daily Active celecoxib (CeleBREX) 200 mg capsuleIndication s:Degeneration of lumbar intervertebral disc Take 1 capsule (200 mg total) by mouth 2 (two) times a day 60 capsule 5 025 Active venlafaxine (EFFEXOR) 75 mg tablet 025 Active lamoTRIgine (LaMICtal) 150 mg tablet Active lidocaine HCl-hydrocortison ac 3-0.5 % cream Insert 1 applicator into the rectum 2 (two) times a day 30 g 2 025 Active Additional Information Patient not taking.Reported on 06/05/2025 HYDROcodone-aceta minophen (NORCO) 5-325 mg per tabletIndications :Pain Take 1 tablet by mouth every 4 (four) hours as needed for pain 15 tablet Active Additional Information Patient not taking.Reported on 06/05/2025 venlafaxine (EFFEXOR) 37.5 mg tablet Active Vraylar 1.5 mg capsule capsule Active venlafaxine XR (EFFEXOR-XR) 75 mg 24 hr capsule Take 1 capsule (75 mg total) by mouth daily 024 2024 Discontinued lamoTRIgine (LaMICtal) 200 mg tablet 025 2024 Discontinued(D uplicate order) Active Problems Problem Noted Date Diagnosed Date [...] Future Comprehensive metabolic panel; Future Thyroid Function [place]; Future Hemoglobin A1c; Future Vitamin D 25 [...] -Possible colorectal surgical referral discussed as well Physical exam, annual 01/29/2025 Abnormal EKG 11/18/2024 Other chest pain [...] greasy foods, tomato based products. -May use abnf-trh-ahshzks Gaviscon Assessment & Plan (01/29/2025 4:51 PM [...] Plan (06/12/2024 3:29 PM CDT): Taking omeprazole eajl-oqf-yqyukzp daily and feels it is no longer [...] of constipation in his trialed and failed mhlw-zcb-gzgjqjp medications including stool softeners, MiraLax, and fiber. [...] as well. - Referred to a new microbiology manager for further evaluation and management. - [...] almost the last year. Has started taking owxo-tlj-aaeuiha stool softener but not sure if it [...] 10/29/2023 Assessment & Plan (09/19/2024 3:16 PM RISK CONTROL PRODUCT LIABILITY DIRECTOR): Chronic, stable condition. Continue current medication regimen per psychiatrist Assessment & Plan (06/12/2024 3:27 PM CDT): Chronic, stable. Patient is following with psychiatrist Assessment & Plan (04/03/2024 1:42 PM CDT): Managed by psychiatrist - continues on Lamictal, benzo, Effexor Borderline personality disorder 10/29/2023 Assessment & Plan (09/19/2024 3:16 PM RISK CONTROL PRODUCT LIABILITY DIRECTOR): Chronic, stable condition. Continue current medication regimen [...] CDT): Chronic,worsening. Patient will follow up with hospital nursing assistant Assessment & Plan (06/12/2024 3:27 PM [...] Encounters Date Type Department Care Team Description 06/05/2025 10:30 AM CDT Office Visit [facility] Family Medicine [address] [place] [phone] Ira Barrett PA Physical exam, annual (Primary Dx); Morbid obesity with BMI of 40.0-44.9, adult (HCC); Degeneration of intervertebral disc of lumbar region with discogenic back pain and lower extremity pain; Hepatic steatosis; Screening mammogram, encounter for 05/20/2025 10:20 AM CDT - 05/20/2025 11:50 AM CDT Surgery [facility] OR [address] [place] [id number] Sree Denton MD RECTAL EXAM UNDER ANESTHESIA WITH HEMORRHOIDECTOMY, 05/20/2025 9:46 AM CDT Anesthesia Event [facility] OR [address] [place] [phone] Lucinda Gasca MD Morris, Mark C., MD 05/20/2025 8:58 AM CDT - 05/20/2025 2:13 PM CDT Hospital Encounter [facility] OR [address] [place] [address] Sree Denton MD Hemorrhoids, unspecified hemorrhoid type Discharge Disposition: Discharge to home or self care 05/14/2025 3:00 PM CDT Office Visit [facility]im[facility] In[facility] [address] [place] [phone] Isac Jackson NP Morbid obesity (HCC) (Primary Dx); BMI 40.0-44.9, adult (HCC); Arthritis; Gastroesophageal reflux disease, unspecified whether esophagitis present 05/08/2025 Letter (Out) [address] [phone] 05/08/2025 Results Follow-Up [address] [phone] Sanjuana Lemon NP XR Chest Pa Lateral 2 Views 05/08/2025 Orders Only [address] [phone] ProviderKranthi MD 05/06/2025 10:30 AM CDT Office Visit [address] [phone] Sanjuana Lemon NP Hemorrhoids, unspecified hemorrhoid type (Primary Dx); Pilonidal cyst; Preop examination; Gastroesophageal reflux disease with esophagitis without hemorrhage; Morbid obesity with BMI of 40.0-44.9, adult (HCC); Degeneration of intervertebral disc of lumbar region with discogenic back pain and lower extremity pain; Chronic cough; Prediabetes; Hepatic steatosis; Former smoker; Venous insufficiency 05/06/2025 Results Follow-Up [address] [phone] Sanjuana Lemon NP ECG 12 lead, Comprehensive metabolic panel, CBC with auto differential 05/02/[address] [phone] Ira Barrett PA Medical Question/Miscellaneous 04/21/2025 Nurse Triage [address] [phone] Ira Barrett PA 04/19/2025 9:23 AM CDT - 04/19/2025 11:59 PM CDT Hospital Encounter [facility] [address] [place] [id number] Gastrointestinal hemorrhage associated with gastritis, unspecified gastritis type Discharge Disposition: Discharge to home or self care 04/11/2025 10:30 AM CDT Office Visit [address] [phone] Ira Barrett PA Pilonidal cyst (Primary Dx); Chronic bilateral low back pain without sciatica; Degeneration of intervertebral disc of lumbar region with discogenic back pain and lower extremity pain 04/11/2025 Letter (Out) [address] [phone] 03/25/2025 Orders Only [address] [phone] Ira Barrett PA Morbid obesity with BMI of 40.0-44.9, adult (HCC); Vitamin D deficiency; Elevated cholesterol; Elevated LFTs; Hyperglycemia; Need for hepatitis C screening test from Last 3 Months Immunizations Immunization Administration Dates Next Due Influenza, Quadrivalent, Spl it, Intramuscular 06/07/2023,06/23/2021 Influenza, Quadrivalent, Spl it, Preservative Free, Intramuscular 07/12/2022,06/01/2017 Influenza, Unspecified 05/19/2025(Deferr ed: Patient decision),07/18/2024(Deferred: Patient Refused),06/18/2024(Deferred: Patient decision),06/18/2024(Deferred: Patient Refused) Tdap 03/15/2016 Surgical History Surgery Date Site/Laterality Comments SECTION 2001,2007 x2 TONSILLECTOMY/ADENOIDECTOMY TOOTH EXTRACTION TUBAL LIGATION 2007 COLONOSCOPY x2 with polypectomy HYSTEROSCOPY W/ ENDOMETRIAL ABLATION DIAGNOSTIC LAPAROSCOPY 2010 Medical History Medical History Date Comments Anxiety 2008 Depression 2009 Autoimmune disease 2022 Chronic venous insufficiency Lichen planus HPV in female Carpal tunnel syndrome ((Pt Qnr Sub: Nerve /muscle disease)) Arthritis GERD (gastroesophageal reflux disease) Liver disease Colon polyp Chronic diarrhea Irritable bowel syndrome Bipolar disorder PTSD (post-traumatic stress disorder) Substance abuse (HCC) 2016 Abnormal ECG 2024 seen by cardiolo gist Obesity 2007 Joint pain 2023 Fractures 10/18/2024 Left small finge r Low back pain 2011 Chronic constipation 2023 Morbid obesity (HCC) 2022 Family History Medical History Relation Name Comments Depression Daughter 1 Philly Mental illness Daughter 1 Philly Asthma Daughter 2 Praveena Depression Daughter 2 Praveena Mental illness Daughter 2 Praveena Diabetes Father Dad Heart disease Father Dad Alcohol abuse Maternal Grandfather Miguel Ayana Cancer Maternal Grandmother Lizeth Lupus Maternal Grandmother Lizeth Celiac disease Mother Brain Aneurysm Paternal Grandmother Arthritis Sister 1 Belen Cancer Sister 1 Belen Obesity Sister 1 Belen Rashes / Skin problems Sister 1 Belen No Known Problems Sister 2 Unknown Family History Sister 3 Relation Name Status Comments Brother Alive Daughter 1 Philly Daughter 2 Praveena Father Dad Maternal Grandfather Miguel Blumt Maternal Grandmother Lizeth Mother Alive Paternal Grandfather [...] if that. Alcohol Use Standard Drinks/Week Comments Not Currently 0 (1 standard drink = 0.6 oz pur e alcohol) PHQ-2 Answer Date Recorded PHQ-2 Total Score (If total score is 3 or more points, staff should administer the PHQ-9) 6 06/05/2025 PHQ-9 Answer Date Recorded PHQ-9 Total Score 15 06/05/2025 AUDIT-C Answer Date Recorded Q1: How often do you have a drink containing alcohol? Never 06/05/2025 Q2: How many drinks containi ng alcohol do you have on a typical day when you are drinking? Patient does not drink Q3: How often do you have si x or more drinks on one occasion? Never 06/05/2025 Personal Safety Answer Date Recorded Have you ever been in or are you currently in a harmful physical or emotional relationship or is someone making you feel afraid or unsafe? Denies 05/20/2025 Comments No Sex and Gender Information Value Date Recorded Sex Assigned at Not on file Legal Sex Female 11:46 PM RISK CONTROL PRODUCT LIABILITY DIRECTOR Gender Identity Female 03/27/2024 7:14 AM CDT Sexual Orientation Straight 03/27/2024 7: 14 AM CDT Obstetrics History Last Filed Vital Signs Vital Sign Reading Time Taken Comments Blood Pressure 102/58 06/05/2025 10:41 AM CDT Pulse 96 06/05/2025 10:41 AM CDT Temperature 36.5 C (97.7 F) 06/05/2025 10:41 AM CDT Respiratory Rate 18 06/05/2025 10:4 1 AM CDT Oxygen Saturation 98% 06/05/2025 10: 41 AM CDT Inhaled Oxygen Concentration - - Weight 104.7 kg (230 lb 12.8 oz) 2024 10:41 AM CDT Height 160 cm (5' 3) 06/05/2025 10:41 AM CDT Body Mass Index 40.88 06/05/2025 10:41 AM CDT Plan of Treatment Health Maintenance Due Date Last Done Comments Pneumococcal vaccine <65 (1 of 2 - PCV) 1997 Covid-19 Vaccine (3 - 2024-2 6 season) 2025 02/20/2021, 11/18/2020 Influenza Vaccine (#1) 2025 , 07/12/2022, 06/23/2021, Additional history exists Breast Cancer Screening-Mammogram 10/14/2025 10/14/2024, 10/14/2024, 10/14/2024, Additional history exists DTaP/Tdap/Td Vaccine (2 - Td or Tdap) 03/15/2026 03/15/2016 Depression Screening 06/05/2026 06/05/2025, 06/05/2025, 05/06/2025, Additional history exists Regular Well Visit/Exam 18-64 06/05/2026 06/05/2025 Cervical Cancer Screening 01/09/2029 01/10/2024 Colon Cancer Screening-Colonoscopy 02/05/2030 02/05/2025, 06/19/2024, 07/05/2023 Hepatitis B Screening Completed 03/05/2025 Hepatitis C Screening Completed 03/05/2025 Procedures Procedure Name Priority Date/Time Associated Diagnosis Comments SURGICAL PATHOLOGY Routine 05/20/2025 10:12 AM CDT Hemorrhoids, unspecified hemorrhoid type ME AN PROCEDURE PLACEHOLDER Routine 05/20/2025 10:11 AM CDT ME AN ELECTIVE ENDOTRACHEAL AIRWAY Routine 05/20/2025 10:11 AM CDT EXCISION PILONIDAL CYST 05/20/20 9:48 AM CDT HEMORRHOID, PILONIDAL CYST HEMORRHOIDECTOMY 05/20/2025 9:48 AM CDT HEMORRHOID, PILONIDAL CYST XR CHEST PA LATERAL 2 VIEWS Schedule Routine, Read Routine (OP Routine) 05/08/2025 8:32 AM CDT CBC WITH AUTO DIFFERENTIAL Routine 05/06/2025 12:47 [...] CDT Need for hepatitis C screening test COLONOSCOPY 02/05/2025 11:21 AM CDT MAMMOGRAPHY Routine 10/14/2024 PAP SMEAR WITH HPV Routine 01/10/2024 from Last 3 Months or Most Recently Relevant to Health Maintenance Results * Surgical pathology (05/20/2025 10:12 AM CDT) Tissue (Hemorrhoid/Anal Tag) 05/20/2025 10:12 AM CDT Tissue specimen (specimen) (Hemorrhoid/Anal Tag) 05/20/2025 10:16 AM CDT Narrative PATHOLOGY [facility] - 05/21/2025 3:45 PM CDT [facility] Department of Pathology [address] [place] [address] Note to Patients: This report may contain [...] Patient Name: ARDEN GARCIA : 1980 (Age: 45) Gender: F Address: [address] [place] [address] Hospital #: [id number] Service: Surgery Location: Patient Type: [facility] [place] OUTPATIENT Taken: 05/20/2025 Received: 05/20/2025 Accessioned: 05/20/2025 Reported: 05/21/2025 Physician(s): Fabricio Bazan PA Diagnosis: A. Anus, left lateral, hemorrhoidectomy - Hemorrhoids B. Anus, right posterolateral, hemorrhoidectomy - Hemorrhoids Jose Ocampo M.D. Report Electronically Reviewed and Signed Out By Jose Ocampo M.D. 05/21/2025 15:45:03 Specimen(s) Received: A: Left lateral hemorrhoid B: Right posterior lateral hemorrhoid Microscopic Description: Unless gross-only is specified, the final diagnosis for each specimen is based on a microscopic examination of each tissue sample. Clinical History: The patient is a 45-year-old woman with hemorrhoids and a pilonidal cyst. Operative procedure colon rectal exam under anesthesia with hemorrhoidectomy and minimally invasive pilonidal cystectomy. Gross Description Received in two formalin jars labeled with the patient's identifiers. A. Labeled left lateral hemorrhoid and consists of a 2.3 x 1.7 x 1.5 cm unoriented, irregularly shaped fragment of mucosa and skin. The mucosa is rogers-pink and glistening. The skin is rogers-brown, wrinkled and grossly unremarkable. Sectioning reveals rogers-pink, soft cut surfaces with dilated vascular spaces filled with blood clot. Transportation Attendant sections are submitted. Labeled A1. Jar M. B. Labeled right posterolateral hemorrhoid and consists of a 1.6 x 1.3 x 1.1 cm unoriented, ovoid fragment of mucosa that is rogers-pink, wrinkled and glistening. Sectioning reveals rogers, rubbery cut surfaces. No masses are grossly identified. The specimen is entirely submitted. Labeled B1. Jar 0. jjmhb/05/20/2025 13:58 KATHY Valentin, PA ([facility]) Microscopic slide review and interpretation for this case was performed at [facility], Department of Surgical Pathology, [address] [facility] [place], [place] [id number], [place] [address] CLIA # [id number] Sree Denton MD LAB PATHOLOGY ORDERABLES Fin al Result PATHOLOGY [facility] * ME AN ELECTIVE ENDOTRACHEAL AIRWAY, ME AN PROCEDURE PLACEHOLDER (05/20/2025 10:11 AM CDT) Narrative Stepahni Kim CRNA - 05/20/2025 10:11 AM CDT Stephani Kim CRNA 05/20/2025 10:12 AM Airway Patient location: OR Urgency: elective Date/time: 05/20/2025 9:55 AM Indications for airway management: anesthesia Difficult airway: no Emergent airway documentation: Risks and benefits discussed: yes Consent obtained: yes Consent given by: patient Airway prep: Preoxygenated: yes Patient position: sniffing MILS maintained throughout: yes Mask difficulty assessment: 2 - vent by mask + OA or adjuvant Spontaneous ventilation during airway: absent Sedation level during airway: deep Final airway details: Final airway type: endotracheal airway Tube type: ETT ETT size: 7.0 mm Cuffed: yes Technique used for successful ETT placement: video laryngoscopy Devices/Methods used in placement: intubating stylet Insertion site: oral Blade type: Katty Video blade type: Rodriguez Blade size: 3 Cormack-Lehane (video): grade I - full view of glottis Cuff volume: 8 mL Cuff inflated with: air ETT to teeth: 21 cm Placement verified by: auscultation and CO2 detection Airway secured with: silk tape Number of attempts: 1 Lucinda Gasca MD ANESTHESIA ORDERABLES Final Result * XR Chest Pa Lateral 2 Views (05/08/2025 8:32 AM CDT) Anatomical Region Laterality Modality Body, Chest N/A Radiographic Melissa ging Historical Provider IMG XR PROCEDURES Edited Result - Final * CBC with auto differential (05/06/2025 12:47 [...] CDT 05/06/2025 12:47 PM CDT Sanjuana Lemon [facility] LAB BLOOD ORDERABLES Final R esult [facility] [address] [place] [address] * (ABNORMAL) Comprehensive metabolic panel (05/06/2025 12:47 PM CDT) [facility] Glucose 103(H) 65 - 99 mg/dL [...] NP LAB BLOOD ORDERABLES Final R esult [facility] [address] [place] [address] * ECG 12 lead (05/06/2025 10:40 AM CDT) Sanjuana Lemon [facility] ECG ORDERABLES Final Result * CT Abdomen [...] Milan Daigle M.D. DA: NAGI Report ID: [id number] Reading Location: [place] [address] Procedure Note Milan Daigle MD - 04/29/2025 [...] Milan Daigle M.D. DA: DA Report ID: [id number] Reading Location: [place] [address] Sree Denton MD IMG CT PROCEDURES Final Resu lt * Hepatitis C antibody Blood (03/05/2025 8:34 AM CDT) Hep C Ab NON-REACTI VE NON-REACT HEMANT [facility] Comment: HCV antibody was non-reactive. There is no laboratory evidence of HCV infection. In most cases, no further action is required. However, if recent HCV exposure is suspected, a test for HCV RNA (test code 17102) is suggested. For additional information please refer to http://education.PhotoBox/faq/DSC27m6 (This link is being provided for informational/ educational purposes only.) Blood 03/05/2025 8:34 AM CDT 03/05/2025 8:34 AM CDT us Ira SINGH LAB MICROBIOLOGY - GENER AL ORDERABLES Final Result Performing Organization Address City/State/[facility] Phone Number [facility] [address] [place] [address] * Colonoscopy (02/05/2025 11:21 AM CDT) Anatomical Region Laterality Modality Other Narrative Procedure Note Slade Nash MD - 02/05/2025 11:21 AM CDT [facility] GI ENDOSCOPY Patient Name: Arden Garcia Procedure Date: 02/05/2025 11:21 AM Date of : 1980 Admit Type: Outpatient Age: 44 Gender: Female Attending MD: Slade Nash M.D. Room: [facility] ENDOSCOPY ROOM 03 Note Status: Finalized Procedure: Colonoscopy Indications: Rectal bleeding, History of colon polyps Referring MD: JOELLEN ElizabethC Providers: Slade Nash M.D. Medicines: Monitored Anesthesia [...] in 5 years for surveillance. - Recommend tqhb-dmj-wrirtzt hemorrhoidsuppositories b.i.d. for 2 weeks if bleeding recurs. Ifineffective, we will refer to Colorectal surgery. - Patient was advised to call GI office and make an appointment if symptoms persist. Slade Nash M.D. Slade Nash M.D. 02/05/2025 11:53:08 AM . Number of Addenda: 0 Note Initiated On: 02/05/2025 11:21 AM Recognized by the [employer] for promoting quality in endoscopy Slade Nash MD ENDOSCOPY PROCEDURES Final Resul t * HM MAMMOGRAPHY (10/14/2024) Mammography Abnormal Historical Provider HEALTH MAINTENANCE Final Result * PAP SMEAR WITH HPV (01/10/2024) Historical Provider HEALTH MAINTENANCE Final Result from Last 3 Months or Most Recently Relevant to Health Maintenance Insurance [facility] Care Teams Nut Packer Relationship Specialty Start Date End Date Ira Barrett PA [address] [facility] [address] [place], [place] [id number] PCP - General Family Medicine 04/03/24 Darius Rodriguez MD [address] [facility] [address] [place] [address] Consulting Physician Cardiology 05/07/25 Sree Denton MD [address] [facility] [address] [place], [place] [id number] Consulting Physician General Surgery 05/20/25
--- OUTSIDE RECORDS SUMMARY | 2025-06-12 16:30 | XMS_ITS | Clinical Summary ---
Author Organization [facility] Address [address] [place] [address] Care Team Providers Care Thermodynamics Professor Name Role Phone Demarcus Camejo MD Primary Care Provider Source Comments [facility],non-owned Affiliates and Associated Physician Practices is amultiple site organization consisting of ambulatory clinics and hospital sitesin [place], [place], [place] and [place]. This disclosure is being madepursuant to the Care Everywhere program and may not contain all information available regarding this patient. Last updated 18.[facility] Allergies Active Allergy Reactions Criticality Noted Date [...] Telephone [facility] - Centralized Scheduling [address] [place] [address] Moriah Bray MD Medication Issue 03/13/2025 1:00 PM CDT - 03/13/2025 11:59 PM CDT Hospital Encounter [address] [address] Ira Barrett PA Discharge Disposition: Home or Self Care 03/13/2025 Travel from Last 3 Months Social History [...] AM CDT Legal Sex Female 6:00 AM BRICK WASHER Gender Identity Female 07/17/2023 12:21 AM CDT [...] 98.4 kg (217 lb) 10/30/2024 8:08 AM BRICK WASHER Height 160 cm (5' 3) 10/30/2024 8:08 AM BRICK WASHER Body Mass Index 38.44 10/30/2024 8:08 AM BRICK WASHER Plan of Treatment Upcoming Encounters Date Type Department Care Team (Late st Contact Info) Description 09/24/2025 12:50 PM BRICK WASHER Office Visit [facility] - Dermatology [address] [place] [address] [place] [phone] Moriah Bray MD [address] [place] [address] [place] [address] Health Maintenance Due Date Last Done Comments [...] PCV) 1997 PAP SMEAR 1999 COVID-19 VACCINE ( season) 2025 02/20/2021, 11/18/2020 INFLUENZA VACCINE (#1) 2025 , 07/12/2022, 06/23/2021, Additional history exists SCREENING [...] this topic Medical Devices Implanted Type Area Residential Plumber Device Identifier Shelf Expiration Date Model / Serial / Lot Senomark Ultracor Ultrasound Enhanced Heart Breast Tissue Marker Implanted:Qty: 1 on 12/18/2023 by Laurel Estrada DO at [facility] Left: Breast [id number] 07/19/2026 [id number] / / [id number] Procedures Procedure Name Priority Date/Time Associated Diagnosis Comments US BREAST RIGHT LTD Routine 03/13/2025 1 :27 PM CDT Follow-up exam MAMMO BILAT SCREENING W FCO Routine 10/14/2024 12:28 PM BRICK WASHER Visit for screening mammogram ENDOSCOPY, COLON, SCREENING Routine 06/19/2024 9:00 AM CDT COMPREHENSIVE METABOLIC PANEL Routine 08/23/2023 3:46 PM BRICK WASHER Lichen planus LIPID PROFILE Routine 08/23/2023 3:46 PM BRICK WASHER Lichen planus HEPATITIS C AB SCREEN RFLX [...] NEGATIVE. > Dictated by Calvin Bansal DO (radiology therapist). I, Laurel Estrada DO have personally reviewed and interpreted this examination/study. > Interpreting Provider: Laurel Estrada DO on 03/13/2025 4:41 PM Narrative 03/13/2025 4:41 PM CDT EXAMINATION: LIMITED RIGHT BREAST ULTRASOUND LOCATION: [facility] EXAM DATE: 03/13/2025 HISTORY: Follow-up of a [...] No new sonographic findings. us Ira SINGH ORDERABLES Final Result * Mammo Bilat Screening W Fco (10/14/2024 12:28 PM BRICK WASHER) Anatomical Region Laterality Modality Breast Bilateral Mammography 10/14/2024 12:5 8 PM BRICK WASHER Addenda Addendum by Laurel Estrada DO on 10/15/2024 8:58 AM BRICK WASHER ADDENDUM: This addendum is being submitted to correct the right/left discrepancy in the recommendation section of the original report. The recommendation should read a diagnostic RIGHT (not left) mammogram and possible RIGHT (not left) ultrasound is recommended. Please refer to below fold report with addendum. EXAMINATIONS: BILATERAL DIGITAL SCREENING MAMMOGRAM AND BILATERAL BREAST TOMOSYNTHESIS LOCATION: [facility] EXAM DATE: 10/14/2024 HISTORY: Screening. No [...] fellow). Memo Espinoza and Varghese Burnham MD (radiology therapist) assisted in interpretation of this exam. > Interpreting Provider: Laurel Estrada DO on 10/15/2024 8:56 AM Impressions 10/14/2024 1:57 PM BRICK WASHER IMPRESSION: 1. Suggestion of possible focal asymmetry [...] fellow). Memo Espinoza and Varghese Burnham MD (radiology therapist) assisted in interpretation of this exam. ILaurel DO have personally reviewed and interpreted this examination/study. > Interpreting Provider: Laurel Estrada DO on 10/14/2024 1:57 PM Narrative 10/14/2024 1:57 PM BRICK WASHER EXAMINATIONS: BILATERAL DIGITAL SCREENING MAMMOGRAM AND BILATERAL BREAST TOMOSYNTHESIS LOCATION: [facility] EXAM DATE: 10/14/2024 HISTORY: Screening. No [...] a prior benign biopsy. Procedure Note Laurel Estrada, DO - 10/14/2024 EXAMINATIONS: BILATERAL DIGITAL SCREENING MAMMOGRAM AND BILATERALBREAST TOMOSYNTHESIS LOCATION: [facility] EXAM DATE: 10/14/2024 HISTORY: Screening. No [...] NEED ADDITIONALIMAGING EVALUATION. Report dictated by [facility], FR (breast imaging fellow). Memo Espinoza and Varghese Burnham MD (radiology therapist) assistedin interpretation of this exam. I, Laurel [...] the patient. Procedure Code(s): --- Professional --- 60195, Colonoscopy, flexible; with removal of tumor(s), polyp(s), or other lesion(s) by snare technique Diagnosis Code(s): --- Professional --- Z12.11, Encounter for screening for malignant neoplasm of colon D12.2, Benign neoplasm of ascending colon D12.3, Benign neoplasm of transverse colon (hepatic flexure or splenic flexure) D12.5, Benign neoplasm of sigmoid colon CPT copyright 2021 [employer]. All rights reserved. The codes documented in this report are preliminary and upon data coder operator review may be revised to meet current compliance requirements. Justin Otoole MD 06/19/2024 9:58:58 AM This report has been signed electronically. Note Initiated On: 06/19/2024 9:00 AM Number of Addenda: 0 [facility] [address] [place] [address] [facility] 06/19/2024 9:00 AM CDT us Justin Otoole MD GI PROCEDURE ORDERABLES Edited Result - Final [facility] * COMPREHENSIVE METABOLIC PANEL (08/23/2023 3:46 PM BRICK WASHER) Glucose 82 65 - 99 mg/dL [facility] Comment: Fasting reference interval BUN 17 7 - 25 mg/dL [facility] Creatinine 0.67 0.50 - 0.99 mg/dL [facility] eGFR by Cystatin C 110 > OR = 60 mL/min/1. 73m2 [facility] BUN/Creatinine Ratio SEE NOTE: 6 - (calc) [facility] Comment: Not Reported: BUN and [...] 29 U/L [facility] Comment: Test Performed at: [facility] [address] JORDYN DUMAS MD Blood BLOOD SPECIMEN / Unknown 08/23/2023 3:46 PM BRICK WASHER 08/23/2023 3:46 PM BRICK WASHER us Moriah Bray MD LAB - CHEMISTRY ORDERABLES Ping l Result [address] [address] * (ABNORMAL) LIPID PROFILE (08/23/2023 3:46 PM BRICK WASHER) Pathologist [facility] Cholesterol 189 <200 mg/dL [facility] HDL Cholesterol [...] LDL-C. Mike SS et al. TOMER. 2013;310(19): 1657-6288 (http://education.Unruly.Golimi/faq/HGI937) CHOL/HDLC RATIO 3.1 <5.0 (calc) [facility] Non HDL Cholesterol 128 <130 mg/dL (calc) [facility] Comment: For patients with diabetes plus 1 major ASCVD risk factor, treating to a non-HDL-C goal of <100 mg/dL (LDL-C of <70 mg/dL) is considered a therapeutic option. Test Performed at: [facility] [address] JORDYN DUMAS MD Blood BLOOD SPECIMEN / Unknown 08/23/2023 3:46 PM BRICK WASHER 08/23/2023 3:46 PM BRICK WASHER Moriah Bray MD LAB - CHEMISTRY ORDERABLES Ping l Result Performing Organization Address City/[facility] Co de Phone Number [address] [address] * HEPATITIS C AB SCREEN RFLX NAAT QUANT (07/20/2023 4:31 PM CDT) Hepatitis C Antibody Non-react rafy Non-reac tive 07/20/2023 5:52 PM CDT [facility] Comment:Hepatitis C Antibody screen indicates no [...] CDT Moriah Bray MD LAB - CHEMISTRY ORDERABLES Ping l Result Performing Organization Address City/[facility]/ZIP Co de Phone Number [facility] [address] [place] [address], [facility] [phone] from Last 3 Months or Most Recently Relevant to Health Maintenance Insurance [facility] Care Teams Thermodynamics Professor Relationship Specialty Start Date End Date Demarcus Camejo MD [address] [phone] PCP - General Family Medicine 07/05/24
--- OUTSIDE RECORDS SUMMARY | 2025-06-12 16:30 | XMS_ITS | Encounter Summary ---
Author Organization [facility] Address [address] [place] [address] Care Team Providers Care Specialties Operator Name Role Phone Demarcus Camejo MD Primary Care Provider [phone] Encounter Details Date Type Department Care Team (Late st Contact Info) Description 02/06/2025 Telephone [facility] - Dermatology [address] [place] [address] None, Physician [address] [place] [address] Social History Tobacco Use Types Packs/Day Years [...] AM CDT Legal Sex Female 6:00 AM LEAF SIZE PICKER Gender Identity Female 07/17/2023 12:21 AM CDT Sexual Orientation Straight 07/17/2023 12 :21 AM CDT documented as of this encounter Functional Status * Is person deaf or have serious hearing difficulty? Answer Date of Assessment Author No 06/19/2024 10:25 AM CDT Ruby Seaman RN * Is person blind or have serious difficulty seeing? Answer Date of Assessment Author No 06/19/2024 10:25 AM CDT uRby Seaman RN * Does person have serious [...] st Contact Info) Description 09/24/2025 12:50 PM LEAF SIZE PICKER Office Visit [facility] - Dermatology [address] [place] [address] [place] [phone] Moriah Bray MD [address] [place] [address] [place] [address] documented as of this encounter Visit Diagnoses Not on filedocumented in this encounter Care Teams Specialties Operator Relationship Specialty Start Date End Date Demarcus Camejo MD [address] [facility] [address] [place] [phone] PCP - General Family Medicine 07/05/24 documented as of this encounter
--- OUTSIDE RECORDS SUMMARY | 2025-06-12 16:30 | XMS_ITS | Encounter Summary ---
Author Organization [facility] Address [address] [place] [address] Care Team Providers Care Supply Person Name Role Phone Demarcus Camejo MD Primary Care Provider [phone] Reason for Visit * Reason Onset Date Comments MEDICATION REFILL 08/16/2023 Encounter Details Date Type Department Care Team (Late Contact Info) Description 08/16/2023 Refill [facility] - Dermatology [address] [place] [phone] Moriah Bray MD [address] [place], [place] [address] [phone] MEDICATION REFILL Social History Tobacco Use Types Packs/Day Years Used Date Smoking Tobacco: Some Days Cigarettes Smokeless Tobacco: Never Comments Unknown Sex and Gender Information Value Date Recorded Sex Assigned at Female 07/17/2023 12:21 AM CDT Legal Sex Female 6:00 AM COMMUNITY DIRECTOR Gender Identity Female 07/17/2023 12:21 AM CDT Sexual Orientation Straight 07/17/2023 12 :21 AM CDT documented as of this encounter Plan of Treatment Upcoming Encounters Date Type Department Care Team (Late Contact Info) Description 09/24/2025 12:50 PM COMMUNITY DIRECTOR Office Visit [facility] - Dermatology [address] [place] [phone] Moriah Bray MD [employer] [facility] [place] [address] documented as of this encounter Visit Diagnoses Not on filedocumented in this encounter Care Teams Supply Person Relationship Specialty Start Date End Date Demarcus Camejo MD [address] [facility] [address] [place] [phone] PCP - General Family Medicine 07/05/24 documented as of this encounter
--- OUTSIDE RECORDS SUMMARY | 2025-06-12 16:30 | XMS_ITS | Encounter Summary ---
Author Organization [facility] Address [address] [place] [address] Care Team Providers Care Soa Engineer Name Role Phone Ira Barrett Primary Care Provider + Darius Rodriguez MD Unavailable [phone] Sree Denton MD Unavailable [phone] Reason for Visit * Reason Onset Date Comments Information Only 04/21/2025 Encounter Details Date Type Department Care Team (Late st Contact Info) Description 04/21/2025 Nurse Triage [facility] Medical Group Family Medicine [address] [phone] Ira Barrett PA [address] [place] [address] Social History Tobacco Use Types [...] on file Legal Sex Female 11:46 PM MEDICAL INSURANCE VERIFIER Gender Identity Female 03/27/2024 7:14 AM CDT [...] CDT Pt was seen on 04/18 at [facility] r/t pilonidal cyst. She is on day [...] pain and is seeing specialist, seen in [facility] for cyst on tail bone and was [...] Protocols Used Information Only Call - No [id number] * Telephone Encounter - Gabby Nix, RN - 04/21/2025 1:08 PM CDT Regarding: Severe to moderate pain in right side, abdomen and pelvic area ----- Message from Ozzie Musa sent at 04/21/2025 1:07 PM CDT ----- Symptom Based Call Chief Complaint(s): Severe to moderate right upper quadrant; pain in right side, abdomen and pelvicarea Duration: Started yesterday What type of symptom(s) is the patient experiencing? Red Flag. Is the patient concerned they are experiencing a medical emergency requiring an ambulance? No Additional Comments: Patient visited [facility] in [place] on 04/18/25 for cyst right above tailbone. [...] on filedocumented in this encounter Care Teams Soa Engineer Relationship Specialty Start Date End Date Ira Barrett PA [address] [address] PCP - General Family Medicine 04/03/24 Darius Rodriguez MD [address] [facility] [address] [address] Consulting Physician Cardiology 05/07/25 Sree Denton MD [facility] [address] Consulting Physician General Surgery 05/20/25 documented as of this encounter
== END 2025-06-12 13:44 | disposition home or self-care (01) ==
DX: M47.811 Spondylosis without myelopathy or radiculopathy, occipito-atlanto-axial region (principal); M51.362 Other intervertebral disc degeneration, lumbar region with discogenic back pain and lower extremity pain
CPT/HCPCS: 72100